=== PATIENT | female | born 1945 | race Caucasian/White ===

== ENCOUNTER → 2016-06-26 | Outpatient (CLI) | payer OTHER, MEDICARE ==
[~2016-06-26] MED LIST: ASPEC81 PO; ASPI81TA28 PO; ATOR-24 PO; CALC-478 PO; CALC500C70 PO; CHOL100010 PO; CITA40TA12 PO; CLOP1TAB15 PO; GABA-113 PO; GLIP-172 PO; GLIP5TAB11 PO; ISOS30TA3 PO; LPT40 PO; NTRSLP4 SL; PANT40TA PO; PLV75 PO; PRAV80TA2 PO; RANI300T2 PO; SULF-183 PO
[2016-06-26 13:02] LABS: ESTIMATED AVERAGE GLUCOSE 169 mg/dl; HA1C FLAG Normal (Normal)
[2016-06-26 13:15] LABS: RATIO 5.2 mcg/mg (0-30.0)
== END | disposition home or self-care (01) ==
LOC: C.LAB1850 10:21
PROVIDERS: ATTEND Nurse Practitioner Family
DX: E11.9 Type 2 diabetes mellitus without complications (principal)

== ENCOUNTER 2016-07-07 17:20 | Inpatient (IN) | payer OTHER, MEDICARE ==
[~2016-07-07] VITALS: Ht 165.1 cm; Wt 69.0 kg
[~2016-07-07 17:20] MED LIST changes: -ASPEC81 PO; -ASPI81TA28 PO; -ATOR-24 PO; -CALC500C70 PO; -CLOP1TAB15 PO; -GLIP-172 PO; -ISOS30TA3 PO; -LPT40 PO; -NTRSLP4 SL; -PANT40TA PO; -PLV75 PO; -SULF-183 PO
[2016-07-07] MEDS ORDERED: NITROGLYCERIN OINT 2% 1GM PACKET EXT STA (17:40)
[2016-07-07] MEDS ORDERED: ASPIRIN 81 MG CHEW PO STA (17:40)
[2016-07-07] MEDS ORDERED: ONDANSETRON INJ 2 MG/ML 2 ML VIAL IV STA (17:40)
--- NOTE | 2016-07-07 17:52 | EMERGENCY ROOM VISIT NOTE ---
History Report prepared by Arely: Margaux Blanton Under the Supervision of: Dr. Bud Torres M.D. First contact with patient: 17:37 Chief Complaint: ABDOMINAL PAIN Stated Complaint: ABDOMINAL PAIN, CARDIAC SX- PHYSICIAN REFERRED Nursing Triage Summary: c/o epigastric pain, dysuria and nasuea with weakness for the past 3.5 wks History of Present Illness The patient is a 70 year old female who presents to the Emergency Room with complaints of worsening chest pain and epigastric abdominal pain that began 3.5 weeks ago. She currently rates her discomfort as a 5/10 in severity, describing her discomfort as a tightness. The patient notes that she has a history of gastroparesis. She states that when her symptoms began she saw her GI doctor and her medications were changed. The patient states that her symptoms have not subsided since. Today, the patient states that she had to leave work early because she became shaky, her neck stiffened, and she developed body aches. The patient associates a pain in her upper back between her shoulder blades today. She additionally notes that she has chest pressure today, shortness of breath, and has been feeling weak. The patient's daughter notes that the patient has had intermittent left arm pain. The patient states that her symptoms have worsened with exertion. She states that she has had difficulty getting around due to her shortness of breath. The patient states that she has been feeling increasingly bloated in her abdomen. She reports normal bowel movements, but notes a decrease in appetite. The patient notes a surgical history of a hysterectomy and cholecystectomy. Source of History: patient, family (daughter) Onset: 3.5 weeks ago Position: chest, abdomen (epigastric) Symptom Intensity: 5/10 Quality: other (tightness) Timing: worsening Associated Symptoms: + SOB, + abdominal pain, + chest pain, + nausea, + weakness Note: Associated Symptoms: shaky, left arm pain, body aches, neck stiffness Review of Systems See HPI for pertinent positives & negatives. A total of 10 systems reviewed and were otherwise negative. Past Medical & Surgical Medical Problems: (1) Depression (2) Diabetes mellitus, type II (3) Dyslipidemia (4) Gastroparesis (5) GERD (gastroesophageal reflux disease) (6) History of Helicobacter pylori infection (7) Irritable bowel syndrome (8) Vitamin D deficiency Surgical Problems: (1) H/O esophagogastroduodenoscopy (2) Incise Spinal Cord Tract (3) S/P cholecystectomy (4) S/P colonoscopy (5) S/P hysterectomy Family History FH: cancer FATHER (colon CA) SISTER (colon CA) Social History Smoking Status: Never Smoker Drug Use: none Marital Status: Housing Status: lives with significant other Occupation Status: retired Current/Historical Medications Scheduled Vkrxhic-Ifelesksh-Jmxg (Calcium & Magnesium + Zin 334-134-5 mg), 1 TAB PO DAILY Cholecalciferol (Vitamin D), 1,000 UNITS PO DAILY Citalopram Hydrobromide (Celexa), 40 MG PO QPM Gabapentin (Neurontin), 300 MG PO 5XD Glipizide (Glucotrol), 2.5 MG PO QPM Pantoprazole (Protonix), 40 MG PO QAM Pravastatin Sodium (Pravastatin Sodium), 80 MG PO QPM Ranitidine (Zantac), 300 MG PO QPM Allergies Coded Allergies: Metoclopramide (Unverified Allergy, Severe, SEVERE WEAKNESS/DIZINESS, 07/07) Metformin (Verified Allergy, Unknown, 07/07/16) Rosuvastatin (Unverified Adverse Reaction, Unknown, muscle cramping, ) Physical Exam Vital Signs Date Time Temp Pulse Resp B/P Pulse Ox O2 Delivery O2 Flow Rate FiO2 07/07/16 19:30 84 14 94 07/07/16 19:00 80 17 94 07/07/16 18:14 83 07/07/16 18:04 97 Room Air 07/07/16 17:25 37.4 82 18 140/63 97 Physical Exam GENERAL: Patient is in no acute distress. HEENT: No acute trauma, normocephalic atraumatic, mucous membranes moist, no nasal congestion, no scleral icterus. NECK: No stridor, no adenopathy, no meningismus, trachea is midline. LUNGS: Clear to auscultation bilaterally, no wheeze, no rhonchi, breath sounds equal. HEART: Subtle systolic murmur with a regular rate and rhythm. ABDOMEN: Tender in the epigastrium. Soft, bowel sounds positive, no hernias, no peritonitis. EXTREMITIES: No cyanosis or edema, full range of motion of all the joints without pain or difficulty, no signs for acute trauma. NEUROLOGIC: Oriented x 3, no acute motor or sensory deficits, no focal weakness. SKIN: No rash, no jaundice, no diaphoresis. Medical Decision & Procedures ER Provider Diagnostic Interpretation: X-ray results as stated below per interpretation by me and the radiologist: SINGLE VIEW CHEST CLINICAL HISTORY: Atypical chest pain. FINDINGS: An AP, portable, upright chest radiograph is compared to chest x-ray and chest CT dated 11/12/2015. The examination is degraded by portable technique and patient rotation. The cardiomediastinal silhouette is unremarkable. A hiatal hernia is observed. There is mild atherosclerotic calcification of the thoracic aorta. Chronic interstitial thickening is similar to previous. No airspace consolidation, pleural effusion, or pneumothorax is seen. The skeletal structures are osteopenic. The bony thorax is grossly intact. Cholecystectomy clips are noted in the right upper quadrant. IMPRESSION: No acute cardiopulmonary abnormality. Electronically signed by: Bud Chirinos M.D. 07/07/2016 7:05 PM Dictated Date/Time: 07/07/2016 7:04 PM SINGLE VIEW CHEST CLINICAL HISTORY: Atypical chest pain. FINDINGS: An AP, portable, upright chest radiograph is compared to chest x-ray and chest CT dated 11/12/2015. The examination is degraded by portable technique and patient rotation. The cardiomediastinal silhouette is unremarkable. A hiatal hernia is observed. There is mild atherosclerotic calcification of the thoracic aorta. Chronic interstitial thickening is similar to previous. No airspace consolidation, pleural effusion, or pneumothorax is seen. The skeletal structures are osteopenic. The bony thorax is grossly intact. Cholecystectomy clips are noted in the right upper quadrant. IMPRESSION: No acute cardiopulmonary abnormality. Electronically signed by: Bud Chirinos M.D. 07/07/2016 7:05 PM Dictated Date/Time: 07/07/2016 7:04 PM Laboratory Results 07/07/16 18:11 07/07/16 18:11 Test 07/07/16 18:11 Red Blood Count 4.54 M/uL (4.2-5.4) Mean Corpuscular Volume 91.2 fL (80-100) Mean Corpuscular Hemoglobin 30.2 pg (25-34) Mean Corpuscular Hemoglobin Concent 33.1 g/dl (32-36) RDW Standard Deviation 47.9 fL (36.4-46.3) RDW Coefficient of Variation 14.2 % (11.5-14.5) Mean Platelet Volume 9.0 fL (7.4-10.4) Prothrombin Time 10.5 SECONDS (9.0-12.0) Prothromb Time International Ratio 1.0 (0.9-1.1) Activated Partial Thromboplast Time 27.9 SECONDS (21.0-31.0) Partial Thromboplastin Ratio 1.1 Anion Gap 6.0 mmol/L (3-11) Est Creatinine Clear Calc Drug Dose 45.8 ml/min Estimated GFR () 58.5 Estimated GFR (Non- 50.5 BUN/Creatinine Ratio 10.6 (10-20) Calcium Level 8.8 mg/dl (8.5-10.1) Total Bilirubin 0.3 mg/dl (0.2-1) Aspartate Amino Transf (AST/SGOT) 14 U/L (15-37) Alanine Aminotransferase (ALT/SGPT) 26 U/L (12-78) Alkaline Phosphatase 86 U/L (45-117) Troponin I < 0.015 ng/ml (0-0.045) Total Protein 7.7 gm/dl (6.4-8.2) Albumin 3.5 gm/dl (3.4-5.0) Globulin 4.2 gm/dl (2.5-4.0) Albumin/Globulin Ratio 0.8 (0.9-2) Lipase 112 U/L (73-393) Laboratory results reviewed by me. Medications Administered Medications (Trade) Dose Ordered Sig/Marlin Route Start Time Stop Time Status Last Admin Dose Admin Nitroglycerin (Nitroglycerin 2% Oint) 1 inch NOW STAT EXT 07/07/16 17:40 07/07/16 17:48 DC 07/07/16 18:17 1 INCH Aspirin (Aspirin Chew) 324 mg NOW STAT PO 07/07/16 17:40 07/07/16 17:48 DC 07/07/16 18:17 324 MG Ondansetron HCl (Zofran Inj) 4 mg NOW STAT IV 07/07/16 17:40 07/07/16 17:48 DC 07/07/16 18:17 4 MG Acetaminophen (Tylenol Tab) 1,000 mg NOW STAT PO 07/07/16 19:26 07/07/16 19:27 DC 07/07/16 19:41 1,000 MG ECG Indication: chest pain, SOB/dyspnea Rate (beats per minute): 80 Rhythm: normal sinus Findings: nonspecific-ST abn (diffuse), no ectopy, other (no evidence of acute IL) Comparison ECG Date: 01/03/15 Change: EKG Change: when compared to EKG done on 01/03/15, Nonspecific ST changes are new. ED Course 1736: The patient was evaluated in room C11B. A complete history and physical exam was performed. 1739: Ordered Zofran Inj 4 mg IV, Aspirin 324 mg PO, Nitroglycerin 1 inch ext. 1922: I reevaluated the patient and she is resting comfortably. I discussed the exam findings with her and I discussed the treatment plan. She verbalized complete understanding and agreement. She is going to be evaluated for further treatment. 1925: Ordered Tylenol Tab 1000 mg PO. 2019: I discussed the patients case with SERGO Wu. He is going to evaluate the patient for further treatment. Medical Decision The patient is a 70 year old female who presents to the ED with complaints of abdominal pain and chest pain. Differential diagnoses considered include cardiac ischemia, bowel obstruction, pancreatitis, biliary colic, gastritis or ulcer, CHF, IL, anemia, electrolyte imbalance.. There is no leukocytosis or concerning anemia. No significant electrolyte abnormality, kidney failure, hepatitis or pancreatitis. Chest x-ray does not show mediastinal widening, free air or pneumonia. EKG shows a sinus rhythm, no acute ischemia. Cardiac enzyme testing times one is not consistent with acute cardiac injury. The patient presents with weeks of exertional symptoms. She has already seen GI and is not improving. Her symptoms certainly may be cardiac. I do think further care in the hospital is warranted. The patient was given oral aspirin, IV Zofran and nitroglycerin paste. She was given oral Tylenol for a headache. She does feel improved. I talked to the patient and her family. I spoke with case management. The on- call hospitalist was consulted. Consults Time Called: 1915 Consulting Physician: SERGO Wu Returned Call: 2019 I discussed the patients case with SERGO Wu. He is going to evaluate the patient for further treatment. Impression Primary Impression: Precordial chest pain Additional Impressions: Shortness of breath Epigastric abdominal pain Scribe Attestation The scribe's documentation has been prepared under my direction and personally reviewed by me in its entirety. I confirm that the note above accurately reflects all work, treatment, procedures, and medical decision making performed by me. Departure Information Dispostion Being Evaluated By Hospitalist Khushboo Maddox M.D. (PCP) Problem Qualifiers
[2016-07-07] MEDS ORDERED: CHOL100010 PO (18:05)
[2016-07-07] MEDS ORDERED: PANT40TA PO (18:05)
[2016-07-07 18:27] LABS: HEMATOCRIT 41.4 % (37-47); MEAN CELL VOLUME 91.2 fL (80-100); MEAN CORPUSCULAR HEMOGLOBIN 30.2 pg (25-34); MEAN CORPUSCULAR HGB CONC 33.1 g/dl (32-36); PLATELET COUNT 184 K/uL (130-400); RED BLOOD COUNT 4.54 M/uL (4.2-5.4); WHITE BLOOD COUNT 7.17 K/uL (4.8-10.8)
[2016-07-07 18:39] LABS: BLOOD UREA NITROGEN 12 mg/dl (7-18); BUN/CREATININE RATIO 10.6 (10-20); CALCIUM 8.8 mg/dl (8.5-10.1); CARBON DIOXIDE 31 mmol/L (21-32); CHLORIDE 101 mmol/L (98-107); GLUCOSE 156 mg/dl (70-99); SODIUM 138 mmol/L (136-145)
[2016-07-07 18:41] LABS: PARTIAL THROMBOPLASTIN RATIO 1.1; PROTHROMBIN TIME (PATIENT) 10.5 SECONDS (9.0-12.0)
[2016-07-07 19:01] LABS: ALB/GLOB RATIO 0.8 (0.9-2); ALKALINE PHOSPHATASE 86 U/L (45-117); ALT/SGPT 26 U/L (12-78); AST/SGOT 14 U/L (15-37)
--- NOTE | 2016-07-07 19:07 | DIAGNOSTIC IMAGING REPORT ---
SINGLE VIEW CHEST CLINICAL HISTORY: Atypical chest pain. FINDINGS: An AP, portable, upright chest radiograph is compared to chest x-ray and chest CT dated 11/12/2015. The examination is degraded by portable technique and patient rotation. The cardiomediastinal silhouette is unremarkable. A hiatal hernia is observed. There is mild atherosclerotic calcification of the thoracic aorta. Chronic interstitial thickening is similar to previous. No airspace consolidation, pleural effusion, or pneumothorax is seen. The skeletal structures are osteopenic. The bony thorax is grossly intact. Cholecystectomy clips are noted in the right upper quadrant. IMPRESSION: No acute cardiopulmonary abnormality. Electronically signed by: Bud Chirinos M.D. 07/07/2016 7:05 PM Dictated Date/Time: 07/07/2016 7:04 PM
[2016-07-07] MEDS ORDERED: ACETAMINOPHEN 500 MG TAB PO STA (19:26)
[2016-07-07] MEDS ORDERED: MAGNESIUM HYDROXIDE SUSP 30 ML UDC PO PRN (20:30)
[2016-07-07] MEDS ORDERED: ALUMINUM/MAGNESIUM/SIMETH (MAALOX MAX) 30 ML UDC PO PRN (20:30)
[2016-07-07] MEDS ORDERED: MoRPHine SULFATE 2 MG/ML CARP IV PRN (20:30)
[2016-07-07] MEDS ORDERED: NITROGLYCERIN 0.4 MG SL PER TAB CHARGE SL PRN (20:30)
--- NOTE | 2016-07-07 21:22 | History and Physical ---
History & Physical Date & Time of Service: Jul 07, 2016 at 21:16 Chief Complaint: Precordial Chest Pain Primary Care Physician: Khushboo Gamez M.D. History of Present Illness Source: patient, family 70-year-old female with past medical history of depression, type 2 diabetes, gastroparesis, IBS, hyperlipidemia, H. pylori infection presented to the ER with complaints of worsening precordial chest pain. She complains about epigastric abdominal pain which started about 3.5 weeks ago and complains of worsening chest pressure, fluttering sensation in the heart, chills, general stiffness, shaking with shortness of breath on exertion. She has a history of gastroparesis and was started recently on Reglan and Protonix, and ranitidine but she stopped Reglan after using it for about 5 days due to side effects. She does complain of acid reflux but denied any melena, bright red bleeding per rectum. She denied any cough, fevers, dysuria. She has a history of a cholecystectomy done several years ago and has noted that she had decreased appetite and bloated sensation. Past Medical/Surgical History Medical Problems: (1) Depression Status: Chronic (2) Diabetes mellitus, type II Status: Chronic (3) Dyslipidemia Status: Chronic (4) Gastroparesis Status: Chronic (5) GERD (gastroesophageal reflux disease) Status: Chronic (6) History of Helicobacter pylori infection Status: Chronic (7) Irritable bowel syndrome Status: Chronic (8) Vitamin D deficiency Status: Chronic Surgical Problems: (1) H/O esophagogastroduodenoscopy Status: Chronic (2) Incise Spinal Cord Tract Status: Chronic (3) S/P cholecystectomy Status: Chronic (4) S/P colonoscopy Status: Chronic (5) S/P hysterectomy Status: Chronic Family History FH: cancer FATHER (colon CA) SISTER (colon CA) Social History Smoking Status: Never Smoker Drug Use: none Marital Status: Housing status: lives with significant other Occupational Status: retired Immunizations History of Influenza Vaccine: No History of Tetanus Vaccine?: Unknown History of Pneumococcal: No History of Hepatitis B Vaccine: Yes Multi-Drug Resistant Organisms History of MDRO: No Allergies Coded Allergies: Metoclopramide (Unverified Allergy, Severe, SEVERE WEAKNESS/DIZINESS, 07/07) Metformin (Verified Allergy, Unknown, 07/07/16) Rosuvastatin (Unverified Adverse Reaction, Unknown, muscle cramping, ) Home Medications Scheduled Poegrzo-Pwuuybshc-Sswk (Calcium & Magnesium + Zin 334-134-5 mg), 1 TAB PO DAILY Cholecalciferol (Vitamin D), 1,000 UNITS PO DAILY Citalopram Hydrobromide (Celexa), 40 MG PO QPM Gabapentin (Neurontin), 300 MG PO 5XD Glipizide (Glucotrol), 2.5 MG PO QPM Pantoprazole (Protonix), 40 MG PO QAM Pravastatin Sodium (Pravastatin Sodium), 80 MG PO QPM Ranitidine (Zantac), 300 MG PO QPM Review of Systems Constitutional: No chills, No fever Eyes: No worsening of vision ENT: No hearing loss Respiratory: + dyspnea on exertion, + shortness of breath, No cough, No sputum Cardiovascular: + chest pain Abdomen: + nausea, + pain (epigastric), No vomiting Musculoskeletal: No joint pain Genitourinary - Female: No dysuria, No urinary frequency Neurologic: No memory loss Psychiatric: No depression symptoms Endocrine: No fatigue Physical Exam Vital Signs Date Time Temp Pulse Resp B/P Pulse Ox O2 Delivery O2 Flow Rate FiO2 07/07/16 20:57 86 18 135/71 96 07/07/16 19:30 84 14 94 07/07/16 19:00 80 17 94 07/07/16 18:14 83 07/07/16 18:04 97 Room Air 07/07/16 17:25 37.4 82 18 140/63 97 General Appearance: WD/WN, no apparent distress Head: normocephalic Eyes: normal inspection ENT: normal ENT inspection, hearing grossly normal Neck: supple Respiratory/Chest: chest non-tender, lungs clear, normal breath sounds, no respiratory distress, no accessory muscle use Cardiovascular: regular rate, rhythm Abdomen/GI: normal bowel sounds, + tenderness (epigastric area) Extremities/Musculoskelatal: no pedal edema Neurologic/Psych: alert, normal mood/affect, oriented x 3 Diagnostics Laboratory Results Results Past 24 Hours Test 07/07/16 18:11 Range/Units White Blood Count 7.17 4.8-10.8 K/uL Red Blood Count 4.54 4.2-5.4 M/uL Hemoglobin 13.7 12.0-16.0 g/dL Hematocrit 41.4 37-47 % Mean Corpuscular Volume 91.2 80-100 fL Mean Corpuscular Hemoglobin 30.2 25-34 pg Mean Corpuscular Hemoglobin Concent 33.1 32-36 g/dl RDW Standard Deviation 47.9 36.4-46.3 fL RDW Coefficient of Variation 14.2 11.5-14.5 % Platelet Count 184 130-400 K/uL Mean Platelet Volume 9.0 7.4-10.4 fL Prothrombin Time 10.5 9.0-12.0 SECONDS Prothromb Time International Ratio 1.0 0.9-1.1 Activated Partial Thromboplast Time 27.9 21.0-31.0 SECONDS Partial Thromboplastin Ratio 1.1 Sodium Level 138 136-145 mmol/L Potassium Level 4.0 3.5-5.1 mmol/L Chloride Level 101 98-107 mmol/L Carbon Dioxide Level 31 21-32 mmol/L Anion Gap 6.0 3-11 mmol/L Blood Urea Nitrogen 12 7-18 mg/dl Creatinine 1.10 0.60-1.20 mg/dl Est Creatinine Clear Calc Drug Dose 45.8 ml/min Estimated GFR () 58.5 Estimated GFR (Non- 50.5 BUN/Creatinine Ratio 10.6 10-20 Random Glucose 156 70-99 mg/dl Calcium Level 8.8 8.5-10.1 mg/dl Total Bilirubin 0.3 0.2-1 mg/dl Aspartate Amino Transf (AST/SGOT) 14 15-37 U/L Alanine Aminotransferase (ALT/SGPT) 26 12-78 U/L Alkaline Phosphatase 86 45-117 U/L Troponin I < 0.015 0-0.045 ng/ml Total Protein 7.7 6.4-8.2 gm/dl Albumin 3.5 3.4-5.0 gm/dl Globulin 4.2 2.5-4.0 gm/dl Albumin/Globulin Ratio 0.8 0.9-2 Lipase 112 73-393 U/L Diagnostic Radiology SINGLE VIEW CHEST CLINICAL HISTORY: Atypical chest pain. FINDINGS: An AP, portable, upright chest radiograph is compared to chest x-ray and chest CT dated 11/12/2015. The examination is degraded by portable technique and patient rotation. The cardiomediastinal silhouette is unremarkable. A hiatal hernia is observed. There is mild atherosclerotic calcification of the thoracic aorta. Chronic interstitial thickening is similar to previous. No airspace consolidation, pleural effusion, or pneumothorax is seen. The skeletal structures are osteopenic. The bony thorax is grossly intact. Cholecystectomy clips are noted in the right upper quadrant. IMPRESSION: No acute cardiopulmonary abnormality. Electronically signed by: Bud Chirinos M.D. 07/07/2016 7:05 PM Dictated Date/Time: 07/07/2016 7:[address] abnormalities, 80 bpm Impression Assessment and Plan 70-year-old female with past medical history of depression, type 2 diabetes, gastroparesis, IBS, hyperlipidemia, H. pylori infection presented to the ER with complaints of worsening precordial chest pain with shortness of breath on exertion. She also seemed to have epigastric pain. 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 Y/N: Yes Risk Level: Moderate Given or contraindicated: Enoxaparin (Lovenox) Resident Tracking Resident Involvement: Resident Care Provided Care Provided: Adult [facility] Medicine Assessment and Plan Attending Addendum: I have physically seen and examined this patient, have directed their medical care, have supervised the medical residents activities, and agree with the H&P as noted above, with the following changes: NONE
[2016-07-07 21:25] VITALS: BP 121/71; PULSE 79; TEMP 37; O2SAT 94; Ht 165.1 cm; Wt 69.0 kg
[2016-07-07] MEDS ORDERED: IV FLUIDS COMPLETED PRN (22:00)
[2016-07-07] MEDS: CITALOPRAM 40 MG TAB PO SCH (22:11)
[2016-07-07] MEDS: RANITIDINE HCL 150 MG TAB PO SCH (22:11)
[2016-07-07] MEDS: PRAVASTATIN SOD 40 MG TAB PO SCH (22:11)
[2016-07-07] MEDS: ENOXAPARIN 40 MG/0.4 ML SYR SC SCH (22:12)
[2016-07-07 22:57] VITALS: BP 92/46; PULSE 66; TEMP 37; O2SAT 93
[2016-07-08] VITALS (8 sets, daily range): BP systolic 94–144; BP diastolic 53–80; PULSE 64–80; TEMP 36.7–37.8; O2SAT 92–97
[2016-07-08 02:51] LABS: HEMATOCRIT 37.4 % (37-47); MEAN CELL VOLUME 91.2 fL (80-100); MEAN CORPUSCULAR HGB CONC 32.9 g/dl (32-36); PLATELET COUNT 165 K/uL (130-400); WHITE BLOOD COUNT 7.73 K/uL (4.8-10.8)
[2016-07-08] MEDS ORDERED: GLUCOSE 40% GEL 15 GM TUBE PO PRN (06:15)
[2016-07-08] MEDS ORDERED: GLUCOSE 10 TABS/TUBE PO PRN (06:15)
[2016-07-08] MEDS ORDERED: GLUCAGON FOR INJ 1 MG VIAL SQ PRN (06:15)
[2016-07-08] MEDS ORDERED: DEXTROSE 50% 50 ML SYR IV PRN (06:15)
[2016-07-08] MEDS: INSULIN ASPART 100 UNITS/ML 3 ML PEN SC SCH ×4 (07:00→19:55)
[2016-07-08] MEDS: ONDANSETRON INJ 2 MG/ML 2 ML VIAL IV PRN ×2 (08:06→19:49)
--- NOTE | 2016-07-08 08:19 | Family Medicine Progress Note ---
Progress Note Date of Service Jul 08, 2016. Subjective Pt evaluation today including: conversation w/ patient Patient sitting in bed relatively comfortably. She denies CP or SOB of breath currently, but says that she felt a lot better after having received Zofran. She does state that the symptoms have otherwise been persistent over the last 3- 4 weeks, and were worse after meals and with walking. Patient is very active, walking 2-3 miles daily at baseline, but recently has been unable to walk a block secondary to discomfort and SOB. She also describes symptoms of dysuria, urgency, frequency, and foul smelling urine, which started as of yesterday morning. She is agreeable to provide a urine sample for analysis for UTI. Constitutional: No chills, No fever Respiratory: No cough, No shortness of breath Cardiovascular: No chest pain Abdomen: + pain, No GI bleeding, No constipation, No diarrhea, No nausea, No vomiting Female : + dysuria, + urinary frequency, No abnormal vaginal bleeding, No hematuria, No vaginal discharge Objective Vital Signs Date Time Temp Pulse Resp B/P Pulse Ox O2 Delivery O2 Flow Rate FiO2 07/08/16 07:28 36.9 64 22 128/72 94 Room Air 07/08/16 04:00 Room Air 07/08/16 03:53 36.8 74 16 94/53 96 Room Air 07/08/16 00:31 67 105/65 95 Room Air 07/07/16 23:59 Room Air 07/07/16 22:57 37.0 66 17 92/46 93 Room Air 07/07/16 21:25 37.0 79 18 121/71 94 Room Air 07/07/16 20:57 86 18 135/71 96 07/07/16 19:30 84 14 94 07/07/16 19:00 80 17 94 07/07/16 18:14 83 07/07/16 18:04 97 Room Air 07/07/16 17:25 37.4 82 18 140/63 97 Physical Exam General Appearance: WD/WN, no apparent distress Eyes: normal inspection ENT: hearing grossly normal, pharynx normal Neck: supple, no JVD Respiratory/Chest: lungs clear, normal breath sounds, no respiratory distress, no accessory muscle use Cardiovascular: regular rate, rhythm, no murmur Abdomen: normal bowel sounds, soft, + tenderness (epigastric) Extremities: normal inspection, no pedal edema, no calf tenderness Neurologic/Psychiatric: alert, normal mood/affect, oriented x 3 Skin: normal color, warm/dry, no rash Laboratory Results Results Past 24 Hours Test 07/08/16 00:00 07/08/16 02:35 07/08/16 06:23 07/08/16 10:40 Range/Units Urine Color DK YELLOW Urine Appearance CLOUDY CLEAR Urine pH 7.0 4.5-7.5 Urine Specific [place] 1.026 1.000-1.030 Urine Protein 1+ NEG Urine Glucose (UA) NEG NEG Urine Ketones NEG NEG Urine Occult Blood TRACE NEG Urine Nitrite NEG NEG Urine Bilirubin NEG NEG Urine Urobilinogen NEG NEG Urine Leukocyte Esterase LARGE NEG Urine WBC (Auto) >30 0-5 /hpf Urine RBC (Auto) 5-10 0-4 /hpf Urine Hyaline Casts (Auto) 1-5 0-5 /lpf Urine Epithelial Cells (Auto) 10-20 0-5 /lpf Urine Bacteria (Auto) NEG NEG Urine Yeast (Auto) NONE PRSENT White Blood Count 7.73 4.8-10.8 K/uL Red Blood Count 4.10 4.2-5.4 M/uL Hemoglobin 12.3 12.0-16.0 g/dL Hematocrit 37.4 37-47 % Mean Corpuscular Volume 91.2 80-100 fL Mean Corpuscular Hemoglobin 30.0 25-34 pg Mean Corpuscular Hemoglobin Concent 32.9 32-36 g/dl RDW Standard Deviation 47.6 36.4-46.3 fL RDW Coefficient of Variation 14.2 11.5-14.5 % Platelet Count 165 130-400 K/uL Mean Platelet Volume 9.0 7.4-10.4 fL Troponin I < 0.015 < 0.015 0-0.045 ng/ml Bedside Glucose 121 70-90 mg/dl Sodium Level 139 136-145 mmol/L Potassium Level 3.9 3.5-5.1 mmol/L Chloride Level 102 98-107 mmol/L Carbon Dioxide Level 32 21-32 mmol/L Anion Gap 5.0 3-11 mmol/L Blood Urea Nitrogen 10 7-18 mg/dl Creatinine 1.00 0.60-1.20 mg/dl Est Creatinine Clear Calc Drug Dose 46.4 ml/min Estimated GFR () 65.6 Estimated GFR (Non- 56.6 BUN/Creatinine Ratio 10.4 10-20 Random Glucose 131 70-99 mg/dl Calcium Level 8.6 8.5-10.1 mg/dl Test 07/08/16 11:12 07/08/16 16:07 07/08/16 19:52 Range/Units Bedside Glucose 124 103 179 70-90 mg/dl Microbiology Results 07/08/16 Urine Culture, Received Pending Assessment and Plan 70 year old female with type 2 diabetes, gastroparesis, IBS, hyperlipidemia, depression, H. pylori infection admitted with complaints of epigastric pain, chest tightness, nausea and shortness of breath on exertion. Precordial chest pain - Chest x-ray showed no acute process. EKG showed nonspecific ST changes, serial troponin negative. D-dimer negative. - Consulted cardiology and for stress echo tomorrow - Nitro PRN chest pain GERD/epigastric pain - Concern for bronchospasm from acid reflux. GI consulted- recs appreciated. - Continue Protonix 40 qAM and ranitidine 300mg qAM - Zofran 4mg PRN nausea - For EGD tomorrow UTI - UA positive for large amounts of leuks. Urine cultures pending. Empiric antibiotic commenced. - Bactrim DS (Day 1 of 3) Type 2 diabetes - Home glipizide held - Insulin sliding scale - Continue gabapentin QID 100mg @B/L/D and 200mg HS Hyperlipidemia - Continue pravastatin 80mg qPM Depression - Continue Celexa 40mg qPM DVT prophylaxis - Lovenox SC Code status: DO NOT RESUSCITATE Resident Physician Supervision Note: I interviewed and examined the patient. Discussed with Dr. Jordan and agree with findings and plan as documented in the note. Any exceptions or clarifications are listed here: None Documented By: Tone Mancuso epigastric pain, nausea, sob. constant for weeks vitals noted, nad, breathing unlabored. diffuse epigastric ttp no guarding or rebound. labs reviewed, cardiac enzymes negative troponin negative a/p epigastric pain/nausea - PUD spectrum >> motility spectrum >> other -anticipate EGD (was only recently started on PPI, prior to that chronic med was H2) -stable for med surg -await GI input late addendum - d/w dr moore - pt gave a very different hx to him that is much more c/w angina (see his consult note) --given conflicting hx, certainly will want to more definitively r/o unstable angina (stress echo and cardiology eval) then when/if negative will proceed w EGD tomorrow afternoon Continued [facility] stay due to: other Discharge planning: home Resident Tracking Resident Involvement: Resident Care Provided Care Provided: Adult Hospital Medicine
[2016-07-08] MEDS ORDERED: ACETAMINOPHEN 325 MG TAB PO STA (08:58)
[2016-07-08] MEDS: GABAPENTIN 100 MG CAP PO SCH ×5 (09:19→20:31)
[2016-07-08] MEDS: PANTOprazole SOD 40 MG TAB PO SCH (09:19)
[2016-07-08 11:28] LABS: BLOOD UREA NITROGEN 10 mg/dl (7-18); BUN/CREATININE RATIO 10.4 (10-20); CALCIUM 8.6 mg/dl (8.5-10.1); CARBON DIOXIDE 32 mmol/L (21-32); CHLORIDE 102 mmol/L (98-107); GLUCOSE 131 mg/dl (70-99); POTASSIUM 3.9 mmol/L (3.5-5.1); SODIUM 139 mmol/L (136-145)
[2016-07-08 13:42] LABS: URINE APPEARANCE CLOUDY (CLEAR); URINE BILIRUBIN NEG (NEG); URINE COLOR DK YELLOW; URINE NITRITE NEG (NEG); URINE SPECIFIC GRAVITY 1.026 (1.000-1.030); UROBILINOGEN NEG (NEG); ZZURINE CULT IF INDIC CATH YES
[2016-07-08 13:46] LABS: MANUAL MICROSCOPIC REQUIRED? NO; REVIEW REQ? YES
--- NOTE | 2016-07-08 19:18 | GASTROINTESTINAL CONSULTATION ---
DATE OF CONSULTATION: 07/08/2016 GASTROENTEROLOGY CONSULTATION NOTE CHIEF COMPLAINT: Chest pressure, reflux, shortness of breath, dyspnea on exertion, and history of gastroparesis. HISTORY OF PRESENT ILLNESS: Mrs. Cox is a 70-year-old white female who presents to the Emergency Room with an approximate 3-week history of chest pain, chest pressure, neck pain, left arm pain with exertion. The patient recalls that approximately 3-1/2 weeks ago, she began to experience an increased amount of reflux such that she had seen Dr. Fine primary care at [facility] and at [facility], at which time her reflux meds were adjusted. She initially was on Zantac 300 mg twice daily for many years and this controlled her symptoms. Medications were changed to include Protonix 40 mg at bedtime and 300 mg of ranitidine at bedtime. This did not provide any relief in symptoms. The patient describes that with exertion, the patient will have shortness of breath, an increased chest pressure, although occasionally can occur without it. There is also a component of nausea and epigastric discomfort when this occurs. The patient reports that several years ago she had H. pylori infection and was treated for this. She has also had prior upper endoscopy and gastric emptying scans which identified gastroparesis. It is unclear whether or not there were ulcers at the time of her endoscopy and H. pylori infection. The patient was also seen recently by Dr. Coronado who attempted a trial of Reglan; however, the patient became dizzy and did not like the side effect that it produced and then subsequently discontinued it after 4-5 days. The patient reports that her sugars are in good control on a small dose of glipizide and metformin. The patient denies any vomiting, hematemesis, coffee-ground emesis, melena or bright red blood per rectum. She had a prior cholecystectomy back in the 1970s. She reports an approximate 7-pound weight loss since these symptoms occurred. However, her sugars have not been in poor control. She has no history of COPD or chronic respiratory issues. PAST MEDICAL HISTORY: Significant for chronic depression, type 2 diabetes, dyslipidemia, gastroparesis, reflux disease, prior history of H. pyloric infection, irritable bowel syndrome, spinal cord surgery, hysterectomy with intact ovaries and colonoscopy. FAMILY HISTORY: Significant for father and sister with colon cancer. SOCIAL HISTORY: The patient denies tobacco or alcoholic beverages. She lives with a significant other, is retired and . Her of aplastic anemia. ALLERGIES: THE PATIENT IS ALLERGIC TO METOCLOPRAMIDE, WHICH PRODUCED WEAKNESS AND DIZZINESS; METFORMIN AND ROSUVASTATIN. CURRENT HOME MEDICATIONS: Include mag, calcium and zinc supplements; vitamin D, Celexa, gabapentin, Neurontin, glipizide, pantoprazole, pravastatin and ranitidine 300 mg at bedtime. REVIEW OF SYSTEMS: Otherwise noncontributory based on 14-point exam except for mentioned above. The patient denies any dysuria, hematuria, but did report a need to elevate the head of her bed. She does not report any breath sounds that are audible to her (wheezes). PHYSICAL EXAMINATION ON ADMISSION: VITAL SIGNS: She was afebrile at 37.4, heart rate 82, respirations 18, blood pressure 140/63, pulse ox 97% on room air. GENERAL: The patient is awake, alert and oriented x3. She is accompanied by her 3 daughters and grandson. She is resting comfortably in bed. HEENT: The sclerae are anicteric, conjunctiva moist. Oral mucosa moist. HEART: Normal S1, S2, without systolic ejection murmur. LUNGS: Clear to auscultation, although decreased breath sounds occurred throughout the lung costello, perhaps due to effort. There are no wheezes or stridors noted. ABDOMEN: Soft, mildly tender in the epigastrium. There is no rib/costal margin tenderness identified bilaterally. There are no abdominal masses or bruits. I do not appreciate hepatosplenomegaly. There is no evidence of ascites or shifting dullness. EXTREMITIES: Without clubbing, cyanosis or edema. RECTAL: Deferred at this time. LABORATORY STUDIES ON ADMISSION: White count 7.1, hemoglobin 13.7, MCV 91, platelets are 184. INR is 1.0. BUN and creatinine are 12 and 1.1, potassium is 4.0. LFTs are normal with AST 14, ALT 26, total bilirubin 0.3, alkaline phosphatase 86, initial troponin level was less than 0.015. Albumin 3.5 and lipase is 112. IMAGING DATA: Chest x-ray was no acute disease. EKG showed nonspecific ST-segment abnormalities at a rate of 80. IMPRESSION AND PLAN: The patient is a 70-year-old female with a history of type 2 diabetes for several years and reported good control at home. The patient had an abrupt change in her symptoms such that she experienced worsening of her reflux which is generally in excellent control on Zantac 300 mg twice daily. The patient describes a pattern of fairly consistent exertional dyspnea and chest pressure with similar events when climbing steps. There is also a worsening of her heartburn and a component of nausea and with these symptoms, there is a pattern of jaw pain which she has not previously experienced and perhaps some vague left arm discomfort. She did receive, by her history a nitroglycerin tablet and Zofran and did have relief in her symptoms, although which agent actually provided the relief is unclear. Differential diagnosis certainly may include reflux disease, although it is unclear why her symptoms have worsened as she reports that her sugars have been in very good control and she has not gained weight. The gastroparesis may be contributing to some reflux if this has worsened, although why this would be so it is unclear. I am concerned about the description of the patient's chest pressure, dyspnea on exertion along with the jaw pain and arm pressure. PLAN AND RECOMMENDATIONS: I made the following recommendations: I believe it is reasonable for the patient to undergo an upper endoscopy to exclude ulcers, evidence of active esophagitis, retained gastric contents and to assess for H. pylori. However, I also feel that it would be prudent for the patient to undergo some form of coronary artery assessment either with stress testing, stress echo or alternatives, given that the patient is diabetic and the new onset of description of the symptoms. The patient's family had offered Dr. Aguero as a cardiology consult and I did discuss this with Dr. Mancuso who will arrange for a stress test and cardiac evaluation. If everyone is agreeable, then will plan tentatively for an upper endoscopy tomorrow afternoon. The patient should be maintained on n.p.o., continue on PPI therapy and continue the cardiac rule out, although I think that active myocardial injury is not likely at this time. All questions answered for the patient and her family. Patient/family wishes to see Dr Aguero from Cardiology Thank you for allowing me to participate in this patient's care. SANDEE
[2016-07-08] MEDS ORDERED: SULFAMETHOXAZOLE/TRIMETHOPRIM DS 800/160MG TAB PO ONE (19:38)
[2016-07-08] MEDS: RANITIDINE HCL 150 MG TAB PO SCH (20:31)
[2016-07-08] MEDS: CITALOPRAM 40 MG TAB PO SCH (20:31)
[2016-07-08] MEDS: ENOXAPARIN 40 MG/0.4 ML SYR SC SCH (20:31)
[2016-07-08] MEDS: PRAVASTATIN SOD 40 MG TAB PO SCH (20:31)
[2016-07-08] MEDS: SODIUM CHLORIDE 0.9% 1000ML 1,000 ML IV SCH (22:32)
[2016-07-08] MEDS: ACETAMINOPHEN 325 MG TAB PO PRN (22:33)
[2016-07-08] MEDS: PHENAZOPYRIDINE HCL 100 MG TAB PO PRN (22:34)
[2016-07-09] MEDS: INSULIN ASPART 100 UNITS/ML 3 ML PEN SC SCH ×4 (06:30→20:22)
[2016-07-09 07:12] VITALS: BP 131/71; PULSE 65; TEMP 36.4; O2SAT 91
[2016-07-09] MEDS: SODIUM CHLORIDE 0.9% 1000ML 1,000 ML IV SCH ×2 (07:42→17:48)
--- NOTE | 2016-07-09 07:50 | Family Medicine Progress Note ---
Progress Note Date of Service Jul 09, 2016. Subjective Pt evaluation today including: conversation w/ patient, conversation w/ family , physical exam, chart review, lab review Patient sitting comfortably in bed. She denies CP or SOB of breath currently, but says that last night her symptoms were awful, particularly after eating dinner- she had had worsening epigastric tenderness, chest tightness, nausea. In addition, she was having jaw pain, and though it has dulled this morning, she states that it has constantly been present in the last few weeks. She is still experiencing significant dysuria, requiring Pyridium for relief. Her energy levels are still low. Constitutional: No chills, No fever Respiratory: No cough, No shortness of breath Cardiovascular: + chest pain, No PND, No edema, No orthopnea, No palpitations Abdomen: + nausea, + pain, No GI bleeding, No constipation, No diarrhea, No vomiting Female : + dysuria, + urinary frequency, No abnormal vaginal bleeding, No hematuria, No vaginal discharge Objective Vital Signs Date Time Temp Pulse Resp B/P Pulse Ox O2 Delivery O2 Flow Rate FiO2 07/09/16 07:12 36.4 65 20 131/71 91 Room Air 07/09/16 00:00 Room Air 07/08/16 23:08 37.8 79 16 125/74 92 Room Air 07/08/16 21:07 36.7 75 18 144/80 95 Room Air 07/08/16 19:33 36.8 76 20 122/67 92 Room Air 07/08/16 16:00 Room Air 07/08/16 15:38 37.1 80 20 107/58 97 Room Air 07/08/16 12:00 Room Air 07/08/16 11:29 36.7 73 20 133/80 92 Room Air 07/08/16 08:00 Room Air Physical Exam General Appearance: WD/WN, no apparent distress Eyes: normal inspection ENT: hearing grossly normal Neck: supple, no adenopathy Respiratory/Chest: lungs clear, normal breath sounds, no respiratory distress, no accessory muscle use, + pertinent finding (Shallow breaths secondary to discomfort) Cardiovascular: regular rate, rhythm, no murmur Abdomen: normal bowel sounds, soft, + tenderness (epigastric) Extremities: normal inspection, no pedal edema, no calf tenderness Neurologic/Psychiatric: alert, normal mood/affect, oriented x 3 Skin: normal color, warm/dry, no rash Laboratory Results Results Past 24 Hours Test 07/08/16 19:52 07/09/16 07:34 07/09/16 11:34 07/09/16 16:32 Range/Units Bedside Glucose 179 112 105 91 70-90 mg/dl Assessment and Plan 70 year old female with type 2 diabetes, gastroparesis, IBS, hyperlipidemia, depression, H. pylori infection admitted with complaints of epigastric pain, chest tightness, nausea and shortness of breath on exertion. Precordial chest pain - Chest x-ray showed no acute process. EKG showed nonspecific ST changes, serial troponin negative. D-dimer negative. - For exercise stress echo tomorrow - Nitro PRN chest pain Epigastric pain - Concern for bronchospasm from acid reflux. GI consulted-recs appreciated. Endoscopy 07/09 showed normal upper GI except for previously know hiatal hernia and non-bleeding duodenal diverticulum. Discontinued recently added Protonix given no addition pain relief and no indications pain is secondary to worsened GERD. - Continue ranitidine 300mg qAM - Zofran 4mg PRN nausea - Started erythromycin 250mg TID 30min before meals for gastric pro-motility UTI - UA positive for large amounts of leuks. Urine cultures pending. Empiric antibiotic commenced. - Bactrim DS (Day 1 of 3) Type 2 diabetes - Home glipizide held - Insulin sliding scale - Continue gabapentin QID 100mg @B/L/D and 200mg HS Hyperlipidemia - Continue pravastatin 80mg qPM Depression - Continue Celexa 40mg qPM DVT prophylaxis - Lovenox SC Code status: DO NOT RESUSCITATE Continued [facility] stay due to: inadequate oral pain control Discharge planning: home Resident Tracking Resident Involvement: Resident Care Provided Care Provided: Adult Hospital Medicine
[2016-07-09] MEDS: GABAPENTIN 100 MG CAP PO SCH ×5 (08:00→20:22)
[2016-07-09] MEDS: SULFAMETHOXAZOLE/TRIMETHOPRIM DS 800/160MG TAB PO SCH ×3 (09:00→20:24)
[2016-07-09] MEDS: PHENAZOPYRIDINE HCL 100 MG TAB PO PRN ×2 (11:46→20:40)
--- NOTE | 2016-07-09 13:36 | History & Physical Bridge Note ---
H&P Re-Evaluation Bridge Note: I have examined the patient, reviewed the History & Physical and in the interval since the performance of the History & Physical I have noted the following changes of clinical significance: No changes noted EGD today- [facility]
--- NOTE | 2016-07-09 13:58 | GI REPORT ---
Procedure Date: 07/09/2016 1:47 PM Procedure: Upper GI endoscopy Indications: Gastro-esophageal reflux disease, Unexplained chest pain Medicines: Propofol per Anesthesia Complications: No immediate complications. Estimated blood loss: None. Estimated Blood Loss: Estimated blood loss: none. Procedure: Pre-Anesthesia Assessment: - Prior to the procedure, a History and Physical was performed, and patient medications and allergies were reviewed. The patient's tolerance of previous anesthesia was also reviewed. The risks and benefits of the procedure and the sedation options and risks were discussed with the patient. All questions were answered, and informed consent was obtained. Prior Anticoagulants: The patient has taken no previous anticoagulant or antiplatelet agents. ASA Grade Assessment: II - A patient with mild systemic disease. After reviewing the risks and benefits, the patient was deemed in satisfactory condition to undergo the procedure. After obtaining informed consent, the endoscope was passed under direct vision. Throughout the procedure, the patient's blood pressure, pulse, and oxygen saturations were monitored continuously. The scope was introduced through the mouth, and advanced to the second part of duodenum. The upper GI endoscopy was accomplished without difficulty. The patient tolerated the procedure well. Findings: The examined esophagus was normal. A medium-sized hiatus hernia was found. The proximal extent of the gastric folds (end of tubular esophagus) was 31 cm from the incisors. The hiatal narrowing was 35 cm from the incisors. The Z-line was 31 cm from the incisors. The entire examined stomach was normal. The examined duodenum was normal. A non-bleeding diverticulum was found in the second part of the duodenum. The cardia and gastric fundus were normal on retroflexion. Retained gastric contents are not identified on this exam. Impression: - Normal esophagus. - Medium-sized hiatus hernia. - Normal stomach. - Normal examined duodenum. - Non-bleeding duodenal diverticulum. - No specimens collected. Recommendation: - [facility]. - Advance diet as tolerated. - Cardiac workup - Continue present medications. MD Martin Arora MD 07/09/2016 1:56:40 PM This report has been signed electronically. Note Initiated On: 07/09/2016 1:47 PM I attest to the content of the Intraoperative Record and orders documented therein, exceptions below
--- NOTE | 2016-07-09 14:37 | Anesthesiology Progress Note ---
Anesthesia Post Op Note Date & Time Jul 09, 2016 at 14:36 Vital Signs Pain Intensity: 0 Vital Signs Past 12 Hours Date Time Temp Pulse Resp B/P Pulse Ox O2 Delivery O2 Flow Rate FiO2 07/09/16 14:28 67 20 111/56 95 Room Air 07/09/16 14:13 70 20 115/59 96 Room Air 07/09/16 13:58 68 20 105/40 95 Mask 10 07/09/16 13:19 36.7 65 18 122/53 95 Room Air 07/09/16 08:00 Room Air 07/09/16 07:12 36.4 65 20 131/71 91 Room Air Notes Mental Status: alert / awake / arousable, participated in evaluation Pt Amnestic to Procedure: Yes Nausea / Vomiting: adequately controlled Pain: adequately controlled Airway Patency, RR, SpO2: stable & adequate BP & HR: stable & adequate Hydration State: stable & adequate Anesthetic Complications: no major complications apparent
[2016-07-09] MEDS: ACETAMINOPHEN 325 MG TAB PO PRN (15:17)
[2016-07-09 15:28] VITALS: BP 118/58; PULSE 66; TEMP 36.6; O2SAT 92
[2016-07-09] MEDS: PANTOprazole SOD 40 MG TAB PO SCH (15:29)
[2016-07-09] MEDS ORDERED: PROPOFOL IV EMULSION 10 MG/ML 20 ML VIAL IV ONE (15:36)
[2016-07-09] MEDS ORDERED: LIDOCAINE HCL 2% 2 ML VIAL (20MG/ML) ONE (15:36)
[2016-07-09] MEDS: ERYTHROMYCIN ETHYLSUCC SUSP 200 MG/5 ML 100 ML BTL PO SCH (17:53)
[2016-07-09] MEDS: RANITIDINE HCL 150 MG TAB PO SCH (20:23)
[2016-07-09] MEDS: CITALOPRAM 40 MG TAB PO SCH (20:23)
[2016-07-09] MEDS: PRAVASTATIN SOD 40 MG TAB PO SCH (21:06)
[2016-07-09] MEDS: ENOXAPARIN 40 MG/0.4 ML SYR SC SCH (21:09)
[2016-07-09 22:58] VITALS: BP 122/68; PULSE 59; TEMP 36.9; O2SAT 95
[2016-07-10] VITALS (10 sets, daily range): BP systolic 109–138; BP diastolic 58–72; PULSE 59–68; TEMP 36.5–37; O2SAT 93–98
[2016-07-10] MEDS: ONDANSETRON INJ 2 MG/ML 2 ML VIAL IV PRN (00:12)
[2016-07-10] MEDS ORDERED: PHENAZOPYRIDINE HCL 100 MG TAB PO STA (01:27)
[2016-07-10] MEDS: SODIUM CHLORIDE 0.9% 1000ML 1,000 ML IV SCH (05:11)
[2016-07-10 06:04] LABS: HEMATOCRIT 38.9 % (37-47); MEAN CELL VOLUME 90.7 fL (80-100); MEAN CORPUSCULAR HEMOGLOBIN 29.1 pg (25-34); MEAN CORPUSCULAR HGB CONC 32.1 g/dl (32-36); PLATELET COUNT 170 K/uL (130-400); RED BLOOD COUNT 4.29 M/uL (4.2-5.4); WHITE BLOOD COUNT 6.26 K/uL (4.8-10.8)
[2016-07-10 06:45] LABS: CREATININE 0.97 mg/dl (0.60-1.20)
--- NOTE | 2016-07-10 06:52 | Family Medicine Progress Note ---
Progress Note Date of Service Jul 10, 2016. Subjective Pt evaluation today including: conversation w/ patient, physical exam, chart review, lab review Patient says that she is is feeling significantly better after her catheterization. Her SOB, nausea and jaw pain have improved. She is still having epigastric tenderness, but no where near the severity in which she was having it prior to the cath. Her GERD symptoms are still present to some degree after having food. She is still having significant dysuria, however during her admission and nearly 3 days of NPO, she has only received sporadic dosing. Constitutional: No chills, No fever, No sweats Respiratory: No shortness of breath Cardiovascular: No chest pain, No edema, No palpitations Abdomen: + pain, No nausea, No vomiting Female : + dysuria, + urinary frequency Objective Vital Signs Date Time Temp Pulse Resp B/P Pulse Ox O2 Delivery O2 Flow Rate FiO2 07/10/16 00:00 Room Air 07/09/16 22:58 36.9 59 20 122/68 95 Room Air 07/09/16 20:01 Room Air 07/09/16 16:00 Room Air 07/09/16 15:28 36.6 66 20 118/58 92 Room Air 07/09/16 14:28 67 20 111/56 95 Room Air 07/09/16 14:13 70 20 115/59 96 Room Air 07/09/16 13:58 68 20 105/40 95 Mask 10 07/09/16 13:19 36.7 65 18 122/53 95 Room Air 07/09/16 08:00 Room Air 07/09/16 07:12 36.4 65 20 131/71 91 Room Air Physical Exam General Appearance: WD/WN, no apparent distress Eyes: normal inspection ENT: hearing grossly normal Neck: supple Respiratory/Chest: lungs clear, normal breath sounds, no respiratory distress, no accessory muscle use Cardiovascular: regular rate, rhythm, no murmur Abdomen: normal bowel sounds, soft, + tenderness (epigatric) Extremities: normal inspection, no pedal edema, no calf tenderness, + pertinent finding (compression wrap around right wrist) Neurologic/Psychiatric: alert, normal mood/affect, oriented x 3 Skin: normal color, warm/dry, no rash Assessment and Plan 70 year old female with type 2 diabetes, gastroparesis, IBS, hyperlipidemia, depression, H. pylori infection admitted with complaints of epigastric pain, chest tightness, nausea and shortness of breath on exertion. Precordial chest pain - Chest x-ray showed no acute process. EKG showed nonspecific ST changes, serial troponin negative. D-dimer negative. Stress echo showed long 98% stenosis with sequential 40% lesion of LAD on coronary angiogram. Patient catheterized and ZAHRA placed. - Started on aspirin 81mg daily, clopidogrel 75mg daily and atorvastatin 40mg daily - Plans for cardiac rehab - Nitro PRN chest pain Epigastric pain - Concern for bronchospasm from acid reflux. GI consulted-recs appreciated. Endoscopy 07/09 showed normal upper GI except for previously know hiatal hernia and non-bleeding duodenal diverticulum. Discontinued recently added Protonix given no addition pain relief and no indications pain is secondary to worsened GERD. Gastric pro-motility, erythromycin started but then discontinued once cardiac cause found. - Continue ranitidine 300mg qAM - Zofran 4mg PRN nausea UTI - UA positive for large amounts of leuks. Urine cultures show multiple organisms. Empiric antibiotic commenced. - Continue course of Bactrim DS with plans to continue until 07/12 - Continue pyridium 100mg TID - Plans to see PCP Wednesday if no significant improvement in symptoms Type 2 diabetes - Home glipizide held - Insulin sliding scale - Continue gabapentin QID 100mg @B/L/D and 200mg HS Hyperlipidemia - Continue pravastatin 80mg qPM Depression - Continue Celexa 40mg qPM DVT prophylaxis - Lovenox SC Code status: DO NOT RESUSCITATE Continued [facility] stay due to: other Discharge planning: home Resident Tracking Resident Involvement: Resident Care Provided Care Provided: Adult Hospital Medicine
[2016-07-10 07:50] LABS: BUN/CREATININE RATIO 10.8 (10-20); CALCIUM 8.7 mg/dl (8.5-10.1); CREATININE 0.97 mg/dl (0.60-1.20); POTASSIUM 3.8 mmol/L (3.5-5.1)
[2016-07-10] MEDS: INSULIN ASPART 100 UNITS/ML 3 ML PEN SC SCH ×4 (07:59→20:59)
[2016-07-10] MEDS: ERYTHROMYCIN ETHYLSUCC SUSP 200 MG/5 ML 100 ML BTL PO SCH ×3 (08:00→11:44)
[2016-07-10] MEDS: GABAPENTIN 100 MG CAP PO SCH ×6 (08:00→19:43)
[2016-07-10] MEDS: SULFAMETHOXAZOLE/TRIMETHOPRIM DS 800/160MG TAB PO SCH ×3 (08:00→19:42)
--- NOTE | 2016-07-10 10:52 | EXERCISE STRESS ECHO ---
*NOTICE TO RECEIVING CONSTITUTION PARTY AGENCY This information is strictly Confidential and protected under [place] law. [place] law prohibits you from making any further disclosure of this information unless further disclosure is expressly permitted by the written consent of the person to whom it pertains or is authorized by law. A general authorization for the release of medical or other information is not sufficient for this purpose. Hospital accepts no responsibility if the information is made available to any other person, INCLUDING THE PATIENT. Interpretation Summary * Name: URIEL BOLAND Study Date: 07/10/2016 07:52 AM BP: 148/59 mmHg * Patient Location: .MS2W\S\W260\S\1 HR: 62 * : 1945 (M/d/yyy) Gender: Female Height: 65 in * Age: 70 yrs Ethnicity: [place] Weight: 148 lb * Ordering Physician: Tone Mancuso * Referring Physician: Khushboo Gamez * Performed By: Margaux Gooden RDCS * * Reason For Study: CHEST PAIN * BSA: 1.7 m2 * -- Conclusions -- * Stress Echo: * 1. Abnormal stress echo at 83% MPHR, suggesting distal LAD ischemia. * 2. Abnormal exercise ECG at 83% MPHR. 1 - [address] depression in leads II, III, aVF. ST segments returned to near baseline by 6 min 15 seconds into recovery. * 3. No arrhythmia. * 4. Appropriate blood pressure response to exercise. * 5. No chest pain reported however study was terminated due to shortness of breath. * 6. Poor exercise tolerance. * 7. Technically difficult study, enhanced with IV Definity. * 8. Dr. Mancuso made aware of findings. * ECHO: * 1. Normal left ventricular size and systolic function. EF 55-60%. No regional wall motion abnormalities At baseline. Mild concentric left ventricular hypertrophy. No significant diastolic dysfunction. * 2. No significant valvular abnormalities. * 3. Normal estimated right ventricular systolic pressure; RVSP 34 mmHg. Procedure Details * ECHOEX, CPT #14996 * A contrast injection of Definity was performed to improve assessment of LV function. * Contrast was injected into an intravenous site in the left arm. * One vial of Definity ultrasound contrast was diluted in normal saline to a total volume of 10 ml. A total of '4' ml of solution was administered during imaging. * Lot # [id number] of Definity utilized for procedure. * Expiration date MAY 09. * The attending nurse who injected the contrast agent was KARMEN GRIFFIN RN. Left Ventricle * Normal left ventricular size and systolic function. EF 55-60%. No regional wall motion abnormalities At baseline. Mild concentric left ventricular hypertrophy. No significant diastolic dysfunction. * Following exercise, the distal inferior wall and distal septal wall segments become hypokinetic. There is a small apical area of akinesis at peak exercise. Other wall segments appear to augment appropriately. Overall LV systolic function becomes more hyperdynamic. Right Ventricle * The right ventricle is normal in size and function. * The right ventricular systolic function is normal as assessed by tricuspid annular plane systolic excursion (TAPSE) (normal >1.5 cm). Atria * The left atrial size is normal. * Right atrial size is normal. * There is no evidence of atrial septal defect, but resolution does not allow assessment for a patent foramen ovale. Mitral Valve * The mitral valve leaflets appear normal. There is no evidence of stenosis, fluttering, or prolapse. * There is trace mitral regurgitation. Tricuspid Valve * The tricuspid valve anatomy is normal. * There is no tricuspid stenosis. * There is mild tricuspid regurgitation. Aortic Valve * The aortic valve is trileaflet. * The aortic valve is normal in structure and function. * No hemodynamically significant valvular aortic stenosis. * Trace aortic regurgitation. Pulmonic Valve * The pulmonary valve is inadequately visualized, but the Doppler data is adequate for interpretation. * There is no significant pulmonary regurgitation. Great Vessels * The aortic root is normal size. * Ascending aorta of normal dimension * Aortic arch of normal dimension. * Normal IVC size and inspiratory collapse. Pericardium * There is no pericardial effusion. Stress Parameters * Sinus rhythm 67 bpm. Nonspecific T-wave abnormality. * 1 - [address] depression in leads II, III, aVF. ST segments returned to near baseline by 6 min 15 seconds into recovery. * Rest heart rate was '62' BPM. * Rest blood pressure was '148/59' * Maximum heart rate achieved was 125 bpm. * Maximum heart rate was 83 % of maximum age-predicted heart rate. * Maximum blood pressure was '181/56' * Total exercise time was '3:49' * Maximum exercise MET level achieved was '5.50' METS * Maximum treadmill speed was '2.50' miles per hour. * Maximum treadmill elevation was '12.00'% grade. * Exercise was terminated due to 'shortness of breath' * Normal blood pressure response to exercise. MMode 2D Measurements and Calculations IVSd 1.2 cm IVSs 1.7 cm LVIDd 4.1 cm LVIDs 2.8 cm LVPWd 1.2 cm LVPWs 1.8 cm IVS/LVPW 0.99 FS 32.7 % EDV(Teich) 74.9 ml ESV(Teich) 28.8 ml EF(Teich) 61.6 % EDV(cubed) 69.7 ml ESV(cubed) 21.3 ml EF(cubed) 69.5 % % IVS thick 35.1 % % LVPW thick 48.4 % LV mass(C)d 179.5 grams LV mass(C)dI 103.2 grams/m\S\2 LV mass(C)s 187.4 grams LV mass(C)sI 107.7 grams/m\S\2 SV(Teich) 46.1 ml SI(Teich) 26.5 ml/m\S\2 SV(cubed) 48.4 ml SI(cubed) 27.8 ml/m\S\2 Ao root diam 2.5 cm Ao root area 4.7 cm\S\2 LA dimension 4.1 cm asc Aorta Diam 2.1 cm LA/Ao 1.7 LVAd ap4 26.4 cm\S\2 LVLd ap4 7.5 cm EDV(MOD-sp4) 77.6 ml EDV(sp4-el) 78.9 ml LVAs ap4 15.0 cm\S\2 LVLs ap4 6.1 cm ESV(MOD-sp4) 31.8 ml ESV(sp4-el) 31.2 ml EF(MOD-sp4) 58.9 % EF(sp4-el) 60.4 % LVAd ap2 24.9 cm\S\2 LVLd ap2 7.2 cm EDV(MOD-sp2) 73.1 ml EDV(sp2-el) 73.0 ml LVAs ap2 15.0 cm\S\2 LVLs ap2 6.3 cm ESV(MOD-sp2) 32.3 ml ESV(sp2-el) 30.3 ml EF(MOD-sp2) 55.8 % EF(sp2-el) 58.5 % LVLd %diff -4.54 % EDV(MOD-bp) 76.2 ml LVLs %diff 2.7 % ESV(MOD-bp) 32.5 ml EF(MOD-bp) 57.4 % SV(MOD-sp4) 45.7 ml SI(MOD-sp4) 26.3 ml/m\S\2 SV(MOD-sp2) 40.7 ml SI(MOD-sp2) 23.4 ml/m\S\2 SV(MOD-bp) 43.8 ml SI(MOD-bp) 25.2 ml/m\S\2 SV(sp4-el) 47.7 ml SI(sp4-el) 27.4 ml/m\S\2 SV(sp2-el) 42.8 ml SI(sp2-el) 24.6 ml/m\S\2 Doppler Measurements and Calculations MV E max rogelio 94.1 cm/sec MV A max rogelio 59.7 cm/sec MV E/A 1.6 MV dec time 0.23 sec Ao V2 max 143.9 cm/sec Ao max PG 8.3 mmHg Ao max PG (full) 5.2 mmHg LV V1 max PG 3.1 mmHg LV V1 max 87.8 cm/sec TV E max rogelio 62.1 cm/sec TR max rogelio 279.6 cm/sec RVSP(TR) 34.3 mmHg RAP systole 3.0 mmHg
[2016-07-10] MEDS ORDERED: ASPIRIN 325 MG ECTAB PO STA (12:36)
--- NOTE | 2016-07-10 13:17 | CARDIOLOGY CONSULTATION ---
DATE OF CONSULTATION: 07/10/2016 TIME: 12:29 p.m. CONSULTING PHYSICIAN: Dr. Mancuso. REASON FOR CONSULTATION: Abnormal stress test. HISTORY OF PRESENT ILLNESS: Ms. Cox is a pleasant 70-year-old female with history significant for type 2 diabetes, gastroparesis, and dyslipidemia, who presented to [facility] on 07/07/2016 with chest pain. She describes 2 different chest discomforts. The 1st she describes as acid reflux and burning substernally that radiates into her neck. It felt like prior acid reflux symptoms. She took ranitidine without any relief. She then started taking Tums and it has improved her symptoms. The trigger for this symptom was eating. It was nonexertional. She then developed chest tightness/pressure. She points a very lower portion of her chest and epigastric area. It is uncomfortable to wear a bra due to the discomfort. It is accompanied by shortness of breath and at times, it radiated to her jaw. It has been constant for 1.5 weeks. It has not resolved throughout that entire time; however, did improve after getting nitroglycerin and Zofran as she was also experiencing some nausea upon presentation. This symptom is also nonexertional. She states that it is actually worse while sitting down, but otherwise has no specific trigger and no alleviating factor that she has been able to identify. This symptom is not related to food. Because of the symptoms, she was evaluated by Dr. Morgan. He evaluated her on 07/07/2016. Dr. Morgan then performed an EGD on 07/09/2016, which demonstrated a medium sized hiatal hernia, but otherwise normal stomach and duodenum. There was a nonbleeding diverticulum in the second part of the duodenum. Another symptom she has experienced over the past 3 weeks is dyspnea with exertion. She states that up until 3 weeks ago, she was walking 1.5 miles to 3 miles on a daily basis. She states that she is very active. She did this exercise without exertional symptoms such as chest pain or shortness of breath. For the past 3 weeks, however, her exercise tolerance has dramatically decreased. She is now able to walk only approximately half a mile before she experienced significant dyspnea. She also describes a general weakness/fatigue feeling with exercise. Climbing a flight of stairs typically had been easy for her to do; however, recently, she has been experiencing significant dyspnea while climbing 1 flight of stairs. She tried cleaning her kitchen floor the other day, which is typically an easy chore for her; however, once again, she had significant dyspnea and then felt weak and had to sit down. This is a dramatic change in her exercise tolerance. She has never had a cardiac catheterization. She denies syncope, near syncope, palpitations, orthopnea or edema. She did have some nausea, but no vomiting. She had some dysuria and is on treatment for UTI. She is on antibiotic therapy for a UTI. She denies melena, hematochezia, hematuria, or other bleeding issues. REVIEW OF SYSTEMS: As above and review of systems is otherwise negative. PAST MEDICAL HISTORY: 1. Type 2 diabetes for greater than 10 years. 2. Dyslipidemia. 3. Gastroparesis. 4. GERD. 5. H. pylori infection in the past. 6. Depression. 7. Irritable bowel syndrome. 8. Status post hysterectomy. 9. Status post cholecystectomy. 10. Vitamin D deficiency. 11. Hiatal hernia. HOME MEDICATIONS: Include Protonix 40 mg daily, pravastatin 80 mg daily, Neurontin 300 mg 5 times daily, glipizide 2.5 mg daily, and Zantac 300 mg daily. Please see HPI for Please see H\T\P for full list. INPATIENT MEDICATIONS: Include Lovenox 40 mg subQ q. 24 hours each evening, pravastatin 80 mg daily, ranitidine 300 mg q.p.m., Bactrim 1 tab q. 12 hours, gabapentin, and Celexa 40 mg daily. ALLERGIES: SHE DID NOT TOLERATE CRESTOR. SHE ALSO HAS ALLERGIES/INTOLERANCES TO METFORMIN AND METOCLOPRAMIDE. SOCIAL HISTORY: Denies tobacco, alcohol or drug abuse. She is a . She lives with her xavi Reilly, who presented to the bedside. She has 3 daughters and 6 grandchildren. She has asked me to contact her daughter Katie Escalona, who works at the wound clinic. She also has a daughter that works at [employer] with the CT department. 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 FAMILY HISTORY: No known premature CAD. PHYSICAL EXAMINATION: VITAL SIGNS: Temperature 36.9 degrees, heart rate 64 beats per minute, respiratory rate 16, blood pressure 109/58 mmHg, and oxygen saturation 93% on room air. Most recent weight 67.4 kg. GENERAL: No acute distress. She is alert and oriented. HEENT: Anicteric sclerae. NECK: No appreciable JVD. No bruits. Normal carotid upstrokes bilaterally. CARDIAC EXAMINATION: PMI was not displaced. There was no ventricular heave. Regular, normal S1 and S2. No audible murmurs, rubs or gallops. LUNGS: Clear to auscultation bilaterally without wheezes, rales or rhonchi. ABDOMEN: Soft and nondistended. There is epigastric tenderness. No palpable mass. Normoactive bowel sounds. EXTREMITIES: 2+ radial pulses bilaterally. Brice's test okay. 2+ right femoral pulse. 2+ dorsalis pedis pulses bilaterally. No palpable cords. No cyanosis or pitting edema. PSYCHIATRIC: Affect appears appropriate. DIAGNOSTIC STUDIES: ECG on presentation demonstrated sinus rhythm at 80 beats per minute. Nonspecific T-wave abnormality. Stress echo performed earlier today reviewed. Abnormal stress echo with 83% MPHR, suggesting distal LAD ischemia. Abnormal exercise ECG with 1-[address] depression in leads 2, 3, and aVF. No arrhythmia. Poor exercise tolerance, exercising 3 minute and 49 seconds on a standard Fernie protocol. Baseline echo demonstrated normal LV systolic function, wall motion, and size. EF 55%-60%. Mild LVH. No significant valvular abnormalities. RVSP 34 mmHg. Chest x-ray image on presentation personally reviewed. No infiltrate. Radiology interpretation. No acute cardiopulmonary abnormality identified. ASSESSMENT AND PLAN: 1. Dyspnea with exertion: Dyspnea with exertion and decreased exercise tolerance is concerning for ischemic heart disease, especially with abnormal stress echo and abnormal stress ECG. Recommended diagnostic coronary angiography and PCI, if deemed appropriate. She was made aware that CT surgery is not available at this facility. She has asked that I discuss this further with her daughter, Katie Escalona, who also believes that this procedure should be performed today. Continue n.p.o. Aspirin therapy will be ordered. 2. Abnormal stress echo and ECG: Ischemic heart disease was suggested on stress echo and stress ECG. That coupled with her risk factors and decreased exercise tolerance if concerning for ischemic heart disease. Cardiac catheterization risks and benefits were discussed in detail. She was made aware that a CT surgery is not available at this facility. Plan as above. If she is found to have ischemic heart disease, would recommend a trial of atorvastatin in place of pravastatin for high intensity statin therapy. 3. Dyslipidemia: Continue current statin therapy for now, but if she is found to have ischemic heart disease, would suggest high intensity statin therapy. She did not tolerate Crestor, but would try atorvastatin. 4. Chest pain: She describes 2 different chest pains. The heartburn type symptoms were relieved with Tums and occurred with eating and likely do correlate with acid reflux. The other chest pain appears actually more of an epigastric tenderness. This is not likely cardiac in nature as it lasted constantly for 1.5 weeks with negative troponins. Her chest pain syndromes are less likely related to ischemic heart disease; however, her dyspnea with exertion is more concerning for ischemic heart disease. She has been evaluated by gastroenterology. 5. Disposition: Cardiac catheterization planned for later today. Dr. Mancuso was contacted and the patient care was communicated. Highly complex medical issues. Thank you for allowing me to participate in care of Ms. Cox. Sincerely,
[2016-07-10] MEDS ORDERED: NiCARDipine HCL INJ 2.5 MG/ML 10 ML AMP ONE (14:22)
[2016-07-10] MEDS ORDERED: FENTANYL CITRATE INJ 50 MCG/1 ML 2 ML VIAL ONE ×2 (14:22→15:21)
[2016-07-10] MEDS ORDERED: MIDAZOLAM HCL 1 MG/ML 2ML VIAL ONE ×2 (14:22→14:59)
[2016-07-10] MEDS ORDERED: NITROGLYCERIN/D5W 100MCG/ML 20ML SYR ONE (14:23)
[2016-07-10] MEDS ORDERED: HEPARIN SOD (PORCINE) 1000 UNIT/ML 10 ML VIAL ONE (14:23)
--- NOTE | 2016-07-10 14:33 | Procedure Note ---
Pre-Mod Sedation Assessment General Date of Moderate Sedation: Jul 10, 2016. Vital Signs: Vital Signs Past 12 Hours Date Time Temp Pulse Resp B/P Pulse Ox O2 Delivery O2 Flow Rate FiO2 07/10/16 08:15 Room Air 07/10/16 08:14 36.9 64 16 109/58 93 Room Air Review Cardiovascular: regular rate, rhythm Abdomen: soft Lungs: lungs clear Pre-Sedation Airway Assessment Oral Cavity: WNL Short Thick Neck: No Hx of Sleep Apnea: No Smoking Status: Never Smoker Procedure Planning Contraindications-for Mod Sed: None Yes Notes The planned sedation has been discussed with the patient and consent obtained. I have identified the patient, determined the appropriateness of sedation and have assessed the patient immediately prior to the procedure. All medicine(s) and interventions are by my order.
--- NOTE | 2016-07-10 15:33 | Procedure Note ---
Post-Mod Sedation Assessment General Date of Moderate Sedation Jul 10, 2016. Vital Signs: Vital Signs Past 12 Hours Date Time Temp Pulse Resp B/P Pulse Ox O2 Delivery O2 Flow Rate FiO2 07/10/16 08:15 Room Air 07/10/16 08:14 36.9 64 16 109/58 93 Room Air Review - Discharge Criteria Vital Signs Stable: Yes Alert/Oriented/Conversant: No (still sedated for PCI) Returned to Baseline Mental St: No (Still sedated for PCI) Nausea Absent/Minimal: Yes Pain/Discomfort/Absent/Minimal: Yes Normal/Baseline Respirations: Yes Active Bleeding?: No
--- NOTE | 2016-07-10 15:44 | Cardiac Catheterization ---
Procedure Note Procedure Date Jul 10, 2016. Pre-Procedure Diagnosis Positive Stress Test AUC Score 9 Post-Procedure Diagnosis Severe CAD, Elevated Intracardiac Pressures Procedure(s) Performed Coronary Angiography, Left Heart Cath Rectangular Tank Cooper Dr. Farley Segment Producer(s) Apurva Estimated Blood Loss < 20 ml Medication(s) Fentanyl, Heparin, Nicardipine, Nitroglycerin, Versed, Lidocaine 1% Summary of Findings Coronary angiography: 1. Left main coronary artery: The LMCA has no angiographic evidence of CAD. 2. Left anterior descending: The LAD is large and wraps around the apex. Mid LAD, just beyond a high diagonal, long 98% stenosis with sequential 40% lesion. APARNA 3 flow. The remainder of the LAD was without significant CAD. There is a very small caliber D2 and a very small caliber D3. Large septal forensic analyst. 3. Circumflex: The circumflex is a large caliber vessel. Mid circumflex 50%. Large OM1, without significant CAD. 4. Right coronary artery: The RCA is large and dominant. Proximal RCA 30%. Mid RCA 30%. Distal RCA 30%. No significant CAD within the posterior lateral branch or PDA. There are faint right to left collaterals Left heart catheterization: 1. Left ventriculography was not performed as patient had echocardiogram done earlier today. 2. Mildly elevated LVEDP; 15 mmHg. 3. No significant aortic stenosis. Procedural details: 1. Right radial artery was easily cannulated with a slender sheath. A 5 Emir[place] JL 3.5 diagnostic catheter was used for selective coronary angiography of the left main coronary artery. She experienced spasm within the right upper extremity. Nitroglycerin sublingual was given as well as nicardipine. This improved her symptoms. A 4 [place] JR4 diagnostic catheter was used for selective coronary angiography of the RCA, without resistance. Impression: 1. Severe CAD involving the mid LAD. 2. Nonobstructive CAD involving LAD, circumflex, and RCA. 3. No aortic stenosis. 4. Mildly elevated LVEDP. Plan: 1. Interventional Cardiology, Dr. Wells, plans on attempting PCI of LAD. Hemodynamics Rest Ao: 148/69 Final Ao: 139/68 LV: 142/9/15 Recommendations PCI without planned CABG Specimens None Radiation Exposure (mGy) 807 mGy. Fluoro time 3.7 min. Contrast (mls) 25 ml Visipaque Procedural Complication(s) None Disposition Remains in cath lab manager for PCI. [facility] Data Cardiac Status Clinical evaluation leading to the procedure CAD Presntation: Positive Stress Test Anginal Classification: CCS III Heart Failure: No Cardiogenic Shock w/in 24Hrs: No Cardiac Arrest w/in 24Hrs: No Imaging studies past 6 months: Yes Stress studies past 6 months: Yes Standard Exercise Stress Test: Yes - Positive, Risk/Extent of Ischemia (High) Stress Echocardiogram: Yes - Positive, Risk/Extent of Ischemia (High) Stress Testing w/SPECT MPI: No Cardiac CTA: No Coronary Anatomy Dominant: Right Left Main (% Stenosis): Normal LAD (% Stenosis): Mid (98% followed by 40%) D1 (% Stenosis): Normal D2 (% Stenosis): Normal D3 (% Stenosis): Normal Circumflex (% Stenosis): Mid (50%) OM1 (% Stenosis): Normal RCA (% Stenosis): Proximal (30%), Mid (30%), Distal R PDA (% Stenosis): Normal R PL1 (% Stenosis): Normal Ramus (% Stenosis): Normal Left Ventricular Angiography EF (%): n/a Diagnostic Physician's Name: Galo Farley MD Status: Elective Closure Device Percutaneous Entry Location: Radial Closure Device: Radial Band (after PCI) Recommendations: PCI without planned CABG PCI Indication: + Stress Test
[2016-07-10] MEDS ORDERED: CLOPIDOGREL BISULFATE 300 MG TAB PO ONE (15:46)
[2016-07-10] MEDS ORDERED: NITROGLYCERIN 0.4 MG SL PER TAB CHARGE SL PRN (16:00)
[2016-07-10] MEDS ORDERED: ACETAMINOPHEN 325 MG TAB PO PRN (16:00)
[2016-07-10] MEDS ORDERED: ONDANSETRON INJ 2 MG/ML 2 ML VIAL IV PRN (16:00)
[2016-07-10] MEDS ORDERED: SODIUM CHLORIDE 0.9% 1000ML 1,000 ML IV SCH (16:00)
--- NOTE | 2016-07-10 16:06 | Cardiac Catheterization ---
Procedure Note Procedure Date Jul 10, 2016. Pre-Procedure Diagnosis Positive Stress Test AUC Score 7 Post-Procedure Diagnosis Severe CAD, Successful PCI Procedure(s) Performed Drug Eluting Stent Route Delivery Service Driver Dr. Wells Racing Driver(s) Apurva Estimated Blood Loss 20 Medication(s) Fentanyl, Heparin, Nicardipine, Nitroglycerin Summary of Findings Indication: Positive stress test/Angina Access: 6Fr slender right radial artery Catheters: 5Fr EBU 3.5 Findings: For full details of coronary angiography see cath report by Dr. Farley from earlier today. Patient found to have 95% early-mid LAD focal stenosis. Decision made to proceed with PCI -- PCI -- Antithrombotic therapy: Heparin Procedure: LM cannulated with EBU 3.5 guide BMW wire passed across lesion into distal vessel LAD lesion predilated with 2.0 compliant balloon Dilated lesion stented with 2.75 x 15 Xience ZAHRA Stent post-dilated with 3.0 noncompliant balloon IC vasodilators administered for spasm Post procedure APARNA 3 flow, stent well expanded with minimal residual stenosis and no apparent cardiac complications. Arterial Closure: TR Band Summary: 1. 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 Continue dual-antiplatelet therapy with ASA/Clopidogrel for 1 year Start high dose statin -- switched to atorvastatin 40mg Consult cardiac Rehab Hemodynamics Rest Ao: 146/69/102 Final Ao: 112/60/82 LV: --- Recommendations PCI without planned CABG Specimens None Radiation Exposure (mGy) 1711 Contrast (mls) 115 Fluids (cc crystalloids) 130 Drains None Anesthesia Moderate (15:07 - 15:46) Procedural Complication(s) None Disposition PCU [facility] Data Cardiac Status Clinical evaluation leading to the procedure CAD Presntation: Positive Stress Test Anginal Classification: CCS III Heart Failure: No, NYHA Class: CCS I Cardiogenic Shock w/in 24Hrs: No Cardiac Arrest w/in 24Hrs: No Imaging studies past 6 months: Yes Stress studies past 6 months: Yes Stress Echocardiogram: Yes - Positive, Risk/Extent of Ischemia (High) Stress Testing w/SPECT MPI: No Cardiac CTA: Yes Coronary Anatomy Dominant: Right LAD (% Stenosis): Mid (98) Diagnostic Physician's Name: Galo Farley MD Closure Device Percutaneous Entry Location: Radial Closure Device: Radial Band Recommendations: PCI without planned CABG Lesion Segment Name: Mid LAD Culprit Artery: No Stenosis Prior to Rx (%): 98 Chronic Total Occlusion: No IVUS: No FFR: No Pre-Procedure APARNA Flow: 3 Previously Treated Lesion: No Lesion Complexity: Non-High/Non-C Lesion Length (mm): 12 Thrombus Present: No Bifurcation Lesion: No Guidewire Across Lesion: Yes Guidewire: Stenosis Post-Procedure (%): 0 Post-Procedure APARNA Flow: 3 Device(s) Deployed: Yes Intraprocedure Events Significant Dissection: No Perforation: No
[2016-07-10] MEDS ORDERED: PHENAZOPYRIDINE HCL 100 MG TAB PO PRN (18:45)
[2016-07-10] MEDS: RANITIDINE HCL 150 MG TAB PO SCH (19:41)
[2016-07-10] MEDS: CITALOPRAM 40 MG TAB PO SCH (19:42)
[2016-07-10] MEDS: ENOXAPARIN 40 MG/0.4 ML SYR SC SCH (21:17)
[2016-07-11 00:20] VITALS: O2SAT 94
[2016-07-11 04:15] VITALS: O2SAT 94
[2016-07-11 04:35] VITALS: BP 117/54; PULSE 76; TEMP 37; O2SAT 95
[2016-07-11 05:48] LABS: BASO % 0.4 %; BASO ABS # 0.02 K/uL (0-0.2); COMPLETE YES; EOS % 2.7 %; HEMATOCRIT 37.1 % (37-47); IG% 0.2 %; LYMPH % 40.4 %; LYMPH ABS # 2.13 K/uL (1.2-3.4); MEAN CORPUSCULAR HEMOGLOBIN 28.9 pg (25-34); MEAN CORPUSCULAR HGB CONC 32.1 g/dl (32-36); MEAN PLATELET VOLUME 8.6 fL (7.4-10.4); NEUT % 48.3 %; PLATELET COUNT 152 K/uL (130-400); RED BLOOD COUNT 4.12 M/uL (4.2-5.4); WHITE BLOOD COUNT 5.27 K/uL (4.8-10.8)
[2016-07-11 06:22] LABS: BUN/CREATININE RATIO 10.4 (10-20); CALCIUM 8.3 mg/dl (8.5-10.1); CREATININE 0.9 mg/dl (0.60-1.20); POTASSIUM 3.8 mmol/L (3.5-5.1)
[2016-07-11 07:28] VITALS: BP 119/50; PULSE 72; TEMP 36.9; O2SAT 93
[2016-07-11] MEDS: INSULIN ASPART 100 UNITS/ML 3 ML PEN SC SCH ×2 (08:20→12:22)
[2016-07-11] MEDS: GABAPENTIN 100 MG CAP PO SCH ×2 (08:24→12:24)
[2016-07-11] MEDS: SULFAMETHOXAZOLE/TRIMETHOPRIM DS 800/160MG TAB PO SCH (08:24)
[2016-07-11] MEDS ORDERED: CLOPIDOGREL BISULFATE 75 MG TAB PO SCH (09:00)
[2016-07-11] MEDS ORDERED: ASPIRIN 81 MG ECTAB PO SCH (09:00)
[2016-07-11] MEDS ORDERED: ATORVASTATIN 40 MG TAB PO SCH (09:00)
--- NOTE | 2016-07-11 10:38 | Cardiology Follow-Up ---
Subjective Subjective Date of Service: Jul 11, 2016. Pt evaluation today including: conversation w/ patient, physical exam, chart review, lab review, review of studies, review of inpatient medication list Additional Details: Feeling well this morning. No chest pain. No other new complaints. Minimal pain at access site. Telemetry reviewed - sinus rhythm, no events. Problem List Medical Problems: (1) Epigastric abdominal pain Status: Acute (2) Herpes zoster Status: Acute (3) Precordial chest pain Status: Acute (4) Right-sided back pain Status: Acute (5) Shortness of breath Status: Acute Review of Systems Constitutional: No chills, No fever, No sweats Respiratory: No shortness of breath Cardiac: No chest pain, No edema, No palpitations Abdomen: + pain, No nausea, No vomiting Heme: No abnormal bleeding/bruising Endo: No fatigue Skin: No rash Objective Vital Signs Last Vital Signs Documentation Date Time Temp Pulse Resp B/P Pulse Ox O2 Delivery O2 Flow Rate FiO2 07/11/16 08:00 Room Air 07/11/16 07:28 36.9 72 18 119/50 93 07/09/16 13:58 10 Physical Exam: General Appearance: no apparent distress ENT: hearing grossly normal Neck: supple Respiratory/Chest: lungs clear, normal breath sounds, no respiratory distress, no accessory muscle use Cardiovascular: regular rate, rhythm, no edema, no murmur Abdomen: normal bowel sounds, soft, + tenderness (epigatric) Extremities: normal inspection, no pedal edema, no calf tenderness, + pertinent finding (Minimal ecchymosis/tenderness at right radial aretery access site. Intact distal pulses, sensation.) Neurologic/Psychiatric: alert, normal mood/affect, oriented x 3 Skin: normal color, warm/dry, no rash Assessment and Plan 1. CAD s/p PCI with ZAHRA to mid LAD 2. Type 2 DM 3. Dyslipidemia 4. Epigastric discomfort Patient doing well post procedure. From cardiac standpoint OK for discharge today. Continue dual-antiplatelet therapy with ASA/Clopidogrel for 1 year. High dose statin Follow-up with me in 2-3 weeks. Will arrange cardiac rehab as an outpatient Continued [facility] stay due to: other Discharge planning: home Medications: Current Inpatient Medications Medications (Trade) Dose Ordered Sig/Marlin Route Start Time Stop Time Status Last Admin Dose Admin Enoxaparin Sodium (Lovenox Inj) 40 mg Q24H SC 07/07/16 22:00 08/06/16 21:59 07/10/16 21:17 40 MG Acetaminophen (Tylenol Tab) 650 mg Q4H PRN PO 07/07/16 20:30 08/06/16 20:29 07/09/16 15:17 650 MG Al Hydrox/Mg Hydrox/Simethicone (Maalox Max Susp) 15 ml Q4H PRN PO 07/07/16 20:30 08/06/16 20:29 Magnesium Hydroxide (Milk Of Magnesia Susp) 30 ml Q12H PRN PO 07/07/16 20:30 08/06/16 20:29 Morphine Sulfate (MoRPHine SULFATE INJ) 2 mg Q30M PRN IV 07/07/16 20:30 07/21/16 20:29 Citalopram Hydrobromide (celeXA TAB) 40 mg QPM PO 07/07/16 21:00 08/06/16 20:59 07/10/16 19:42 40 MG Ranitidine HCl (zANTac TAB) 300 mg QPM PO 07/07/16 21:00 08/06/16 20:59 07/10/16 19:41 300 MG Miscellaneous (Iv Fluids Completed) 1 ea PRN PRN N/A 07/07/16 22:00 07/07/17 21:59 Insulin Aspart (novoLOG ASPART) SLIDING SCALE G... ACHS SC 07/08/16 07:00 08/07/16 06:59 07/10/16 11:49 1 UNITS Glucose (Glucose 40% Gel) 15-30 GRAMS 15 GRAMS... UD PRN PO 07/08/16 06:15 08/07/16 06:14 Glucose (Glucose Chew Tab) 4-8 Tablets 4 Tabl... UD PRN PO 07/08/16 06:15 08/07/16 06:14 Dextrose (Dextrose 50% 50ML Syringe) 25-50ML OF 50% DW IV FOR... UD PRN IV 07/08/16 06:15 08/07/16 06:14 Glucagon (Glucagon Inj) 1 mg UD PRN SQ 07/08/16 06:15 08/07/16 06:14 Gabapentin (Neurontin Cap) 100 mg QID@0800,1200,1600,1800 PO 07/08/16 09:00 08/07/16 08:59 07/11/16 08:24 100 MG Gabapentin (Neurontin Cap) 100 mg HS PO 07/08/16 21:00 08/07/16 20:59 07/10/16 19:43 100 MG Trimethoprim/ Sulfamethoxazole (Septra Ds 800/ 160MG Tab) 1 tab Q12 PO 07/09/16 09:00 07/14/16 08:59 07/11/16 08:24 1 TAB Aspirin (Ecotrin Tab) 81 mg QAM PO 07/11/16 09:00 08/10/16 08:59 07/11/16 08:23 81 MG Nitroglycerin (Nitrostat Tab) 0.4 mg UD PRN SL 07/10/16 16:00 08/09/16 15:59 Ondansetron HCl (Zofran Inj) 4 mg Q6H PRN IV 07/10/16 16:00 08/09/16 15:59 Clopidogrel Bisulfate (plAVix TAB) 75 mg QAM PO 07/11/16 09:00 08/10/16 08:59 07/11/16 08:24 75 MG Atorvastatin Calcium (Lipitor Tab) 40 mg QAM PO 07/11/16 09:00 08/10/16 08:59 07/11/16 08:24 40 MG Acetaminophen (Tylenol Tab) 650 mg Q4H PRN PO 07/10/16 16:00 08/09/16 15:59 Phenazopyridine HCl (Pyridium Tab) 100 mg TID PRN PO 07/10/16 18:45 08/09/16 18:44 Lab Results: 07/11/16 05:24 Red Blood Count 4.12, Mean Corpuscular Volume 90.0, Mean Corpuscular Hemoglobin 28.9, Mean Corpuscular Hemoglobin Concent 32.1, Mean Platelet Volume 8.6, Neutrophils (%) (Auto) 48.3, Lymphocytes (%) (Auto) 40.4, Monocytes (%) (Auto) 8.0, Eosinophils (%) (Auto) 2.7, Basophils (%) (Auto) 0.4, Neutrophils # (Auto) 2.55, Lymphocytes # (Auto) 2.13, Monocytes # (Auto) 0.42, Eosinophils # (Auto) 0.14, Basophils # (Auto) 0.02 07/11/16 05:24 Test 07/10/16 15:22 07/11/16 05:24 07/11/16 06:22 Kaolin Activated Coagulation Time 229 SECONDS (94-140) White Blood Count 5.27 K/uL (4.8-10.8) Red Blood Count 4.12 M/uL (4.2-5.4) Hemoglobin 11.9 g/dL (12.0-16.0) Hematocrit 37.1 % (37-47) Mean Corpuscular Volume 90.0 fL (80-100) Mean Corpuscular Hemoglobin 28.9 pg (25-34) Mean Corpuscular Hemoglobin Concent 32.1 g/dl (32-36) Platelet Count 152 K/uL (130-400) Mean Platelet Volume 8.6 fL (7.4-10.4) Neutrophils (%) (Auto) 48.3 % Lymphocytes (%) (Auto) 40.4 % Monocytes (%) (Auto) 8.0 % Eosinophils (%) (Auto) 2.7 % Basophils (%) (Auto) 0.4 % Neutrophils # (Auto) 2.55 K/uL (1.4-6.5) Lymphocytes # (Auto) 2.13 K/uL (1.2-3.4) Monocytes # (Auto) 0.42 K/uL (0.11-0.59) Eosinophils # (Auto) 0.14 K/uL (0-0.5) Basophils # (Auto) 0.02 K/uL (0-0.2) RDW Standard Deviation 45.8 fL (36.4-46.3) RDW Coefficient of Variation 13.9 % (11.5-14.5) Immature Granulocyte % (Auto) 0.2 % Immature Granulocyte # (Auto) 0.01 K/uL (0.00-0.02) Anion Gap 5.0 mmol/L (3-11) Est Creatinine Clear Calc Drug Dose 55.1 ml/min Estimated GFR () 74.0 Estimated GFR (Non- 63.9 BUN/Creatinine Ratio 10.4 (10-20) Calcium Level 8.3 mg/dl (8.5-10.1) Bedside Glucose 107 mg/dl (70-90)
[2016-07-11 11:11] VITALS: BP 118/58; PULSE 67; TEMP 36.7; O2SAT 93
[2016-07-11] MEDS ORDERED: LPT40 PO (12:20)
[2016-07-11] MEDS ORDERED: PLV75 PO (12:20)
[2016-07-11] MEDS ORDERED: SULF-183 PO (12:20)
[2016-07-11] MEDS ORDERED: ASPEC81 PO (12:20)
[2016-07-11] MEDS ORDERED: NTRSLP4 SL (12:20)
--- NOTE | 2016-07-11 12:24 | Discharge Instructions ---
Discharge Instructions Date of Service Jul 11, 2016. Admission Reason for Admission: Precordial Chest Pain; Epigastric Abdominal Pain Discharge Discharge Diagnosis / Problem: atypical angina (heart related symptoms from poor blood flow) Discharge Goals Goal(s): Diagnostic testing, Therapeutic intervention Activity Recommendations Activity Limitations: per Instructions/Follow-up section . Instructions / Follow-Up Instructions / Follow-Up in the end, your symptoms were due to very atypical angina. angina is heart related symptoms caused by poor blood flow to the heart wall. you did not have a heart attack, but given the duration of your symptoms, and how tight the blockage was, it's wonderfully surprising that you did not. remember what your symptoms felt like - while they were atypical compared to most people and certainly atypical compared to "textbook," people tend to have the same kinds of symptoms when they have angina in the future -- so while we hope you never experience this again, if you have similar symptoms in the future it would be a sign to get checked out for heart blockages right away. Home Care: * Take your medications exactly as directed. Don't skip doses. * Remember that recovery after a heart cath takes time. Plan to rest for at lease 4-8 weeks while you recover. Then return to normal activity when your doctor says it's okay. * Ask your doctor about joining a heart rehabilitation program. * Tell your doctor if you are feeling depressed. Feelings of sadness are common after a heart attack, but it is important that you speak to someone if you are feeling overwhelmed by these feelings. * If you are having chest pain, call 911 for an ambulance. Do NOT drive yourself to the hospital. * Ask your family members to learn CPR. * Learn to take your own blood pressure and pulse. Keep a record of your results. Ask your doctor when you should seek emergency medical attention. He or she will tell you which blood pressure reading is dangerous. Lifestyle Changes: * Maintain a healthy weight. Get help to lose any extra pounds. * Cut back on salt. * Limit canned, dried, packaged, and fast foods. * Don't add salt to your food. * Season foods with herbs instead of salt when you cook. * Break the smoking habit. Enroll in a stop-smoking program to improve your chances of success. * Limit fatty foods. * Check your lipid levels regularly. (Your doctor can show you how to do this.) * Build up your activity according to your doctor's recommendation. * Ask your doctor when it's okay to resume sexual activity. * Tell your doctor about any erectile dysfunction (ED) medication you are taking. Some ED medications are not safe if you take certain heart medications. * Try to manage stress. Follow Up: It is important for you to keep your follow up appointments with your medical provider. Current Hospital Diet Patient's current hospital diet: Diabetes Type 2 Diet Discharge Diet Recommended Diet: Diabetes Type 2 Diet Pending Studies Studies pending at discharge: no Laboratory Results Hemoglobin A1c Test 06/26/16 10:27 Range/Units Estimated Average Glucose 169 mg/dl Hemoglobin A1c 7.5 H 4.5-5.6 % Medical Emergencies . Who to Call and When: Medical Emergencies: If at any time you feel your situation is an emergency, please call 911 immediately. Call 911 immediately or go to your nearest Emergency Room if you experience any of the following: Warning Signs and Symptoms of a Heart Attack * Chest pain that is not relieved by medication * Shortness of breath . Non-Emergent Contact Non-Emergency issues call your: Primary Care Provider, Pneumatic Drum Sander . . "Provider Documentation" section prepared by Tone Mancuso. . Optical Design Engineer Recommendations Optical Design Engineer Recommendations: ACTIVITY RECOMMENDATIONS: Excess manipulation of the wrist should be avoided for the next 24-48 hours. * No lifting over 2 pounds (approximately a 1/2 gallon of milk) with the utilized arm for 24 hours. * No strenuous activity such as bowling or tennis for 3 days. * Keep the site of the procedure covered with a bandage for 24 hours. *You may shower the day after the procedure. Do not take a tub bath or submerge the puncture site in water for the next 3 days. *Do not operate any motorized equipment for 3 days. SPECIAL CARE INSTRUCTIONS: The site may be slightly bruised and sore following your procedure. Should any of the following occur, contact the DrRuthann who performed your procedure. 1. Redness/inflammation, swelling, chills, or fever, or colored drainage at procedure site within 3-7 days after your procedure. 2. Coldness, discoloration, ongoing numbness, severe pain, or swelling. Expect mild tingling of hand and tenderness at the puncture site for up to three days. If this persists beyond three days, or other symptoms develop, notify the Dr. who performed your procedure. BLEEDING: If the procedure site on your wrist begins to bleed, do not panic 1. Place 1 or 2 fingers firmly just slightly above the insertion site to stop the bleeding. You may be able to feel your pulse as you hold pressure. 2. Lift your finger after 5 minutes to see if the bleeding has stopped. 3. Once the bleeding has stopped, gently wipe the wrist area clean with a bandage. * If the bleeding from your wrist does not stop after 10 minutes, or if there is a large amount of bleeding or spurting, call 911 (do not drive yourself to the hospital). SKIN IRRITATION: * You may experience some redness and/or swelling in the area where radiation was administered. If any skin irritation occurs, please contact your family physician. FOLLOW UP VISIT: Keep any scheduled doctor appointments. AMI Core Measures Reason no ASA as I/P: Treatment provided - N/A Reason no ASA at D/C: Treatment provided - N/A Reason no statin as I/P: Treatment provided - N/A Reason no statin at D/C: Treatment provided - N/A VTE Core Measure Inpt VTE Proph given/why not?: Enoxaparin (Lovenox)SQ
[2016-07-11 12:49] VITALS: BP 118/58; PULSE 67; TEMP 36.7; O2SAT 93
--- NOTE | 2016-07-11 15:50 | Discharge Summary ---
Discharge Summary Date of Service Jul 11, 2016. (Edd Rodrigues MD) Discharge Summary Admission Date: Jul 10, 2016 at 14:51 Discharge Date: Jul 11, 2016 Discharge Disposition: Home Principal Diagnosis: Coronary Artery Disease Immunizations: Have You Had Influenza Vaccine: No History of Tetanus Vaccine?: Unknown History of Pneumococcal: No History of Hepatitis B Vaccine: Yes Procedures: Cardiac Catheterization with stent placement Esophagogastroduodenoscopy Consultations: GI Cardiology (Edd Rodrigues MD) Medication Reconciliation New Medications: Aspirin (Aspirin EC Low Dose) 81 Mg Ectab 81 MG PO QAM for 90 Days, #90 TAB 3 Refills Atorvastatin (Atorvastatin Calcium) 40 Mg Tab 40 MG PO QAM for 90 Days, #90 TAB 3 Refills Clopidogrel Bisulfate (Clopidogrel) 75 Mg Tab 75 MG PO QAM for 90 Days, #90 TAB 4 Refills Nitroglycerin (Nitrostat) 0.4 Mg/1 Tab Subl 0.4 MG SL DIRECTED PRN for Chest Pain for 30 Days, #30 TAB Sulfamethoxazole-Trimethoprim (Smz-Tmp Ds) 1 Tab Tab 1 TAB PO Q12 for 2 Days, #3 TAB Continued Medications: Ehvxmlr-Oywoscqgu-Porq (Calcium & Magnesium + Zin 334-134-5 mg) 1 Tab Tab 1 TAB PO DAILY Cholecalciferol (Vitamin D) 1,000 Unit Tab 1000 UNITS PO DAILY Citalopram Hydrobromide (Celexa) 40 Mg Tab 40 MG PO QPM, TAB Gabapentin (Neurontin) 300 Mg Cap 300 MG PO 5XD, CAP Glipizide (Glucotrol) 5 Mg Tab 2.5 MG PO QPM for 30 Days, #60 TAB 3 Refills Ranitidine (Zantac) 300 Mg Tab 300 MG PO QPM, TAB Discontinued Medications: Pantoprazole (Protonix) 40 Mg Tab 40 MG PO QAM, #30 TAB Pravastatin Sodium (Pravastatin Sodium) 80 Mg Tab 80 MG PO QPM for 30 Days, TAB 5 Refills Discharge Exam Patient with no acute events overnight. Patient denies any chest pain, numbness or tingling, palpitations, shortness of breath, PND, cough, fatigue, headaches, pre syncope, nausea, or vomiting Still having burning with urination Patient walking around the hospital halls without any difficulty. Has restarted a regular diet and is passing urine and having regular bowel movements Review of Systems: Constitutional: No chills, No fever, No sweats Respiratory: No cough, No dyspnea at rest, No dyspnea on exertion, No shortness of breath Cardiovascular: No PND, No chest pain, No edema, No orthopnea, No palpitations Abdomen: No constipation, No diarrhea, No nausea, No pain, No vomiting Genitourinary - Female: + dysuria, No urinary frequency, No urinary incontinence, No urinary urgency Endocrine: No fatigue Physical Exam: General Appearance: WD/WN, no apparent distress Eyes: normal inspection, sclerae normal ENT: normal ENT inspection, hearing grossly normal, pharynx normal Neck: supple, no adenopathy, no JVD Respiratory/Chest: chest non-tender, lungs clear, normal breath sounds Cardiovascular: regular rate, rhythm, no JVD, no murmur, normal peripheral pulses Abdomen / GI: normal bowel sounds, soft, + tenderness (mild epigastric tenderness on deep palpation) Extremities: no calf tenderness, no pedal edema, normal range of motion, non -tender Neurologic/Psychiatric: alert, normal mood/affect, oriented x 3 (Edd Rodrigues MD) Hospital Course 70 year old female with type 2 diabetes, gastroparesis, IBS, hyperlipidemia, depression, H. pylori infection admitted with complaints of epigastric pain, chest tightness, nausea and shortness of breath on exertion. Precordial chest pain - Chest x-ray showed no acute process. EKG showed nonspecific ST changes, serial troponin negative. D-dimer negative. Stress echo showed long 98% stenosis with sequential 40% lesion of LAD on coronary angiogram. Patient catheterized and ZAHRA placed. - Started on aspirin 81mg daily, clopidogrel 75mg daily and atorvastatin 40mg daily - Plans for cardiac rehab - Nitro PRN chest pain Epigastric pain - Concern for bronchospasm from acid reflux. GI consulted-recs appreciated. Endoscopy 07/09 showed normal upper GI except for previously know hiatal hernia and non-bleeding duodenal diverticulum. Discontinued recently added Protonix given no addition pain relief and no indications pain is secondary to worsened GERD. Gastric pro-motility, erythromycin started but then discontinued once cardiac cause found. - Continue ranitidine 300mg qAM UTI - UA positive for large amounts of leuks. Urine cultures show multiple organisms. Empiric antibiotic commenced. - Continue course of Bactrim DS with plans to continue until 07/12 - Continue pyridium 100mg TID - Patient will also go home with prescription for Urine culture of burning with urination continues until tomorrow - Plans to see PCP Wednesday or Wednesday if no significant improvement in symptoms Type 2 diabetes - Was on insulin sliding scale in hospital - Will continue regular diabetes regimen at home with glipizide and will cont gabapentin Hyperlipidemia - Continue pravastatin 80mg qPM Depression - Continue Celexa 40mg qPM Patient discharged on 07/11/2016 Total Time Spent: Less than 30 minutes This includes examination of the patient, discharge planning, medication reconciliation, and communication with other providers. (Edd Rodrigues MD) Resident Physician Supervision Note: I interviewed and examined the patient. Discussed with Dr. Rodrigues and agree with findings and plan as documented in the note. Any exceptions or clarifications are listed here: None Documented By: Tone Mancuso feeling better - no abdominal pain no nausea. walked without significant dyspnea vitals noted nad breathing unlabored no pallor or icterus epigastric pain and nausea - given resolution after stenting - represents atypical angina. d/w pt to remember symptom complex for future should it occur again since quite atypical, but normally an individual's anginal pattern does not change much CAD - s/p stenting - med management stable for home Total Time Spent: Less than 30 minutes (Tone Mancuso D.O.) Discharge Instructions Please refer to the electronic Patient Visit Report (Discharge Instructions) for additional information. (Edd Rodrigues MD) Follow-Up Dr. Gamez (Edd Rodrigues MD) Additional Copies To Khushboo Gamez M.D.; Tone Mancuso D.O.
[2016-08-27] MEDS ORDERED: ASPI81TA28 PO (07:16)
[2016-08-27] MEDS ORDERED: CALC500C70 PO (07:16)
[2016-08-27] MEDS ORDERED: ATOR-24 PO (07:16)
[2016-08-27] MEDS ORDERED: CLOP1TAB15 PO (07:16)
[2016-08-27] MEDS ORDERED: PANT40TA PO (07:16)
[2016-08-27] MEDS ORDERED: GLIP-172 PO (07:16)
[2016-08-27] MEDS ORDERED: ISOS30TA3 PO (11:39)
== END 2016-07-11 13:17 | disposition home or self-care (01) | DRG 247 ==
LOC: ENRESERVDT → ENRESERVTM → ENRESERV → C.EDB 17:21 → INTOOBSV 20:38 → C.2T 20:38 → EDBEDREQ 21:01 → C.MS2W 07-08 20:48 → OBSVTOIN 07-10 14:51 → C.2E 07-10 16:47
PROVIDERS: ADMIT Family Medicine; ATTEND Family Medicine
PROC: 0DJ08ZZ Inspection of Upper Intestinal Tract, Via Natural or Artificial Opening Endoscopic (ICD-10-PCS; principal; 2016-07-09 13:00)
PROC: B2111ZZ Fluoroscopy of Multiple Coronary Arteries using Low Osmolar Contrast (ICD-10-PCS; 2016-07-10)
PROC: 4A023N7 Measurement of Cardiac Sampling and Pressure, Left Heart, Percutaneous Approach (ICD-10-PCS; 2016-07-10)
PROC: 027034Z Dilation of Coronary Artery, One Artery with Drug-eluting Intraluminal Device, Percutaneous Approach (ICD-10-PCS; 2016-07-10)
DX: I25.10 Atherosclerotic heart disease of native coronary artery without angina pectoris (principal); N39.0 Urinary tract infection, site not specified; R07.2 Precordial pain; R10.13 Epigastric pain; R11.0 Nausea; E78.5 Hyperlipidemia, unspecified; R06.09 Other forms of dyspnea; F32.9 Major depressive disorder, single episode, unspecified; E11.43 Type 2 diabetes mellitus with diabetic autonomic (poly)neuropathy; K31.84 Gastroparesis; K21.0 Gastro-esophageal reflux disease with esophagitis; K58.9 Irritable bowel syndrome, unspecified; K27.9 Peptic ulcer, site unspecified, unspecified as acute or chronic, without hemorrhage or perforation; K44.9 Diaphragmatic hernia without obstruction or gangrene; R94.31 Abnormal electrocardiogram [ECG] [EKG]; R94.39 Abnormal result of other cardiovascular function study; K57.30 Diverticulosis of large intestine without perforation or abscess without bleeding; E55.9 Vitamin D deficiency, unspecified; Z66 Do not resuscitate; Z87.19 Personal history of other diseases of the digestive system; Z79.899 Other long term (current) drug therapy

== ENCOUNTER → 2016-07-13 | Outpatient (CLI) | payer OTHER, MEDICARE ==
[~2016-07-13] MED LIST changes: +ASPEC81 PO; +ASPI81TA28 PO; +ATOR-24 PO; +CALC500C70 PO; +CLOP1TAB15 PO; +GLIP-172 PO; +ISOS30TA3 PO; +LPT40 PO; +NTRSLP4 SL; +PANT40TA PO; +PLV75 PO; -PRAV80TA2 PO; +SULF-183 PO
[2016-07-15 16:00] LABS: HERPES SIMPLEX AB IGG-1 <0.90 INDEX; HERPES SIMPLEX AB IGG-2 <0.90 INDEX
[2016-07-16 14:06] LABS: HERPES SIMPLEX CULT SOURCE GENITAL-VULVA; HERPES SIMPLEX VIRUS CULT ISOLATED (NOT ISOLATED)
[2016-07-17 06:29] LABS: HSVTYPE1REFLEX ONLY!DON'T ORDR ISOLATED (NOT ISOLATED); HSVTYPE2REFLEX ONLY!DON'T ORDR NOT ISOLATED (NOT ISOLATED)
== END | disposition home or self-care (01) ==
LOC: C.LAB1850 14:20
PROVIDERS: ATTEND Obstetrics & Gynecology
DX: N76.6 Ulceration of vulva (principal)

== ENCOUNTER → 2016-08-05 | Outpatient (CLI) | payer OTHER, MEDICARE | END | disposition home or self-care (01) | LOC: C.LAB1850 15:50 | PROVIDERS: ATTEND Obstetrics & Gynecology | DX: R19.00 Intra-abdominal and pelvic swelling, mass and lump, unspecified site (principal) ==

== ENCOUNTER → 2016-08-30 | Outpatient (CLI) | payer OTHER, MEDICARE ==
[~2016-08-30] MED LIST changes: -ASPEC81 PO; -CALC-478 PO; -CHOL100010 PO; -GLIP5TAB11 PO; -LPT40 PO; -NTRSLP4 SL; -PLV75 PO; -RANI300T2 PO; -SULF-183 PO
[2016-08-30 13:39] LABS: BLOOD UREA NITROGEN 17 mg/dl (7-18); BUN/CREATININE RATIO 17.3 (10-20); CALCIUM 8.8 mg/dl (8.5-10.1); CARBON DIOXIDE 30 mmol/L (21-32); CHLORIDE 105 mmol/L (98-107); CREATININE 0.98 mg/dl (0.60-1.20); GLUCOSE 177 mg/dl (70-99); PHOSPHORUS 2.8 mg/dl (2.5-4.9); POTASSIUM 4.2 mmol/L (3.5-5.1); SODIUM 142 mmol/L (136-145)
--- NOTE | 2016-09-04 08:25 | CODING QUERY NO DIAGNOSIS ---
TREATMENT RENDERED WITHOUT A DIAGNOSIS : 44 To promote full compliance with coding requirements relating to patient care, physician participation is requested in all cases of hims coder uncertainty. Please assist us with providing a diagnosis/symptom for the test(s) below: A diagnosis/symptom was not documented on your Order. A valid diagnosis/symptom is required to bill all insurances. Please remember that we are unable to code a diagnosis of rule out, probable, possible, questionable, or suspected. Tests that require a diagnosis: DOS: 08/30/16 * RENAL PROFILE DIAGNOSIS: Provider Signature: Date: Thank you Rossana Rene [employer] Information Management Once completed, please kindly fax back to [phone] For questions please call [phone]
== END | disposition home or self-care (01) ==
LOC: C.LAB 12:54
PROVIDERS: ATTEND Internal Medicine Interventional Cardiology
DX: Z01.818 Encounter for other preprocedural examination (principal)

== ENCOUNTER → 2016-09-14 | Outpatient (CLI) | payer OTHER, MEDICARE ==
[2016-09-14 10:04] LABS: ESTIMATED AVERAGE GLUCOSE 174 mg/dl; HA1C FLAG Normal (Normal)
== END | disposition home or self-care (01) ==
LOC: C.LAB1850 08:00
PROVIDERS: ATTEND Nurse Practitioner Family
DX: E11.9 Type 2 diabetes mellitus without complications (principal)

== ENCOUNTER → 2016-12-18 | Outpatient (CLI) | payer OTHER, MEDICARE ==
[2016-12-18 13:23] LABS: ESTIMATED AVERAGE GLUCOSE 177 mg/dl; HA1C FLAG Normal (Normal)
== END | disposition home or self-care (01) ==
LOC: C.LAB1850 10:46
PROVIDERS: ATTEND Nurse Practitioner Family
DX: E11.9 Type 2 diabetes mellitus without complications (principal)

== ENCOUNTER → 2017-02-22 | Outpatient (CLI) | payer OTHER, MEDICARE ==
--- NOTE | 2017-02-23 14:27 | MAMMOGRAPHY REPORT ---
BILATERAL DIGITAL SCREENING MAMMOGRAM TOMOSYNTHESIS WITH CAD: 02/22/2017 CLINICAL HISTORY: Routine screening. Patient has no complaints. TECHNIQUE: Breast tomosynthesis in addition to standard 2D mammography was performed. Current study was also evaluated with a Computer Aided Detection (CAD) system. COMPARISON: Comparison is made to exams dated: 02/19/2016 mammogram, 02/15/2015 mammogram, 4 mammogram, 01/30/2013 mammogram, 01/28/2012 mammogram, and 01/26/2011 mammogram - [facility]. BREAST COMPOSITION: There are scattered areas of fibroglandular density in both breasts. FINDINGS: There are stable benign-appearing round and rim calcifications in the breasts. No suspicio us mass, architectural distortion or cluster of suspicious microcalcifications is seen. IMPRESSION: ACR BI-RADS CATEGORY 1: NEGATIVE There is no mammographic evidence of malignancy. A 1 year screening mammogram is recommended. The pa tient will receive written notification of the results. Approximately 10% of breast cancers are not detected with mammography. A negative mammographic report should not delay biopsy if a clinically suggestive mass is present. Deepthi Hanna M.D. ay/:02/22/2017 16:09:17 Pharmaceutical Development Technician: Massiel OMALLEY(Shawn)(Cyndi)([place]), [facility] letter sent: Normal 1/2 BI-RADS Code: ACR BI-RADS Category 1: Negative
== END | disposition home or self-care (01) ==
LOC: C.MAMM 07:31
PROVIDERS: ATTEND Family Medicine
DX: Z12.31 Encounter for screening mammogram for malignant neoplasm of breast (principal)

== ENCOUNTER → 2017-03-24 | Outpatient (CLI) | payer OTHER, MEDICARE ==
[~2017-03-24] MED LIST changes: +RANI150T3 PO; +TRAM-10 PO
--- NOTE | 2017-03-31 08:23 | CODING QUERY MEDICAL NECESSITY ---
CQSUPPORTING DIAGNOSIS NEEDED A supporting diagnosis is required for the test/procedure performed on this patient in order for us to be reimbursed by the patient's insurance. Please provide a supporting diagnosis for the following test/procedure listed below next to the test name along with your signature. *If there is no additional diagnosis for this patient that would support the following test/procedure please document that below next to the test/procedure. Test(s)/Procedure(s) that require a supporting diagnosis: DOS 03/24/17 TUMOR ANTIGEN CA 125 Provider Signature: Date: Thank you Lia Mcgee [facility] Once completed, please kindly fax back to [phone] For questions please call [phone]
== END | disposition home or self-care (01) ==
LOC: C.LAB1850 16:53
PROVIDERS: ATTEND Obstetrics & Gynecology
DX: R19.00 Intra-abdominal and pelvic swelling, mass and lump, unspecified site (principal); N83.299 Other ovarian cyst, unspecified side

== ENCOUNTER → 2017-05-04 | Day surgery (SDC) | payer OTHER, MEDICARE ==
[2017-04-28 11:52] VITALS: Ht 167.6 cm; Wt 68.6 kg
[~2017-05-04] VITALS: Ht 167.6 cm; Wt 68.6 kg
[~2017-05-04] MED LIST changes: +ATROPINE SULFATE 0.1 MG/ML 5ML SYR IV PRN; +BUPIVACAINE 0.5 % 5 MG/1 ML PF 10ML VIAL ONE; +CEFAZOLIN 1000MG IV PUSH 7.5 ML IV SCH; +EpHEDrine SULFATE INJ 50 MG/ML AMP IV PRN; +FENTANYL CITRATE INJ 50 MCG/1 ML 2 ML VIAL IV PRN; +FENTANYL CITRATE INJ 50 MCG/1 ML 2 ML VIAL ONE; +FLUMAZENIL 0.1 MG/1 ML 10 ML VIAL IV PRN; +HYDROmorphone INJ 2 MG/ML SYR/VIAL IV PRN; +LABETALOL HCL IV 5 MG/ML 20ML IV PRN; +LACTATED RINGER'S 1000ML 1,000 ML IV SCH; +LIDOCAINE HCL 1% 20 ML VIAL ONE; +LIDOCAINE HCL 2% 2 ML VIAL (20MG/ML) ONE; +MEPERIDINE HCL 25 MG/ML CARP IV PRN; +MIDAZOLAM HCL 1 MG/ML 2ML VIAL ONE; +NALOXONE HCL 0.4 MG/1 ML VIAL/CARP IV PRN; +ONDANSETRON INJ 2 MG/ML 2 ML VIAL IV PRN; +OXYCODONE/ACETAMINOPHEN 5-325 TAB PO PRN; -PANT40TA PO; +PHENYLEPHRINE 100MCG/ML 5ML SYR IV PRN; +PROPOFOL IV EMULSION 10 MG/ML 20 ML VIAL IV ONE; +SODIUM CHLORIDE 0.9% 1000ML 1,000 ML IV SCH
--- NOTE | 2017-05-04 06:49 | History & Physical Bridge - SC ---
H&P Re-Evaluation Bridge Note: I have examined the patient, reviewed the History & Physical and in the interval since the performance of the History & Physical I have noted the following changes of clinical significance: No changes noted
--- NOTE | 2017-05-04 07:48 | [facility] Post Operative Brief Note ---
Immediate Operative Summary Operative Date May 04, 2017. Pre-Operative Diagnosis Right Ring & Little Trigger Fingers Post-Operative Diagnosis Same Procedure(s) Performed Right Ring & Little Trigger Finger Releases Surgeon Dr. Cardoza Flatbed Stitcher Surgeon(s) Giuliana Gonsalez PA-C Estimated Blood Loss None Findings Consistent with Post-Op Diagnosis Specimens None Drains None Anesthesia Type MAC Complication(s) none Disposition Disposition:
[2017-05-04 07:52] VITALS: TEMP 36.5
--- NOTE | 2017-05-04 07:54 | Discharge Instructions-SurgCtr ---
Discharge Instructions Date of Service May 04, 2017. Visit Reason for Visit: Right Ring And Little Trigger Fingers Discharge Discharge Diagnosis / Problem: SAME ABOVE Discharge Goals Goal(s): Decrease discomfort, Improve function Activity Recommendations Activity Limitations: as noted below Lifting Limitations: gradually increase as tolerated Exercise/Sports Limitations: until after follow-up appointment Shower/Bathe: tomorrow Anesthesia . Post Anesthesia Instructions: If you have had General Anesthesia or IV Sedation: * Do not drive today. * Resume driving when surgeon permits. * Do not make important decisions or sign legal documents today. * Call surgeon for: 1. Temperature elevations greater than 101 degrees F. 2. Uncontrollable pain. 3. Excessive bleeding. 4. Persistent nausea and vomiting. 5. Medication intolerance (nausea, vomiting or rash). * For nausea and vomiting use only clear liquids such as: tea, soda, bouillon until nausea subsides, then gradually increase diet as tolerated. * If you have any concerns or questions, call your surgeon's office. If physician is unavailable and it is an emergency, call 911 or go to the nearest emergency room. . Instructions / Follow-Up Instructions / Follow-Up MEDICATIONS: * Resume previous medications unless instructed otherwise by your surgeon. * Always take pain medication on a full stomach or with food to avoid upset stomach. * Do not drink alcohol or drive while taking narcotics. * Ibuprofen or Tylenol may be taken if narcotic not needed. SPECIAL CARE INSTRUCTIONS: __ None _X_ Keep extremity elevated and iced x 48 hours; apply ice 20-30 minutes 8-10 times/day. May remove at night. __ Sling __24 hrs/day __ Remove at night __ Shoulder Immobilizer __ 24 hrs/day __ Remove at night _X_ Dressing __ Maintain until seen in office, may shower with plastic over site _X_ Remove dressings in 24-48 hours and then may shower _X_ Cover incisions with band-aids after showering __ Do not remove steri-strips Call physician if chills or temperature rises above 102 degrees or pain unrelieved by prescribed pain medications at . . Diet Recommendations Home Diet: resume previous diet Procedures Procedures Performed: Right Ring & Little Trigger Finger Releases Pending Studies Studies pending at discharge: no Medical Emergencies . Who to Call and When: Medical Emergencies: If at any time you feel your situation is an emergency, please call 911 immediately. . Non-Emergent Contact Non-Emergency issues call your: Primary Care Provider . . "Provider Documentation" section prepared by Magdy Gonsalez. .
--- NOTE | 2017-05-04 08:10 | Anesthesia Progress Nt - [facility] ---
Anesthesia Post Op Note Date & Time May 04, 2017 at 08:10 Vital Signs Pain Intensity: 0 Vital Signs Past 12 Hours Date Time Temp Pulse Resp B/P (MAP) Pulse Ox O2 Delivery O2 Flow Rate FiO2 05/04/17 07:52 36.5 62 16 134/68 (90) 95 Room Air 05/04/17 06:35 36.5 60 16 113/68 (83) 95 Room Air Notes Mental Status: alert / awake / arousable, participated in evaluation Pt Amnestic to Procedure: Yes Nausea / Vomiting: adequately controlled Pain: adequately controlled Airway Patency, RR, SpO2: stable & adequate BP & HR: stable & adequate Hydration State: stable & adequate Anesthetic Complications: no major complications apparent
--- NOTE | 2017-05-04 08:12 | OPERATIVE REPORT ---
DATE OF OPERATION: 05/04/2017 PREOPERATIVE DIAGNOSIS: Right little and ring trigger fingers. POSTOPERATIVE DIAGNOSIS: Same. PROCEDURE: Release A1 henrique, right ring and little fingers. SURGEON: Deshawn Cardoza MD. RETAIL PERSONAL BANKER: Magdy Gonsalez PA-C. ANESTHESIOLOGIST: Dr. Cobian. ANESTHESIA: Local with IV sedation. DRAINS: None. COMPLICATIONS: None. CONDITION: The patient tolerated the procedure well and returned to recovery room in apparent satisfactory condition. INDICATIONS FOR SURGERY: Talia is a 71-year-old female who has had triggering discomfort involving predominantly her ring finger, but also little finger on her right hand. We went over treatment options and elected to go ahead and proceed with surgery. Procedure, expected outcomes and side effects were all explained in detail. DESCRIPTION OF PROCEDURE: The patient was taken to the OR at which time she was placed supine on the operating table and given IV sedation. The right hand was prepped and draped in usual sterile fashion for surgery. We infiltrated the anticipated incision site with 1% Xylocaine and then once it had taken effect, we went ahead and exsanguinated the hand, put a forearm tourniquet up to 250 mmHg. We made transverse incisions over the A1 pulleys of both the ring and little fingers. Using loupe magnification, we dissected down and identified the A1 pulleys and both were divided with an 11 blade and tenotomy scissors. Each finger was taken through a range of motion, no longer triggering present. The wound then was irrigated. Each incision was closed with interrupted 4-0 nylon sutures. Marcaine without epinephrine was placed in skin edges, placed a sterile dressing of Xeroform, 4 x 4's, and gauze with a Coban and returned to recovery in apparent satisfactory condition. I attest to the content of the Intraoperative Record and any orders documented therein. Any exception s are noted below.
[2017-05-04 08:22] VITALS: BP 105/59; PULSE 62; O2SAT 96
== END | disposition home or self-care (01) ==
LOC: X.SURG 06:24
PROVIDERS: ATTEND Orthopaedic Surgery
DX: M65.341 Trigger finger, right ring finger (principal); M65.351 Trigger finger, right little finger; I25.10 Atherosclerotic heart disease of native coronary artery without angina pectoris; E11.9 Type 2 diabetes mellitus without complications; K21.9 Gastro-esophageal reflux disease without esophagitis; E78.00 Pure hypercholesterolemia, unspecified; Z98.61 Coronary angioplasty status; Z88.8 Allergy status to other drugs, medicaments and biological substances; Z90.710 Acquired absence of both cervix and uterus; Z90.49 Acquired absence of other specified parts of digestive tract

== ENCOUNTER → 2017-06-23 | Outpatient (CLI) | payer OTHER, MEDICARE ==
[~2017-06-23] MED LIST changes: -ATROPINE SULFATE 0.1 MG/ML 5ML SYR IV PRN; -BUPIVACAINE 0.5 % 5 MG/1 ML PF 10ML VIAL ONE; -CEFAZOLIN 1000MG IV PUSH 7.5 ML IV SCH; -EpHEDrine SULFATE INJ 50 MG/ML AMP IV PRN; -FENTANYL CITRATE INJ 50 MCG/1 ML 2 ML VIAL IV PRN; -FENTANYL CITRATE INJ 50 MCG/1 ML 2 ML VIAL ONE; -FLUMAZENIL 0.1 MG/1 ML 10 ML VIAL IV PRN; -HYDROmorphone INJ 2 MG/ML SYR/VIAL IV PRN; -LABETALOL HCL IV 5 MG/ML 20ML IV PRN; -LACTATED RINGER'S 1000ML 1,000 ML IV SCH; -LIDOCAINE HCL 1% 20 ML VIAL ONE; -LIDOCAINE HCL 2% 2 ML VIAL (20MG/ML) ONE; -MEPERIDINE HCL 25 MG/ML CARP IV PRN; -MIDAZOLAM HCL 1 MG/ML 2ML VIAL ONE; -NALOXONE HCL 0.4 MG/1 ML VIAL/CARP IV PRN; -ONDANSETRON INJ 2 MG/ML 2 ML VIAL IV PRN; -OXYCODONE/ACETAMINOPHEN 5-325 TAB PO PRN; -PHENYLEPHRINE 100MCG/ML 5ML SYR IV PRN; -PROPOFOL IV EMULSION 10 MG/ML 20 ML VIAL IV ONE; -SODIUM CHLORIDE 0.9% 1000ML 1,000 ML IV SCH
[2017-06-23 10:51] LABS: HEMOGLOBIN A1C 7.7 % (4.5-5.6)
[2017-06-23 11:09] LABS: BLOOD UREA NITROGEN 15 mg/dl (7-18); CALCIUM 9.3 mg/dl (8.5-10.1); CARBON DIOXIDE 28 mmol/L (21-32); CREATININE 0.82 mg/dl (0.60-1.20); GLUCOSE 117 mg/dl (70-99); POTASSIUM 4.1 mmol/L (3.5-5.1); SODIUM 138 mmol/L (136-145)
[2017-06-23 15:32] LABS: CREATININE RANDOM URINE 13.9 mg/dl
== END | disposition home or self-care (01) ==
LOC: C.LAB1850 09:22
PROVIDERS: ATTEND Nurse Practitioner Family
DX: E11.9 Type 2 diabetes mellitus without complications (principal)

== ENCOUNTER → 2017-07-14 | Outpatient (CLI) | payer OTHER, MEDICARE ==
--- NOTE | 2017-07-14 20:10 | DIAGNOSTIC IMAGING REPORT ---
CHEST 2 VIEWS ROUTINE CLINICAL HISTORY: Cough. Congestion. COMPARISON STUDY: Chest radiograph July 07, 2016. FINDINGS: Note is made of cholecystectomy clips and a moderate sized hiatal hernia. No pneumothorax or pleural effusion is present. There is no consolidation to suggest pneumonia. Cardiac size is normal. The appearance of the chest is unchanged. IMPRESSION: No acute cardiopulmonary findings. Electronically signed by: Eloy Rosenthal M.D. 07/14/2017 8:08 PM Dictated Date/Time: 07/14/2017 8:07 PM
== END | disposition home or self-care (01) ==
LOC: C.RAD 19:50
PROVIDERS: ATTEND Family Medicine
DX: J06.9 Acute upper respiratory infection, unspecified (principal)

== ENCOUNTER → 2017-10-08 | Outpatient (CLI) | payer OTHER, MEDICARE ==
--- NOTE | 2017-10-08 16:18 | DIAGNOSTIC IMAGING REPORT ---
CHEST 2 VIEWS ROUTINE HISTORY: 72 years-old Female SOB acute shortness of breath COMPARISON: Chest radiograph 07/14/2017 TECHNIQUE: PA and lateral views of the chest FINDINGS: Cardiac mediastinal and hilar silhouettes are within normal limits. Small hiatal hernia. Calcification of the aorta. There is no pneumothorax, pleural effusion, lobar airspace consolidation or overt pulmonary edema. Linear subsegmental opacities about the medial left lung base suggest atelectasis or scarring. Bones of the chest appear grossly intact. Cholecystectomy clips are noted. IMPRESSION: 1. No acute process. 2. Small hiatal hernia. The above report was generated using voice recognition software. It may contain grammatical, syntax or spelling errors. Electronically signed by: Kyaw Back M.D. 10/08/2017 4:16 PM Dictated Date/Time: 10/08/2017 4:14 PM
== END | disposition home or self-care (01) ==
LOC: C.RAD1850 15:56
PROVIDERS: ATTEND Family Medicine
DX: R06.02 Shortness of breath (principal)

== ENCOUNTER → 2017-11-01 | Outpatient (CLI) | payer OTHER, MEDICARE ==
[2017-11-01 12:50] LABS: HEMOGLOBIN A1C 7.9 % (4.5-5.6)
== END | disposition home or self-care (01) ==
LOC: C.LAB1850 09:42
PROVIDERS: ATTEND Nurse Practitioner Adult Health
DX: E11.9 Type 2 diabetes mellitus without complications (principal)

== ENCOUNTER 2018-09-20 12:53 | Observation (INO) ==
[2018-09-20] MEDS ORDERED: ASPIRIN CHEW 324 MG PO STA (13:31)
[2018-09-20] MEDS ORDERED: NITROGLYCERIN SL 0.4 MG/TAB TAB SL PRN (13:31)
[2018-09-20] MEDS ORDERED: NITROGLYCERIN SL 0.4 MG/TAB TAB SL STA (13:32)
[2018-09-20 13:37] LABS: Basophils # (auto) 0.02 K/uL (0-0.2); Basophils % (auto) 0.4 %; Eosinophils # (auto) 0.08 K/uL (0-0.5); Eosinophils % (auto) 1.5 %; Hematocrit (blood only) 39.1 % (37-47); Hemoglobin 12.9 g/dL (12.0-16.0); Lymphocytes % (auto) 36.3 %; Mean Corpuscular Volume 87.3 fL (80-100); Mean Platelet Volume 9.1 fL (7.4-10.4); Monocytes # (auto) 0.48 K/uL (0.11-0.59); Monocytes % (auto) 8.7 %; Neutrophils # (auto) 2.93 K/uL (1.4-6.5); Neutrophils % (auto) 53.1 %; Platelet Count 184 K/uL (130-400); RDW Coefficient of Variation 20.3 % (11.5-14.5); RDW Standard Deviation 64.3 fL (36.4-46.3); Red Blood Count 4.48 M/uL (4.2-5.4); White Blood Count 5.51 K/uL (4.8-10.8)
[2018-09-20 13:44] LABS: Partial Thromboplastin Time 27.7 Seconds (21.0-31.0); Prothrombin Time 10.5 Seconds (9.0-12.0)
[2018-09-20 13:48] LABS: Albumin Level 3.5 gm/dl (3.4-5.0); Aspartate Aminotransferase 21 U/L (15-37); BUN Creatinine Ratio 20.9 (10-20); Blood Urea Nitrogen 17 mg/dl (7-18); Calcium 9.1 mg/dl (8.5-10.1); Carbon Dioxide 28 mmol/L (21-32); Chloride 106 mmol/L (98-107); Creatinine Clr Calc Pharmacy 59.2 ml/min; Est GFR (African American) 85.5; Est GFR (Non-African American) 73.7; Glucose 111 mg/dl (70-99); Magnesium 2.4 mg/dl (1.8-2.4); Sodium 140 mmol/L (136-145)
--- NOTE | 2018-09-20 13:51 | XRay Report ---
XR chest 1V portable CLINICAL HISTORY: Atypical chest pain COMPARISON STUDY: No previous studies for comparison. FINDINGS: The cardiac and mediastinal contours are normal. There is no evidence of focal pulmonary co nsolidation. There is no evidence of failure. No pleural effusions are visualized.[There is a small h iatal hernia. There are surgical clips within the right upper quadrant consistent with a prior cholec ystectomy. IMPRESSION: No active disease in the chest. Electronically signed by: Bill Ramirez M.D. 09/20/2018 1:50 PM
[2018-09-20 13:55] LABS: Alanine Aminotransferase 38 U/L (12-78); Alkaline Phosphatase 89 U/L (45-117); Bilirubin,Total 0.5 mg/dl (0.2-1); Globulin 3.6 gm/dl (2.5-4.0); Phosphorus 3.7 mg/dl (2.5-4.9); Total Protein 7.1 gm/dl (6.4-8.2); Troponin I < 0.015 ng/ml (0-0.045)
[2018-09-20 13:57] LABS: Anisocytosis Present
--- NOTE | 2018-09-20 15:12 | History & Physical Report ---
Date of Service September 20, 2018 Assessment & Plan (1) CAD (coronary artery disease): Patient has no history of coronary artery disease as mentioned with diagonal 1 and obtuse marginal 1 severely diseased in 2017. Patient will have troponins trended. I personally spoke with Dr. Bullock recommended a nuclear stress test if her biomarkers are unremarkable and she is no further chest discomfort. Patient be continued on dual and platelet therapy, atorvastatin, isosorbide. She is typically not on any typical home beta-blockers these may be a seizure if needed (2) Diabetes mellitus, type 2: Patient takes glipizide and Lantus for diabetic control. Glipizide will be held Lantus to be continued at 6 with insulin sliding scale (3) Iron deficiency: Patient reportedly had iron infusions for her iron deficiency. Her hemoglobin is stable but her iron was low last checked in August this can be followed up as an outpatient (4) Depression: Patient is maintained on citalopram for her depression (5) DVT prophylaxis: Patient in heparin subcu for DVT prevention History of Present Illness Primary Care Provider: Khushboo Gamez 73-year-old female with known history of coronary disease with a catheterization in 2017 which showed severe disease in first diagonal and first obtuse marginal although the circumflex and LAD were open however the patient has severe disease in diagonal and obtuse marginal lines with preserved ejection fraction. At that time she is placed on dual and platelet therapy for 1 year and is doing isosorbide dinitrate. Patient did well. Plavix was stopped after 1 year 1 week ago the patient developed substernal chest discomfort while in the late stress. This is relieved with nitro. Today's patient was doing housework she developed fairly severe discomfort which was relieved mostly by nitroglycerin. She presented to her primary care office which did an EKG without acute current of injury was sent to the ER if she still chest pain while in the ER while having an EKG which was unremarkable had a second nitroglycerin which completely resolved her symptoms along with aspirin and oxygen. Patient was with a normal troponin level and recommended for intake for unstable angina Allergies Allergy/AdvReac Type Severity Reaction Status Date / Time metoclopramide AdvReac Severe SEVERE Verified 09/20/18 14:42 WEAKNESS/DIZZINESS metformin AdvReac Mild NAUSEA Verified 09/20/18 14:42 rosuvastatin AdvReac Mild muscle Verified 09/20/18 14:42 cramping Home Medications Home Medications Medication Instructions Recorded Confirmed Type Sydney Corderoostar U-100 Insulin 6 unit SUBCUT HS 12/30/17 09/20/18 History aspirin [Aspir-81] 81 mg PO HS 12/30/17 09/20/18 History atorvastatin 40 mg PO HS 12/30/17 09/20/18 History cholecalciferol (vitamin D3) 1,000 unit PO HS 12/30/17 09/20/18 History citalopram 20 mg PO HS 12/30/17 09/20/18 History gabapentin 600 mg PO QID 12/30/17 09/20/18 History glipizide 2.5 mg PO BID 12/30/17 09/20/18 History multivitamin 1 cap PO QAM 12/30/17 09/20/18 History nitroglycerin [Nitrostat] 0.4 mg SUBLINGUAL UD PRN 12/30/17 09/20/18 History pantoprazole 40 mg PO QAM 12/30/17 09/20/18 History isosorbide mononitrate 60 mg PO QAM 01/17/18 09/20/18 History cyclobenzaprine 10 mg PO TID PRN #15 tab 08/12/18 09/20/18 Rx calcium carbonate [Calcium 500] 0 mg PO QDL 09/20/18 09/20/18 History pyridoxine (vitamin B6) [Vitamin 0 mg PO QAM 09/20/18 09/20/18 History B-6] Past Med/Surg History Medical History Iron deficiency CAD (coronary artery disease) S/P ZAHRA to mid LAD 06/2016 Depression Diabetes mellitus, type 2 GERD (gastroesophageal reflux disease) Hearing deficit Hyperlipidemia Osteoarthritis Transient ischemic attack (TIA) 5 YEARS AGO - NO ISSUES SINCE - FOLLOWS W/ DR. SUTHERLAND Surgical History History of cardiac cath 06/2016 - [facility] - INCREASED SOB, ABN STRESS TEST - 1 STENT PLACED - FOLLOWS W/ DR. BULLOCK. History of cholecystectomy History of hysterectomy History of laminectomy LUMBAR Family History Unknown Diabetes Social History (Reviewed 09/20/18 @ 14:30 by Cara Reyes Preferred Language: Portuguese Communication Ability: Effective Beliefs That Will Affect Care: None Current Living Situation: Alone Feels Safe at Home: Yes Smoking Status: Never smoker Second Hand Exposure: No Hx Alcohol Use: No Hx Substance Use: No Review of Systems Review of Systems: ROS: well nourished well developed. Currently chest pain-free No double vision blurry vision No problems with speech or swallowing Reminded that she felt her heart palpating last week when she took a nitro, today she had chest discomfort substernally which she took a nitro No Wheezing or breathing issues No abdominal pain nausea vomiting diarrhea changes in appetite or weight No burning urine urine frequency or changes in color No focal joint pain or muscle pain No skin rashes or oral lesions No unusual bruising or bleeding No focused back pain or numbness or loss of strength No changes in memory or confusion Physical Exam Physical Exam: The patient appeared well nourished and normally developed. Vital signs as documented. Head exam is unremarkable. normocephalic, atraumatic Neck is without jugular venous distension, thyromegaly, or lymphademopathy Lungs are clear to auscultation and percussion. Cardiac exam reveals Rhythm is regular. First and second heart sounds normal. Abdominal exam reveals normal bowel sounds, no masses, no organomegaly Extremities are nonedematous and both pedal pulses are present Neurologic exam is A&Ox3, no focal deficits, strength is equal bilateral Psychologically seems neither anxious or depressed Skin is warm Dry without bruises or lesions Results & Data Vital Signs (Past 12 Hours) Vital Signs Temp Pulse Resp BP Pulse Ox 09/20/18 14:50 66 17 96 09/20/18 14:40 62 17 95 09/20/18 14:30 66 15 119/58 L 96 09/20/18 14:20 64 17 95 09/20/18 14:10 66 13 95 09/20/18 14:00 65 18 104/56 L 94 09/20/18 13:50 67 17 94 09/20/18 13:45 74 23 124/65 95 09/20/18 13:40 66 19 95 09/20/18 13:38 97 09/20/18 13:30 68 18 116/47 L 95 09/20/18 13:20 66 12 96 09/20/18 13:16 67 17 126/46 L 96 09/20/18 13:00 36.6 C 73 16 146/71 H 97 PG Care Time/CCT Total # of Minutes Spent Total Time Spent with Patient: Total time spent is greater than 50% in coordination of care (as documented) at patient's floor/unit and/or counseling patient:
[2018-09-20] MEDS ORDERED: ONDANSETRON INJ 2 MG/ML 2 ML VIAL IV PRN (16:27)
[2018-09-20] MEDS ORDERED: OXYCODONE/ACETAMINOPHEN 5mg/325mg TAB PO PRN (16:27)
[2018-09-20] MEDS ORDERED: DEXTROSE 50% 50 ML SYRINGE IV PRN (16:27)
[2018-09-20] MEDS ORDERED: GLUCOSE 10 TABS/TUBE PO PRN (16:27)
[2018-09-20] MEDS ORDERED: POLYETHYLENE (MIRALAX) 17 GM PACK PO PRN (16:27)
[2018-09-20] MEDS ORDERED: GLUCOSE 40% GEL 15 GM TUBE PO PRN (16:27)
[2018-09-20] MEDS ORDERED: MoRPHine SULFATE 2 MG/ML CARP IV PRN (16:27)
[2018-09-20] MEDS ORDERED: CARBOHYDRATES FOR HYPOGLYCEMIA PO PRN (16:27)
[2018-09-20] MEDS ORDERED: GLUCAGON FOR INJ 1 MG VIAL SQ PRN (16:27)
[2018-09-20] MEDS ORDERED: ALUMINUM/MAGNESIUM SUSP 30 ML UDC PO PRN (16:27)
--- NOTE | 2018-09-20 17:28 | Emergency Department Note ---
Entered by Cara Candelario acting as a scribe for Brian Ward MD History of Present Illness General Chief complaint: Chest Pain Stated complaint: CHEST PRESSURE Time Seen by Provider: 09/20/18 13:08 Source: patient History of Present Illness Provider complaint: chest pain Onset (ago): hour(s) 4 Location: chest Severity: similar to prior episodes Maximum Pain Intensity: 0 Current Pain Intensity: 6 Quality: + other (pressure) Relieved By: + other (NTG) Associated symptoms: + other (-leg swelling); no cough, no diaphoresis, no fever/chills (-fever) and no nausea/vomiting Treatments prior to arrival: other (NTG) The patient is a 73 female w/ PMHx of a CVA who presents to the ED w/ CC of chest pain beginning 4 hours ago. The patient states that she has had chest pressure that started at 0900 today. She reports that she was doing mild activity when the pain started. She states that she has had a cough and fever, but denies any leg swelling, diaphoresis, nausea, and vomiting. She reports that she took nitroglycerin that relieved her pain. She states that prior to treatment her pain was at 6/10. She states that she takes Plavix and baby aspi rin at night. She reports that she had similar episodes for the past couple of weeks. Home Medications Home Medications Medication Instructions Recorded Confirmed Type Lantus Solostar U-100 Insulin 6 unit SUBCUT HS 12/30/17 09/20/18 History aspirin [Aspir-81] 81 mg PO HS 12/30/17 09/20/18 History atorvastatin 40 mg PO HS 12/30/17 09/20/18 History cholecalciferol (vitamin D3) 1,000 unit PO HS 12/30/17 09/20/18 History citalopram 20 mg PO HS 12/30/17 09/20/18 History gabapentin 600 mg PO QID 12/30/17 09/20/18 History glipizide 2.5 mg PO BID 12/30/17 09/20/18 History multivitamin 1 cap PO QAM 12/30/17 09/20/18 History nitroglycerin [Nitrostat] 0.4 mg SUBLINGUAL UD PRN 12/30/17 09/20/18 History pantoprazole 40 mg PO QAM 12/30/17 09/20/18 History isosorbide mononitrate 60 mg PO QAM 01/17/18 09/20/18 History cyclobenzaprine 10 mg PO TID PRN #15 tab 08/12/18 09/20/18 Rx calcium carbonate [Calcium 500] 0 mg PO QDL 09/20/18 09/20/18 History pyridoxine (vitamin B6) [Vitamin 0 mg PO QAM 09/20/18 09/20/18 History B-6] Allergies Allergy/AdvReac Type Severity Reaction Status Date / Time metoclopramide AdvReac Severe SEVERE Verified 09/20/18 14:42 WEAKNESS/DIZZINESS metformin AdvReac Mild NAUSEA Verified 09/20/18 14:42 rosuvastatin AdvReac Mild muscle Verified 09/20/18 14:42 cramping Past Med/Surg History Social History Preferred Language: [place] Communication 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 and A total of 10 systems reviewed and were otherwise negative Physical Exam Vital Signs Vital Signs - 24 hr 09/20/18 13:00 09/20/18 13:16 09/20/18 13:20 Temperature 36.6 C Temperature Source Oral Sepsis Recent Fever Within 48 Hours No Sepsis New/Unexplained Change in Mental Status No Sepsis Action Taken by Nursing No Action Required Pulse Rate 73 67 66 Pulse Rate from SpO2 Sensor 68 66 Respiratory Rate 16 17 12 Blood Pressure 146/71 H 126/46 L Blood Pressure Mean 96 72 Pulse Oximetry 97 96 96 Oxygen Delivery Method Room Air 09/20/18 13:30 09/20/18 13:38 09/20/18 13:40 Temperature Temperature Source Sepsis Recent Fever Within 48 Hours Sepsis New/Unexplained Change in Mental Status Sepsis Action Taken by Nursing Pulse Rate 68 66 Pulse Rate from SpO2 Sensor 68 68 Respiratory Rate 18 19 Blood Pressure 116/47 L Blood Pressure Mean 70 Pulse Oximetry 95 97 95 Oxygen Delivery Method Room Air 09/20/18 13:45 09/20/18 13:50 09/20/18 14:00 Temperature Temperature Source Sepsis Recent Fever Within 48 Hours Sepsis New/Unexplained Change in Mental Status Sepsis Action Taken by Nursing Pulse Rate 74 67 65 Pulse Rate from SpO2 Sensor 72 67 66 Respiratory Rate 23 17 18 Blood Pressure 124/65 104/56 L Blood Pressure Mean 84 72 Pulse Oximetry 95 94 94 Oxygen Delivery Method 09/20/18 14:10 09/20/18 14:20 09/20/18 14:30 Temperature Temperature Source Sepsis Recent Fever Within 48 Hours Sepsis New/Unexplained Change in Mental Status Sepsis Action Taken by Nursing Pulse Rate 66 64 66 Pulse Rate from SpO2 Sensor 66 63 65 Respiratory Rate 13 17 15 Blood Pressure 119/58 L Blood Pressure Mean 78 Pulse Oximetry 95 95 96 Oxygen Delivery Method 09/20/18 14:40 Temperature Temperature Source Sepsis Recent Fever Within 48 Hours Sepsis New/Unexplained Change in Mental Status Sepsis Action Taken by Nursing Pulse Rate 62 Pulse Rate from SpO2 Sensor 62 Respiratory Rate 17 Blood Pressure Blood Pressure Mean Pulse Oximetry 95 Oxygen Delivery Method GENERAL: Well appearing, wearing glasses, well nourished, NAD, non-toxic. EYE EXAM: Normal conjunctiva. PERRL, no anisocoria and EOM's grossly intact w/o pain. OROPHARYNX: Moist mucous membranes. Grossly normal dentition. NECK: Supple, no nuchal rigidity, no adenopathy, non-tender. No signs of meningismus. LUNGS: Clear to auscultation. Normal chest wall mechanics. HEART: NSR, no MRG. ABDOMEN: Abdomen soft, non-tender, normo-active bowel sounds, no masses, no rebo und or guarding. BACK: No CVA TTP. SKIN: No rashes and no bruising. UPPER EXTREMITIES: Upper extremities are grossly normal. LOWER EXTREMITIES: Negative Ladarius's sign. No pitting edema. No calf pain. NEURO EXAM: A&O x3, cranial nerves II-XII grossly intact, normal speech, moves all 4 extremities on command w/o issue. Course 1324: The patient was evaluated in room C12B, and a complete history and physical examination were performed. 1412: I reevaluated the patient and updated her on her results, the patient's chest pain has resolved. 1430: I discussed the patient's case with Dr. Novoa- [facility] Hospitalist, he will further evaluate the patient for management. Consultations Consultation #1: Dr. Novoa- [facility] Hospitalist Time: 14:30 Administered Medications Discontinued Medications Aspirin (Aspirin) 324 mg PO NOW STA Stop: 09/20/18 13:32 Last Admin: 09/20/18 13:43 Dose: 324 mg Documented by: [id number] Nitroglycerin (Nitrostat) 0.4 mg SL NOW STA Stop: 09/20/18 13:33 Last Admin: 09/20/18 13:42 Dose: 0.4 mg Documented by: [id number] Medical Decision Making Medical Records Attestation: I reviewed the patient's medical records. Home Medications Current Medication List: was personally reviewed by me Laboratory Data Attestation: I reviewed the patient's lab results. Result diagrams: 09/20/18 13:17 09/20/18 13:17 Lab Results 09/20/18 09/20/18 09/20/18 Range/Units 13:17 13:17 13:17 WBC 5.51 (4.8-10.8) K/uL RBC 4.48 (4.2-5.4) M/uL Hgb 12.9 (12.0-16.0) g/dL Hct 39.1 (37-47) % MCV 87.3 (80-100) fL MCH 28.8 (25-34) pg MCHC 33.0 (32-36) g/dL RDW Std Deviation 64.3 H (36.4-46.3) fL RDW Coeff of Jazmine 20.3 H (11.5-14.5) % Plt Count 184 (130-400) K/uL MPV 9.1 (7.4-10.4) fL Immature Gran % (Auto) 0.0 % Neut % (Auto) 53.1 % Lymph % (Auto) 36.3 % [place] % (Auto) 8.7 % Eos % (Auto) 1.5 % Baso % (Auto) 0.4 % Immature Gran # (Auto) 0.00 (0.00-0.02) K/uL Neut # (Auto) 2.93 (1.4-6.5) K/uL Lymph # (Auto) 2.00 (1.2-3.4) K/uL [place] # (Auto) 0.48 (0.11-0.59) K/uL Eos # (Auto) 0.08 (0-0.5) K/uL Baso # (Auto) 0.02 (0-0.2) K/uL Anisocytosis Present PT 10.5 (9.0-12.0) Seconds INR 1.0 (0.9-1.1) APTT 27.7 (21.0-31.0) Seconds PTT Ratio 1.0 Sodium 140 (136-145) mmol/L Potassium 4.0 (3.5-5.1) mmol/L Chloride 106 (98-107) mmol/L Carbon Dioxide 28 (21-32) mmol/L Anion Gap 6.0 (3-11) BUN 17 (7-18) mg/dl Creatinine 0.79 (0.6-1.2) mg/dl Est Cr Clr Drug Dosing 59.2 ml/min Est GFR ( Amer) 85.5 Est GFR (Non-Af Amer) 73.7 BUN/Creatinine Ratio 20.9 H (10-20) Glucose 111 H (70-99) mg/dl Calcium 9.1 (8.5-10.1) mg/dl Phosphorus 3.7 (2.5-4.9) mg/dl Magnesium 2.4 (1.8-2.4) mg/dl Total Bilirubin 0.5 (0.2-1) mg/dl AST 21 (15-37) U/L ALT 38 (12-78) U/L Alkaline Phosphatase 89 (45-117) U/L Troponin I < 0.015 (0-0.045) ng/ml Total Protein 7.1 (6.4-8.2) gm/dl Albumin 3.5 (3.4-5.0) gm/dl Globulin 3.6 (2.5-4.0) gm/dl Albumin/Globulin Ratio 1.0 (0.9-2) Lipase 84 (73-393) U/L Imaging Data Radiologist's Impression: Radiology results as stated below per my review and the radiologist's interpretation: XR chest 1V portable CLINICAL HISTORY: Atypical chest pain COMPARISON STUDY: No previous studies for comparison. FINDINGS: The cardiac and mediastinal contours are normal. There is no evidence of focal pulmonary consolidation. There is no evidence of failure. No pleural effusions are visualized.[There is a small hiatal hernia. There are surgical clips within the right upper quadrant consistent with a prior cholecystectomy. IMPRESSION: No active disease in the chest. Electronically signed by: Bill Ramirez M.D. 09/20/2018 1:50 PM ECG Data Attestation: I personally reviewed and interpreted this ECG as follows: Indication: chest pain Rate (beats per minute): 67 Rhythm: sinus rhythm Findings: + other (normal axis, normal intervals, T-wave flattening in aVF) and + T-wave inversion (lead 3); no ST elevation and no acute ischemic change Comparison ECG Date: no prior available Blood Pressure Blood Pressure Findings: Low blood pressure Blood Pressure Disposition: further management by hospitalist MDM Narrative The patient is a 73 female w/ PMHx of a CVA who presents to the ED w/ CC of chest pain beginning 4 hours ago. Differential diagnosis: Etiologies such as cardiac ischemia, aortic dissection, pulmonary embolism, pneumonia, pneumothorax, musculoskeletal, infections, pericarditis, myocarditis, esophageal rupture, gastrointestinal, as well as others were entertained. Patient was seen and evaluated the bedside. The patient does relate that she has chest pains beginning today. The patient states it was left-sided and pressure-like. Patient states that this did occur doing some light activity. No nausea vomiting or diaphoresis. Patient has no lower lower extremity swelling. The patient does have a prior history of CAD status post stent placement with Dr. Wells 2 years prior. The patient did not take an aspirin today. The patient was seen in primary care clinic and was referred here for further evaluation and treatment. The patient given her history with improveme nt with nitro was given additional nitroglycerin as well as a full dose aspirin. Upon reassessment the patient had no chest pain. Patient does not have any overt EKG changes however she may have had them prior to taking the nitro. Given the concern for high risk chest pain and elevated heart score I believe the patient would benefit from continued trending of and enzymes and cardiac assessment cardiology consultation. I did speak with the on-call hospitalist who agreed to further evaluate treat the patient. Impression & Plan Atypical chest pain Discharge Plan Visit Data *Final* Discharge Date/Time: 09/20/18 15:57 Chief Complaint: Chest Pain Stated Complaint: CHEST PRESSURE ED Provider: Brian Ward Discharge Problem: Atypical chest pain Patient Disposition: Admitted As Inpatient Discharge Instructions Interventions: ED Discharge Assessment Last Done: 09/20/18 15:57 The scribe's documentation has been prepared under my direction and personally reviewed by me in its entirety. I confirm that the note above accurately reflects all work, treatment, procedures, and medical decision making performed by me.
[2018-09-20] MEDS: INSULIN ASPART 100 UNITS/ML 3 ML PEN SC SCH ×2 (17:49→20:54)
[2018-09-20] MEDS: GABAPENTIN 600 MG TAB PO SCH ×2 (19:58→20:02)
[2018-09-20] MEDS: OXYBUTYNIN CHLORIDE 5 MG TAB PO SCH (20:01)
[2018-09-20] MEDS: HEPARIN SOD 5,000 UNIT/0.5 ML VIAL SQ SCH (20:02)
[2018-09-20] MEDS ORDERED: ATORVASTATIN 40 MG TAB PO SCH (21:00)
[2018-09-20] MEDS ORDERED: INSULIN GLARGINE SOLOSTAR 100 UNITS/ML 3 ML PEN SQ SCH (21:00)
[2018-09-20] MEDS ORDERED: ASPIRIN 81 MG ECTAB PO SCH (21:00)
[2018-09-20] MEDS ORDERED: CITALOPRAM 20 MG TAB PO SCH (21:00)
--- NOTE | 2018-09-21 07:58 | Cardiology Consultation ---
Date of Consultation September 21, 2018 Assessment & Plan (1) Atypical chest pain: 2. Coronary artery disease status post PCI with ZAHRA to mid LAD--moderate residual LAD, circumflex disease and moderate to severe small vessel disease 3. Type 2 diabetes 4. Dyslipidemia Patient chest pain free and no evidence of active cardiac ischemia on ECG, cardiac enzymes. With history concern for ACS remains elevated and agree that additional risk stratification warrented. In the setting of moderate prior multivessel disease in 2017 recommend nuclear SPECT to help localize any potential ischemia. Continue home DAPT with ASA/Clopidogrel. Continue statin. Continue home Imdur. Further recommendations pending findings of stress this morning. ADDENDUM: Reviewed stress test images. Subtle apical reversible perfusion defect. Artifact vs small amount of apical LAD ischemia. Stress test findings overall low risk and with negative EKG/troponin feel safe for discharge today. Wound increase Imdur to 120 mg daily. Continue home ASA, statin (plavix previously discontinued). Will have patient follow-up in 2 weeks. If refractory symptoms would consider repeat cath. History of Present Illness Attending Physician: Tammi Cosme MD History of Present Illness Mrs. Cox is a very pleasant 73 year woman with a history of type 2 diabetes, gastroparesis, dyslipidemia and coronary artery disease status post PCI with ZAHRA to mid LAD admitted with intermittent chest pain for last week. Pain has occurred at rest and with exertion. Has taken nitro twice with relief of symptoms. Current pain different than prior episode in June of 2016. Since admission has been hemodynamically stable, chest pain free. ECG unchanged, troponin negative x2. Prior cardiac history remarkable for prior hospitalization in 06/2016 in the setting of substernal burning discomfort radiating into her neck for weeks. She had been seen on multiple occasions by GI with workup including EGD which was largely unremarkable except for hiatal hernia. Symptoms were accompanied by a significant decrease in her exercise tolerance. Exercise stress echo was positive for LAD distribution ischemia and reduced functional capacity. This prompted a cardiac catheterization which showed a 95% mid LAD stenosis which was treated with a 2.75 by 15 mm Xience drug-eluting stent. Patient initially did well post procedure however approximately 1 month later began having recurrent epigastric symptoms concerning for her prior angina. Underwent repeat cardiac catheterization which showed unchanged [id number] disease. FFR mid LAD and mid circumflex were negative for flow-limiting stenosis. She was started on Imdur and initially did well. Allergies Allergy/AdvReac Type Severity Reaction Status Date / Time metoclopramide AdvReac Severe SEVERE Verified 09/20/18 14:42 WEAKNESS/DIZZINESS metformin AdvReac Mild NAUSEA Verified 09/20/18 14:42 rosuvastatin AdvReac Mild muscle Verified 09/20/18 14:42 cramping Home Medications Home Medications Medication Instructions Recorded Confirmed Type Lanashleyus Solostar U-100 Insulin 6 unit SUBCUT HS 12/30/17 09/20/18 History aspirin [Aspir-81] 81 mg PO HS 12/30/17 09/20/18 History atorvastatin 40 mg PO HS 12/30/17 09/20/18 History cholecalciferol (vitamin D3) 1,000 unit PO HS 12/30/17 09/20/18 History citalopram 20 mg PO HS 12/30/17 09/20/18 History gabapentin 600 mg PO QID 12/30/17 09/20/18 History glipizide 2.5 mg PO BID 12/30/17 09/20/18 History multivitamin 1 cap PO QAM 12/30/17 09/20/18 History nitroglycerin [Nitrostat] 0.4 mg SUBLINGUAL UD PRN 12/30/17 09/20/18 History pantoprazole 40 mg PO QAM 12/30/17 09/20/18 History cyclobenzaprine 10 mg PO TID PRN #15 tab 08/12/18 09/20/18 Rx calcium carbonate [Calcium 500] 0 mg PO QDL 09/20/18 09/20/18 History pyridoxine (vitamin B6) [Vitamin 0 mg PO QAM 09/20/18 09/20/18 History B-6] isosorbide mononitrate 120 mg PO DAILY 30 Days #30 tab 09/21/18 Rx Patient History Social History Preferred Language: Vietnamese Communication Ability: Effective Beliefs That Will Affect Care: None Current Living Situation: Significant Other Feels Safe at Home: Yes Smoking Status: Never smoker Second Hand Exposure: No Hx Alcohol Use: No Hx Substance Use: No Physical Exam Physical Exam: General: Comfortable, no acute distress Eyes: Sclerae anicteric, extraocular movements intact HENT: Oropharynx clear mucous membranes moist Neck: Normal carotid upstrokes, no bruits. No JVD. Lungs: Clear to auscultation bilaterally, no rhonchi or wheezes Cardiac: Regular rate and rhythm, no murmurs, rubs or gallops. Vascular: 2+ radial, DP and PT pulses. No varicosities. Abdomen: Soft, nontender, nondistended, positive bowel sounds. Extremities: Well perfused, no peripheral edema Skin: No rashes or lesions. Neuro: Nonfocal Psych: Alert orient x3, normal affect and mood Results & Data Vital Signs (Past 12 Hours) Vital Signs Temp Pulse Pulse Resp BP Pulse Ox 09/21/18 03:12 37.1 C 60 18 123/66 97 09/21/18 00:30 71 09/21/18 00:00 37 C 67 16 134/66 98 09/20/18 23:49 36.8 C 62 18 136/70 95 Diagnostic Findings Cardiac catheterization (08/27/2016): Patent proximal mid LAD stent, focal 50 percent narrowing just distal to stent, small 1st diagonal with 70 percent ostial, 60 percent proximal stenosis. Circumflex 50 percent mid segment stenosis, small OM 1 with 70-80 percent stenosis, RCA dominant with mild nonobstructive disease. LVEDP 17. FFR mid LAD 0.86, FFR mid circumflex 0.92 Cardiac catheterization (06/2016): Left main normal; 95% mid LAD stenosis; circumflex mid 50% stenosis; RCA dominant 30% proximal, mid distal RCA stenosis PCI (06/2016): Right radial artery, 2.75 x 15 mm Xience drug-eluting stent, post dilated 3.0 Stress echo (06/2016): Distal LAD ischemia 83% max predicted heart rate. 1-[address] depressions in leads 2, 3, AVF. Exercise for 3 minutes and 49 seconds, achieved 5.5 Mets. EF 55-60% mild LVH, no significant valvular abnormalities
[2018-09-21] MEDS ORDERED: CLOPIDOGREL BISULFATE 75 MG TAB PO SCH (09:00)
[2018-09-21] MEDS ORDERED: ISOSORBIDE MONO EXTENDED REL 60 MG TABCR PO SCH (09:00)
[2018-09-21] MEDS ORDERED: PANTOprazole 40 MG TAB PO SCH (09:00)
[2018-09-21 09:07] LABS: Estimated Average Glucose 160 mg/dl; Hemoglobin A1C 7.2 % (4.5-5.6)
[2018-09-21] MEDS: INSULIN ASPART 100 UNITS/ML 3 ML PEN SC SCH ×2 (09:12→13:46)
[2018-09-21] MEDS ORDERED: REGADENOSON 0.4 MG/5 ML SYR IV ONE (09:14)
[2018-09-21 09:28] LABS: BUN Creatinine Ratio 16.8 (10-20); Blood Urea Nitrogen 14 mg/dl (7-18); Carbon Dioxide 30 mmol/L (21-32); Chloride 105 mmol/L (98-107); Creatinine Clr Calc Pharmacy 55.5 ml/min; Est GFR (African American) 79.4; Est GFR (Non-African American) 68.5; Glucose 106 mg/dl (70-99); Potassium 3.8 mmol/L (3.5-5.1); Sodium 140 mmol/L (136-145)
[2018-09-21 09:32] LABS: Troponin I < 0.015 ng/ml (0-0.045)
--- NOTE | 2018-09-21 10:26 | Family Medicine Progress Note ---
Date of Service September 21, 2018 Assessment & Plan (1) Atypical chest pain: Talia is a 73-year-old female with a past medical history of coronary artery disease as/P past PCI with ZAHRA to LAD, type 2 diabetes, and dyslipidemia who presented with increasing atypical symptoms of stable angina including chest pain, reflux-like symptoms, and decreased exercise tolerance resolving with rest. Atypical chest pain Chest pain resolved following 2 doses of nitro EKG with normal sinus rhythm, no ST changes, normal troponins Nuclear SPECT recommended for cardiology to localize any potential ischemia given her prior history of multivessel disease Recommended to continue dual antiplatelet therapy, atorvastatin 40, and isosorbide nitrate 60 daily Type 2 diabetes mellitus [employer] glipizide and Lantus. Glipizide held, converted to Lantus with SSI Repeat A1c 7.2% BMP daily, glucose checks AC/at bedtime Continue gabapentin 600 mg 4 times daily Depression Continue citalopram 10 mg nightly GERD Continue pantoprazole 40 mg daily DVT prophylaxis: Heparin 5000 units subcu every 12 CODE STATUS: Full code (2) Diabetes mellitus, type II: (3) GERD (gastroesophageal reflux disease): (4) Depression: (5) CVA (cerebral vascular accident): (6) Dyslipidemia: (7) DVT prophylaxis: Subjective Talia reports she feels well this morning. She notes that she has been having low chest/gastric pain and shortness of breath with exertion which resolves with rest which is been increasing for several weeks. She has not experienced any symptoms at rest. She notes that her chest pain present on admission completely resolved after 2 doses of nitro yesterday and have not recurred. She has had no chest pain, chest pressure, palpitations, shortness of breath, lightheadedness, dizziness, sweats or, nausea, or reflux today. She feels like she is in her normal state of health. Her case was discussed yesterday with Dr. Wells and she is expecting to go for a nuclear echo today. No questions or concerns at this time. She has never smoked cigarettes, but does have a history of diabetes. Review of Systems Review of Systems: All systems reviewed & are unremarkable except as noted in HPI & below Physical Exam Physical Exam: General: A&Ox3. NAD. Cooperative. HEENT: Atraumatic, normocephalic. Pulm: CTAB A&P. -wheezes, -rales, -rhonchi. Symmetrical chest rise. No increase in work of breathing. No respiratory distress. Cardiac: RRR, -mrg. Radial pulses intact and symmetrical. Abdominal: Nontender, nondistended, soft. BS present. Results & Data Vital Signs (Past 12 Hours) Vital Signs Temp Pulse Pulse Resp BP Pulse Ox 09/21/18 08:00 36.6 C 63 61 17 146/68 H 95 09/21/18 03:12 37.1 C 60 18 123/66 97 09/21/18 00:30 71 09/21/18 00:00 37 C 67 16 134/66 98 09/20/18 23:49 36.8 C 62 18 136/70 95 PG Care Time/CCT Total # of Minutes Spent Total Time Spent with Patient: Total time spent is greater than 50% in coordination of care (as documented) at patient's floor/unit and/or counseling patient: Resident Activity Tracking Resident Involvement: Resident Care Provided Care Provided: Adult Hospital Medicine
[2018-09-21] MEDS: GABAPENTIN 600 MG TAB PO SCH ×2 (13:21→13:23)
[2018-09-21] MEDS: HEPARIN SOD 5,000 UNIT/0.5 ML VIAL SQ SCH (13:22)
[2018-09-21] MEDS: OXYBUTYNIN CHLORIDE 5 MG TAB PO SCH (13:22)
--- NOTE | 2018-09-21 15:10 | Myocardial Perfusion Study ---
Date of Service September 21, 2018 Myocardial Perfusion Study [facility] Myocardial Perfusion Study Report ONE DAY NUCLEAR MEDICINE LEXISCAN TECHNETIUM 99M MYOCARDIAL PERFUSION SCAN Indication: History of coronary artery disease post prior PCI to LAD, recurrent chest pain. Baseline ECG: Normal sinus rhythm, no ST abnormalities. Ventricular rate 63. Stress ECG: No Lexiscan induced ST changes. No arrhythmias. HR rodriguez from 57 to 82 representing 56 % MPHR. SBP 132/42. Jaw discomfort with Lexiscan. Technique: For the stress portion of the study 31.5 mCi of Technetium 99m Cardiolite IV was injected at 11: 00 on 09/21/2018. 30 minutes following the injection, imaging of the heart was performed in multiple projections. For the rest portion of the study, 9.95 mCi of Technetium 99m Cardiolite was injected IV at 9: 03. One hour following the injection, imaging of the hear was performed in the same projections. Findings: Rotating raw images were reviewed in detail. Potential sources of attenuation include a subtle lateral breast shadow, and minimal gut uptake impacting the inferior imaging border of the heart. No significant extracardiac pathologic uptake. Short axis, vertical long axis and horizontal long axis images were reviewed in detail. No visual TID. Small, mild, mostly reversible perfusion defect involving apex. Sum difference score 2. Possibly related to breast attenuation. Normal LV size. EDV 44 ml. Calculated EF 76 %. No regional wall motion abnormalities. SUMMARY: 1. Small, mild, reversible apical perfusion defect. Artifact versus a small amount of low risk, distal LAD distribution ischemia. 2. Normal LV size and function. LVEF 76 % with no regional wall motion abnormalities. 3. Non-diagnostic stress ECG due to inability to reach target HR with Lexiscan.
--- NOTE | 2018-09-21 18:46 | Discharge Summary ---
Date of Service September 21, 2018 Admission HPI Per Admitting Provider 73-year-old female with known history of coronary disease with a catheterization in 2017 which showed severe disease in first diagonal and first obtuse marginal although the circumflex and LAD were open however the patient has severe disease in diagonal and obtuse marginal lines with preserved ejection fraction. At that time she is placed on dual and platelet therapy for 1 year and is doing isosorbide dinitrate. Patient did well. Plavix was stopped after 1 year 1 week ago the patient developed substernal chest discomfort while in the late stress. This is relieved with nitro. Today's patient was doing housework she developed fairly severe discomfort which was relieved mostly by nitroglycerin. She presented to her primary care office which did an EKG without acute current of injury was sent to the ER if she still chest pain while in the ER while having an EKG which was unremarkable had a second nitroglycerin which completely resolved her symptoms along with aspirin and oxygen. Patient was with a normal troponin level and recommended for intake for unstable angina Admission Exam Per Admitting Provider The patient appeared well nourished and normally developed. Vital signs as documented. Head exam is unremarkable. normocephalic, atraumatic Neck is without jugular venous distension, thyromegaly, or lymphademopathy Lungs are clear to auscultation and percussion. Cardiac exam reveals Rhythm is regular. First and second heart sounds normal. Abdominal exam reveals normal bowel sounds, no masses, no organomegaly Extremities are nonedematous and both pedal pulses are present Neurologic exam is A&Ox3, no focal deficits, strength is equal bilateral Psychologically seems neither anxious or depressed Skin is warm Dry without bruises or lesions Principal Diagnosis Chest pain Discharge Exam General: A&Ox3. NAD. Cooperative. HEENT: Atraumatic, normocephalic. Pulm: CTAB A&P. -wheezes, -rales, -rhonchi. Symmetrical chest rise. No increase in work of breathing. No respiratory distress. Cardiac: RRR, -mrg. Radial pulses intact and symmetrical. Abdominal: Nontender, nondistended, soft. BS present. Discharge Data Allergies Allergy/AdvReac Type Severity Reaction Status Date / Time metoclopramide AdvReac Severe SEVERE Verified 09/20/18 14:42 WEAKNESS/DIZZINESS metformin AdvReac Mild NAUSEA Verified 09/20/18 14:42 rosuvastatin AdvReac Mild muscle Verified 09/20/18 14:42 cramping Consultations 09/20/18 14:26 ED Decision to Admit Stat 09/21/18 07:24 Consult Cardiology Routine Hospital Course (1) Atypical chest pain: Talia is a 73-year-old female with a past medical history of coronary artery disease as/P past PCI with ZAHRA to LAD, type 2 diabetes, and dyslipidemia who presented with increasing atypical symptoms of stable angina including chest pain, reflux-like symptoms, and decreased exercise tolerance resolving with rest. Atypical chest pain 1 week prior to presentation Bev started developing substernal chest discomfort while under stress. This improved with nitroglycerin. On day of admission she was doing housework when she developed chest discomfort and had an EKG at her PCP office which did not show acute changes, but was referred to the emergency department after she did not have resolution of her symptoms. Her chest pain resolved after a second dose of nitro. EKG in the emergency department showed normal sinus rhythm without ST changes. Troponins were negative. Given her prior history of multivessel cardiac disease cardiology was consulted and recommended nuclear SPECT. On review of her stress images subtle apical reversible perfusion defect was observed which could be artifact versus a small amount of apical LAD ischemia. Her findings were thought to be overall low risk with a negative EKG/troponin and she was able and safe for discharge. Her Imdur was increased to 120 mg daily and she was instructed to continue aspirin monotherapy. Her atorvastatin 40 mg was continued without dose change. She was discharged to follow-up with cardiology in 2 weeks. Type 2 diabetes mellitus Talia has a past medical history of type 2 diabetes mellitus managed with glipizide and Lantus. Her glipizide was held on admission and she was converted to Lantus with SSI insulin. A repeat A1c was 7.2%. She had good glycemic control during admission. 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 Depression Citalopram 10 mg nightly was continued for depression. She did not experience any exacerbation of her depression during admission. GERD Pantoprazole 40 mg daily was continued for GERD. She did not experience any gout flares during admission. DVT prophylaxis was maintained with heparin 5000 units subcu every 12 hours, she did not have any signs of bleeding or thrombosis during admission. (2) Diabetes mellitus, type II: (3) DVT prophylaxis: Total Time Total Time Spent Total Time Spent (In Minutes): 30 Discharge Plan Discharge Items Patient Disposition: Home - Self-Care Reason For Visit: CHEST PAIN Discharge Diagnosis: Chest Pain Discharge Goals: Decrease discomfort Activity: Resume your previous activity Non-emergency contact: Primary Care Provider Call non-emergency contact if: you have any medication questions and your symptoms worsen Follow-up/Referrals: Marcello Wells MD [Physician] - Khushboo Gamez [Primary Care Provider] - 09/23/18 4:10 pm (Please, follow up with Dr. Gamez on WednesdaySeptember 23 at 4:10 pm. *If you need to change this appointment, call the office at [phone].) Diet: Carb Consistent or DM2 Addtl Provider Instructions: Ruthann Oralivamichael, you were seen at [facility] due to chest pain. Your EKG (electrical tracing of your heart) and troponin (enzyme that measures damage of your heart) did not reveal any damage to your heart. Given your significant cardiac history, you underwent a stress test of your heart. This was low risk, and Dr. Wells will be following up with you in clinic in two weeks to re-evaluate you. His office will be calling you to set up an appointment. If you don't hear from them by M on, please call the office at [phone]. Dr. Wells has advised that you increase the dosage of your imdur from 60mg a day to 120mg a day. This increased dose will be sent to your pharmacy. You can continue to take your other medications as prescribed. We recommend that you follow up with your primary care doctor. An appointment has been arranged for you and is listed above. Your iron level, which was checked in August, was low, and recommend discussing this with your primary care provider. If you experience worsening chest pain, shortness of breath, dizziness/lightheadedness, please seek medical attention. Prescriptions: New isosorbide mononitrate 120 mg tablet extended release 24 hr 120 mg PO DAILY 30 Days Qty: 30 RF: 3 Continued atorvastatin 40 mg Tablet 40 mg PO HS RF: 0 gabapentin 600 mg Tablet 600 mg PO QID RF: 0 citalopram 40 mg Tablet 20 mg PO HS RF: 0 aspirin [Aspir-81] 81 mg Tablet,Delayed Release (Dr/Ec) 81 mg PO HS RF: 0 glipizide 2.5 mg Tablet Extended Release 24hr 2.5 mg PO BID RF: 0 pantoprazole 40 mg Tablet,Delayed Release (Dr/Ec) 40 mg PO QAM RF: 0 nitroglycerin [Nitrostat] 0.4 mg Tablet, Sublingual 0.4 mg Sublingual UD PRN (Reason: Chest Pain) RF: 0 multivitamin Capsule 1 cap PO QAM RF: 0 cholecalciferol (vitamin D3) 1,000 unit Capsule 1,000 unit PO HS RF: 0 Lantus Solostar U-100 Insulin 100 unit/mL (3 mL) Insulin Pen 6 unit SUBCUT HS RF: 0 pyridoxine (vitamin B6) [Vitamin B-6] 25 mg Tablet PO QAM RF: 0 calcium carbonate [Calcium 500] 500 mg calcium (1,250 mg) Tablet PO QDL RF: 0 cyclobenzaprine 10 mg tablet 10 mg PO TID PRN (Reason: muscle spasm) Qty: 15 RF: 0 Discontinued isosorbide mononitrate 60 mg Tablet Extended Release 24 Hr 60 mg PO QAM RF: 0 Stand-Alone Forms: Call Back Authorization, [facility] Discharge Orders: Discharge Order (Routine); Ordered 09/21/18 Ordered By: Luke Chairez Admission Data Admit Date/Time: 09/20/18 14:50 Attending Provider: Tammi Cosme Admit Provider: Keaton Novoa Primary Care Provider: Khushboo Gamez Other Providers: Keaton Novoa ; Marcello Wells Service: Telemetry Other Interventions: Discharge Summary Assessment (RN) Last Done: 09/21/18 15:53 DC Date/Time DO NOT enter until pt leaves facility: 09/21/18 16:44 Supervising Physician Co-Signing Physician Notes Resident Physician Supervision Note: I independently interviewed and examined the patient and verified the kuo history and physical, reviewed labs and image studies, discussed the case with the resident Dr. Trinidad and agree with the findings and care plan. Resident Activity Tracking Resident Involvement: Resident Care Provided Care Provided: Adult Hospital Medicine
== END 2018-09-21 16:44 | disposition home or self-care (01) ==
LOC: ED 12:53 → 2S 12:53 → SUATTDRO 14:50 → 2S 15:57

== ENCOUNTER 2020-04-13 13:27 | Inpatient (IN) ==
[2020-04-13] MEDS ORDERED: fentaNYL citrate 100 MCG/2 ML VIAL IV STA ×2 (13:47→14:25)
[2020-04-13] MEDS ORDERED: ACETAMINOPHEN 1,000 MG/100 ML VIAL IV STA (13:54)
--- NOTE | 2020-04-13 13:59 | Emergency Department Note ---
Impression & Plan Fall, Closed fracture of right hip ED Provider Note Provider: Renan Gonzalez MD DATE OF SERVICE:04/13/2020 CHIEF COMPLAINT: Fall, right hip pain HISTORY OF PRESENT ILLNESS: Patient is a 74-year-old female history of type 2 diabetes, GERD, CAD, and osteoarthritis presenting here today after a fall. Patient states she is visiting her daughters where her daughter has multiple baby goats. One of the goats bumped her and she fell onto her right hip. Patient denies striking her head or loss of consciousness. Patient no chest pain or shortness of breath. Patient has injury to the upper extremities states severe pain in her right hip. Family loaded her in the car and brought her here for further evaluation she has severe pain in her right hip. Is unable to extend or walk on it. Denies significant pain in the right knee or lower leg or foot. Patient states she is a little bit of numbness and tingling in her right foot somewhat worse than baseline.. Patient states she believes she broke her right hip. Patient denies significant abdominal pain or injury to the left lower extremity. Patient did not take anything for pain prior to arrival. Last had something to eat or drink at 8 AM. REVIEW OF SYSTEMS: A total of 10 review of systems was obtained and negative except as stated above in the HPI. PAST MEDICAL HISTORY: As noted above MEDICATIONS: Reviewed home medication list. 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 Head: normocephalic and atraumatic EYES: No injection, discharge or icterus. NECK: Trachea midline. Supple. ENT: Mucous membranes pink and moist. LUNGS: Airway patent. No retractions. Breath sounds clear HEART: Regular rate and rhythm. No chest wall tenderness ABDOMEN: Soft and non-tender, without guarding or rebound. A right mid abdomen Dexcom is in place. SKIN: Acyanotic, warm, dry, without rashes EXTREMITIES: Without swelling, tenderness or deformity except for significant tenderness and pain around the right hip with any pain with movement of this joint. Right thigh is slightly flexed. No rotation appreciated. No significant tenderness or obvious deformity the right knee, lower leg, ankle, or foot. 1+ right DP pulse of the right foot compared to 2+ on the left. NEUROLOGICAL: No aphasia. No facial droop or slurred speech.patient reports some numbness but feels gross touch throughout the entire right leg. EK bpm appears to be in normal sinus rhythm PVC or PAC. There is some baseline artifact but no clear acute ST segment elevation or depression. Normal QTC. CONTINUOUS CARDIAC MONITORING: was ordered and showed a heart rate of 88 bpm in normal sinus rhythm GCS 15. Patient's laboratory studies and imaging reviewed. Differential includes Fracture, subluxation, dislocation, contusion, ligamentous injury, neurovascular, compartment syndrome, rhabdomyolysis, as well as other pathologies. IMPRESSION/MEDICAL DECISION MAKING: Patient presents after mechanical fall complaining severe right hip pain. Patient has tenderness in the right hip concern for fracture. X-ray was obtained. Given a dose of IV Tylenol addition to multiple doses of fentanyl. There is some numbness reported in the right lower leg but feels gross touch. 1+ right DP pulse and somewhat diminished compared to the left. I doubt acute ischemia at this time. Benign abdomen and doubt acute intra-abdominal injury. X-ray of the pelvis and right hip and femur were obtained. Patient denies striking her head or other head injury. Patient denies significant neck injury. No numbness or tingling in the extremities is appreciated. Not on antico agulation but baby aspirin. Do not feel we need imaging of the head or neck at this time. EKG, basic labs, type and screen, and chest x-ray obtained in addition to imaging of the right femur and hip. Basic blood work without significant anemia or leukocytosis. Electrolytes without severe abnormality. Renal function appears stable. INR is 1. Type and screen sent to the lab. X-rays reveal evidence of a right transcervical fracture. Patient requested Dr. Epstein's team if available in orthopedics manager personnel selection (Dr. Gurrola) was contacted via phone. Discussed with some of the x-ray findings as well as patient's complaint of some numbness and the decreased pulse on the right compared to the left DP. He stated he and his team would evaluate the patient. Patient will require admission for surgical repair. Amelia was ordered. Hospitalist was contacted. DIAGNOSIS: Fall, right transcervical hip fracture DISPOSITION: Hospitalist will evaluate Patient was agreeable with this plan. Past Med/Surg History Medical History Anxiety CAD (coronary artery disease) Depression Diabetes mellitus, type 2 GERD (gastroesophageal reflux disease) Hearing deficit Hyperlipidemia Iron deficiency Osteoarthritis Transient ischemic attack (TIA) Surgical History History of cardiac cath History of cholecystectomy History of hysterectomy History of laminectomy History of salpingo-oophorectomy Previous back surgery Family History Unknown Diabetes Mother Diabetes Tremor Sister Tremor Colorectal cancer Father Colorectal cancer Social History Smoking Status: Never smoker Second Hand Exposure: No; Hx Alcohol Use: No Hx Substance Use: No Preferred Language: Malay Communication Ability: Effective Utility Pipe Layer Required: No Beliefs That Will Affect Care: None Current Living Situation: Alone Other Information That Helps Us Care for You: No Feels Safe at Home: Yes Safety Concerns: Feels Safe At This Time Assistive Devices: Glasses Allergies Allergies Allergy/AdvReac Type Severity Reaction Status Date / Time metoclopramide AdvReac Severe SEVERE Verified 04/13/20 15:43 WEAKNESS/DIZZINESS primidone AdvReac Severe Lethargy Verified 04/13/20 15:43 metformin AdvReac Mild NAUSEA Verified 04/13/20 15:43 rosuvastatin AdvReac Mild muscle Verified 04/13/20 15:43 cramping Home Meds Home Medications Medication Instructions Recorded Confirmed aspirin 81 mg tablet,delayed 81 mg PO DAILY tab 10/21/18 04/13/20 release atorvastatin 40 mg tablet 40 mg PO DAILY tab 10/21/18 04/13/20 calcium carbonate 500 mg(1,250 1 tab PO BID tab 10/21/18 04/13/20 mg)-vitamin D3 400 unit chewable tablet cholecalciferol (vitamin D3) 50 2,000 units PO DAILY 10/21/18 04/13/20 mcg (2,000 unit) capsule nitroglycerin 0.4 mg sublingual 0.4 mg SUBLINGUAL UD 10/21/18 04/13/20 tablet pantoprazole 40 mg tablet,delayed 40 mg PO DAILY tab 10/21/18 04/13/20 release duloxetine 60 mg capsule,delayed 60 mg PO DAILY 01/29/20 01/23/21 release multivitamin 1 tab PO DAILY 05/31/19 04/13/20 cyanocobalamin (vitamin B-12) 1,000 mcg PO BID #60 tab 09/04/19 04/13/20 1,000 mcg tablet lorazepam 0.5 mg tablet 0.5 mg PO DAILY PRN 10/04/19 04/13/20 pyridoxine (vitamin B6) [Vitamin 50 mg PO DAILY 12/18/19 04/13/20 B-6] insulin glargine 100 unit/mL (3 10 unit SQ HS ml 01/02/20 04/13/20 mL) subcutaneous pen insulin lispro 100 unit/mL 27 unit SUBCUT UD ml 01/02/20 04/13/20 subcutaneous pen Previous Rx's Medication Instructions Recorded isosorbide mononitrate 120 mg 120 mg PO DAILY #90 tab 06/16/19 tablet,extended release 24 hr BD Ultra-Fine Marah Pen Needle 32 #400 ea NS 10/10/19 gauge x 5/32" gabapentin 300 mg capsule 600 mg PO QID #720 cap 10/10/19 Results & Data (ED) Vital Signs Vital Signs - 24 hr 04/13/20 13:30 04/13/20 13:48 04/13/20 13:56 Temperature 36.4 C L Temperature Source Oral Pulse Rate 78 83 Pulse Rate from SpO2 Sensor 83 Pulse Rhythm Regular Pulse Strength Normal Respiratory Rate 17 15 Respiratory Effort / Characteristics Non-Labored Spontaneous Respiratory Depth Normal Respiratory Pattern Regular Blood Pressure 146/81 H 146/81 H Blood Pressure Mean 102 102 Blood Pressure Position Lying Pulse Oximetry 94 94 94 Oxygen Delivery Method Room Air Room Air Sepsis Recent Fever Within 48 Hours No Sepsis New/Unexplained Change in Mental Status N/A Sepsis Action Taken by Nursing No Action Required 04/13/20 14:08 04/13/20 14:30 04/13/20 15:30 Temperature Temperature Source Pulse Rate 105 H 80 76 Pulse Rate from SpO2 Sensor 104 H 81 78 Pulse Rhythm Pulse Strength Respiratory Rate 15 17 16 Respiratory Effort / Characteristics Respiratory Depth Respiratory Pattern Blood Pressure 166/86 H 159/74 H 128/67 Blood Pressure Mean 112 102 87 Blood Pressure Position Pulse Oximetry 95 90 92 Oxygen Delivery Method Sepsis Recent Fever Within 48 Hours Sepsis New/Unexplained Change in Mental Status Sepsis Action Taken by Nursing Laboratory Data Result diagrams: 04/13/20 13:57 04/13/20 13:57 Lab Results 04/13/20 04/13/20 04/13/20 Range/Units 13:57 13:57 13:57 WBC 9.43 (4.8-10.8) K/uL RBC 4.62 (4.2-5.4) M/uL Hgb 15.2 (12.0-16.0) g/dL Hct 44.7 (37-47) % MCV 96.8 (80-100) fL MCH 32.9 (25-34) pg MCHC 34.0 (32-36) g/dL RDW Std Deviation 46.2 (36.4-46.3) fL RDW Coeff of Jazmine 13.1 (11.5-14.5) % Plt Count 211 (130-400) K/uL MPV 9.4 (7.4-10.4) fL Immature Gran % (Auto) 0.3 % Neut % (Auto) 66.5 % Lymph % (Auto) 24.5 % Mcleod % (Auto) 7.7 % Eos % (Auto) 0.8 % Baso % (Auto) 0.2 % Neut # (Auto) 6.26 (1.4-6.5) K/uL Lymph # (Auto) 2.31 (1.2-3.4) K/uL Mcleod # (Auto) 0.73 H (0.11-0.59) K/uL Eos # (Auto) 0.08 (0-0.5) K/uL Baso # (Auto) 0.02 (0-0.2) K/uL Immature Gran # (Auto) 0.03 H (0.00-0.02) K/uL PT 10.9 (9.0-12.0) Seconds INR 1.0 (0.9-1.1) Sodium (136-145) mmol/L Potassium (3.5-5.1) mmol/L Chloride (98-107) mmol/L Carbon Dioxide (21-32) mmol/L Anion Gap (3-11) BUN (7-18) mg/dl Creatinine (0.6-1.2) mg/dl Est Cr Clr Drug Dosing Est GFR ( Amer) Est GFR (Non-Af Amer) BUN/Creatinine Ratio (10-20) Glucose (70-99) mg/dl Calcium (8.5-10.1) mg/dl Total Bilirubin (0.2-1) mg/dl AST (15-37) U/L ALT (12-78) U/L Alkaline Phosphatase (45-117) U/L Total Protein (6.4-8.2) gm/dl Albumin (3.4-5.0) gm/dl Globulin (2.5-4.0) gm/dl Albumin/Globulin Ratio (0.9-2) COVID-19 Eval Order SARS-CoV-2, RNA, NAAT (NEGATIVE) Blood Type O Positive Antibody Screen NEGATIVE 04/13/20 04/13/20 04/13/20 Range/Units 13:57 Unknown Unknown WBC (4.8-10.8) K/uL RBC (4.2-5.4) M/uL Hgb (12.0-16.0) g/dL Hct (37-47) % MCV (80-100) fL MCH (25-34) pg MCHC (32-36) g/dL RDW Std Deviation (36.4-46.3) fL RDW Coeff of Jazmine (11.5-14.5) % Plt Count (130-400) K/uL MPV (7.4-10.4) fL Immature Gran % (Auto) % Neut % (Auto) % Lymph % (Auto) % Mcleod % (Auto) % Eos % (Auto) % Baso % (Auto) % Neut # (Auto) (1.4-6.5) K/uL Lymph # (Auto) (1.2-3.4) K/uL Mcleod # (Auto) (0.11-0.59) K/uL Eos # (Auto) (0-0.5) K/uL Baso # (Auto) (0-0.2) K/uL Immature Gran # (Auto) (0.00-0.02) K/uL PT (9.0-12.0) Seconds INR (0.9-1.1) Sodium 140 (136-145) mmol/L Potassium 3.7 (3.5-5.1) mmol/L Chloride 105 (98-107) mmol/L Carbon Dioxide 30 (21-32) mmol/L Anion Gap 4.0 (3-11) BUN 19 H (7-18) mg/dl Creatinine 0.87 (0.6-1.2) mg/dl Est Cr Clr Drug Dosing Not Reportable Est GFR ( Amer) 75.5 Est GFR (Non-Af Amer) 65.2 BUN/Creatinine Ratio 21.9 H (10-20) Glucose 111 H (70-99) mg/dl Calcium 9.6 (8.5-10.1) mg/dl Total Bilirubin 0.7 (0.2-1) mg/dl AST 19 (15-37) U/L ALT 42 (12-78) U/L Alkaline Phosphatase 107 (45-117) U/L Total Protein 7.7 (6.4-8.2) gm/dl Albumin 3.5 (3.4-5.0) gm/dl Globulin 4.2 H (2.5-4.0) gm/dl Albumin/Globulin Ratio 0.8 L (0.9-2) COVID-19 Eval Order Covid19 IDNow atMVAC SARS-CoV-2, RNA, NAAT NEGATIVE (NEGATIVE) Blood Type Antibody Screen Administered Medications Discontinued Medications Fentanyl Citrate (Fentanyl Citrate 100 Mcg/2 Ml Vial) 100 mcg IV NOW STA Stop: 04/13/20 13:48 Last Admin: 04/13/20 13:56 Dose: 100 mcg Documented by: [id number] Fentanyl Citrate (Fentanyl Citrate 100 Mcg/2 Ml Vial) 100 mcg IV NOW STA Stop: 04/13/20 14:26 Last Admin: 04/13/20 14:47 Dose: 100 mcg Documented by: [id number] Acetaminophen (Ofirmev) 1,000 mg in 100 mls @ 400 mls/hr IV NOW STA Stop: 04/13/20 14:08 Last Infusion: 04/13/20 14:22 Dose: 0 mls/hr Documented by: [id number] Admin: 04/13/20 14:02 Dose: 400 mls/hr Documented by: [id number] Morphine Sulfate (Morphine Sulfate 4 Mg/Ml 1 Ml Carp\\Vial) 4 mg IV NOW STA Stop: 04/13/20 15:26 Last Admin: 04/13/20 15:59 Dose: 4 mg Documented by: [id number] Ondansetron HCl (Ondansetron Inj 2 Mg/Ml 2 Ml Vial) 4 mg IV NOW STA Stop: 04/13/20 14:10 Last Admin: 04/13/20 14:22 Dose: Not Given Documented by: [id number] Ondansetron HCl (Ondansetron Inj 2 Mg/Ml 2 Ml Vial) Confirm Administered Dose 4 mg .ROUTE .STK-MED ONE Stop: 04/13/20 14:10 Last Admin: 04/13/20 14:20 Dose: 4 mg Documented by: [id number] Discharge Plan Visit Data Chief Complaint: Fall Stated Complaint: FALL,RT HIP INJURY ED Provider: Renan Gonzalez Discharge Problem: Fall, Closed fracture of right hip Patient Disposition: Being Evaluated by Hospitalist Condition: Fair Forms Stand Alone Forms: [facility] Prescriptions Prescriptions: No Action isosorbide mononitrate 120 mg tablet extended release 24 hr 120 mg PO DAILY Qty: 90 RF: 3 gabapentin 300 mg capsule 600 mg PO QID Qty: 720 RF: 3 (DME) pen needle, diabetic [BD Ultra-Fine Marah Pen Needle] 32 gauge x 5/32" needle See Rx Instructions .ROUTE .MEDSUPPLY Qty: 400 RF: 3 duloxetine [Cymbalta] 60 mg capsule,delayed release(DR/EC) 60 mg PO DAILY RF: 0 lorazepam 0.5 mg tablet 0.5 mg PO DAILY PRN (Reason: sleep) RF: 0 Lantus Solostar U-100 Insulin 100 unit/mL (3 mL) insulin pen 10 unit SQ HS RF: 0 calcium carbonate-vitamin D3 500 mg(1,250mg) -400 unit tablet,chewable 1 tab PO BID RF: 0 cholecalciferol (vitamin D3) 2,000 unit capsule 2,000 units PO DAILY RF: 0 cyanocobalamin (vitamin B-12) 1,000 mcg tablet 1,000 mcg PO BID Qty: 60 RF: 0 multivitamin [Daily Multi-Vitamin] Tablet 1 tab PO DAILY RF: 0 aspirin [Aspir-81] 81 mg tablet,delayed release (DR/EC) 81 mg PO DAILY RF: 0 pantoprazole 40 mg tablet,delayed release (DR/EC) 40 mg PO DAILY RF: 0 nitroglycerin [Nitrostat] 0.4 mg tablet, sublingual 0.4 mg Sublingual UD RF: 0 atorvastatin 40 mg tablet 40 mg PO DAILY RF: 0 pyridoxine (vitamin B6) [Vitamin B-6] 50 mg Tablet 50 mg PO DAILY RF: 0 insulin lispro [Humalog KwikPen Insulin] 100 unit/mL insulin pen 27 unit subcut UD RF: 0 Referrals Referrals: Massiel Orellana MD [Primary Care Provider] - Discharge Problem: Fall Qualifiers: Encounter type: initial encounter Qualified Code(s): W19.XXXA - Unspecified fall, initial encounter Closed fracture of right hip Qualifiers: Encounter type: initial encounter Qualified Code(s): S72.001A - Fracture of unspecified part of neck of right femur, initial encounter for closed fracture
[2020-04-13 14:09] LABS: Basophils # (auto) 0.02 K/uL (0-0.2); Basophils % (auto) 0.2 %; Eosinophils # (auto) 0.08 K/uL (0-0.5); Eosinophils % (auto) 0.8 %; Hematocrit (blood only) 44.7 % (37-47); Hemoglobin 15.2 g/dL (12.0-16.0); Immature Granulocytes # (auto) 0.03 K/uL (0.00-0.02); Immature Granulocytes % (auto) 0.3 %; Lymphocytes # (auto) 2.31 K/uL (1.2-3.4); Lymphocytes % (auto) 24.5 %; Mean Corpuscular Hemoglobin 32.9 pg (25-34); Mean Corpuscular Volume 96.8 fL (80-100); Mean Platelet Volume 9.4 fL (7.4-10.4); Monocytes # (auto) 0.73 K/uL (0.11-0.59); Monocytes % (auto) 7.7 %; Neutrophils # (auto) 6.26 K/uL (1.4-6.5); Neutrophils % (auto) 66.5 %; Platelet Count 211 K/uL (130-400); RDW Coefficient of Variation 13.1 % (11.5-14.5); RDW Standard Deviation 46.2 fL (36.4-46.3); Red Blood Count 4.62 M/uL (4.2-5.4); White Blood Count 9.43 K/uL (4.8-10.8)
[2020-04-13] MEDS ORDERED: ONDANSETRON INJ 2 MG/ML 2 ML VIAL ONE (14:09)
[2020-04-13] MEDS ORDERED: ONDANSETRON INJ 2 MG/ML 2 ML VIAL IV STA (14:09)
[2020-04-13 14:19] LABS: Prothrombin Time 10.9 Seconds (9.0-12.0)
[2020-04-13 14:28] LABS: Alanine Aminotransferase 42 U/L (12-78); Albumin Level 3.5 gm/dl (3.4-5.0); Aspartate Aminotransferase 19 U/L (15-37); BUN Creatinine Ratio 21.9 (10-20); Blood Urea Nitrogen 19 mg/dl (7-18); Calcium 9.6 mg/dl (8.5-10.1); Carbon Dioxide 30 mmol/L (21-32); Chloride 105 mmol/L (98-107); Est GFR (African American) 75.5; Est GFR (Non-African American) 65.2; Glucose 111 mg/dl (70-99); Potassium 3.7 mmol/L (3.5-5.1); Sodium 140 mmol/L (136-145)
[2020-04-13 14:31] LABS: Albumin Globulin Ratio 0.8 (0.9-2); Alkaline Phosphatase 107 U/L (45-117); Bilirubin,Total 0.7 mg/dl (0.2-1); Globulin 4.2 gm/dl (2.5-4.0); Total Protein 7.7 gm/dl (6.4-8.2)
--- NOTE | 2020-04-13 15:11 | XRay Report ---
XR chest 1V portable HISTORY: 74 years-old Female fall . Acute chest trauma status post fall COMPARISON: Chest radiograph 09/20/2018 TECHNIQUE: Portable AP view of the chest FINDINGS: Cardiac silhouette is upper limits of normal in size. Hiatal hernia. Calcified plaque of the thoracic aorta. No pneumothorax, pleural effusion, overt pulmonary edema or airspace consolidation typical fo r pneumonia. Mild right hemidiaphragmatic elevation. Surgical clips of the abdominal right upper quad rant. Bones appear grossly intact. IMPRESSION: No acute process. ACT 112: Negative or not required by law. The above report was generated using voice recognition software. It may contain grammatical, syntax o r spelling errors. Electronically signed by: Kyaw Back M.D. 04/13/2020 3:10 PM
--- NOTE | 2020-04-13 15:14 | XRay Report ---
XR pelvis 1-2V routine, XR femur RT 2V routine HISTORY: 74 years-old Female fall, R hip pain acute pelvic and right hip pain status post fall COMPARISON: Pelvis and right hip radiographs 10/15/2018 TECHNIQUE: AP view of the pelvis with 2 views of the right femur FINDINGS: PELVIS: Demineralized appearance of the bones. Moderate osteophytosis of the hips. Acute proximal right femor al fracture. FEMUR: There is an acute transcervical fracture of the right femur with mild cortical impaction and no signi ficant displacement. No dislocation. The mid and distal femur appear intact. Osteoarthritis of the ri ght knee with trace knee joint effusion chondrocalcinosis. IMPRESSION: Acute mildly impacted transcervical fracture of the right femur. ACT 112: Negative or not required by law. The above report was generated using voice recognition software. It may contain grammatical, syntax o r spelling errors. Electronically signed by: Kyaw Back M.D. 04/13/2020 3:13 PM
[2020-04-13] MEDS ORDERED: MoRPHine SULFATE 4 MG/ML 1 ML CARP\\VIAL IV STA (15:25)
[2020-04-13] MEDS ORDERED: LORazepam 0.5 MG/1 ML VIAL IV STA (16:17)
[2020-04-13] MEDS ORDERED: GABAPENTIN 400 MG CAP PO STA (16:23)
--- NOTE | 2020-04-13 16:23 | History & Physical Report ---
Date of Service April 13, 2020 Assessment & Plan (1) Fall: Mechanical secondary to being hit by a goat. No further work-up required. (2) Closed fracture of right hip: Pain control with acetaminophen and Dilaudid as needed Nausea control with ondansetron Muscle spasm controlled with lorazepam Consult orthopedics - discussed with Dr. Hi and patient is for surgery in the morning. Revised cardiac risk score 3 -15% 30-day risk of , [place] or cardiac arrest. Given excellent recent exercise tolerance despite known coronary artery disease she does not need cardiology clearance before surgery and is medically optimized at this time. (3) Osteoporosis: DEXA scan 06/2018 shows osteoporosis in her left hip. Would recommend following up with PCP for treatment for this. Vitamin D level in a.m. (4) Diabetes mellitus, type 2: HbA1c 7.2 April 02. No need to repeat this. Type II diabetic diet Consult pharmacy for perioperative glycemic control (5) Muscle cramps: At baseline. Extreme muscle cramps in setting of hip fracture, will manage with lorazepam as needed. (6) Atherosclerosis of coronary artery: Significant history of coronary artery disease but appears to be stable. No prior myocardial infarction however underwent cardiac catheterization for unstable angina with positive stress echo with 95% mid LAD stenosis treated with drug-eluting stent in 2017. Repeat cardiac catheterization due to recurrent epigastric symptoms showed mild to moderate disease a month later after a drug-eluting stent. She reports good exercise tolerance walking 3 miles without chest pain or shortness of breath prior to her current fall. (7) Benign essential tremor: Notable history of this. No noticeable on exam. (8) Neuropathy: Continue gabapentin 600 mg p.o. 4 times daily (9) Anxiety: Continue duloxetine 60 mg p.o. daily (10) DVT prophylaxis: Deferred to orthopedics Admission and Anticipated Discharge Date Admission Date: April 13, 2020 History of Present Illness Chief Complaint: Fall, right hip pain Primary Care Provider: Massiel Orellana MD Talia Cox is a 74-year-old female who presents to the ER after a fall landing on the right side of her hip with subsequent lateral hip pain. She reports she was at her daughter's house and one of the goats knocked down. She was feeling well before this. In the ER pelvic and femur x-ray showed an acute mildly impacted transcervical fracture of the right femur. Cisneros catheter was placed in the emergency room. She was referred to medicine for admission and ongoing management of right hip fracture. Allergies Allergy/AdvReac Type Severity Reaction Status Date / Time metoclopramide AdvReac Severe SEVERE Verified 04/13/20 15:43 WEAKNESS/DIZZINESS primidone AdvReac Severe Lethargy Verified 04/13/20 15:43 metformin AdvReac Mild NAUSEA Verified 04/13/20 15:43 rosuvastatin AdvReac Mild muscle Verified 04/13/20 15:43 cramping Home Medications Medication Instructions Recorded Confirmed Type aspirin 81 mg tablet,delayed 81 mg PO DAILY tab 10/21/18 04/13/20 History release atorvastatin 40 mg tablet 40 mg PO DAILY tab 10/21/18 04/13/20 History calcium carbonate 500 mg(1,250 1 tab PO BID tab 10/21/18 04/13/20 History mg)-vitamin D3 400 unit chewable tablet cholecalciferol (vitamin D3) 50 2,000 units PO DAILY 10/21/18 04/13/20 History mcg (2,000 unit) capsule nitroglycerin 0.4 mg sublingual 0.4 mg SUBLINGUAL UD 10/21/18 04/13/20 History tablet pantoprazole 40 mg tablet,delayed 40 mg PO DAILY tab 10/21/18 04/13/20 History release duloxetine 60 mg capsule,delayed 60 mg PO DAILY 04/19/19 04/13/20 History release multivitamin 1 tab PO DAILY 05/31/19 04/13/20 History isosorbide mononitrate 120 mg 120 mg PO DAILY #90 tab 06/16/19 04/13/20 Rx tablet,extended release 24 hr cyanocobalamin (vitamin B-12) 1,000 mcg PO BID #60 tab 09/04/19 04/13/20 History 1,000 mcg tablet lorazepam 0.5 mg tablet 0.5 mg PO DAILY PRN 10/04/19 04/13/20 History BD Ultra-Fine Marah Pen Needle 32 #400 ea NS 10/10/19 04/13/20 Rx gauge x 5/32" gabapentin 300 mg capsule 600 mg PO QID #720 cap 10/10/19 04/13/20 Rx pyridoxine (vitamin B6) [Vitamin 50 mg PO DAILY 12/18/19 04/13/20 History B-6] insulin glargine 100 unit/mL (3 10 unit SQ HS ml 01/02/20 04/13/20 History mL) subcutaneous pen insulin lispro 100 unit/mL 27 unit SUBCUT UD ml 01/02/20 04/13/20 History subcutaneous pen Past Med/Surg History Medical History Anxiety CAD (coronary artery disease) S/P ZAHRA to mid LAD 06/2016 Depression Diabetes mellitus, type 2 GERD (gastroesophageal reflux disease) Hearing deficit Hyperlipidemia Iron deficiency Osteoarthritis Transient ischemic attack (TIA) 5 YEARS AGO - NO ISSUES SINCE - FOLLOWS W/ DR. SUTHERLAND Surgical History History of cardiac cath 06/2016 - [facility] - INCREASED SOB, ABN STRESS TEST - 1 STENT PLACED - FOLLOWS W/ DR. BULLOCK. History of cholecystectomy History of hysterectomy History of laminectomy LUMBAR History of salpingo-oophorectomy Previous back surgery Family History Unknown Diabetes Mother Diabetes Tremor Sister Tremor Colorectal cancer Father Colorectal cancer Social History Smoking Status: Never smoker Second Hand Exposure: No; Hx Alcohol Use: No Hx Substance Use: No Preferred Language: Persian Communication Ability: Effective Palliative Care Specialist Required: No Beliefs That Will Affect Care: None Current Living Situation: Alone Other Information That Helps Us Care for You: No Feels Safe at Home: Yes Safety Concerns: Feels Safe At This Time Assistive Devices: None Review of Systems Review of Systems: All systems reviewed & are unremarkable except as noted in HPI & below Physical Exam Constitutional: well developed, well nourished and + acute distress (Pain from right hip) Eyes: PERRL, conjunctivae normal, anicteric sclerae ENMT: external ear and nose normal, oropharynx normal Neck: trachea midline, no thyromegaly Respiratory: normal respiratory effort, lungs clear to auscultation Cardiovascular: RRR, no murmur, no edema Vessels: dorsalis pedis pulses present (1+ right, 2+ left) Extremities: normal capillary refill (Distal to fracture) Gastrointestinal (Abdomen): normal bowel sounds, soft, nontender, no hepatosplenomegaly Musculoskeletal: Hip: + limited ROM of hip (Pain with any right hip movement); no skin erythema Skin: no rashes, warm and dry Neurologic: awake; no focal motor deficits (Neurologically intact distal to fracture site) Motor/Sensory: + sensory deficit (Chronic peripheral neuropathy distal to ankles) Psychiatric: A+Ox3, euthymic affect Results & Data Results & Data ([facility]) Vital Signs (Past 12 Hours) Vital Signs Temp Pulse Resp BP Pulse Ox 04/13/20 15:30 76 16 128/67 92 04/13/20 14:30 80 17 159/74 H 90 04/13/20 14:08 105 H 15 166/86 H 95 04/13/20 13:56 83 15 146/81 H 94 04/13/20 13:48 94 04/13/20 13:30 36.4 C L 78 17 146/81 H 94 Diagnostic Findings XR chest 1V portable IMPRESSION: No acute process. XR pelvis 1-2V routine, XR femur RT 2V routine IMPRESSION: Acute mildly impacted transcervical fracture of the right femur. Medications Administered ER medications given: Acetaminophen 1 g IV Fentanyl 100 mcg IV x2 Morphine 4 mg IV Ondansetron 4 mg IV ECG Indication: other (Preop) Rate (beats per minute): 91 Rhythm: normal sinus Findings: + other (T wave flattening in anterior lateral leads) Comparison ECG Date: from (September 21, 2018) Change: no significant change Code Status & VTE Plan Code Status Full PG Care Time/CCT Total # of Minutes Spent Total Time Spent with Patient: Total time spent is greater than 50% in coordination of care (as documented) at patient's floor/unit and/or counseling patient: Coding Level of Care Code 82783 Initial Inpt Care Lvl 3 Diagnoses Fall W19.XXXA Encounter type: initial encounter Closed fracture of right hip S72.001A Encounter type: initial encounter Osteoporosis M81.0 Diabetes mellitus, type 2 E11.9 Muscle cramps R25.2 Atherosclerosis of coronary artery I25.10 Benign essential tremor G25.0 Neuropathy G62.9 Anxiety F41.9 DVT prophylaxis Z29.9 (1) Fall Encounter type: initial encounter Qualified Code(s): W19.XXXA - Unspecified fall, initial encounter (2) Closed fracture of right hip Encounter type: initial encounter Qualified Code(s): S72.001A - Fracture of unspecified part of neck of right femur, initial encounter for closed fracture
[2020-04-13 16:48] LABS: Appearance Urine Clear (Clear); Bacteria Urine Automated 4+ (Negative); Bilirubin Urine Negative (Negative); Blood Urine Negative (Negative); Color Urine Dark Yellow; Epithelial Cell Urine Auto >30 /lpf (0-5); Glucose Urine UA Negative (Negative); Ketones Urine Negative (Negative); Leukocyte Esterase Urine Negative (Negative); Nitrite Urine Positive (Negative); Protein Urine Negative (Negative); RBC Urine Automated 0-4 /hpf (0-4); Specific Gravity Urine 1.024 (1.000-1.030); Urobilinogen Urine Negative (Negative)
[2020-04-13 17:13] LABS: Magnesium 2.2 mg/dl (1.8-2.4)
--- NOTE | 2020-04-13 17:54 | Consultation Report ---
DATE OF CONSULTATION: 04/13/2020 CHIEF COMPLAINT: Right hip pain. HISTORY OF PRESENT ILLNESS: Talia is 74. She was visiting her daughter. She was knocked over by a large goat, fell on her right hip. She complains only of right hip pain. She has no prior history of right hip injuries. She was brought to the Emergency Room where it was identified that she had a right hip fracture. PAST MEDICAL HISTORY: Significant for anxiety, coronary artery disease status post stenting. She did not have an [place], but was experiencing shortness of breath. She has depression, type 2 diabetes, GERD, hyperlipidemia, arthritis. She had a TIA. She also has an essential tremor, diabetic neuropathy. She had a Helicobacter pylori infection and EXPERIENCED AN ALLERGIC REACTION TO AMOXICILLIN AND BACTRIM. PAST SURGICAL HISTORY: Consists of cardiac catheterization, hysterectomy, back surgery, cholecystectomy. ALLERGIES: HER LISTED ALLERGIES INCLUDE METOCLOPRAMIDE, PRIMIDONE, METFORMIN, ROSUVASTATIN AND ALSO SHOULD BE ADDED THERE AMOXICILLIN AND BACTRIM. MEDICATIONS: Her current medications are reviewed and noted including aspirin, atorvastatin, calcium and vitamin D supplement, B12, duloxetine, gabapentin, insulin, Isordil, lorazepam, multivitamin, nitroglycerin, Protonix, vitamin B6. PHYSICAL EXAMINATION: She is awake, alert and oriented. She is in some distress secondary to pain. She communicates appropriately. She can move her neck. There is no tenderness of her lumbar spine. Discomfort is localized to the buttock and right hip area. The right hip cannot be moved. She can move her left leg and both upper extremities without difficulty. There is tenderness to palpation only around the right hip. The remainder of the right leg is nontender. She can flex and extend her ankle and toes with 5/5 strength and bobby the feet with the same amount of strength. Dorsalis pedis and posterior tibial pulses are both 2+. Her sensation is intact. LABORATORY DATA: Her white count is normal at 9, hemoglobin 15, hematocrit 45, platelets 211. PRP is noted. BUN is slightly high. INR is 1.0. Her COVID test is negative. Type and screen is done. X-rays of the right femur and pelvis demonstrate a displaced fracture of the mid cervical region of the right femoral neck. Report noted. IMPRESSION: Right hip fracture status post fall. PLAN: Findings are discussed. She will be admitted by our medicine service. I discussed with her the nature of her injury and we talked about the options for repair, replacement or nonoperative treatment. We weighed out the pros and cons of each form of treatment and I have recommended that she consider surgical intervention consisting of hemiarthroplasty and she agrees to proceed. She was educated about the surgical procedure, we talked about the risks, benefits, rehabilitation and recovery specific to this operation and she agreed to proceed. An informed consent was obtained. She has no issues of bleeding, blood clots, metal allergies and has never had MRSA. She will be made n.p.o. after midnight and we will plan on a cemented bipolar hemiarthroplasty. We will need to do a vitamin D level on her. She will need to be assessed for bone density. Ancef preoperatively. We will consider Wadsworth's traction if she continues to have discomfort.
[2020-04-13] MEDS ORDERED: LORazepam 0.5 MG/1 ML VIAL IV PRN (18:17)
[2020-04-13] MEDS ORDERED: HYDROmorphone INJ 0.5 MG/0.5 ML SYR IV PRN (18:17)
[2020-04-13] MEDS ORDERED: NALOXONE HCL 0.4 MG/1 ML VIAL/CARP IV PRN (18:17)
[2020-04-13] MEDS ORDERED: MAGNESIUM HYDROXIDE SUSP 30 ML UDC PO PRN (18:17)
[2020-04-13] MEDS ORDERED: ONDANSETRON INJ 2 MG/ML 2 ML VIAL IV PRN (18:17)
[2020-04-13] MEDS ORDERED: bisacodyL 10 MG SUPP PR PRN (18:17)
[2020-04-13] MEDS ORDERED: ALUMINUM/MAGNESIUM SUSP 30 ML UDC PO PRN (18:17)
[2020-04-13] MEDS ORDERED: POLYETHYLENE (MIRALAX) 17 GM PACK PO PRN (18:17)
[2020-04-13] MEDS ORDERED: PHARMACY GLYCEMIC MGMT CONSULT PRN (19:08)
[2020-04-13] MEDS: GABAPENTIN 600 MG TAB PO SCH ×2 (19:14→20:59)
[2020-04-13] MEDS: HYDROmorphone INJ 0.5 MG/0.5 ML SYR IV PRN ×2 (19:16→23:12)
[2020-04-13] MEDS ORDERED: INSULIN ASPART 100 UNITS/ML 3 ML PEN SC SCH ×2 (19:45→21:00)
[2020-04-13] MEDS: LACTATED RINGER'S 1,000 ML IV SCH (19:55)
[2020-04-13] MEDS: CYANOCOBALAMIN 500 MCG TABLET (VITAMIN B-12) PO SCH (20:59)
[2020-04-13] MEDS: DOCUSATE SODIUM/SENNA 50/8.6MG TAB PO SCH (20:59)
[2020-04-13] MEDS: CALCIUM 600MG + VIT D 400 IU TAB PO SCH (20:59)
[2020-04-13] MEDS ORDERED: INSULIN GLARGINE SOLOSTAR 100 UNITS/ML 3 ML PEN SC SCH (21:00)
[2020-04-13] MEDS: ATORVASTATIN 40 MG TAB PO SCH (21:00)
[2020-04-13] MEDS: DULoxetine HCL 60 MG CAP PO SCH (21:00)
[2020-04-14] MEDS ORDERED: Nursing to Pharmacy Communication SCH ×2 (01:15→16:15)
[2020-04-14] MEDS: HYDROmorphone INJ 0.5 MG/0.5 ML SYR IV PRN ×3 (03:26→14:25)
[2020-04-14] MEDS: ACETAMINOPHEN 325 MG TAB PO PRN ×2 (03:32→18:08)
[2020-04-14] MEDS ORDERED: MoRPHine SULFATE 4 MG/ML 1 ML CARP\\VIAL IV STA (05:30)
[2020-04-14] MEDS ORDERED: MoRPHine SULFATE 4 MG/ML 1 ML CARP\\VIAL ONE (05:39)
[2020-04-14] MEDS: INSULIN ASPART 100 UNITS/ML 3 ML PEN SC SCH ×4 (05:46→20:31)
[2020-04-14] MEDS: LORazepam 0.5 MG/1 ML VIAL IV PRN ×2 (06:26→21:13)
[2020-04-14] MEDS: ASPIRIN 81 MG ECTAB PO SCH (07:17)
[2020-04-14] MEDS: CALCIUM 600MG + VIT D 400 IU TAB PO SCH ×2 (07:17→20:27)
[2020-04-14] MEDS: GABAPENTIN 600 MG TAB PO SCH ×4 (07:17→20:27)
[2020-04-14] MEDS: CYANOCOBALAMIN 500 MCG TABLET (VITAMIN B-12) PO SCH ×2 (07:18→20:27)
[2020-04-14] MEDS: MULTIVITAMIN TAB PO SCH (07:19)
[2020-04-14] MEDS: ISOSORBIDE MONO EXTENDED REL 60 MG TABCR PO SCH (07:19)
[2020-04-14] MEDS: CHOLECALCIFEROL 1,000 UNITS 25 MCG TAB PO SCH (07:20)
[2020-04-14] MEDS: PANTOprazole 40 MG TAB PO SCH (07:39)
[2020-04-14 08:28] LABS: BUN Creatinine Ratio 16.7 (10-20); Calcium 9.2 mg/dl (8.5-10.1); Creatinine Clr Calc Pharmacy 53.7 ml/min; Est GFR (African American) 73.5; Est GFR (Non-African American) 63.4
--- NOTE | 2020-04-14 08:36 | Anesthesiology Consultation ---
Date of Service April 14, 2020 History Surgery Operation Date: 04/14/20 10:00 Proposed Procedures p Total Hip Arthroplasty Cemented(Right) - Deshawn Hi MD Height/Weight Height: 5 ft 5 in Weight: 70.1 kg Allergies Allergy/AdvReac Type Severity Reaction Status Date / Time metoclopramide AdvReac Severe SEVERE Verified 04/13/20 15:43 WEAKNESS/DIZZINESS primidone AdvReac Severe Lethargy Verified 04/13/20 15:43 metformin AdvReac Mild NAUSEA Verified 04/13/20 15:43 rosuvastatin AdvReac Mild muscle Verified 04/13/20 15:43 cramping Medications Home Medications Medication Instructions Recorded Confirmed Last Taken aspirin 81 mg tablet,delayed 81 mg PO DAILY tab 10/21/18 04/13/20 04/12/20 release atorvastatin 40 mg tablet 40 mg PO DAILY tab 10/21/18 04/13/20 04/12/20 calcium carbonate 500 mg(1,250 1 tab PO BID tab 10/21/18 04/13/20 04/12/20 mg)-vitamin D3 400 unit chewable tablet cholecalciferol (vitamin D3) 50 2,000 units PO DAILY 10/21/18 04/13/20 04/13/20 mcg (2,000 unit) capsule nitroglycerin 0.4 mg sublingual 0.4 mg SUBLINGUAL UD 10/21/18 04/13/20 12/17/19 tablet pantoprazole 40 mg tablet,delayed 40 mg PO DAILY tab 10/21/18 04/13/20 12/17/19 release duloxetine 60 mg capsule,delayed 60 mg PO DAILY 04/19/19 04/13/20 04/12/20 release multivitamin 1 tab PO DAILY 05/31/19 04/13/20 12/17/19 isosorbide mononitrate 120 mg 120 mg PO DAILY #90 tab 06/16/19 04/13/20 04/13/20 tablet,extended release 24 hr cyanocobalamin (vitamin B-12) 1,000 mcg PO BID #60 tab 09/04/19 04/13/20 04/12/20 1,000 mcg tablet lorazepam 0.5 mg tablet 0.5 mg PO DAILY PRN 10/04/19 04/13/20 12/17/19 BD Ultra-Fine Marah Pen Needle 32 #400 ea NS 10/10/19 04/13/20 Unknown gauge x " gabapentin 300 mg capsule 600 mg PO QID #720 cap 10/10/19 04/13/20 04/13/20 pyridoxine (vitamin B6) [Vitamin 50 mg PO DAILY 12/18/19 04/13/20 12/17/19 B-6] insulin glargine 100 unit/mL (3 10 unit SQ HS ml 01/02/20 04/13/20 04/12/20 mL) subcutaneous pen insulin lispro 100 unit/mL 27 unit SUBCUT UD ml 01/02/20 04/13/20 04/13/20 subcutaneous pen Active Medications Generic Name Dose Route Start Last Admin Trade Name Freq PRN Reason Stop Dose Admin Acetaminophen 650 mg 04/13/20 18:17 04/14/20 03:32 Acetaminophen 325 Mg Tab PO 05/13/20 18:16 650 mg Q4H PRN Administration pain/fever Aspirin 81 mg 04/14/20 09:00 04/14/20 07:17 Aspirin 81 Mg Ectab PO 05/14/20 08:59 81 mg DAILY CURTIS Administration Atorvastatin Calcium 40 mg 04/14/20 09:00 04/13/20 21:00 Atorvastatin 40 Mg Tab PO 05/14/20 08:59 40 mg DAILY CURTIS Administration Cyanocobalamin 1,000 mcg 04/13/20 21:00 04/14/20 07:18 Cyanocobalamin 500 Mcg Tablet (Vitamin B-12) PO 05/13/20 20:59 1,000 mcg BID CURTIS Administration Duloxetine HCl 60 mg 04/14/20 09:00 04/13/20 21:00 Duloxetine Hcl 60 Mg Cap PO 05/14/20 08:59 60 mg DAILY CURTIS Administration Gabapentin 600 mg 04/13/20 18:17 04/14/20 07:17 Gabapentin 600 Mg Tab PO 05/13/20 18:16 600 mg QID CURTIS Administration Hydromorphone HCl 0.5 mg 04/13/20 18:17 04/14/20 06:14 Hydromorphone Inj 0.5 Mg/0.5 Ml Syr IV 04/27/20 18:16 0.5 mg Q3H PRN Administration Pain (6,7,8,9,10) Lactated Ringer's 1,000 mls @ 80 mls/hr 04/13/20 19:15 04/13/20 19:55 Lr IV 05/13/20 19:14 80 mls/hr .[id number] CURTIS Administration Lorazepam 0.5 mg in 1 mls @ 1 mls/min 04/13/20 19:06 04/14/20 06:26 Ativan IV 05/13/20 19:05 1 mls/min Q4H PRN Administration Anxiety, severe muscle spasm Insulin Aspart 0 units 04/14/20 06:00 04/14/20 05:46 Insulin Aspart 100 Units/Ml 3 Ml Pen SC 05/14/20 05:59 Not Given Q6 CURTIS Insulin Glargine 6 units 04/13/20 21:00 04/13/20 20:09 Insulin Glargine Solostar 100 Units/Ml 3 Ml Pen SC 05/13/20 20:59 6 units HS CURTIS Administration Isosorbide Mononitrate 120 mg 04/14/20 09:00 04/14/20 07:19 Isosorbide Ellis Extended Rel 60 Mg Tabcr PO 05/14/20 08:59 120 mg DAILY CURTIS Administration Multivitamins 1 tab 04/14/20 09:00 04/14/20 07:19 Multivitamin Tab PO 05/14/20 08:59 1 tab DAILY CURTIS Administration Multivitamins/Minerals 1 tab 04/13/20 21:00 04/14/20 07:17 Calcium 600mg + Vit D 400 Iu Tab PO 05/13/20 20:59 1 tab BID CURTIS Administration Pantoprazole Sodium 40 mg 04/14/20 09:00 04/14/20 07:39 Pantoprazole 40 Mg Tab PO 05/14/20 08:59 40 mg DAILY CURTIS Administration Senna/Docusate Sodium 2 tab 04/13/20 21:00 04/13/20 20:59 Docusate Sodium/Senna 50/8.6mg Tab PO 05/13/20 20:59 2 tab HS CURTIS Administration Vitamin D 2,000 units 04/14/20 09:00 04/14/20 07:20 Cholecalciferol 1,000 Units 25 Mcg Tab PO 05/14/20 08:59 2,000 units DAILY CURTIS Administration NPO Date Last Intake of Fluids: 04/13/20 Time Last Intake of Fluids: 23:59 Date Last Intake of Solids: 04/13/20 Time Last Intake of Solids: 23:59 Past Medical History Medical History Anxiety CAD (coronary artery disease) S/P ZAHRA to mid LAD 06/2016 Depression Diabetes mellitus, type 2 GERD (gastroesophageal reflux disease) Hearing deficit Hyperlipidemia Iron deficiency Osteoarthritis Transient ischemic attack (TIA) 5 YEARS AGO - NO ISSUES SINCE - FOLLOWS W/ DR. SUTHERLAND Past Family History Family History Unknown Diabetes Mother Diabetes Tremor Sister Tremor Colorectal cancer Father Colorectal cancer Past Surgical History Surgical History History of cardiac cath 06/2016 - [facility] - INCREASED SOB, ABN STRESS TEST - 1 STENT PLACED - FOLLOWS W/ DR. BULLOCK. History of cholecystectomy History of hysterectomy History of laminectomy LUMBAR History of salpingo-oophorectomy Previous back surgery Social History Smoking Status: Never smoker Hx Alcohol Use: No Hx Substance Use: No substance use type: does not use Physical Exam Vital Signs Last Vital Signs Temp 37.6 C H 04/14/20 07:30 Pulse 94 H 04/14/20 07:30 Resp 16 04/14/20 07:30 BP 122/68 04/14/20 07:30 Pulse Ox 94 04/14/20 07:30 Testing Laboratory Results 04/13/20 13:57 04/14/20 07:44 PT 10.9 Seconds (9.0-12.0) 04/13/20 13:57 INR 1.0 (0.9-1.1) 04/13/20 13:57 Urine Color Dark Yellow 04/13/20 15:55 Urine Appearance Clear (Clear) 04/13/20 15:55 Urine pH 5.0 (4.5-7.5) 04/13/20 15:55 Ur Specific [place] 1.024 (1.000-1.030) 04/13/20 15:55 Urine Protein Negative (Negative) 04/13/20 15:55 Urine Glucose (UA) Negative (Negative) 04/13/20 15:55 Urine Ketones Negative (Negative) 04/13/20 15:55 Urine Nitrite Positive (Negative) A 04/13/20 15:55 Ur Leukocyte Esterase Negative (Negative) 04/13/20 15:55 Urine WBC (Auto) 1-5 /hpf (0-5) 04/13/20 15:55 Urine RBC (Auto) 0-4 /hpf (0-4) 04/13/20 15:55 U Hyaline Cast (Auto) 5-10 /lpf (0-5) H 04/13/20 15:55 U Epithel Cells (Auto) >30 /lpf (0-5) H 04/13/20 15:55 Urine Bacteria (Auto) 4+ (Negative) H 04/13/20 15:55 Blood Type O Positive 04/13/20 13:57 Antibody Screen NEGATIVE 04/13/20 13:57 04/14/20 05:36 POC Glucose 109 H Electrocardiogram Date: 04/13/20 Normal sinus rhythm Nonspecific T wave abnormality Abnormal ECG When compared with ECG of 13-APR-2020 13:49, (unconfirmed) Premature supraventricular co mplexes are no longer Present ST no longer elevated in Inferior leads Nonspecific T wave abnormality, worse in Anterolateral leads Chest X-Ray Date: 04/13/20 Findings: + NAD
[2020-04-14] MEDS ORDERED: BUPIVACAINE 0.5 % 5 MG/1 ML PF 10ML VIAL ONE (08:44)
--- NOTE | 2020-04-14 08:45 | Orthopedic Progress Note ---
Date of Service April 14, 2020 Assessment & Plan Admission and Anticipated Discharge Date Admission Date: April 13, 2020 She is stable for the anticipated surgery this morning. The plan will be to do a right hip hemiarthroplasty. Subjective She is resting comfortably in bed. Wadsworth's traction has helped. She reports that her leg went numb but now it is back to normal. Physical Exam Physical Exam: Sensation intact. She can flex and extend her ankle and toes with 5 out of 5 strength. Wadsworth's traction in place. The hip is not bruised or swollen. Dorsalis pedis is 2+. Results & Data ([facility]) Vital Signs (Past 12 Hours) Vital Signs Temp Pulse Resp BP Pulse Ox 04/14/20 07:30 37.6 C H 94 H 16 122/68 94 04/13/20 23:19 36.7 C 95 H 18 121/61 95 Laboratory Results 04/14/20 04/14/20 04/14/20 Range/Units 07:44 07:44 05:36 WBC (4.8-10.8) K/uL RBC (4.2-5.4) M/uL Hgb (12.0-16.0) g/dL Hct (37-47) % MCV (80-100) fL MCH (25-34) pg MCHC (32-36) g/dL RDW Std Deviation (36.4-46.3) fL RDW Coeff of Jazmine (11.5-14.5) % Plt Count (130-400) K/uL MPV (7.4-10.4) fL Immature Gran % (Auto) % Neut % (Auto) % Lymph % (Auto) % Tucker % (Auto) % Eos % (Auto) % Baso % (Auto) % Neut # (Auto) (1.4-6.5) K/uL Lymph # (Auto) (1.2-3.4) K/uL Tucker # (Auto) (0.11-0.59) K/uL Eos # (Auto) (0-0.5) K/uL Baso # (Auto) (0-0.2) K/uL Immature Gran # (Auto) (0.00-0.02) K/uL PT (9.0-12.0) Seconds INR (0.9-1.1) Sodium 137 (136-145) mmol/L Potassium 4.0 (3.5-5.1) mmol/L Chloride 100 (98-107) mmol/L Carbon Dioxide 32 (21-32) mmol/L Anion Gap 5.0 (3-11) BUN 15 (7-18) mg/dl Creatinine 0.89 (0.6-1.2) mg/dl Est Cr Clr Drug Dosing 53.7 Est GFR ( Amer) 73.5 Est GFR (Non-Af Amer) 63.4 BUN/Creatinine Ratio 16.7 (10-20) Glucose 120 H (70-99) mg/dl POC Glucose 109 H (70-99) mg/dl Calcium 9.2 (8.5-10.1) mg/dl Magnesium (1.8-2.4) mg/dl Total Bilirubin (0.2-1) mg/dl AST (15-37) U/L ALT (12-78) U/L Alkaline Phosphatase (45-117) U/L Total Protein (6.4-8.2) gm/dl Albumin (3.4-5.0) gm/dl Globulin (2.5-4.0) gm/dl Albumin/Globulin Ratio (0.9-2) 25-OH Vitamin D Total Pending Urine Color Urine Appearance (Clear) Urine pH (4.5-7.5) Ur Specific Makanda (1.000-1.030) Urine Protein (Negative) Urine Glucose (UA) (Negative) Urine Ketones (Negative) Urine Blood (Negative) Urine Nitrite (Negative) Urine Bilirubin (Negative) Urine Urobilinogen (Negative) Ur Leukocyte Esterase (Negative) Urine WBC (Auto) (0-5) /hpf Urine RBC (Auto) (0-4) /hpf U Hyaline Cast (Auto) (0-5) /lpf U Epithel Cells (Auto) (0-5) /lpf Urine Bacteria (Auto) (Negative) Ur Renal Epithelial Cell COVID-19 Eval Order SARS-CoV-2, RNA, NAAT (NEGATIVE) Blood Type Antibody Screen 04/13/20 04/13/20 04/13/20 Range/Units Unknown Unknown 19:47 WBC (4.8-10.8) K/uL RBC (4.2-5.4) M/uL Hgb (12.0-16.0) g/dL Hct (37-47) % MCV (80-100) fL MCH (25-34) pg MCHC (32-36) g/dL RDW Std Deviation (36.4-46.3) fL RDW Coeff of Jazmine (11.5-14.5) % Plt Count (130-400) K/uL MPV (7.4-10.4) fL Immature Gran % (Auto) % Neut % (Auto) % Lymph % (Auto) % Tucker % (Auto) % Eos % (Auto) % Baso % (Auto) % Neut # (Auto) (1.4-6.5) K/uL Lymph # (Auto) (1.2-3.4) K/uL Tucker # (Auto) (0.11-0.59) K/uL Eos # (Auto) (0-0.5) K/uL Baso # (Auto) (0-0.2) K/uL Immature Gran # (Auto) (0.00-0.02) K/uL PT (9.0-12.0) Seconds INR (0.9-1.1) Sodium (136-145) mmol/L Potassium (3.5-5.1) mmol/L Chloride (98-107) mmol/L Carbon Dioxide (21-32) mmol/L Anion Gap (3-11) BUN (7-18) mg/dl Creatinine (0.6-1.2) mg/dl Est Cr Clr Drug Dosing Est GFR ( Amer) Est GFR (Non-Af Amer) BUN/Creatinine Ratio (10-20) Glucose (70-99) mg/dl POC Glucose 186 H (70-99) mg/dl Calcium (8.5-10.1) mg/dl Magnesium (1.8-2.4) mg/dl Total Bilirubin (0.2-1) mg/dl AST (15-37) U/L ALT (12-78) U/L Alkaline Phosphatase (45-117) U/L Total Protein (6.4-8.2) gm/dl Albumin (3.4-5.0) gm/dl Globulin (2.5-4.0) gm/dl Albumin/Globulin Ratio (0.9-2) 25-OH Vitamin D Total Urine Color Urine Appearance (Clear) Urine pH (4.5-7.5) Ur Specific Makanda (1.000-1.030) Urine Protein (Negative) Urine Glucose (UA) (Negative) Urine Ketones (Negative) Urine Blood (Negative) Urine Nitrite (Negative) Urine Bilirubin (Negative) Urine Urobilinogen (Negative) Ur Leukocyte Esterase (Negative) Urine WBC (Auto) (0-5) /hpf Urine RBC (Auto) (0-4) /hpf U Hyaline Cast (Auto) (0-5) /lpf U Epithel Cells (Auto) (0-5) /lpf Urine Bacteria (Auto) (Negative) Ur Renal Epithelial Cell COVID-19 Eval Order Covid19 IDNow atMM[facility] SARS-CoV-2, RNA, NAAT NEGATIVE (NEGATIVE) Blood Type Antibody Screen 04/13/20 04/13/20 04/13/20 Range/Units 15:55 13:57 13:57 WBC (4.8-10.8) K/uL RBC (4.2-5.4) M/uL Hgb (12.0-16.0) g/dL Hct (37-47) % MCV (80-100) fL MCH (25-34) pg MCHC (32-36) g/dL RDW Std Deviation (36.4-46.3) fL RDW Coeff of Jazmine (11.5-14.5) % Plt Count (130-400) K/uL MPV (7.4-10.4) fL Immature Gran % (Auto) % Neut % (Auto) % Lymph % (Auto) % Tucker % (Auto) % Eos % (Auto) % Baso % (Auto) % Neut # (Auto) (1.4-6.5) K/uL Lymph # (Auto) (1.2-3.4) K/uL Tucker # (Auto) (0.11-0.59) K/uL Eos # (Auto) (0-0.5) K/uL Baso # (Auto) (0-0.2) K/uL Immature Gran # (Auto) (0.00-0.02) K/uL PT 10.9 (9.0-12.0) Seconds INR 1.0 (0.9-1.1) Sodium 140 (136-145) mmol/L Potassium 3.7 (3.5-5.1) mmol/L Chloride 105 (98-107) mmol/L Carbon Dioxide 30 (21-32) mmol/L Anion Gap 4.0 (3-11) BUN 19 H (7-18) mg/dl Creatinine 0.87 (0.6-1.2) mg/dl Est Cr Clr Drug Dosing Not Reportable Est GFR ( Amer) 75.5 Est GFR (Non-Af Amer) 65.2 BUN/Creatinine Ratio 21.9 H (10-20) Glucose 111 H (70-99) mg/dl POC Glucose (70-99) mg/dl Calcium 9.6 (8.5-10.1) mg/dl Magnesium 2.2 (1.8-2.4) mg/dl Total Bilirubin 0.7 (0.2-1) mg/dl AST 19 (15-37) U/L ALT 42 (12-78) U/L Alkaline Phosphatase 107 (45-117) U/L Total Protein 7.7 (6.4-8.2) gm/dl Albumin 3.5 (3.4-5.0) gm/dl Globulin 4.2 H (2.5-4.0) gm/dl Albumin/Globulin Ratio 0.8 L (0.9-2) 25-OH Vitamin D Total Urine Color Dark Yellow Urine Appearance Clear (Clear) Urine pH 5.0 (4.5-7.5) Ur Specific Makanda 1.024 (1.000-1.030) Urine Protein Negative (Negative) Urine Glucose (UA) Negative (Negative) Urine Ketones Negative (Negative) Urine Blood Negative (Negative) Urine Nitrite Positive A (Negative) Urine Bilirubin Negative (Negative) Urine Urobilinogen Negative (Negative) Ur Leukocyte Esterase Negative (Negative) Urine WBC (Auto) 1-5 (0-5) /hpf Urine RBC (Auto) 0-4 (0-4) /hpf U Hyaline Cast (Auto) 5-10 H (0-5) /lpf U Epithel Cells (Auto) >30 H (0-5) /lpf Urine Bacteria (Auto) 4+ H (Negative) Ur Renal Epithelial Cell Not Reportable COVID-19 Eval Order SARS-CoV-2, RNA, NAAT (NEGATIVE) Blood Type Antibody Screen 04/13/20 04/13/20 Range/Units 13:57 13:57 WBC 9.43 (4.8-10.8) K/uL RBC 4.62 (4.2-5.4) M/uL Hgb 15.2 (12.0-16.0) g/dL Hct 44.7 (37-47) % MCV 96.8 (80-100) fL MCH 32.9 (25-34) pg MCHC 34.0 (32-36) g/dL RDW Std Deviation 46.2 (36.4-46.3) fL RDW Coeff of Jazmine 13.1 (11.5-14.5) % Plt Count 211 (130-400) K/uL MPV 9.4 (7.4-10.4) fL Immature Gran % (Auto) 0.3 % Neut % (Auto) 66.5 % Lymph % (Auto) 24.5 % Tucker % (Auto) 7.7 % Eos % (Auto) 0.8 % Baso % (Auto) 0.2 % Neut # (Auto) 6.26 (1.4-6.5) K/uL Lymph # (Auto) 2.31 (1.2-3.4) K/uL Tucker # (Auto) 0.73 H (0.11-0.59) K/uL Eos # (Auto) 0.08 (0-0.5) K/uL Baso # (Auto) 0.02 (0-0.2) K/uL Immature Gran # (Auto) 0.03 H (0.00-0.02) K/uL PT (9.0-12.0) Seconds INR (0.9-1.1) Sodium (136-145) mmol/L Potassium (3.5-5.1) mmol/L Chloride (98-107) mmol/L Carbon Dioxide (21-32) mmol/L Anion Gap (3-11) BUN (7-18) mg/dl Creatinine (0.6-1.2) mg/dl Est Cr Clr Drug Dosing Est GFR ( Amer) Est GFR (Non-Af Amer) BUN/Creatinine Ratio (10-20) Glucose (70-99) mg/dl POC Glucose (70-99) mg/dl Calcium (8.5-10.1) mg/dl Magnesium (1.8-2.4) mg/dl Total Bilirubin (0.2-1) mg/dl AST (15-37) U/L ALT (12-78) U/L Alkaline Phosphatase (45-117) U/L Total Protein (6.4-8.2) gm/dl Albumin (3.4-5.0) gm/dl Globulin (2.5-4.0) gm/dl Albumin/Globulin Ratio (0.9-2) 25-OH Vitamin D Total Urine Color Urine Appearance (Clear) Urine pH (4.5-7.5) Ur Specific Makanda (1.000-1.030) Urine Protein (Negative) Urine Glucose (UA) (Negative) Urine Ketones (Negative) Urine Blood (Negative) Urine Nitrite (Negative) Urine Bilirubin (Negative) Urine Urobilinogen (Negative) Ur Leukocyte Esterase (Negative) Urine WBC (Auto) (0-5) /hpf Urine RBC (Auto) (0-4) /hpf U Hyaline Cast (Auto) (0-5) /lpf U Epithel Cells (Auto) (0-5) /lpf Urine Bacteria (Auto) (Negative) Ur Renal Epithelial Cell COVID-19 Eval Order SARS-CoV-2, RNA, NAAT (NEGATIVE) Blood Type O Positive Antibody Screen NEGATIVE
[2020-04-14] MEDS ORDERED: ceFAZolin 1000MG 1,000 MG/7.5 ML SYR IV ONE ×2 (08:46→18:00)
[2020-04-14] MEDS ORDERED: MIDAZOLAM HCL 1 MG/ML 2ML VIAL ONE (08:47)
[2020-04-14] MEDS ORDERED: PROPOFOL IV EMULSION 10 MG/ML 20 ML VIAL IV ONE ×2 (08:47→11:14)
[2020-04-14] MEDS ORDERED: ONDANSETRON INJ 2 MG/ML 2 ML VIAL ONE (08:47)
[2020-04-14] MEDS ORDERED: LIDOCAINE HCL 2% 2 ML VIAL/AMP(20MG/ML) INFIL ONE ×2 (08:47→11:14)
[2020-04-14] MEDS ORDERED: fentaNYL citrate 100 MCG/2 ML VIAL ONE ×2 (08:47→11:40)
[2020-04-14] MEDS: LACTATED RINGER'S 1,000 ML IV SCH ×2 (08:58→21:24)
[2020-04-14] MEDS ORDERED: fentaNYL citrate 100 MCG/2 ML VIAL IV PRN (08:59)
[2020-04-14] MEDS ORDERED: ePHEDrine sulfate 50 MG/ML AMP IV PRN (08:59)
[2020-04-14] MEDS ORDERED: ATROPINE SULFATE 0.1 MG/ML 10ML SYR IV PRN (08:59)
[2020-04-14] MEDS ORDERED: ONDANSETRON INJ 2 MG/ML 2 ML VIAL IV PRN (08:59)
[2020-04-14] MEDS ORDERED: HYDROmorphone INJ 1 MG/ML SYRINGE IV PRN (08:59)
[2020-04-14] MEDS: ATORVASTATIN 40 MG TAB PO SCH (09:05)
[2020-04-14] MEDS: DULoxetine HCL 60 MG CAP PO SCH (09:05)
[2020-04-14] MEDS ORDERED: BACITRACIN INJ 50,000 UNIT VIAL ONE (09:22)
[2020-04-14] MEDS ORDERED: ceFAZolin 2,000 MG/15 ML IV PUSH IV ONE (09:46)
[2020-04-14] MEDS ORDERED: VANCOMYCIN HCL 1000MG/20ML VIAL ONE (09:57)
[2020-04-14] MEDS ORDERED: THROMBIN FOR SOLN 20000 UNIT KIT ONE (09:57)
--- NOTE | 2020-04-14 10:43 | Pharmacy Report ---
Pharmacy Glycemic Short Note 2 - Date of Service April 14, 2020 - Glycemic Short BSG Results (Last 24 hours): 04/13/20 04/13/20 04/14/20 13:57 19:47 05:36 Glucose 111 H POC Glucose 186 H 109 H 04/14/20 04/14/20 07:44 09:48 Glucose 120 H POC Glucose 131 H OUTPATIENT ANTIDIABETIC REGIMEN: * Lantus 10 units SQ HS * Humalog 10 units with Breakfast + 7 units with lunch + 10 units with dinner + SSI * Glipizide ER 5mg PO BIDM * A1c = 7.2% on 04/02/20 ASSESSMENT: * 74yo T2DM female admitted for right hip fracture. * Pt is maintained on CULVER + basal bolus insulin regimen with adequate outpatient control per A1c * Will hold glipizide for admission - use NovoLog instead * Will adjust NovoLog per CF/CR instead of fixed dosing with meals * Pt NPO for anticipated right hip xander-arthroplasty 04/14/20. Will decrease basal insulin for NPO status. Typically 50-80% of basal insulin dose is given when NPO. PLAN FOR INPATIENT GLYCEMIC CONTROL: * Hold outpatient oral diabetes medications * Basal insulin * Lantus 6 units SQ HS on 04/13 for NPO status on 04/14. Will re-evaluate dosing 04/14 post-operatively. Will give basal insulin based on BSG this evening. * BSG --> 6 units * BSG 140-180 mg/dl --> 8 units * BSG above 180 --> 10 units * Bolus insulin * NovoLog per scale ACHS or Q6hrs while NPO * Goal Range: Low 110 mg/dL - High 140 mg/dL * Correction Factor: 35 mg/dL/unit * Nutritional / Prandial insulin per carb ratio of 1 unit per 11 grams CHO consumed PLAN FOR DISCHARGE: * A1c is in goal range for patient based on age and co-morbidities. No changes needed to outpatient regimen.
--- NOTE | 2020-04-14 10:56 | Electrocardiogram Report ---
Test Reason : Blood Pressure : / mmHG Vent. Rate : 077 BPM Atrial Rate : 077 BPM P-R Int : 134 ms QRS Dur : 060 ms QT Int : 390 ms P-R-T Axes : 089 054 041 degrees QTc Int : 441 ms Poor data quality, interpretation may be adversely affected Sinus rhythm with Premature supraventricular complexes Nonspecific T wave abnormality Abnormal ECG When compared with ECG of 21-SEP-2018 06:29, Premature supraventricular complexes are now Present No significant change was found Confirmed by Cristobal Torres ([id number]) on 04/14/2020 10:56:13 AM Referred By: REFERRED SELF Confirmed By:Cristobal Torres
[2020-04-14] MEDS ORDERED: TRANEXAMIC ACID 1,000 MG **IV Pre-op IV SCH (11:00)
--- NOTE | 2020-04-14 11:09 | Electrocardiogram Report ---
Test Reason : Blood Pressure : / mmHG Vent. Rate : 091 BPM Atrial Rate : 091 BPM P-R Int : 140 ms QRS Dur : 076 ms QT Int : 370 ms P-R-T Axes : 047 021 016 degrees QTc Int : 455 ms Normal sinus rhythm Nonspecific T wave abnormality Abnormal ECG When compared with ECG of 13-APR-2020 13:49, (unconfirmed) Premature supraventricular complexes are no longer Present Nonspecific T wave abnormality, worse in Anterolateral leads Confirmed by Cristobal Torres ([id number]) on 04/14/2020 11:09:17 AM Referred By: REFERRED SELF Confirmed By:Cristobal Torres
[2020-04-14] MEDS ORDERED: TRANEXAMIC ACID 1,000 MG **IV Intra-op IV SCH (11:30)
[2020-04-14] MEDS ORDERED: LABETALOL HCL IV 5 MG/ML 20ML IV ONE (12:33)
--- NOTE | 2020-04-14 13:14 | Operative Report ---
Post Operative Report Pre & Post Diagnosis Operation Date: 04/14/20 10:00 Pre-Op Diagnosis: RIGHT HIP FRACTURE Post-Op Diagnosis: RIGHT HIP FRACTURE I identified the patient and participated in the time-out.: Yes Procedure Operation Date: 04/14/20 10:00 Actual Procedures p Bipolar hip arthroplasty -cemented(Right) - Deshawn Hi MD Surgeon Deshawn Hi MD Jd Edwards Consultant Dereje Zaldivar Estimated Blood Loss 50 Findings Consistent with Post-Op Diagnosis Specimens Femoral head Drains None Anesthesia Type Spinal MAC Complications none Disposition Accompanied Patient To Recovery: No Disposition: Recovery Room Indications Bev is 74. She was knocked over by a goat yesterday. She fractured her right hip. She is taken to surgery for hemiarthroplasty for a displaced transcervical right femoral neck fracture. She has been seen and evaluated by medicine. Description of Procedure Informed consent obtained. Patient identified. She identified the operative site as the right hip. I marked with my initials. A preoperative surgical timeout was performed and a preop dose of IV antibiotics was given. She was taken to the operating room positioned supine on the operating room table. The anesthetic was administered. She was positioned decubitus with the right side up. Stolberg positioner utilized. Axillary roll inserted. Bony prominences inspected and padded. The leg was prescrubbed and then prepped and draped in the usual sterile fashion. DVT prophylaxis intraoperatively with foot pumps and postoperatively early mobility mechanical devices and Lovenox. A posterior approach to the hip was made. The incision was about 15 cm long. Electrocautery was utilized to the subcutaneous tissues down to the level of the fascia which was divided in line with the incision. Charnley retractor inserted. Meticulous hemostasis. Trochanteric bursa excised. Retractor inserted underneath gluteus minimus. The piriformis and the short external rotators were elevated up off of the posterior joint capsule with electrocautery and tagged for later repair. The joint capsule was incised and dissected posterior and preserved for later repair. The fracture site was identified. Inferior capsule released. Superior capsule released. The distal fracture fragment was mobilized anteriorward and the tenaculum was utilized to remove the head which measured 47. The 47 trial fit well bottomed out and had a good suction seal compared to the 46. Acetabulum normal. Labrum intact except for d egenerative fraying. Ligamentum teres resected. The leg was placed into the 9090 position. Box cutting guide utilized followed by the lateralizing reamer. Prior to this a femoral neck cut was made 1 fingerbreadth above the lesser trochanter. Guide utilized. Broaching began at the small size and proceeded up to 14. At 14 there was good fit and fill. To get the 14 broach in actually had to ream 13, 13.5 and 14. The calcar was planed and then trialing was performed and +3.5 gave good stability. The canal was plugged. Canal was prepared with pulsatile lavage and a tampon with thrombin. A size 12 implant with a distal cementralizer was inserted after mixing and injecting 2 bags of Simplex P cement each containing 2 g of powdered vancomycin were then prepared on the back table. While in a doughy state and after negative pressure mixing the cement was introduced in retrograde fashion pressurized and the implant was inserted. Like the broaching the implant was inserted at 30 degrees of femoral anteversion and held until the cement hardened. Extraneous cement was removed. Trialing again was performed in the +7 mm neck length actually gave the best stability. There was a negative shuck in full extension. A trace shuck in mid position. The knee could be internally rotated 45 degrees in maximal abduction with good stability. The final components were inserted. Copious irrigation was performed. Soft tissues were kept moist throughout the presurgical procedure. The short external rotators and joint capsule were repaired back to the hip abductor mechanism and greater trochanter using #1 Ethibond. The iliotibial tract was repaired using interrupted #2 FiberWire. The gluteal fascia was closed with running and interrupted #1 Vicryl. The skin was closed in layers with 0 and 2-0 Vicryl and finally annia on the skin. A soft sterile dressing was applied with Xeroform 4 x 4's ABD and foam tape. Hip abduction pillow was placed. The patient was returned to supine position and taken to the recovery room in stable condition. The resected femoral head was sent for specimen. Bone looked to be in good condition. This was a mildly comminuted and displaced transcervical femoral neck fracture. Care was taken to lateralized and avoid varus. There were no complications. Counts were correct. Blood loss estimated to be 50 cc. The patient received intra operative transannex Ebre acid and also postoperatively. At the conclusion of the operation I spoke to patient's family informed of my findings. Postop plan discussed. Components inserted were the Slim LD FX stem. Size 12. A 47 shell with a 47 liner and a 28 mm head with a +7 neck length distal cementralizer was 10 mm. Bone quality was good. I attest to the content of the Intraoperative Record and any orders documented therein. Any exceptions are noted below.
--- NOTE | 2020-04-14 13:41 | Hospitalist Progress Note ---
Date of Service April 14, 2020 Assessment & Plan (1) Closed fracture of right hip: Talia is a 74yo F with a PMHx of Osteoporosis, T2DM, essential tremor, and CAD who presents for a R hip fracture due to a mechanical fall after being hit by a goat. Closed Fracture of the R Hip - 2/2 mechanical fall, pt knocked over by goat. Denies chest pain, syncope, and loss of consciousness - CT: Acute transcervical fracture of the right femur with mild cortical impaction and no significant displacement. No dislocation. The mid and distal femur appear intact. Osteoarthritis of the right knee with trace knee joint effusion chondrocalcinosis. - Pain control w/ APAP, hydromorphine PRN - Spasm control with lorazepam - Orthopaedics consulted. S/p Bipolar cemeted RIGHT hip arthroplasty. Osteoporosis - DEXA 06/2018 showed osteoporosis of L hip - Given hip fracture (major fxr) and hx of osteoporosis on DEXA pt should be seen as an outpatient for bisphosphonate evaluation - Recommend vitamin D and calcium supplementation daily Type 2 DM with neuropathy - A1C 7.2% this month - T2DM diet - Glucose checks AC/HS - Basal/bolus insulin with ssi. Glargine 6-10u scaled qHS. 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 daily DVT PPx: Per Ortho Diet: NPO, pt currently in post-op recovery. ADAT to . Dispo: Med/Surg Code Status: FULL CODE (2) Diabetes mellitus, type 2: (3) Benign essential tremor: (4) Atherosclerosis of coronary artery: (5) Controlled type 2 diabetes mellitus: (6) SNHL (sensorineural hearing loss): (7) Osteoporosis: Admission and Anticipated Discharge Date Admission Date: April 13, 2020 Supervising Physician Co-Signing Physician Notes I personally examined the patient and verified all kuo points of history and exam, discussed case, and agree with decision making with Dr Trinidad. seen post op - other than discomfort at op site doing ok vitals noted nad mostly sleeping but easily awakens heent nc at mmm lungs cta cardio reg osteoporotic hip fracture - post op from bipolar hip arthroplasty, appearing to be doing well CAD/DM - ongoing med management DVT proph - lovenox otherwise as above Chaya Melgar is seen at the bedside this morning. The reports she feel well, and is not currently in pain at rest. Endorses her R hip is painful when moving or pressed. She denies chest pain, chest pressure, shortness of breath at time of assessment. She reports she is able to wiggle her toes without difficulty and denies lower extremity numbness or pain. No questions or concerns expressed at time of visit, seen shortly pre-op Review of Systems Review of Systems: Constitutional: Denies fever, chills, malaise Eyes: Denies vision change ENT: Denies ear pain, hearing change Cardiovascular: Denies chest pain, chest pressure, palpitations Respiratory: Denies shortness of breath, cough, sputum production, difficulty breathing Gastrointestinal: Denies abdominal pain, nausea, vomiting, constipation, diarrhea Genitourinary: Denies pain with urination, denies inability to urinate/retention Musculoskeletal: Denies weakness. Endorses R hip TTP and pain when moved, none at rest. Denies other pain. Integumentary:Denies rash, lesions Neurological: Denies headache, numbness, tingling Physical Exam Physical Exam: General: A&Ox3. NAD. Cooperative. HEENT: Atraumatic, normocephalic. Pulm: CTAB A&P. -wheezes, -rales, -rhonchi. Symmetrical chest rise. No increase work of breathing. No respiratory distress. Cardiac: RRR, -mrg. Radial pulses intact and symmetrical. Abdominal: Nontender, nondistended, soft. BS present. Ext: R leg in soft traction with icepack at the hip. Sensation to soft touch intact in all 5 toes bilaterally. Able to flex and extend toes of the R foot without difficulty. TTP at the anterior and lateral R hip. No RLE edema. LLE with intact ankle dorsiflexion/plantarflexion, intact sensation in all does, and no edema. Results & Data Results & Data ([facility]) Vital Signs (Past 12 Hours) Vital Signs Temp Pulse Resp BP Pulse Ox 04/14/20 07:30 37.6 C H 94 H 16 122/68 94 Resident Activity Tracking Resident Involvement: Resident Care Provided Care Provided: Adult Hospital Medicine (1) Closed fracture of right hip Encounter type: initial encounter Qualified Code(s): S72.001A - Fracture of unspecified part of neck of right femur, initial encounter for closed fracture
--- NOTE | 2020-04-14 13:53 | Anesthesiology Progress Note ---
Date of Service April 14, 2020 Anesthesia Post Procedure Vital Signs Vital Signs: Temp Pulse Pulse Pulse Resp BP BP 04/14/20 13:45 36.9 C 92 H 14 129/55 L 04/14/20 13:35 95 H 18 132/67 04/14/20 13:25 93 H 16 131/73 04/14/20 13:16 36.7 C 98 H 18 135/62 04/14/20 07:30 37.6 C H 94 H 16 04/13/20 23:19 36.7 C 95 H 18 04/13/20 18:17 36.5 C 92 H 20 04/13/20 17:30 89 16 122/68 04/13/20 17:00 92 H 16 143/70 H 04/13/20 16:30 94 H 18 155/72 H 04/13/20 16:00 84 18 140/83 04/13/20 15:30 76 16 128/67 04/13/20 14:30 80 17 159/74 H 04/13/20 14:08 105 H 15 166/86 H 04/13/20 13:56 83 15 146/81 H BP Pulse Ox 04/14/20 13:45 96 04/14/20 13:35 94 04/14/20 13:25 97 04/14/20 13:16 96 04/14/20 07:30 122/68 94 04/13/20 23:19 121/61 95 04/13/20 18:17 147/71 H 92 04/13/20 17:30 96 04/13/20 17:00 92 04/13/20 16:30 98 04/13/20 16:00 96 04/13/20 15:30 92 04/13/20 14:30 90 04/13/20 14:08 95 04/13/20 13:56 94 Pain Intensity Right Hip: Pain Intensity: 5 Transfer of Care Handoff Completed per policy Notes Mental Status: alert / awake / arousable and participated in evaluation Patient Amnestic to Procedure: Yes Nausea / Vomiting: adequately controlled Pain: adequately controlled Airway Patency, RR, SpO2: stable & adequate BP & HR: stable & adequate Hydration State: stable & adequate Neuraxial Anesthesia: was administered and sensory block is resolving Anesthetic Complications: no major complications apparent and Pt Satisfied with anesthetic care
[2020-04-14] MEDS ORDERED: NALOXONE HCL 0.4 MG/1 ML VIAL/CARP IV PRN (14:13)
--- NOTE | 2020-04-14 14:15 | XRay Report ---
RIGHT HIP 2 VIEWS CLINICAL HISTORY: Postoperative examination. FINDINGS: AP and crosstable lateral portable views of the right hip are compared to study dated 2020. A unipolar right hip arthroplasty has been placed and is in near-anatomic alignment. No acute f racture is identified. Skin clips, soft tissue edema, and subcutaneous gas overlying the right hip re present expected postoperative change. IMPRESSION: Expected postoperative findings status post right hip arthroplasty placement. No acute fr acture is identified. Electronically signed by: Bud Chirinos M.D. 04/14/2020 2:13 PM
[2020-04-14] MEDS: oxyCODONE HCL IR 5 MG TAB (IMMEDIATE RELEASE) PO PRN (18:09)
--- NOTE | 2020-04-14 18:13 | Billing Data ---
Date of Service April 14, 2020 Coding Level of Care Code 31356 Subseq Hosp Care Lvl 3
--- NOTE | 2020-04-14 20:13 | Operative Report ---
Post Operative Report Pre & Post Diagnosis Operation Date: 04/14/20 10:00 Pre-Op Diagnosis: RIGHT HIP FRACTURE Post-Op Diagnosis: RIGHT HIP FRACTURE I identified the patient and participated in the time-out.: Yes Procedure Operation Date: 04/14/20 10:00 Actual Procedures p Bipolar hip arthroplasty -cemented(Right) - Deshawn Hi MD Surgeon Deshawn Hi MD Nurse Practitioner Per Diem Dereje Quiroga Estimated Blood Loss 50 Findings Consistent with Post-Op Diagnosis Specimens femoral head Anesthesia Type Spinal Complications none Disposition Accompanied Patient To Recovery: Yes Disposition: Recovery Room Description of Procedure As per Dr. Hi's note, I assisted in prepping and draping, instruments handling certain parts of the procedure and wound closure. I attest to the content of the Intraoperative Record and any orders documented therein. Any exceptions are noted below.
[2020-04-14] MEDS: DOCUSATE SODIUM/SENNA 50/8.6MG TAB PO SCH (20:28)
[2020-04-14] MEDS: INSULIN GLARGINE SOLOSTAR 100 UNITS/ML 3 ML PEN SC SCH (20:33)
[2020-04-15] MEDS: HYDROmorphone INJ 0.5 MG/0.5 ML SYR IV PRN ×2 (01:39→06:03)
[2020-04-15] MEDS: LACTATED RINGER'S 1,000 ML IV SCH (01:39)
[2020-04-15] MEDS: ENOXAPARIN INJ 40 MG/0.4 ML SYR SQ SCH (05:34)
[2020-04-15 06:08] LABS: Hematocrit (blood only) 30.3 % (37-47); Hemoglobin 10.1 g/dL (12.0-16.0); Mean Corpuscular Hemoglobin 32.3 pg (25-34); Mean Corpuscular Hgb Conc 33.3 g/dL (32-36); Mean Corpuscular Volume 96.8 fL (80-100); Mean Platelet Volume 9.2 fL (7.4-10.4); Platelet Count 130 K/uL (130-400); RDW Standard Deviation 46.2 fL (36.4-46.3); Red Blood Count 3.13 M/uL (4.2-5.4); White Blood Count 11.51 K/uL (4.8-10.8)
[2020-04-15 06:35] LABS: BUN Creatinine Ratio 22.5 (10-20); Calcium 8.1 mg/dl (8.5-10.1); Creatinine Clr Calc Pharmacy 66.3 ml/min; Est GFR (African American) 94.9; Est GFR (Non-African American) 81.9; Potassium 4.1 mmol/L (3.5-5.1)
[2020-04-15 07:05] LABS: Basophils # (auto) 0.01 K/uL (0-0.2); Basophils % (auto) 0.1 %; Eosinophils # (auto) 0.15 K/uL (0-0.5); Eosinophils % (auto) 1.3 %; Immature Granulocytes # (auto) 0.02 K/uL (0.00-0.02); Immature Granulocytes % (auto) 0.2 %; Lymphocytes # (auto) 1.42 K/uL (1.2-3.4); Lymphocytes % (auto) 12.3 %; Monocytes # (auto) 0.59 K/uL (0.11-0.59); Monocytes % (auto) 5.1 %; Neutrophils # (auto) 9.32 K/uL (1.4-6.5)
[2020-04-15] MEDS: ATORVASTATIN 40 MG TAB PO SCH (08:46)
[2020-04-15] MEDS: DULoxetine HCL 60 MG CAP PO SCH (08:46)
[2020-04-15] MEDS: ASPIRIN 81 MG ECTAB PO SCH (08:46)
[2020-04-15] MEDS: PANTOprazole 40 MG TAB PO SCH (08:47)
[2020-04-15] MEDS: CALCIUM 600MG + VIT D 400 IU TAB PO SCH ×2 (08:47→21:11)
[2020-04-15] MEDS: GABAPENTIN 600 MG TAB PO SCH ×4 (08:47→21:11)
[2020-04-15] MEDS: ISOSORBIDE MONO EXTENDED REL 60 MG TABCR PO SCH (08:47)
[2020-04-15] MEDS: CYANOCOBALAMIN 500 MCG TABLET (VITAMIN B-12) PO SCH ×2 (08:48→21:11)
[2020-04-15] MEDS: CHOLECALCIFEROL 1,000 UNITS 25 MCG TAB PO SCH (08:48)
[2020-04-15] MEDS: MULTIVITAMIN TAB PO SCH (08:48)
[2020-04-15] MEDS: ACETAMINOPHEN 325 MG TAB PO PRN ×2 (08:52→17:49)
[2020-04-15] MEDS: oxyCODONE HCL IR 5 MG TAB (IMMEDIATE RELEASE) PO PRN ×2 (08:52→17:49)
[2020-04-15] MEDS: INSULIN ASPART 100 UNITS/ML 3 ML PEN SC SCH ×4 (08:54→21:24)
[2020-04-15] MEDS ORDERED: POLYETHYLENE (MIRALAX) 17 GM PACK PO SCH (09:00)
[2020-04-15] MEDS ORDERED: INSULIN GLARGINE SOLOSTAR 100 UNITS/ML 3 ML PEN SC SCH (09:00)
--- NOTE | 2020-04-15 09:49 | Pharmacy Report ---
Pharmacy Glycemic Short Note 2 - Date of Service April 15, 2020 - Glycemic Short BSG Results (Last 24 hours): 04/14/20 04/14/20 04/14/20 09:48 13:21 15:11 Glucose POC Glucose 131 H 194 H 206 H 04/14/20 04/15/20 04/15/20 20:21 05:48 08:39 Glucose 165 H POC Glucose 213 H 182 H OUTPATIENT ANTIDIABETIC REGIMEN: * Lantus 10 units SQ HS * Humalog 10 units with Breakfast + 7 units with lunch + 10 units with dinner + SSI * Glipizide ER 5mg PO BIDM * A1c = 7.2% on 04/02/20 ASSESSMENT: 04/15/20 * POD #1 s/p bipolar hip arthroplasty * No perioperative steroids administered * BSGs elevated postoperatively yesterday at 194, 206, and 213 mg/dL * Patient received 16 units of insulin (10 units of basal, 6 units of prandial/correctional) * Fasting BSG this morning of 182 mg/dL * Will give 4 unit dose of Lantus this morning with plan for 10 units this evening 04/14/20 * 74yo T2DM female admitted for right hip fracture. * Pt is maintained on CULVER + basal bolus insulin regimen with adequate outpatient control per A1c * Will hold glipizide for admission - use NovoLog instead * Will adjust NovoLog per CF/CR instead of fixed dosing with meals * Pt NPO for anticipated right hip xander-arthroplasty 04/14/20. Will decrease basal insulin for NPO status. Typically 50-80% of basal insulin dose is given when NPO. PLAN FOR INPATIENT GLYCEMIC CONTROL: * Hold outpatient oral diabetes medications * Basal insulin - increase * Lantus 4 units SC qAM * Lantus 6-10 units SC HS (see EHR for details) * Bolus insulin - tighten * NovoLog per scale ACHS or Q6hrs while NPO * Goal Range: Low 110 mg/dL - High 140 mg/dL * Correction Factor: 25 mg/dL/unit * Nutritional / Prandial insulin per carb ratio of 1 unit per 8 grams CHO consumed * 0200 check with same parameters PLAN FOR DISCHARGE: * A1c is in goal range for patient based on age and co-morbidities. No changes needed to outpatient regimen.
--- NOTE | 2020-04-15 10:45 | Orthopedic Progress Note ---
Date of Service April 15, 2020 Assessment & Plan (1) Osteoporosis: (2) Fall: (3) Closed fracture of right hip: A little on the drowsy side. Will try to manage pain with less narcotics. Abduction pillow placed. Continue DVT prophylaxis with Lovenox. Continue physical therapy and Occupational Therapy. Patient may need acute care rehab versus intermediate facility prior to going home. Abduction pillow placed. I spoke to her about total hip precautions.Vitamin D within normal limits. Will need an outpatient DEXA scan. (4) Diabetes mellitus, type 2: Admission and Anticipated Discharge Date Admission Date: April 13, 2020 Subjective Resting comfortably in bed. She reports having some difficulties yesterday. Physical Exam Physical Exam: She knows that she is in the hospital but does not know the name. She is otherwise oriented to year or month and person. She seems a little bit drowsy. Her dressing is clean and dry. Her thighs not swollen. She is able to flex and extend her ankle and toes with 5 out of 5 strength and has normal eversion strength on the right. Dorsalis pedis is 1+. Sensation intact. Results & Data ([facility]) Vital Signs (Past 12 Hours) Vital Signs Temp Pulse Resp BP BP Pulse Ox 04/15/20 07:00 37.0 C 114 H 18 136/72 94 04/15/20 04:00 36.9 C 106 H 20 136/73 95 04/15/20 00:06 37.2 C 94 H 16 146/68 H 96 Diagnostic Findings Laboratory Results WBC 11.51 K/uL (4.8-10.8) H 04/15/20 05:48 RBC 3.13 M/uL (4.2-5.4) L 04/15/20 05:48 Hgb 10.1 g/dL (12.0-16.0) L D 04/15/20 05:48 Hct 30.3 % (37-47) L 04/15/20 05:48 MCV 96.8 fL (80-100) 04/15/20 05:48 MCH 32.3 pg (25-34) 04/15/20 05:48 MCHC 33.3 g/dL (32-36) 04/15/20 05:48 RDW Std Deviation 46.2 fL (36.4-46.3) 04/15/20 05:48 RDW Coeff of Jazmine 13.0 % (11.5-14.5) 04/15/20 05:48 Plt Count 130 K/uL (130-400) 04/15/20 05:48 MPV 9.2 fL (7.4-10.4) 04/15/20 05:48 Immature Gran % (Auto) 0.2 % 04/15/20 05:48 Neut % (Auto) 81.0 % 04/15/20 05:48 Lymph % (Auto) 12.3 % 04/15/20 05:48 [place] % (Auto) 5.1 % 04/15/20 05:48 Eos % (Auto) 1.3 % 04/15/20 05:48 Baso % (Auto) 0.1 % 04/15/20 05:48 Neut # (Auto) 9.32 K/uL (1.4-6.5) H 04/15/20 05:48 Lymph # (Auto) 1.42 K/uL (1.2-3.4) 04/15/20 05:48 [place] # (Auto) 0.59 K/uL (0.11-0.59) 04/15/20 05:48 Eos # (Auto) 0.15 K/uL (0-0.5) 04/15/20 05:48 Baso # (Auto) 0.01 K/uL (0-0.2) 04/15/20 05:48 Immature Gran # (Auto) 0.02 K/uL (0.00-0.02) 04/15/20 05:48 PT 10.9 Seconds (9.0-12.0) 04/13/20 13:57 INR 1.0 (0.9-1.1) 04/13/20 13:57 Sodium 135 mmol/L (136-145) L 04/15/20 05:48 Potassium 4.1 mmol/L (3.5-5.1) 04/15/20 05:48 Chloride 100 mmol/L (98-107) 04/15/20 05:48 Carbon Dioxide 33 mmol/L (21-32) H 04/15/20 05:48 Anion Gap 2.0 (3-11) L 04/15/20 05:48 BUN 16 mg/dl (7-18) 04/15/20 05:48 Creatinine 0.72 mg/dl (0.6-1.2) 04/15/20 05:48 Est Cr Clr Drug Dosing 66.3 ml/min 04/15/20 05:48 Est GFR ( Amer) 94.9 04/15/20 05:48 Est GFR (Non-Af Amer) 81.9 04/15/20 05:48 BUN/Creatinine Ratio 22.5 (10-20) H 04/15/20 05:48 Glucose 165 mg/dl (70-99) H 04/15/20 05:48 POC Glucose 182 mg/dl (70-99) H 04/15/20 08:39 Calcium 8.1 mg/dl (8.5-10.1) L 04/15/20 05:48 Magnesium 2.2 mg/dl (1.8-2.4) 04/13/20 13:57 Total Bilirubin 0.7 mg/dl (0.2-1) 04/13/20 13:57 AST 19 U/L (15-37) 04/13/20 13:57 ALT 42 U/L (12-78) 04/13/20 13:57 Alkaline Phosphatase 107 U/L (45-117) 04/13/20 13:57 Troponin I 0.015 ng/ml (0-0.045) 04/15/20 09:35 Total Protein 7.7 gm/dl (6.4-8.2) 04/13/20 13:57 Albumin 3.5 gm/dl (3.4-5.0) 04/13/20 13:57 Globulin 4.2 gm/dl (2.5-4.0) H 04/13/20 13:57 Albumin/Globulin Ratio 0.8 (0.9-2) L 04/13/20 13:57 25-OH Vitamin D Total 41.1 ng/ml (30-100) 04/14/20 07:44 Urine Color Dark Yellow 04/13/20 15:55 Urine Appearance Clear (Clear) 04/13/20 15:55 Urine pH 5.0 (4.5-7.5) 04/13/20 15:55 Ur Specific [place] 1.024 (1.000-1.030) 04/13/20 15:55 Urine Protein Negative (Negative) 04/13/20 15:55 Urine Glucose (UA) Negative (Negative) 04/13/20 15:55 Urine Ketones Negative (Negative) 04/13/20 15:55 Urine Blood Negative (Negative) 04/13/20 15:55 Urine Nitrite Positive (Negative) A 04/13/20 15:55 Urine Bilirubin Negative (Negative) 04/13/20 15:55 Urine Urobilinogen Negative (Negative) 04/13/20 15:55 Ur Leukocyte Esterase Negative (Negative) 04/13/20 15:55 Urine WBC (Auto) 1-5 /hpf (0-5) 04/13/20 15:55 Urine RBC (Auto) 0-4 /hpf (0-4) 04/13/20 15:55 U Hyaline Cast (Auto) 5-10 /lpf (0-5) H 04/13/20 15:55 U Epithel Cells (Auto) >30 /lpf (0-5) H 04/13/20 15:55 Urine Bacteria (Auto) 4+ (Negative) H 04/13/20 15:55 Ur Renal Epithelial Cell Not Reportable 04/13/20 15:55 COVID-19 Eval Order Covid19 IDNow [facility] 04/13/20 Unknown SARS-CoV-2, RNA, NAAT NEGATIVE (NEGATIVE) 04/13/20 Unknown Blood Type O Positive 04/13/20 13:57 Antibody Screen NEGATIVE 04/13/20 13:57 (1) Fall Encounter type: initial encounter Qualified Code(s): W19.XXXA - Unspecified fall, initial encounter (2) Closed fracture of right hip Encounter type: initial encounter Qualified Code(s): S72.001A - Fracture of unspecified part of neck of right femur, initial encounter for closed fracture
--- NOTE | 2020-04-15 10:57 | Medical Student Progress Note ---
Date of Service April 15, 2020 Assessment & Plan (1) Closed fracture of right hip: -POD #1 s/p right Bipolar hip arthroplasty after physical trauma secondary to goat. -Following with Orthopedics - mild pain: tylenol, moderate pain: oxycodone 5 mg PO q4 PRN, severe pain : 0.25 - 0.5 hydromorphone IV Q3h ----Y-p-q-t-i-n-u-e- -p-a-i-n- -b-m-o-t-r-o-l- -w-i-t-h- -.-2-5-/-.-5- -a-i-z-c-l-m-r-w-b-h-o-n-e- -I-V- -Q-3- -p-r-n- -a-n-d- -q-j-b-x-u-p-o-n-e- -5-m-g- -P-O- -Q-4- -p-r-n- - Encourage PO pain meds rather than IV -Hold Lorazepam .5mg prn due to sedation - -Q-u-a-t-i-n-u-e- -w-i-t-h- Awaiting PT, encourage ambulation as tolerated Encounter type: initial encounter Qualified Code(s): S72.001A - Fracture of unspecified part of neck of right femur, initial encounter for closed fracture (2) CAD (coronary artery disease): - s/p ZAHRA to [facility]AD (2016) for unstable angina - EKG on admission 04/13, ST abnormalities noted -> T wave inversions-> T wave flattening - Troponin <0.015 -> 0.015 - EKG changes likely secondary to demand ischemia in the setting of tachycardic pain response to femur fx and surgical repair, hx of CAD - In conversation with cardiology, low suspicion for new cardiac event, but will continue to monitor for sx of chest pain, palpitations, increased oxygen demand. EKG with chest pain - Continue home med isosorbide mononitrate 120 mg (3) Osteoporosis: -Last Dexa 07/08; AP Spine t score -1.4, Total Femur t-score -2.1 -Recommend fu Dexa in the outpatient setting as well as consideration for bisphosphonate tx -daily Vit D & Ca supplementation (4) Diabetes mellitus, type 2: -HgbA1c 7.2 -Continue home med insulin glargine 6-10 units -Continue insulin sliding scale -Continue home med gabapentin 600 mg qd for diabetic neuropathy (5) GERD (gastroesophageal reflux disease): -Continue pantoprazole 40 mg qd (6) Anxiety: -Continue Duloxetine 60mg qd --J-h-p-t-i-n-u-e- Holding lorazepam .5mg qd (7) DVT prophylaxis: -DVT prophylaxis: lovenox 40mg -Diet: Low Carb, Diabetic, Heart Healthy -Dispo: Med-Surg, home vs. placement pending PT/OT -Code: Full Admission and Anticipated Discharge Date Admission Date: April 13, 2020 Supervising Attestation Attending attestation Pt seen and examined in concert with Std Dr Riley, Dr. Sage. In agreement with the documented findings as noted in the resident documentation with any exceptions or additions as noted here. Somewhat somnolent at time of examination with pain well controlled unless engaged in movement/repositioning. Last dose of pain medication was > 6 hours ago, last dose of lorazepam was last evening. On examination, S1/S2 nl, tachycardia no MCG. CTAB. Abd NT/ND BS+ve Close fracture of the right hip POD #1 - pain control regimen with titration to comfort and monitoring for sedation. modify lorazepam orders and hold additional doses until sedation stabilizes or with physician oversight. Tachycardia in the setting of EKG changes with h/o CAD - troponins stable, nonconcerning. EKG changes without significant impact. likely postoperative, will monitor. Continue Imdur. DMII - A1c 7.2% - tolerating current insulin management, will continue same Else see student/resident documentation as noted. Subjective Pt is a 74 yo F w/ pmh DM II, GERD, CAD, and Osteoporosis admitted for a closed fracture of the R. hip following being hit by a goat. She underwent bipolar hip arthroplasty 04/14 and is POD #1. Overnight, there were no acute events. Today, the pt is doing well, but in pain. She had just been repositioned when I saw her, and her pain was a 10/10. She has not ambulated yet. She is on a low carb diet and was eating some of her breakfast when I went to see her. She has not had a BM since her surgery. She denies chest pain, shortness of breath, nausea, vomiting, abdominal pain. She also denies having any urinary sx related to f/u/d before coming to the hospital. Review of Systems Constitutional: denies fever, chills, fatigue, body aches Eyes: denies changes in vision Respiratory: denies dyspnea, cough Cardiovascular: Additional Comments: denies chest pain, palpitations, edema Gastrointestinal: denies N/V, abdominal pain Genitourinary: denies frequency, urgency, dysuria Musculoskeletal: + R. hip pain Neurologic: denies numbness, weakness Physical Exam Constitutional: WD/WN, vitals as above Eyes: PERRL, conjunctivae normal, anicteric sclerae Respiratory: Poor inspiratory effort, shallow breath sounds, lungs clear to auscultation Cardiovascular: tachycardic, normal S1, S2, no m/r/g Gastrointestinal (Abdomen): normoactive bowel sounds, distended, nontender Musculoskeletal: no pretibial edema, +2 dorsalis pedis pulse Neurologic: awake, alert, and oriented x 3 Results & Data ([facility]) Vital Signs (Past 12 Hours) Vital Signs Temp Pulse Resp BP BP Pulse Ox 04/15/20 07:00 37.0 C 114 H 18 136/72 94 04/15/20 04:00 36.9 C 106 H 20 136/73 95 04/15/20 00:06 37.2 C 94 H 16 146/68 H 96 Laboratory Results 04/14/20 04/14/20 04/14/20 Range/Units 07:44 07:44 05:36 WBC (4.8-10.8) K/uL RBC (4.2-5.4) M/uL Hgb (12.0-16.0) g/dL Hct (37-47) % MCV (80-100) fL MCH (25-34) pg MCHC (32-36) g/dL RDW Std Deviation (36.4-46.3) fL RDW Coeff of Jazmine (11.5-14.5) % Plt Count (130-400) K/uL MPV (7.4-10.4) fL Immature Gran % (Auto) % Neut % (Auto) % Lymph % (Auto) % [place] % (Auto) % Eos % (Auto) % Baso % (Auto) % Neut # (Auto) (1.4-6.5) K/uL Lymph # (Auto) (1.2-3.4) K/uL [place] # (Auto) (0.11-0.59) K/uL Eos # (Auto) (0-0.5) K/uL Baso # (Auto) (0-0.2) K/uL Immature Gran # (Auto) (0.00-0.02) K/uL PT (9.0-12.0) Seconds INR (0.9-1.1) Sodium 137 (136-145) mmol/L Potassium 4.0 (3.5-5.1) mmol/L Chloride 100 (98-107) mmol/L Carbon Dioxide 32 (21-32) mmol/L Anion Gap 5.0 (3-11) BUN 15 (7-18) mg/dl Creatinine 0.89 (0.6-1.2) mg/dl Est Cr Clr Drug Dosing 53.7 Est GFR ( Amer) 73.5 Est GFR (Non-Af Amer) 63.4 BUN/Creatinine Ratio 16.7 (10-20) Glucose 120 H (70-99) mg/dl POC Glucose 109 H (70-99) mg/dl Calcium 9.2 (8.5-10.1) mg/dl Magnesium (1.8-2.4) mg/dl Total Bilirubin (0.2-1) mg/dl AST (15-37) U/L ALT (12-78) U/L Alkaline Phosphatase (45-117) U/L Total Protein (6.4-8.2) gm/dl Albumin (3.4-5.0) gm/dl Globulin (2.5-4.0) gm/dl Albumin/Globulin Ratio (0.9-2) 25-OH Vitamin D Total Pending Urine Color Urine Appearance (Clear) Urine pH (4.5-7.5) Ur Specific [place] (1.000-1.030) Urine Protein (Negative) Urine Glucose (UA) (Negative) Urine Ketones (Negative) Urine Blood (Negative) Urine Nitrite (Negative) Urine Bilirubin (Negative) Urine Urobilinogen (Negative) Ur Leukocyte Esterase (Negative) Urine WBC (Auto) (0-5) /hpf Urine RBC (Auto) (0-4) /hpf U Hyaline Cast (Auto) (0-5) /lpf U Epithel Cells (Auto) (0-5) /lpf Urine Bacteria (Auto) (Negative) Ur Renal Epithelial Cell COVID-19 Eval Order SARS-CoV-2, RNA, NAAT (NEGATIVE) Blood Type Antibody Screen 04/13/20 04/13/20 04/13/20 Range/Units Unknown Unknown 19:47 WBC (4.8-10.8) K/uL RBC (4.2-5.4) M/uL Hgb (12.0-16.0) g/dL Hct (37-47) % MCV (80-100) fL MCH (25-34) pg MCHC (32-36) g/dL RDW Std Deviation (36.4-46.3) fL RDW Coeff of Jazmine (11.5-14.5) % Plt Count (130-400) K/uL MPV (7.4-10.4) fL Immature Gran % (Auto) % Neut % (Auto) % Lymph % (Auto) % [place] % (Auto) % Eos % (Auto) % Baso % (Auto) % Neut # (Auto) (1.4-6.5) K/uL Lymph # (Auto) (1.2-3.4) K/uL [place] # (Auto) (0.11-0.59) K/uL Eos # (Auto) (0-0.5) K/uL Baso # (Auto) (0-0.2) K/uL Immature Gran # (Auto) (0.00-0.02) K/uL PT (9.0-12.0) Seconds INR (0.9-1.1) Sodium (136-145) mmol/L Potassium (3.5-5.1) mmol/L Chloride (98-107) mmol/L Carbon Dioxide (21-32) mmol/L Anion Gap (3-11) BUN (7-18) mg/dl Creatinine (0.6-1.2) mg/dl Est Cr Clr Drug Dosing Est GFR ( Amer) Est GFR (Non-Af Amer) BUN/Creatinine Ratio (10-20) Glucose (70-99) mg/dl POC Glucose 186 H (70-99) mg/dl Calcium (8.5-10.1) mg/dl Magnesium (1.8-2.4) mg/dl Total Bilirubin (0.2-1) mg/dl AST (15-37) U/L ALT (12-78) U/L Alkaline Phosphatase (45-117) U/L Total Protein (6.4-8.2) gm/dl Albumin (3.4-5.0) gm/dl Globulin (2.5-4.0) gm/dl Albumin/Globulin Ratio (0.9-2) 25-OH Vitamin D Total Urine Color Urine Appearance (Clear) Urine pH (4.5-7.5) Ur Specific [place] (1.000-1.030) Urine Protein (Negative) Urine Glucose (UA) (Negative) Urine Ketones (Negative) Urine Blood (Negative) Urine Nitrite (Negative) Urine Bilirubin (Negative) Urine Urobilinogen (Negative) Ur Leukocyte Esterase (Negative) Urine WBC (Auto) (0-5) /hpf Urine RBC (Auto) (0-4) /hpf U Hyaline Cast (Auto) (0-5) /lpf U Epithel Cells (Auto) (0-5) /lpf Urine Bacteria (Auto) (Negative) Ur Renal Epithelial Cell COVID-19 Eval Order Covid19 IDNow [facility] SARS-CoV-2, RNA, NAAT NEGATIVE (NEGATIVE) Blood Type Antibody Screen 04/13/20 04/13/20 04/13/20 Range/Units 15:55 13:57 13:57 WBC (4.8-10.8) K/uL RBC (4.2-5.4) M/uL Hgb (12.0-16.0) g/dL Hct (37-47) % MCV (80-100) fL MCH (25-34) pg MCHC (32-36) g/dL RDW Std Deviation (36.4-46.3) fL RDW Coeff of Jazmine (11.5-14.5) % Plt Count (130-400) K/uL MPV (7.4-10.4) fL Immature Gran % (Auto) % Neut % (Auto) % Lymph % (Auto) % [place] % (Auto) % Eos % (Auto) % Baso % (Auto) % Neut # (Auto) (1.4-6.5) K/uL Lymph # (Auto) (1.2-3.4) K/uL [place] # (Auto) (0.11-0.59) K/uL Eos # (Auto) (0-0.5) K/uL Baso # (Auto) (0-0.2) K/uL Immature Gran # (Auto) (0.00-0.02) K/uL PT 10.9 (9.0-12.0) Seconds INR 1.0 (0.9-1.1) Sodium 140 (136-145) mmol/L Potassium 3.7 (3.5-5.1) mmol/L Chloride 105 (98-107) mmol/L Carbon Dioxide 30 (21-32) mmol/L Anion Gap 4.0 (3-11) BUN 19 H (7-18) mg/dl Creatinine 0.87 (0.6-1.2) mg/dl Est Cr Clr Drug Dosing Not Reportable Est GFR ( Amer) 75.5 Est GFR (Non-Af Amer) 65.2 BUN/Creatinine Ratio 21.9 H (10-20) Glucose 111 H (70-99) mg/dl POC Glucose (70-99) mg/dl Calcium 9.6 (8.5-10.1) mg/dl Magnesium 2.2 (1.8-2.4) mg/dl Total Bilirubin 0.7 (0.2-1) mg/dl AST 19 (15-37) U/L ALT 42 (12-78) U/L Alkaline Phosphatase 107 (45-117) U/L Total Protein 7.7 (6.4-8.2) gm/dl Albumin 3.5 (3.4-5.0) gm/dl Globulin 4.2 H (2.5-4.0) gm/dl Albumin/Globulin Ratio 0.8 L (0.9-2) 25-OH Vitamin D Total Urine Color Dark Yellow Urine Appearance Clear (Clear) Urine pH 5.0 (4.5-7.5) Ur Specific [place] 1.024 (1.000-1.030) Urine Protein Negative (Negative) Urine Glucose (UA) Negative (Negative) Urine Ketones Negative (Negative) Urine Blood Negative (Negative) Urine Nitrite Positive A (Negative) Urine Bilirubin Negative (Negative) Urine Urobilinogen Negative (Negative) Ur Leukocyte Esterase Negative (Negative) Urine WBC (Auto) 1-5 (0-5) /hpf Urine RBC (Auto) 0-4 (0-4) /hpf U Hyaline Cast (Auto) 5-10 H (0-5) /lpf U Epithel Cells (Auto) >30 H (0-5) /lpf Urine Bacteria (Auto) 4+ H (Negative) Ur Renal Epithelial Cell Not Reportable COVID-19 Eval Order SARS-CoV-2, RNA, NAAT (NEGATIVE) Blood Type Antibody Screen 04/13/20 04/13/20 Range/Units 13:57 13:57 WBC 9.43 (4.8-10.8) K/uL RBC 4.62 (4.2-5.4) M/uL Hgb 15.2 (12.0-16.0) g/dL Hct 44.7 (37-47) % MCV 96.8 (80-100) fL MCH 32.9 (25-34) pg MCHC 34.0 (32-36) g/dL RDW Std Deviation 46.2 (36.4-46.3) fL RDW Coeff of Jazmine 13.1 (11.5-14.5) % Plt Count 211 (130-400) K/uL MPV 9.4 (7.4-10.4) fL Immature Gran % (Auto) 0.3 % Neut % (Auto) 66.5 % Lymph % (Auto) 24.5 % [place] % (Auto) 7.7 % Eos % (Auto) 0.8 % Baso % (Auto) 0.2 % Neut # (Auto) 6.26 (1.4-6.5) K/uL Lymph # (Auto) 2.31 (1.2-3.4) K/uL [place] # (Auto) 0.73 H (0.11-0.59) K/uL Eos # (Auto) 0.08 (0-0.5) K/uL Baso # (Auto) 0.02 (0-0.2) K/uL Immature Gran # (Auto) 0.03 H (0.00-0.02) K/uL PT (9.0-12.0) Seconds INR (0.9-1.1) Sodium (136-145) mmol/L Potassium (3.5-5.1) mmol/L Chloride (98-107) mmol/L Carbon Dioxide (21-32) mmol/L Anion Gap (3-11) BUN (7-18) mg/dl Creatinine (0.6-1.2) mg/dl Est Cr Clr Drug Dosing Est GFR ( Amer) Est GFR (Non-Af Amer) BUN/Creatinine Ratio (10-20) Glucose (70-99) mg/dl POC Glucose (70-99) mg/dl Calcium (8.5-10.1) mg/dl Magnesium (1.8-2.4) mg/dl Total Bilirubin (0.2-1) mg/dl AST (15-37) U/L ALT (12-78) U/L Alkaline Phosphatase (45-117) U/L Total Protein (6.4-8.2) gm/dl Albumin (3.4-5.0) gm/dl Globulin (2.5-4.0) gm/dl Albumin/Globulin Ratio (0.9-2) 25-OH Vitamin D Total Urine Color Urine Appearance (Clear) Urine pH (4.5-7.5) Ur Specific [place] (1.000-1.030) Urine Protein (Negative) Urine Glucose (UA) (Negative) Urine Ketones (Negative) Urine Blood (Negative) Urine Nitrite (Negative) Urine Bilirubin (Negative) Urine Urobilinogen (Negative) Ur Leukocyte Esterase (Negative) Urine WBC (Auto) (0-5) /hpf Urine RBC (Auto) (0-4) /hpf U Hyaline Cast (Auto) (0-5) /lpf U Epithel Cells (Auto) (0-5) /lpf Urine Bacteria (Auto) (Negative) Ur Renal Epithelial Cell COVID-19 Eval Order SARS-CoV-2, RNA, NAAT (NEGATIVE) Blood Type O Positive Antibody Screen NEGATIVE Diagnostic Findings XR chest 1V portable IMPRESSION: No acute process. XR pelvis 1-2V routine, XR femur RT 2V routine IMPRESSION: Acute mildly impacted transcervical fracture of the right femur. Medications Administered ER medications given: Acetaminophen 1 g IV Fentanyl 100 mcg IV x2 Morphine 4 mg IV Ondansetron 4 mg IV ECG Indication: other (Preop) Rate (beats per minute): 91 Rhythm: normal sinus Findings: + other (T wave flattening in anterior lateral leads) Comparison ECG Date: from (September 21, 2018) Change: no significant change
--- NOTE | 2020-04-15 11:37 | Electrocardiogram Report ---
Test Reason : Blood Pressure : / mmHG Vent. Rate : 114 BPM Atrial Rate : 114 BPM P-R Int : 130 ms QRS Dur : 082 ms QT Int : 354 ms P-R-T Axes : 071 027 -69 degrees QTc Int : 487 ms Sinus tachycardia Abnormal ECG When compared with ECG of 13-APR-2020 17:15, Inverted T waves have replaced nonspecific T wave abnormality in Anterior leads Confirmed by Joe Quintero ([id number]) on 04/15/2020 11:36:51 AM Referred By: REFERRED SELF Confirmed By:Velasquez Quintero
[2020-04-15] MEDS ORDERED: HYDROmorphone INJ 0.5 MG/0.5 ML SYR IV PRN (17:21)
[2020-04-15] MEDS: DOCUSATE SODIUM/SENNA 50/8.6MG TAB PO SCH (21:11)
[2020-04-15] MEDS: INSULIN GLARGINE SOLOSTAR 100 UNITS/ML 3 ML PEN SC SCH (21:22)
[2020-04-16] MEDS: oxyCODONE HCL IR 5 MG TAB (IMMEDIATE RELEASE) PO PRN ×2 (01:41→08:42)
[2020-04-16] MEDS ORDERED: INSULIN ASPART 100 UNITS/ML 3 ML PEN SC SCH (02:00)
[2020-04-16] MEDS: ENOXAPARIN INJ 40 MG/0.4 ML SYR SQ SCH (06:12)
[2020-04-16 06:36] LABS: Basophils # (auto) 0.01 K/uL (0-0.2); Basophils % (auto) 0.1 %; Eosinophils # (auto) 0.28 K/uL (0-0.5); Eosinophils % (auto) 2.7 %; Hematocrit (blood only) 28.1 % (37-47); Hemoglobin 9.5 g/dL (12.0-16.0); Immature Granulocytes # (auto) 0.03 K/uL (0.00-0.02); Immature Granulocytes % (auto) 0.3 %; Lymphocytes # (auto) 1.66 K/uL (1.2-3.4); Lymphocytes % (auto) 15.9 %; Mean Corpuscular Hemoglobin 32.8 pg (25-34); Mean Corpuscular Hgb Conc 33.8 g/dL (32-36); Mean Corpuscular Volume 96.9 fL (80-100); Mean Platelet Volume 9.5 fL (7.4-10.4); Monocytes # (auto) 0.81 K/uL (0.11-0.59); Monocytes % (auto) 7.8 %; Neutrophils # (auto) 7.65 K/uL (1.4-6.5); Neutrophils % (auto) 73.2 %; Platelet Count 124 K/uL (130-400); RDW Coefficient of Variation 12.8 % (11.5-14.5); RDW Standard Deviation 45.2 fL (36.4-46.3); White Blood Count 10.44 K/uL (4.8-10.8)
[2020-04-16 07:04] LABS: Calcium 8.8 mg/dl (8.5-10.1); Creatinine Clr Calc Pharmacy 71.3 ml/min; Est GFR (African American) 99.7; Potassium 3.7 mmol/L (3.5-5.1)
[2020-04-16] MEDS ORDERED: ACETAMINOPHEN 325 MG TAB PO PRN (07:13)
[2020-04-16] MEDS: ASPIRIN 81 MG ECTAB PO SCH (08:35)
[2020-04-16] MEDS: CALCIUM 600MG + VIT D 400 IU TAB PO SCH ×2 (08:35→20:51)
[2020-04-16] MEDS: MULTIVITAMIN TAB PO SCH (08:36)
[2020-04-16] MEDS: GABAPENTIN 600 MG TAB PO SCH ×4 (08:36→20:51)
[2020-04-16] MEDS: CYANOCOBALAMIN 500 MCG TABLET (VITAMIN B-12) PO SCH ×2 (08:36→20:50)
[2020-04-16] MEDS: CHOLECALCIFEROL 1,000 UNITS 25 MCG TAB PO SCH (08:37)
[2020-04-16] MEDS: DULoxetine HCL 60 MG CAP PO SCH (08:37)
[2020-04-16] MEDS: ATORVASTATIN 40 MG TAB PO SCH (08:37)
[2020-04-16] MEDS: PANTOprazole 40 MG TAB PO SCH (08:37)
[2020-04-16] MEDS: ISOSORBIDE MONO EXTENDED REL 60 MG TABCR PO SCH (08:38)
[2020-04-16] MEDS: POLYETHYLENE (MIRALAX) 17 GM PACK PO SCH ×3 (08:39→20:51)
[2020-04-16] MEDS: MAGNESIUM HYDROXIDE SUSP 30 ML UDC PO SCH (08:41)
[2020-04-16] MEDS: INSULIN ASPART 100 UNITS/ML 3 ML PEN SC SCH ×4 (08:46→20:55)
[2020-04-16] MEDS ORDERED: INSULIN GLARGINE SOLOSTAR 100 UNITS/ML 3 ML PEN SC SCH (09:00)
[2020-04-16] MEDS ORDERED: MoRPHine SULFATE 2 MG/ML CARP IV PRN (10:44)
[2020-04-16] MEDS ORDERED: oxyCODONE HCL IR 5 MG TAB (IMMEDIATE RELEASE) PO SCH (12:00)
--- NOTE | 2020-04-16 12:44 | Orthopedic Progress Note ---
Date of Service April 16, 2020 Assessment & Plan (1) Closed fracture of right hip: POD #2 right hip hemiarthroplasty with Dr. Hi. Would recommend continued PT/OT Discussed patient's recovery and recommendations for rehab after surgery with daughter. Recommended inpatient rehab, but family would still like to take her home. Continue with home health eval. patient seen and evaluated by Dr. Hi Dressing changed right hip Abduction pillow placed between knees, continue when in bed and when in chair. Allowed to be out of bed, WBAT RLE; posterior hip precautions with assistance of a walker Regular diet as ordered continue Lovenox for DVT prophylaxis. xrays for right hip and pelvis and lumbar spine ordered Will discontinue noriega catheter. Continue pain management as per primary service. Will continue to follow during her inpatient stay. Follow up with Dr. Hi as scheduled. Call [phone] with any questions. Admission and Anticipated Discharge Date Admission Date: April 13, 2020 Subjective Lying in bed today, alert, but complaining of pain and disappointment with her recovery. She was hoping she'd be doing better by now. She states that she hasn't been out of bed. Nurse reports continued complaints of pain in right leg/hip. Physical Exam Physical Exam: Right hip incision clean with mild bloody drainage. New dressings applied. [place] intact. No distal edema, distal sensation and strength intact. Nontender bilateral calves, but pain with palpation of right thigh and with compression and palpation of pelvis, especially on the right side. No surrounding seroma, ecchymosis or fluctuance. Distal pulses 1+. Mirian erates active ROM of bilateral ankles and toes. Pain with any type of movement of right hip. She is alert and oriented x 3 currently. Results & Data ([facility]) Vital Signs (Past 12 Hours) Vital Signs Temp Pulse Resp BP Pulse Ox 04/16/20 07:33 37.3 C 109 H 16 119/70 95 Diagnostic Findings Xrays of right hip, pelvis and lumbar spine ordered and pending. (1) Closed fracture of right hip Encounter type: initial encounter Qualified Code(s): S72.001A - Fracture of unspecified part of neck of right femur, initial encounter for closed fracture
[2020-04-16] MEDS ORDERED: oxyCODONE HCL IR 5 MG TAB (IMMEDIATE RELEASE) PO PRN (12:57)
--- NOTE | 2020-04-16 13:01 | Progress Notes ---
DATE: 04/16/2020 The patient was seen in conjunction with Tatum Hernández. For further details, refer to her dictation. She and I saw and evaluated this patient together. I am in agreement with the plan. Her wound is fine. She is having some pain and difficulty getting around. We will go ahead and check some x-rays of her right femur, hip, pelvis and lumbar spine. I spoke with daughter, Alen. Concerned about going to long-term or acute care rehab. They would like to take her home. Also concerned about confusion. Today, Talia was awake, alert and oriented x3. She appeared to be more awake and arousable. I spoke with the daughter and informed her that the confusion is likely temporary and it is as a result of stress, pain medication, anesthesia, etc. This should get better as time goes on. I did express my concern regarding their ability to care for her at home. They will have someone there 12/10 with additional help routinely available. We can try to arrange for home health PT and OT. I did express some concerns for her safety and mobility. If she is having difficulty getting around here with physical therapy, it could be a challenge to manage her at home. They would still like to proceed. I do not think she is quite ready for discharge and we would like to get her a little bit more rehabilitation prior to heading out. Discontinue the Cisneros today. Medication like Toradol cannot really be used because she is on the blood thinner.
--- NOTE | 2020-04-16 13:11 | Pharmacy Report ---
Pharmacy Glycemic Short Note 2 - Date of Service April 16, 2020 - Glycemic Short BSG Results (Last 24 hours): 04/15/20 04/15/20 04/16/20 17:08 21:01 01:55 Glucose POC Glucose 233 H 172 H 161 H 04/16/20 04/16/20 04/16/20 06:07 08:14 12:11 Glucose 141 H POC Glucose 174 H 164 H OUTPATIENT ANTIDIABETIC REGIMEN: * Lantus 10 units SQ HS * Humalog 10 units with Breakfast + 7 units with lunch + 10 units with dinner + SSI * Glipizide ER 5mg PO BIDM * A1c = 7.2% on 04/02/20 ASSESSMENT: 04/16/20 * POD #2 s/p bipolar hip arthroplasty * BSGs elevated yesterday at 182, 237, 233, and 172 mg/dL * Patient received 12 units of basal and 23 units of prandial/correctional insulin (35 units total) * Will tighten Novolog parameters for today * Fasting BSG this morning of 174 mg/dL * Will give 4 unit dose of Lantus this morning with plan for 8-10 units this evening 04/14/20 * 74yo T2DM female admitted for right hip fracture. * Pt is maintained on CULVER + basal bolus insulin regimen with adequate outpatient control per A1c * Will hold glipizide for admission - use NovoLog instead * Will adjust NovoLog per CF/CR instead of fixed dosing with meals * Pt NPO for anticipated right hip xander-arthroplasty 04/14/20. Will decrease basal insulin for NPO status. Typically 50-80% of basal insulin dose is given when NPO. PLAN FOR INPATIENT GLYCEMIC CONTROL: * Hold outpatient oral diabetes medications * Basal insulin - * Lantus 4 units SC qAM * Lantus 8-10 units SC HS (see EHR for details) * Bolus insulin - tighten * NovoLog per scale ACHS or Q6hrs while NPO * Goal Range: Low 110 mg/dL - High 140 mg/dL * Correction Factor: 20 mg/dL/unit * Nutritional / Prandial insulin per carb ratio of 1 unit per 7 grams CHO consumed PLAN FOR DISCHARGE: * A1c is in goal range for patient based on age and co-morbidities. No changes needed to outpatient regimen.
--- NOTE | 2020-04-16 14:16 | XRay Report ---
XR femur RT 2V routine, XR pelvis 1-2V routine HISTORY: 74 years-old Female post op right hip pain acute pain of the right femur and pelvis. Right hip radiographs 04/14/2020 COMPARISON: Right hip radiographs 04/14/2020 TECHNIQUE: 2 views the right femur FINDINGS: FEMUR: Total joint arthroplasty with overlying skin annia. Expected postsurgical soft tissue swelling and deep tissue air. Satisfactory alignment. No acute fracture. A metallic button overlies the proximal f emur. Osteoarthritis of the knee with chondrocalcinosis. PELVIS: Demineralized appearance of the bones. Right hip total joint arthroplasty. Mild to moderate left hip osteoarthritis. No acute fracture or dislocation. A metallic button overlies the right proximal femur . IMPRESSION: 1. No acute fracture or dislocation. 2. Right hip total joint arthroplasty with expected postoperative changes. ACT 112: Negative or not required by law. The above report was generated using voice recognition software. It may contain grammatical, syntax o r spelling errors. Electronically signed by: Kyaw Back M.D. 04/16/2020 2:15 PM
--- NOTE | 2020-04-16 14:16 | XRay Report ---
LUMBAR SPINE 3 VIEWS CLINICAL HISTORY: Postoperative right hip and back pain. FINDINGS: 3 views of the lumbar spine are compared to study dated 11/26/2017. The skeletal structures are osteopenic. There is no radiographic evidence of fracture or malalignment. Vertebral body height and alignment are maintained. The transverse and spinous processes are intact. Anterior and lateral m arginal osteophytes are seen throughout. There is mild multilevel degenerative disc space narrowing, greatest at L3-L4 and L4-L5. The posterior disc osteophyte complex is noted at L3-L4. Mild facet arth ropathy seen in the lower lumbar region. The visualized bony pelvis appears intact. A right hip arthr oplasty is in place with overlying skin clips. Mild sclerotic change is noted in the sacroiliac joint s. There is a nonobstructed abdominal bowel gas pattern. Cholecystectomy clips are noted in the right upper quadrant. There is atherosclerotic calcification of the abdominal aorta. IMPRESSION: 1. No acute bony abnormality seen involving the lumbar spine. 2. Osteopenia and mild spondylotic change as above. ACT 112: Negative or not required by law. Electronically signed by: Bud Chirinos M.D. 04/16/2020 2:15 PM
[2020-04-16] MEDS: traMADol HCL 50 MG TABLET PO PRN (14:21)
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
[2020-04-16] MEDS: ACETAMINOPHEN 500 MG TAB PO SCH ×2 (17:07→20:51)
[2020-04-16] MEDS: DOCUSATE SODIUM/SENNA 50/8.6MG TAB PO SCH (20:50)
[2020-04-16] MEDS: INSULIN GLARGINE SOLOSTAR 100 UNITS/ML 3 ML PEN SC SCH (20:54)
[2020-04-17] MEDS: ENOXAPARIN INJ 40 MG/0.4 ML SYR SQ SCH (05:51)
[2020-04-17] MEDS: ACETAMINOPHEN 500 MG TAB PO SCH ×3 (05:51→20:35)
[2020-04-17] MEDS: traMADol HCL 50 MG TABLET PO PRN ×3 (08:04→16:59)
[2020-04-17] MEDS: CYANOCOBALAMIN 500 MCG TABLET (VITAMIN B-12) PO SCH ×2 (08:05→20:35)
[2020-04-17] MEDS: DULoxetine HCL 60 MG CAP PO SCH (08:06)
[2020-04-17] MEDS: POLYETHYLENE (MIRALAX) 17 GM PACK PO SCH ×5 (08:06→20:33)
[2020-04-17] MEDS: ISOSORBIDE MONO EXTENDED REL 60 MG TABCR PO SCH (08:07)
[2020-04-17] MEDS: MULTIVITAMIN TAB PO SCH (08:07)
[2020-04-17] MEDS: MAGNESIUM HYDROXIDE SUSP 30 ML UDC PO SCH (08:08)
[2020-04-17] MEDS: ATORVASTATIN 40 MG TAB PO SCH (08:08)
[2020-04-17] MEDS: ASPIRIN 81 MG ECTAB PO SCH (08:09)
[2020-04-17] MEDS: CHOLECALCIFEROL 1,000 UNITS 25 MCG TAB PO SCH (08:09)
[2020-04-17] MEDS: GABAPENTIN 600 MG TAB PO SCH ×4 (08:09→20:34)
[2020-04-17] MEDS: PANTOprazole 40 MG TAB PO SCH (08:09)
[2020-04-17] MEDS: CALCIUM 600MG + VIT D 400 IU TAB PO SCH ×2 (08:10→20:34)
[2020-04-17 08:18] LABS: Creatinine Clr Calc Pharmacy 60.5 ml/min; Est GFR (African American) 84.9; Est GFR (Non-African American) 73.2
--- NOTE | 2020-04-17 08:47 | Orthopedic Progress Note ---
Date of Service April 17, 2020 Assessment & Plan (1) Altered mental status: (2) Osteoporosis: (3) Closed fracture of right hip: Her mental status is improved today. I would like to see how she does with PT and OT today. If she is better and more independent it would be worthwhile to consider discharge home if proper PT OT home health services are available. The family is eager to have her home and take care of her there rather than go to a [place] [facility] facility which I think is reasonable if her functional abilities are appropriate. We discussed total hip precautions. Use of Lovenox at home. Wound care. She will need follow-up with me in 7 to 10 days for wound check and staple removal. She may weight-bear as tolerated with a walker. Continue DVT prophylaxis with Lovenox. Continue foot pumps. Will need outpatient osteoporosis work-up. I reviewed her lumbar spine pelvis and hip x-rays. I still need to see a lateral view of the right hip. However the remaining films demonstrate no additional fracture. There are some degenerative changes in the lumbar spine. There is no complication or dislocation evident in regards to the partial hip replacement. The cement technique looks good. The radiographic reports are noted. Present on Admission?: Yes Admission and Anticipated Discharge Date Admission Date: April 13, 2020 Subjective Feels better. Her daughter Eileen is with her today. She feels much clear. Her pain is improved. She does not like the abduction pillow. The purpose of the abduction pillow is discussed. Since her mental status is improved. We can go ahead and loosen the straps. I went ahead and reinforce the use of the abduction pillow in bed or in a chair. We also went over some gluteal squeezes quad sets ankle pumps and knee bends. Physical Exam Physical Exam: Her dressing is clean and dry. She can bend her knee about 60 degrees without much difficulty. Her distal neurovascular function is grossly intact and she can flex and extend her ankles without difficulty. Results & Data ([facility]) Vital Signs (Past 12 Hours) Vital Signs Temp Pulse Resp BP Pulse Ox 04/17/20 07:59 36.6 C 87 19 131/66 95 04/17/20 03:28 36.7 C 97 H 14 137/70 97 04/16/20 23:29 36.7 C 99 H 14 122/65 97 (1) Closed fracture of right hip Encounter type: initial encounter Qualified Code(s): S72.001A - Fracture of unspecified part of neck of right femur, initial encounter for closed fracture
--- NOTE | 2020-04-17 09:11 | Pharmacy Report ---
Pharmacy Glycemic Short Note 2 - Date of Service April 17, 2020 - Glycemic Short BSG Results (Last 24 hours): 04/16/20 04/16/20 04/16/20 12:11 17:21 20:37 POC Glucose 164 H 170 H 188 H OUTPATIENT ANTIDIABETIC REGIMEN: * Lantus 10 units SQ HS * Humalog 10 units with Breakfast + 7 units with lunch + 10 units with dinner + SSI * Glipizide ER 5mg PO BIDM * A1c = 7.2% on 04/02/20 ASSESSMENT: 04/17/20 * Patient received total of 28 units of insulin yesterday, of which 14 units were basal insulin * Plan to continue with Lantus at HS time as this is when patient takes at home * Continue same CF/CR for now 04/16/20 * POD #2 s/p bipolar hip arthroplasty * BSGs elevated yesterday at 182, 237, 233, and 172 mg/dL * Patient received 12 units of basal and 23 units of prandial/correctional insulin (35 units total) * Will tighten Novolog parameters for today * Fasting BSG this morning of 174 mg/dL * Will give 4 unit dose of Lantus this morning with plan for 8-10 units this evening 04/14/20 * 74yo T2DM female admitted for right hip fracture. * Pt is maintained on CULVER + basal bolus insulin regimen with adequate outpatient control per A1c * Will hold glipizide for admission - use NovoLog instead * Will adjust NovoLog per CF/CR instead of fixed dosing with meals * Pt NPO for anticipated right hip xander-arthroplasty 04/14/20. Will decrease basal insulin for NPO status. Typically 50-80% of basal insulin dose is given when NPO. PLAN FOR INPATIENT GLYCEMIC CONTROL: * Hold outpatient oral diabetes medications * Basal insulin * Lantus 10-14 units SC HS (see EHR for details) * Bolus insulin * NovoLog per scale ACHS or Q6hrs while NPO * Goal Range: Low 110 mg/dL - High 140 mg/dL * Correction Factor: 20 mg/dL/unit * Nutritional / Prandial insulin per carb ratio of 1 unit per 7 grams CHO consumed PLAN FOR DISCHARGE: * A1c is in goal range for patient based on age and co-morbidities. No changes needed to outpatient regimen.
[2020-04-17] MEDS: INSULIN ASPART 100 UNITS/ML 3 ML PEN SC SCH ×4 (09:16→20:38)
[2020-04-17] MEDS ORDERED: INSULIN GLARGINE SOLOSTAR 100 UNITS/ML 3 ML PEN SC ONE (09:30)
--- NOTE | 2020-04-17 09:31 | XRay Report ---
XR hip RT 1V CLINICAL HISTORY: Right hip pain COMPARISON: 04/16/2020 DISCUSSION: A single crosstable lateral view the right hip is provided for interpretation. There is a bipolar right hip arthroplasty. No dislocation is visualized. Overlying skin annia are evident. IMPRESSION: Bipolar right hip arthroplasty. No evidence of dislocation ACT 112: Negative or not required by law. Electronically signed by: Bill Ramirez M.D. 04/17/2020 9:30 AM
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
[2020-04-17] MEDS: DOCUSATE SODIUM/SENNA 50/8.6MG TAB PO SCH (12:50)
[2020-04-17] MEDS: INSULIN GLARGINE SOLOSTAR 100 UNITS/ML 3 ML PEN SC SCH (20:37)
[2020-04-18] MEDS: ACETAMINOPHEN 500 MG TAB PO SCH ×2 (04:42→12:50)
[2020-04-18] MEDS: ENOXAPARIN INJ 40 MG/0.4 ML SYR SQ SCH (04:42)
[2020-04-18] MEDS: traMADol HCL 50 MG TABLET PO PRN ×2 (08:00→16:11)
[2020-04-18] MEDS: CALCIUM 600MG + VIT D 400 IU TAB PO SCH (08:01)
[2020-04-18] MEDS: CHOLECALCIFEROL 1,000 UNITS 25 MCG TAB PO SCH (08:01)
[2020-04-18] MEDS: DULoxetine HCL 60 MG CAP PO SCH (08:02)
[2020-04-18] MEDS: ISOSORBIDE MONO EXTENDED REL 60 MG TABCR PO SCH (08:02)
[2020-04-18] MEDS: ASPIRIN 81 MG ECTAB PO SCH (08:02)
[2020-04-18] MEDS: MULTIVITAMIN TAB PO SCH (08:02)
[2020-04-18] MEDS: DOCUSATE SODIUM/SENNA 50/8.6MG TAB PO SCH (08:04)
[2020-04-18] MEDS: GABAPENTIN 600 MG TAB PO SCH ×3 (08:04→16:13)
[2020-04-18] MEDS: MAGNESIUM HYDROXIDE SUSP 30 ML UDC PO SCH (08:05)
[2020-04-18] MEDS: POLYETHYLENE (MIRALAX) 17 GM PACK PO SCH ×2 (08:05)
[2020-04-18] MEDS: PANTOprazole 40 MG TAB PO SCH (08:05)
[2020-04-18] MEDS: ATORVASTATIN 40 MG TAB PO SCH (08:06)
[2020-04-18] MEDS: CYANOCOBALAMIN 500 MCG TABLET (VITAMIN B-12) PO SCH (08:06)
[2020-04-18] MEDS: INSULIN GLARGINE SOLOSTAR 100 UNITS/ML 3 ML PEN SC SCH (08:07)
[2020-04-18] MEDS: INSULIN ASPART 100 UNITS/ML 3 ML PEN SC SCH ×2 (08:09→12:51)
[2020-04-18] MEDS ORDERED: INSULIN GLARGINE SOLOSTAR 100 UNITS/ML 3 ML PEN SC SCH (09:00)
[2020-04-18] MEDS ORDERED: DOCUSATE SODIUM/SENNA 50/8.6MG TAB PO PRN (09:58)
[2020-04-18] MEDS ORDERED: POLYETHYLENE (MIRALAX) 17 GM PACK PO SCH (10:00)
[2020-04-18] MEDS ORDERED: POLYETHYLENE (MIRALAX) 17 GM PACK PO PRN (10:09)
--- NOTE | 2020-04-18 11:51 | Orthopedic Progress Note ---
Date of Service April 18, 2020 Assessment & Plan (1) Closed fracture of right hip: POD 4 right hip hemiarthroplasty. Continue PT/OT today- if did well today, then okay from ortho standpoint for discharge today. No notes in chart yet. Regular diet as ordered Pain medication as prescribed. Abduction pillow - she's tolerating better without using straps on legs. WBAT - with walker Posterior hip precautions at all times. Lovenox for DVT prophylaxis. Ice PRN pain/swelling. Call our office with any questions. All questions answered today. Follow up as scheduled with . Admission and Anticipated Discharge Date Admission Date: April 13, 2020 Subjective Patient doing well today, "each day is a little better". She states she was out of bed with therapy today, did some steps, feels that is going well. still some pain in right hip, but tolerable. Physical Exam Physical Exam: Right hip incision clean, dry, intact. No distal edema, distal pulses 1+, sensation intact. No calf tenderness bilaterally. Able to actively bend her right and left knee. Tolerating abduction pillow. Improved mental status; oriented to person, place and time. Results & Data ([facility]) Vital Signs (Past 12 Hours) Vital Signs Temp Pulse Resp BP Pulse Ox 04/18/20 07:54 36.7 C 94 H 19 126/65 98 (1) Closed fracture of right hip Encounter type: initial encounter Qualified Code(s): S72.001A - Fracture of unspecified part of neck of right femur, initial encounter for closed fracture
--- NOTE | 2020-04-18 13:22 | Discharge Summary ---
Date of Service April 18, 2020 Admission HPI Per Admitting Provider Talia Cox is a 74-year-old female who presents to the ER after a fall landing on the right side of her hip with subsequent lateral hip pain. She reports she was at her daughter's house and one of the goats knocked down. She was feeling well before this. In the ER pelvic and femur x-ray showed an acute mildly impacted transcervical fracture of the right femur. Cisneros catheter was placed in the emergency room. She was referred to medicine for admission and ongoing management of right hip fracture. Admission Exam Per Admitting Provider Constitutional: well developed, well nourished and + acute distress (Pain from right hip) Eyes: PERRL, conjunctivae normal, anicteric sclerae ENMT: external ear and nose normal, oropharynx normal Neck: trachea midline, no thyromegaly Respiratory: normal respiratory effort, lungs clear to auscultation Cardiovascular: RRR, no murmur, no edema Vessels: dorsalis pedis pulses pre sent (1+ right, 2+ left) Extremities: normal capillary refill (Distal to fracture) Gastrointestinal (Abdomen): normal bowel sounds, soft, nontender, no hepatosplenomegaly Musculoskeletal: Hip: + limited ROM of hip (Pain with any right hip movement); no skin erythema Skin: no rashes, warm and dry Neurologic: awake; no focal motor deficits (Neurologically intact distal to fracture site) Motor/Sensory: + sensory deficit (Chronic peripheral neuropathy distal to ankles) Psychiatric: A+Ox3, euthymic affect Principal Diagnosis Hip Fracture Discharge Exam Constitutional cooperative; no acute distress and not ill appearing Neck normal visual inspection Respiratory normal respiratory effort and able to speak in complete sentences; no respiratory distress, no labored breathing, no retractions, no cough and no audible wheezes Auscultation: lungs clear to auscultation bilaterally; no crackles, no rales, no rhonchi and no wheezes Cardiovascular Rate/Rhythm: regular rate and regular rhythm Heart Sounds: normal S1 and normal S2; no gallop, no murmur and no cardiac rub Vessels: posterior tibial pulses present Gastrointestinal (Abdomen) Inspection/Auscultation: abdomen normal to inspection and normal bowel sounds; abdomen not distended Percussion/Palpation: abdomen soft; abdomen nontender, no guarding, abdomen not rigid and no abdominal mass Discharge Data Allergies Allergy/AdvReac Type Severity Reaction Status Date / Time metoclopramide AdvReac Severe SEVERE Verified 04/13/20 15:43 WEAKNESS/DIZZINESS primidone AdvReac Severe Lethargy Verified 04/13/20 15:43 metformin AdvReac Mild NAUSEA Verified 04/13/20 15:43 rosuvastatin AdvReac Mild muscle Verified 04/13/20 15:43 cramping Consultations 04/13/20 15:25 ED Decision to Admit Stat 04/13/20 16:31 Consult Orthopedic Surgery Routine 04/13/20 18:17 Consult Case Management - Discharge Planning Routine 04/14/20 14:13 Consult Case Management - Discharge Planning Routine Procedures Performed Operation Date: 04/14/20 10:00 Actual Procedures p Bipolar hip arthroplasty -cemented(Right) - Deshawn Hi MD Hospital Course (1) Altered mental status: (2) Closed fracture of right hip: 74 yo F with a hx of CAD, osteoporosis, GERD, Anxiety admitted for a hip fracture secondary to physical trauma from a goat. Bipolar hip arthroplasty Discharged on POD4. Doing well with PT using wheeled walker. Discharged home with home PT/home health with Tramadol 50 mg PO Q4 for pain control. [Patient was heavily sedated with use of morphine/oxy/ativan for pain control during admission, would avoid use in future.] Recommend DEXA in outpatient setting and consideration of bisphosphonate treatment. She will follow up with Dr. Hi of Orthopedic Surgery in the next week for repeat xrays and follow up care. All other medical conditions managed per home regimen. (3) CAD (coronary artery disease): (4) Osteoporosis: (5) Diabetes mellitus, type 2: (6) GERD (gastroesophageal reflux disease): (7) Anxiety: (8) DVT prophylaxis: Total Time Total Time Spent Total Time Spent (In Minutes): see attending attestation Discharge Plan Discharge Items Patient Disposition: Home - Home Health Services Reason For Visit: RIGHT HIP FRACTURE Discharge Diagnosis: Right hip fracture Condition on Discharge: Fair Activity: Per Instructions section Weightbearing: Right weightbearing Weightbearing Comment: with walker assistance Non-emergency contact: Surgeon Call non-emergency contact if: you have any medication questions, your symptoms worsen, your pain is not controlled and your temperature is above 101 Follow-up/Referrals: Massiel Orellana MD [Primary Care Provider] - Deshawn Hi MD [Surgeon] - 05/01/20 12:00 pm Diet: Regular Addtl Attending Provider Instructions: You were seen in the hospital for a fall and pain that was due to a hip fracture. Orthopedic surgery was able to replace your hip in the OR. It is crucial that you keep working with physical therapy and keep moving to help your hip heal faster and control your pain. Use your pain medication as listed below to help get through therapy and work through the pain. Do not mix these medications with alcohol or try to operate heavy machinery/drive while taking these medications. The most common side effect of using narcotic pain medications is constipation. In the hospital you were started on the following medications to try and help your bowels move: Docusate/Senna 1 tab in the morning Miralax one packet once a day as needed for constipation, up to 3 packets a day If these do not work to start your bowels, you can take more miralax packets, drink more water, prune juice, and make sure to walk to also help move your bowels. You will also need to take Lovenox at home to prevent blood clots after surgery. Take these as described below. If your pain is uncontrollable, you have a fall, or have concerns about your hip surgery, call your orthopedic surgeon as below. If you have questions about your other chronic medical conditions, call your family physician. Addtl Haul Truck [employer] Provider Instructions: Posterior hip precautions right hip at all times. Use walker to assist with ambulation at all times. Abduction pillow when in bed or when sitting in a chair Ice to right hip as needed for pain/swelling. Elevate right leg as needed for pain/swelling. You may weight bear as tolerated right lower extremity Regular diet as tolerated Do your home exercises as taught by Dr. Hi and physical therapy. Tylenol and/or pain medication as needed for pain. Continue Lovenox 40 mg daily x 2-4 weeks or as instructed by Dr. Hi Okay to shower, keep incision covered at all times. May cover with light dressing daily or as needed. Call Dr. Hi if you have any issues with drainage, redness, warmth, fever or pain. New Medicine: * You will likely be taking one or more of these medicines: 1. Oxycodone - Take, as directed, when you need it, every four to six hours to control your pain. 2. Tramadol - Take, as directed, when you need it, every 4-6 hours to control your pain. 3. Lovenox - Thins your blood to lessen the chance of forming a blood clot. 4. Colace - take twice daily while on pain medication. Stool softener. This is over the counter. 5. Tylenol - take 1-2 tablets every 8 hours as needed for pain. Okay to alternate with oxycodone or tramadol. * The most common side effects of pain medicine and iron are nausea and constipation. If nausea or constipation is too much of a problem or if you have any questions about your new medicines or doses, call [facility] at . We will try to help you manage these issues. "VERY IMPORTANT TO READ AND REVIEW" Blood Clots and Blood Thinning Medicine: * You are given Lovenox during the immediate post-operative period to lessen the risk of blood clots forming in your legs and/or lungs. Lovenox is usually given for 4 weeks after surgery. * The prescription is for 40mg injections. At discharge, you should understand your dose and take it all at the same time every day. * You need to get your blood checked on Wednesday04/22/20 or as directed. IF you have home health coming to your house, they can do the bloodwork. Pain: * The immediate post-operative period after hip replacement surgery is often quite painful. * You are given a prescription for pain medicine. You should take it, as directed, when you need it, especially before physical therapy and before going to bed. Pain that interferes with sleep is very common and can last several months. * You will likely need pain medicine for the first two to four weeks. It will not stop all of the pain. The pain will lessen and as you feel better, you may change to milder pain medicine such as Tylenol. * The most common side effects of pain medicine are nausea and constipation, so don't take more than you need. Physical Therapy: * Follow the "Hip Precautions Instructions." * In some cases, the nephrology social worker at the hospital will arrange to have a therapist come to your house for the first couple of weeks to help you learn these skills. * You need to practice on your own or with the help of a family member as needed. * When you learn these skills, most of the therapy can be done on your own. Home Exercise: * You were shown a series of exercises in the hospital. Do these exercises three to four times each day including the exercises you were shown in physical therapy. Walking: * Get up and walk several times each day. For the first four weeks, try not to stand or walk for more than one hour at a time. If you do stand or walk for more than one hour, you will not hurt anything, but your leg will likely swell. * As you feel comfortable, you may change from the walker or crutches to a cane and then to independent walking. SELF CARE INSTRUCTIONS AFTER TOTAL HIP REPLACEMENT Until the incision and soft tissues around your hip have healed, there is a possibility that the hip prosthesis could dislocate. A. Observe the following precautions to prevent dislocation: 1. Don't bend your hip greater than 90 degrees. 2. Avoid crossing your legs or ankles while standing or lying. 3. Sit with your feet placed 6 inches apart. 4. When sitting, keep your knees below your hips. Sit on a firm surface, avoid deep, soft chairs and couches. Use an elevated toilet seat in the bathroom. 5. Don't bend over at the waist. Use a long handled shoehorn and a sock aid to help you put on your shoes and socks. A lead inspector can help you pick up worker objects that are too high or too low to reach. 6. Keep car riding to a minimum for at least one month after surgery. B. Your balance may be shaky for a while. Use crutches or a walker until directed by your doctor. C. Use hand rails when walking on stairs. D. Wear low heeled shoes with non-slip soles. E. Be sure that your floors are free of things that could trip you - throw rugs, electrical cords, small objects. Avoid wet and waxed floors, especially with crutches and canes. F. Try to walk several times a day with rest periods between. G. Continue with all the exercises taught to you in the hospital. Again, make walking a part of your daily routine. VERY IMPORTANT TO READ AND REVIEW A. Take Lovenox (blood thinning medications) as directed by your doctor. You will need to have a CBC drawn due to being on Lovenox on Wednesday04/22/20. B. There are a few signs you need to watch for after you are home. If you notice any of the followin. Increased severe hip pain. Some pain is expected especially when you exercise. 2. Increased swelling in your leg or knee; pain or swelling of the calf muscle in either lower leg. 3. Any fluid drainage from the incision. 4. Shortness of breath or chest pain. TEDs/Elastic Stockings: * The white elastic stockings help limit swelling and prevent blood clots from forming in your legs. The more you wear them, the more they work. * Wear them for six weeks. Prevention of Infection: * Take antibiotics one hour before any dental cleaning, dental work, urological procedure, gastrointestinal procedure or any invasive surgery in order to prevent your new joint from getting infected. * You may get the antibiotics from the doctor performing the procedure or we will call in a prescription to the pharmacy of your choice. Call the office for a prescription at least 2 days prior to your appointment. Things to Watch For: * Drainage from the incision site that occurs more than one week after your surgery. * Severely increased leg pain or swelling. * Increased redness at the incision site. * Fever above 101 degrees Fahrenheit. * Unusual chest pain or shortness of breath. * Unusual pain or burning with urination. Pending Studies at Discharge: No Stand-Alone Forms: My [facility] Sweeten, Smoking Cessation Medications and DC Order Prescriptions: New tramadol 50 mg Tablet 50 mg PO Q4H PRN (Reason: pain) Qty: 30 RF: 0 acetaminophen 500 mg Tablet 1,000 mg PO Q8 Qty: 30 RF: 0 oxycodone 5 mg Tablet 5 mg PO Q4H PRN (Reason: pain) Qty: 15 RF: 0 enoxaparin 40 mg/0.4 mL Syringe 40 mg subcut Q24H 14 Days Qty: 5.6 RF: 1 docusate sodium [Colace] 100 mg capsule 100 mg PO BID Qty: 30 RF: 0 polyethylene glycol 3350 [Miralax] 17 gram/dose powder 17 g PO TID Qty: 119 RF: 0 Continued isosorbide mononitrate 120 mg tablet extended release 24 hr 120 mg PO DAILY Qty: 90 RF: 3 gabapentin 300 mg capsule 600 mg PO QID Qty: 720 RF: 3 (DME) pen needle, diabetic [BD Ultra-Fine Marah Pen Needle] 32 gauge x 5/32" needle See Rx Instructions .ROUTE .MEDSUPPLY Qty: 400 RF: 3 duloxetine [Cymbalta] 60 mg capsule,delayed release(DR/EC) 60 mg PO DAILY RF: 0 lorazepam 0.5 mg tablet 0.5 mg PO DAILY PRN (Reason: sleep) RF: 0 Lantus Solostar U-100 Insulin 100 unit/mL (3 mL) insulin pen 10 unit SQ HS RF: 0 calcium carbonate-vitamin D3 500 mg(1,250mg) -400 unit tablet,chewable 1 tab PO BID RF: 0 cholecalciferol (vitamin D3) 2,000 unit capsule 2,000 units PO DAILY RF: 0 cyanocobalamin (vitamin B-12) 1,000 mcg tablet 1,000 mcg PO BID Qty: 60 RF: 0 multivitamin [Daily Multi-Vitamin] Tablet 1 tab PO DAILY RF: 0 aspirin [Aspir-81] 81 mg tablet,delayed release (DR/EC) 81 mg PO DAILY RF: 0 pantoprazole 40 mg tablet,delayed release (DR/EC) 40 mg PO DAILY RF: 0 nitroglycerin [Nitrostat] 0.4 mg tablet, sublingual 0.4 mg Sublingual UD RF: 0 atorvastatin 40 mg tablet 40 mg PO DAILY RF: 0 pyridoxine (vitamin B6) [Vitamin B-6] 50 mg Tablet 50 mg PO DAILY RF: 0 insulin lispro [Humalog KwikPen Insulin] 100 unit/mL insulin pen 27 unit subcut UD RF: 0 Discharge Orders: Discharge Order (Routine); Ordered 04/18/20 Ordered By: Mouna Barragan/Other Patient Handouts: Preventing Deep Vein Thrombosis Admission Data Admit Date/Time: 04/13/20 16:38 Attending Provider: Marcello Cummisn Admit Provider: Avery Peck Primary Care Provider: Massiel Orellana Other Providers: Avery Peck ; Deshawn Hi ; Mouna Sage ; [facility] ; [facility] Other Interventions: Discharge Summary Assessment (RN) Last Done: 04/18/20 16:05 Supervising Physician Co-Signing Physician Notes Attending attestation Pt seen and examined in concert with Dr. Sage. In agreement with the documented findings as noted in the resident documentation with any exceptions or additions as noted here. Mental status approaching baseline, no hesitation with answers and AAOx4 On examination, S1/S2 nl RRR no MCG. CTAB. Abd NT/ND BS+ve. Distal sensation nl b/l LE with str 5/5 at the ankle bilaterally Metabolic encephalopathy v. delirium atop dementia - continues to improve, avoid sedating medications Closed fracture of right hip - home with home health, home PT and follow up with orthopaedics Else see resident/student documentation as noted. Resident Activity Tracking Resident Involvement: Resident Care Provided Care Provided: Adult Hospital Medicine
[2020-04-18 15:26] VITALS: BP 126/71; PULSE 90; TEMP 98.2; O2SAT 94
== END 2020-04-18 16:54 | disposition home health service (06) | DRG 521 ==
LOC: ED 13:27 → 3W 16:38 → SUATTDRO 16:38 → 3W 17:55

== ENCOUNTER 2024-01-27 14:34 | Observation (INO) ==
[2024-01-27 15:29] LABS: Basophils # (auto) 0.06 K/uL (0.00-0.20); Basophils % (auto) 0.7 %; Eosinophils # (auto) 0.14 K/uL (0.00-0.50); Eosinophils % (auto) 1.6 %; Hemoglobin 14.8 g/dl (12.0-16.0); Immature Granulocytes # (auto) 0.02 K/uL (0.01-0.20); Immature Granulocytes % (auto) 0.2 %; Lymphocytes # (auto) 2.33 K/uL (1.20-3.40); Lymphocytes % (auto) 27.3 %; Mean Corpuscular Hemoglobin 31.8 pg (25.0-34.0); Mean Corpuscular Hgb Conc 33.6 g/dL (32.0-36.0); Mean Corpuscular Volume 94.6 fL (80.0-100.0); Mean Platelet Volume 8.8 fL (9.4-12.4); Monocytes # (auto) 0.76 K/uL (0.11-0.59); Monocytes % (auto) 8.9 %; Neutrophils # (auto) 5.21 K/uL (1.40-6.50); Neutrophils % (auto) 61.3 %; Platelet Count 217 K/uL (130-400); RDW Coefficient of Variation 13.8 % (11.5-14.5); RDW Standard Deviation 47.5 fL (36.4-46.3); Red Blood Count 4.65 M/uL (4.20-5.40); White Blood Count 8.52 K/ul (4.8-10.8)
--- NOTE | 2024-01-27 15:30 | Electrocardiogram Report ---
Test Reason : Blood Pressure : */* mmHG Vent. Rate : 71 BPM Atrial Rate : 71 BPM P-R Int : 110 ms QRS Dur : 86 ms QT Int : 404 ms P-R-T Axes : 40 36 45 degrees QTcB Int : 439 ms Sinus rhythm with short ND with Premature supraventricular complexes Nonspecific ST abnormality Abnormal ECG When compared with ECG of 03-Oct-2023 09:21, Premature supraventricular complexes are now Present Confirmed by Joseph Aguero ([id number]) on 01/27/2024 3:30:00 PM Referred By: Confirmed By: Joseph Aguero
--- NOTE | 2024-01-27 15:36 | XRay Report ---
XR chest 1V not portable CLINICAL HISTORY: Weakness COMPARISON STUDY: Chest radiograph October 03, 2023. Chest CT October 19, 2023. FINDINGS: Lung volumes are normal. Lungs are clear. There is no pneumothorax or pleural effusion. Car diac size is normal. A moderate sized hiatal hernia is again noted. There is no evidence for pulmonar y edema. IMPRESSION: No acute cardiopulmonary findings. No change in appearance of the chest. ACT 112: Negative or not required by law. Electronically signed by: Eloy Rosenthal M.D. 01/27/2024 3:34 PM
[2024-01-27 15:43] LABS: Alanine Aminotransferase 31 U/L (7-52); Albumin Globulin Ratio 1.5 (0.9-2); Albumin Level 4.3 gm/dl (3.4-5.0); Alkaline Phosphatase 74 U/L (34-104); Anion Gap 6 (3-11); Aspartate Aminotransferase 29 U/L (13-39); BUN Creatinine Ratio 25.6 (10-20); Bilirubin,Total 0.7 mg/dl (0.2-1.0); Blood Urea Nitrogen 23 mg/dl (6-23); Calcium 9.9 mg/dl (8.6-10.3); Carbon Dioxide 30 mmol/L (21-32); Chloride 104 mmol/L (98-107); Creatinine Clr Calc Pharmacy 49.4 ml/min; Globulin 2.8 gm/dl (2.5-4.0); Glucose 104 mg/dl (70-99(Fasting)); Magnesium 2.2 mg/dl (1.7-2.4); Potassium 4.1 mmol/L (3.5-5.1); Sodium 140 mmol/L (136-145); Total Protein 7.1 gm/dl (6.0-8.3)
[2024-01-27 15:49] LABS: Troponin I High Sensitivity 4.2 pg/ml (0-14)
[2024-01-27 15:54] LABS: INR 0.9 (0.9-1.1); Partial Thromboplastin Time 28 Seconds (21-31); Prothrombin Time 10.3 Seconds (9.0-12.0)
[2024-01-27 15:58] LABS: Thyroid Stimulating Hormone 2.253 uIu/ml (0.300-4.500)
--- NOTE | 2024-01-27 16:08 | Emergency Department Note ---
Impression & Plan Ataxia, Generalized weakness, Ambulatory dysfunction ED Provider Note Name: URIEL BOLAND Age: 78 Sex: Female Arrives Via: Walk-In Informant: Patient, daughter ED Provider: Edd Hutchinson MD Chief Complaint: Generalized weakness Impression: As per impressions above Medical Decision Makin-year-old pleasant female with a history of CAD arrives for evaluation of diffuse generalized weakness over the last 5 to 6 days rapidly progressing. Seen by PCP this afternoon who advised she come immediately to the ER for further evaluation. Patient was seen in outside facility yesterday with extensive workup including negative CT head. Examination is essentially nonfocal other than questionable ataxia of the right hand that this may just be due to her essential tremor. No indication for stroke alert. Patient does not have any clear evidence of infectious etiology and workup is relatively benign. Patient did have flu vaccination a few weeks ago but symptoms are a bit atypical for Guillain-Roman. No clear ACS findings at this time either. Discussed with hospitalist given the degree of her fatigue/weakness and ambulatory dysfunction I will bring her in for further evaluation. Patient is having no difficulty protecting airway is breathing comfortably and in no distress. Triage/Nursing Notes reviewed by Me Differential:Infection, dehydration, metabolic abnormality, hypo/hyperglycemia, electrolyte disturbance, anemia, hypoxia, cardiac sources, intracerebral event, toxicologic, neurologic, as well as other pathologies. Vital Signs: reviewed and remarkable for no significant abnormalities Labs:ED labs Reviewed by me and remarkable for no significant abnormalities Imagin view chest x-ray as per my interpretation no infiltrate or effusion appreciated. EKG:As per my interpretation. Indication weakness. Compared to EKG of October 03, 2023 no significant change. 71 bpm with a QTc of 401. Normal sinus rhythm. No ectopy no ischemia Cardiac/Tele Monitoring: Cardiac Monitoring: An Order was placed for continuous cardiac monitoring. The monitor shows a rate of 70 with a normal sinus rhythm. Consults:Discussed with Dr. Trinidad of the [facility] hospitalist service for further management Plan: Disposition:Hospitalization. Condition: Good History of Present Illness: 78-year-old female arrives for evaluation of generalized weakness. Patient notes that for the last 6 days or so she has been feeling very fatigued and exhausted. No specific other symptoms other than she feels completely wiped out. Symptoms significantly worse yesterday while they were going to dinner thus she went to outside hospital ER. While there she had laboratory, CT head and chest x-ray obtained which were unremarkable. She states she had an EKG and a urinalysis done but she is unsure the findings. Patient states that she was discharged with plan to follow-up with PCP. She saw her PCP today and due to the severe weakness she was sent to the ER for further evaluation. Patient states she feels very weak and fatigued currently. She has no headache, neck pain, neurologic deficits, abdominal pain, back pain, chest pain, palpitations, urinary symptoms, leg swelling or other concerning signs or symptoms. Patient states she is so weak and fatigued she has not felt safe to drive the last few days. She also notes that she cannot walk in a straight line due to the weakness. Patient had a flu vaccine about 3 weeks ago. She was seen by her PCP this afternoon who advised she come to the ER. Past Medical History:See Below Home Medications:See Below Allergies: Amoxicillin, metoclopramide, primidone, metformin, rosuvastatin Vitals:Blood Pressure: 136/74, Pulse 70, RR 18, T 36.5C, O2 94% on RA Physical Exam: GENERAL: Patient is tired appearing and in minimal distress. RESPIRATORY: No dyspnea. Clear to auscultation and equal bilaterally. CARDIOVASCULAR: Regular rate and rhythm.No murmur appreciated. GASTROINTESTINAL: Abdomen soft, non-tender, no peritonitis. BACK: No midline tenderness, no CVA tenderness EXTREMITIES: Normal motion all extremities, no cyanosis, no edema. NEUROLOGIC: Alert and oriented. Fine tremor bilateral arms right worse than left. Laigso-zw-vjth of right hand is not as accurate as left though she notes she has some cervical radiculopathy issues. Otherwise no focal neurologic deficits appreciated SKIN: No rash, no jaundice, no diaphoresis. PSYCH: Appropriate GCS: 15 ED Course: Times/Reassessments: Patient stable throughout protecting airway. No focal deficits and agreeable to hospitalization Edd Hutchinson MD Past Med/Surg History Problem List (Updated 01/28/24 @ 10:23 by Edd Hutchinson MD) Ambulatory dysfunction (Acute) Generalized weakness (Acute) Ataxia (Acute) Generalized weakness Cervical myofascial pain syndrome CKD stage 3a, GFR 45-59 ml/min Polyneuropathy Cervical radiculopathy Ataxia (Acute) Diabetes mellitus, type II (Chronic) IDDM GERD (gastroesophageal reflux disease) (Chronic) Gastroparesis (Chronic) History of Helicobacter pylori infection (Chronic) Depression (Chronic) Irritable bowel syndrome (Chronic) Vitamin D deficiency (Chronic) Dyslipidemia (Chronic) S/P hysterectomy (Chronic) S/P cholecystectomy (Chronic) S/P colonoscopy (Chronic) H/O esophagogastroduodenoscopy (Chronic) CVA (cerebral vascular accident) (Acute) Visual disturbance of one eye (Acute) CAD (coronary artery disease) S/P ZAHRA to mid LAD 06/2016 Encounter for pre-operative examination Complication of cystostomy Ovarian mass, left Atypical chest pain (Acute) DVT prophylaxis Vulvar ulceration (Acute) Vitamin D insufficiency (Acute) Vaginitis (Acute) Urinary incontinence (Acute) SNHL (sensorineural hearing loss) (Acute) S/P drug eluting coronary stent placement (Acute) Pelvic mass in female (Acute) PAD (peripheral artery disease) (Acute) Ovarian cyst, complex (Acute) Herpes simplex type 1 infection (Acute) Genital herpes simplex (Acute) Fatigue (Acute) Episodic weakness (Acute) Epigastric pressure (Acute) Dyspareunia (Acute) Dysesthesia (Acute) Diabetic peripheral neuropathy (Chronic) Dermatitis of external ear (Acute) Controlled type 2 diabetes mellitus (Chronic) Bilateral leg pain (Acute) Benign familial tremor (Acute) Stented coronary artery Benign essential tremor Neuropathy Anxiety (Chronic) Closed fracture of right hip (Acute) Osteoporosis Seizure-like activity Syncope Encounter for pre-operative examination Epigastric pain Transient alteration of awareness Hypersomnia Altered awareness, transient Organic periodic limb movement disorder Essential tremor Seizure-like activity Medical History DVT prophylaxis Muscle cramps Iron deficiency Osteoarthritis GERD (gastroesophageal reflux disease) Hearing deficit Depression Transient ischemic attack (TIA) 5 YEARS AGO - NO ISSUES SINCE - FOLLOWS W/ DR. SUTHERLAND Hyperlipidemia Surgical History History of right hip replacement (~03/2020) S/P laparoscopic hysterectomy with BSO History of cholecystectomy History of laminectomy LUMBAR History of cardiac cath 06/2016 - [facility] - INCREASED SOB, ABN STRESS TEST - 1 STENT PLACED - FOLLOWS W/ DR. BULLOCK. Family History Unknown Diabetes Mother Diabetes Tremor Sister Tremor Colorectal cancer Father Colorectal cancer Other No family history of adverse response to anesthesia Social History Smoking Status: Never smoker Second Hand Exposure: No; Do You Dip or Chew Tobacco: No; Hx Alcohol Use: No Hx Substance Use: No Preferred Language: Maltese Communication Ability: Effective Visual Impairment: No Limitations Strip Picker Required: No Beliefs That Will Affect Care: None Current Living Situation: Spouse Feels Safe at Home: Yes Assistive Devices: Glasses Allergies Allergies Allergy/AdvReac Type Severity Reaction Status Date / Time amoxicillin Allergy Severe Hives Verified 12/24/23 09:50 metoclopramide AdvReac Severe SEVERE Verified 12/24/23 09:50 WEAKNESS/DIZZINESS primidone AdvReac Severe Lethargy Verified 12/24/23 09:50 metformin AdvReac Mild NAUSEA Verified 12/24/23 09:50 rosuvastatin AdvReac Mild muscle Verified 12/24/23 09:50 cramping Home Meds Home Medications Medication Instructions Recorded Confirmed aspirin 81 mg tablet,delayed 81 mg PO QPM 10/21/18 01/27/24 release (Aspir-) atorvastatin 40 mg tablet 40 mg PO QPM 10/21/18 01/27/24 calcium 500 mg (as carbonate)-vit 1 tab PO BID 10/21/18 01/27/24 D3 10 mcg (400 unit) chewable tablet cholecalciferol (vitamin D3) 50 2,000 units PO QAM 10/21/18 01/27/24 mcg (2,000 unit) capsule pantoprazole 40 mg tablet,delayed 40 mg PO QAM 10/21/18 01/27/24 release duloxetine 60 mg capsule,delayed 60 mg PO HS 04/19/19 01/27/24 release (Cymbalta) multivitamin (Daily Multi-Vitamin 1 tab PO QAM 05/31/19 01/27/24 tablet) cyanocobalamin (vitamin B-12) 1,000 mcg PO BID #60 tabs 09/04/19 01/27/24 1,000 mcg tablet pyridoxine (vitamin B6) 50 mg 50 mg PO QAM 12/18/19 01/27/24 tablet (Vitamin B-6) blood-glucose sensor ([place] G7 08/20/23 12/24/23 Sensor device) losartan 25 mg tablet 25 mg PO QAM 08/20/23 01/27/24 famotidine 40 mg tablet 40 mg PO QPM 01/27/24 01/27/24 Previous Rx's Medication Instructions Recorded nitroglycerin 0.4 mg sublingual 0.4 mg sublingual UD PRN Chest 07/28/21 tablet (Nitrostat) Pain #25 tabs gabapentin 300 mg capsule 600 mg (2 x 300 mg) PO QID #720 05/03/23 caps isosorbide mononitrate 120 mg 120 mg PO QAM #90 tabs 06/03/23 tablet,extended release 24 hr insulin lispro 100 unit/mL See Rx Instructions .Route 09/16/23 subcutaneous pen (Humalog KwikPen .COMPLEX #45 mL (U-100) Insulin) BD Ultra-Fine Marah Pen Needle 32 #400 ea 12/13/23 gauge x 5/32" (pen needle, diabetic) insulin glargine 100 unit/mL (3 12 unit (0.12 mL) subcut HS 90 01/05/24 mL) subcutaneous pen (Lantus days #15 mL Solostar U-100 Insulin) Results & Data (ED) Vital Signs Vital Signs - 24 hr 01/27/24 14:45 01/27/24 16:03 01/27/24 16:12 Temperature 36.5 C Temperature Source Temporal Artery Scan Pulse Rate 75 70 Pulse Rate [Apical] Pulse Rhythm Regular Pulse Rhythm [Apical] Pulse Strength Normal Pulse Strength [Apical] Respiratory Rate 18 Respiratory Effort / Characteristics Non-Labored Spontaneous Respiratory Depth Normal Respiratory Pattern Regular Blood Pressure 136/74 Blood Pressure [Right Arm] Blood Pressure Mean 94 Blood Pressure Mean [Right Arm] Blood Pressure Position Sitting Blood Pressure Position [Right Arm] Pulse Oximetry 94 93 Oxygen Delivery Method Room Air Room Air Sepsis Recent Fever Within 48 Hours No Sepsis New/Unexplained Change in Mental Status No Sepsis Action Taken by Nursing No Action Required 01/27/24 16:12 01/27/24 16:12 01/27/24 18:00 Temperature 36.8 C 36.8 C Temperature Source Oral Oral Pulse Rate 74 Pulse Rate [Apical] 74 80 Pulse Rhythm Regular Pulse Rhythm [Apical] Regular Regular Pulse Strength Pulse Strength [Apical] Normal Normal Respiratory Rate 20 20 20 Respiratory Effort / Characteristics Non-Labored Spontaneous Non-Labored Spontaneous Respiratory Depth Normal Normal Respiratory Pattern Regular Regular Blood Pressure Blood Pressure [Right Arm] 141/66 H 130/60 Blood Pressure Mean Blood Pressure Mean [Right Arm] 91 83 Blood Pressure Position Blood Pressure Position [Right Arm] Semi-fowlers Semi-fowlers Pulse Oximetry 93 93 93 Oxygen Delivery Method Room Air Room Air Room Air Sepsis Recent Fever Within 48 Hours Sepsis New/Unexplained Change in Mental Status Sepsis Action Taken by Nursing Laboratory Data 01/28/24 05:14 01/28/24 05:14 Lab Results 01/27/24 01/27/24 Range/Units 14:58 16:09 WBC 8.52 (4.8-10.8) K/ul RBC 4.65 (4.20-5.40) M/uL Hgb 14.8 (12.0-16.0) g/dl Hct 44.0 (37.0-47.0) % MCV 94.6 (80.0-100.0) fL MCH 31.8 (25.0-34.0) pg MCHC 33.6 (32.0-36.0) g/dL RDW Std Deviation 47.5 H (36.4-46.3) fL RDW Coeff of Jazmine 13.8 (11.5-14.5) % Plt Count 217 (130-400) K/uL MPV 8.8 L (9.4-12.4) fL Immature Gran % (Auto) 0.2 % Neut % (Auto) 61.3 % Lymph % (Auto) 27.3 % Sutter % (Auto) 8.9 % Eos % (Auto) 1.6 % Baso % (Auto) 0.7 % Neut # (Auto) 5.21 (1.40-6.50) K/uL Lymph # (Auto) 2.33 (1.20-3.40) K/uL Sutter # (Auto) 0.76 H (0.11-0.59) K/uL Eos # (Auto) 0.14 (0.00-0.50) K/uL Baso # (Auto) 0.06 (0.00-0.20) K/uL Immature Gran # (Auto) 0.02 (0.01-0.20) K/uL ESR 20 (0-30) mm/hr PT 10.3 (9.0-12.0) Seconds INR 0.9 (0.9-1.1) APTT 28 (21-31) Seconds PTT Ratio 1.0 Sodium 140 (136-145) mmol/L Potassium 4.1 (3.5-5.1) mmol/L Chloride 104 (98-107) mmol/L Carbon Dioxide 30 (21-32) mmol/L Anion Gap 6 (3-11) BUN 23 (6-23) mg/dl Creatinine 0.90 (0.6-1.2) mg/dl Est Cr Clr Drug Dosing 49.4 ml/min eGFR 65.03 BUN/Creatinine Ratio 25.6 H (10-20) Glucose 104 H (70-99(Fasting)) mg/dl Calcium 9.9 (8.6-10.3) mg/dl Phosphorus 3.6 (2.5-4.9) mg/dl Magnesium 2.2 (1.7-2.4) mg/dl Total Bilirubin 0.7 (0.2-1.0) mg/dl AST 29 (13-39) U/L ALT 31 (7-52) U/L Alkaline Phosphatase 74 (34-104) U/L Total Creatine Kinase 126 (26-192) U/L Troponin I High Sens 4.2 (0-14) pg/ml C-Reactive Protein < 0.50 (0-0.5) mg/dl Total Protein 7.1 (6.0-8.3) gm/dl Albumin 4.3 (3.4-5.0) gm/dl Globulin 2.8 (2.5-4.0) gm/dl Albumin/Globulin Ratio 1.5 (0.9-2) Procalcitonin < 0.02 (0-0.5) ng/ml TSH 2.253 (0.300-4.500) uIu/ml Urine Color Yellow Urine Appearance Clear (Clear) Urine pH 5.0 (4.5-7.5) Ur Specific [place] 1.019 (1.000-1.030) Urine Protein Negative (Negative) Urine Glucose (UA) Negative (Negative) Urine Ketones Negative (Negative) Urine Blood Negative (Negative) Urine Nitrite Negative (Negative) Urine Bilirubin Negative (Negative) Urine Urobilinogen Negative (Negative) Ur Leukocyte Esterase Trace H (Negative) Urine WBC (Auto) 0-5 (0-5) /hpf Urine RBC (Auto) 0-2 (0-2) /hpf U Hyaline Cast (Auto) 0-2 (0-2) /lpf U Epithel Cells (Auto) 0-2 (0-2) /hpf Urine Bacteria (Auto) None Seen (None Seen) Lyme Disease Screen Negative (Negative) Administered Medications Aspirin (Aspirin 81 Mg Ectab) 81 mg PO QPM [facility] Stop: 02/26/24 22:23 Last Admin: 01/27/24 23:15 Dose: 81 mg Documented By: MARYAM Atorvastatin Calcium (Atorvastatin 40 Mg Tab) 40 mg PO QPM [facility] Stop: 02/26/24 22:23 Last Admin: 01/27/24 23:16 Dose: 40 mg Documented By: MARYAM Duloxetine HCl (Duloxetine Hcl 60 Mg Cap) 60 mg PO HS [facility] Stop: 02/26/24 22:23 Last Admin: 01/27/24 23:16 Dose: 60 mg Documented By: MARYAM Enoxaparin Sodium (Enoxaparin Inj 40 Mg/0.4 Ml Syr) 40 mg SQ Q24H [facility] Stop: 02/26/24 20:59 Last Admin: 01/27/24 23:16 Dose: 40 mg Documented By: MARYAM Famotidine (Famotidine 40 Mg Tablet) 40 mg PO QPM [facility] Stop: 02/26/24 22:23 Last Admin: 01/27/24 23:15 Dose: 40 mg Documented By: MARYAM Gabapentin (Gabapentin 600 Mg Tab) 600 mg PO QID [facility] Stop: 02/26/24 22:23 Last Admin: 01/28/24 08:32 Dose: 600 mg Documented By: Admin: 01/27/24 23:16 Dose: 600 mg Documented By: MARYAM Insulin Aspart (Insulin Aspart Per Unit Charge) 0 units SC ACHS [facility] Stop: 02/26/24 22:23 Last Admin: 01/28/24 08:39 Dose: 3 units Documented By: CANDACE Co-signed By: NAKUL Admin: 01/27/24 23:17 Dose: 3 units Documented By: MARYAM Co-signed By: KRISSY Insulin Glargine (Lantus Per Unit Charge) 6 units SQ BID [facility] Stop: 02/26/24 22:23 Last Admin: 01/27/24 23:16 Dose: 6 units Documented By: MARYAM Co-signed By: KRISSY Isosorbide Mononitrate (Isosorbide Sutter Extended Rel 60 Mg Tabcr) 120 mg PO QAM [facility] Stop: 02/27/24 08:59 Last Admin: 01/28/24 08:33 Dose: 120 mg Documented By: CANDACE Losartan Potassium (Losartan Potassium 25 Mg Tab) 25 mg PO QAM [facility] Stop: 02/27/24 08:59 Last Admin: 01/28/24 08:33 Dose: 25 mg Documented By: CANDACE Pantoprazole Sodium (Pantoprazole 40 Mg Tab) 40 mg PO QAM [facility] Stop: 02/27/24 08:59 Last Admin: 01/28/24 08:33 Dose: 40 mg Documented By: CANDACE Discontinued Medications Insulin Aspart (Insulin Aspart Per Unit Charge) 0 units SC ACHS [facility] Stop: 02/26/24 20:59 Last Admin: 01/27/24 20:31 Dose: Not Given Documented By: SRL Insulin Glargine (Lantus Per Unit Charge) 6 units SQ BID [facility] Stop: 02/26/24 20:59 Last Admin: 01/27/24 23:09 Dose: Not Given Documented By: MARYAM Imaging Data Radiologist's Impression: Chest X-Ray 01/27/24 14:51 XR chest 1V not portable CLINICAL HISTORY: Weakness COMPARISON STUDY: Chest radiograph October 03, 2023. Chest CT October 19, 2023. FINDINGS: Lung volumes are normal. Lungs are clear. There is no pneumothorax or pleural effusion. Cardiac size is normal. A moderate sized hiatal hernia is again noted. There is no evidence for pulmonary edema. IMPRESSION: No acute cardiopulmonary findings. No change in appearance of the chest. ACT 112: Negative or not required by law. Electronically signed by: Eloy Rosenthal M.D. 01/27/2024 3:34 PM Discharge Plan Visit Data Chief Complaint: Weakness Stated Complaint: WEAKNESS, REF BY DOC ED Provider: Edd Hutchinson Discharge Problem: Ataxia, Generalized weakness, Ambulatory dysfunction Patient Disposition: Admitted As Inpatient Discharge Instructions Interventions: ED Discharge Assessment Last Done: 01/27/24 21:56
[2024-01-27 16:31] LABS: Appearance Urine Clear (Clear); Bacteria Urine Automated None Seen (None Seen); Bilirubin Urine Negative (Negative); Blood Urine Negative (Negative); Cast Urine Automated 0-2 /lpf (0-2); Color Urine Yellow; Epithelial Cell Urine Auto 0-2 /hpf (0-2); Glucose Urine UA Negative (Negative); Ketones Urine Negative (Negative); Leukocyte Esterase Urine Trace (Negative); Nitrite Urine Negative (Negative); Protein Urine Negative (Negative); RBC Urine Automated 0-2 /hpf (0-2); Specific Gravity Urine 1.019 (1.000-1.030); Urobilinogen Urine Negative (Negative); WBC Urine Automated 0-5 /hpf (0-5)
[2024-01-27 16:41] LABS: C Reactive Protein < 0.50 mg/dl (0-0.5); Phosphorus 3.6 mg/dl (2.5-4.9); Procalcitonin < 0.02 ng/ml (0-0.5)
--- NOTE | 2024-01-27 17:00 | History & Physical Report ---
Date of Service January 27, 2024 Assessment & Plan (1) Generalized weakness: Plan: Generalized fatigue and new onset OG x 6 days Patient reports that 3 weeks ago she can walk a mile a day, now she can barely walk 0.25 miles without feeling tired Family is concerned given the acute nature of her decline She initially went to [facility] on 01/25 had a negative workup/head CT Initial labs on 01/26 are unremarkable Lyme negative COVID, flu, RSV ordered, pending BNP ordered, pending Echocardiogram ordered, pending Brain MRI ordered, pending PT/OT evaluations appreciated Fall precautions DDx at this time includes new onset CHF, CVA, viral illness, and vitamin d eficiencies (among other etiologies) A.m. CBC, BMP (2) Diabetes mellitus, type II: Plan: Last A1c at 7.4% on 11/19/2023 Patient is normally on Lantus 12 units HS Lantus 6 u BID while inpatient SSI; with target BSG range 110-140mg/dL, CF 50, carb ratio 15 T2DM diet BSG ACHS Adjust regimen as needed Plan Disposition: Obs - Admit to [facility] telemetry DNR/DNI Regular diet VTE PPx: Lovenox 40 mg SQ q24h History of Present Illness Chief Complaint: Weakness Primary Care Provider: Kishor Galeas DO Talia is a pleasant 78-year-old female with PMH of T2DM, polyneuropathy, anxiety, osteoporosis, seizure-like activity, essential tremor, gastroparesis, and CVA. She presented on 01/26 for generalized weakness x 6 days. Patient's 3 daughters and are present at the bedside and provide additional history. Patient's daughter believes that there is been a generalized decline in energy over the past 3 weeks, with an acute change in the past 6 days. For instance, the patient reports that she can regularly walk a mile up 3 weeks ago, but over the past few days that she tires after a quarter of a mile. She also does e xercises at night and in the morning (leg stretches and bends) with each fatigue her easily. The other day, she woke up for breakfast, reports that she felt fatigued, and went back to sleep until 5 PM. She then went to bed again at 10 PM. She endorses mild OG with walking, which is new for her. No prior history of CHF to her knowledge. No sick contacts. She does note she got her flu shot 1.5 weeks ago. No recent change in diet. No slurred speech, facial droop, or unilateral deficits to her knowledge. No recent falls or injuries/trauma to the head or neck. While she does have a history of TIAs, she does not believe she has ever had a stroke. No history of narcolepsy. Only additional symptoms leg cramps at night which are new for her. In terms of cardiac history, she does have history of a heart catheterization and heart stent. It should also be noted that she was at [facility] last night and had a head CT scan done; while she does not have her discharge blood work she was told that her head CT was negative. Patient took all her regular morning medications today; no recent change in medications. She manages her own medicine at home. Patient denies smoking, tobacco use, or alcohol use. Patient is mildly hypertensive at 141/66 at time of admission; vitals otherwise stable. ED course: ROS: Patient endorses easy fatigability x 6 days, generalized weakness, new onset OG, and chronic neuropathy in her feet Patient denies fever, chills, night sweats, dizziness/lightheadedness with walking, headache, changes in vision, chest pain, chest palpitations, pleuritic CP, SOB at rest, cough, abdominal pain, N/V/D, changes in urinary or bowel habits, burning with urination, dysuria, blood in urine or stool, or swelling in the legs. Allergies Allergy/AdvReac Type Severity Reaction Status Date / Time amoxicillin Allergy Severe Hives Verified 12/24/23 09:50 metoclopramide AdvReac Severe SEVERE Verified 12/24/23 09:50 WEAKNESS/DIZZINESS primidone AdvReac Severe Lethargy Verified 12/24/23 09:50 metformin AdvReac Mild NAUSEA Verified 12/24/23 09:50 rosuvastatin AdvReac Mild muscle Verified 12/24/23 09:50 cramping Home Medications Medication Instructions Recorded Confirmed Type aspirin 81 mg tablet,delayed 81 mg PO QPM 10/21/18 01/27/24 History release (Aspir-) atorvastatin 40 mg tablet 40 mg PO QPM 10/21/18 01/27/24 History calcium 500 mg (as carbonate)-vit 1 tab PO BID 10/21/18 01/27/24 History D3 10 mcg (400 unit) chewable tablet cholecalciferol (vitamin D3) 50 2,000 units PO QAM 10/21/18 01/27/24 History mcg (2,000 unit) capsule pantoprazole 40 mg tablet,delayed 40 mg PO QAM 10/21/18 01/27/24 History release duloxetine 60 mg capsule,delayed 60 mg PO HS 04/19/19 01/27/24 History release (Cymbalta) multivitamin (Daily Multi-Vitamin 1 tab PO QAM 05/31/19 01/27/24 History tablet) cyanocobalamin (vitamin B-12) 1,000 mcg PO BID #60 tabs 09/04/19 01/27/24 History 1,000 mcg tablet pyridoxine (vitamin B6) 50 mg 50 mg PO QAM 12/18/19 01/27/24 History tablet (Vitamin B-6) nitroglycerin 0.4 mg sublingual 0.4 mg sublingual UD PRN Chest 07/28/21 01/27/24 Rx tablet (Nitrostat) Pain #25 tabs gabapentin 300 mg capsule 600 mg (2 x 300 mg) PO QID #720 05/03/23 01/27/24 Rx caps isosorbide mononitrate 120 mg 120 mg PO QAM #90 tabs 06/03/23 01/27/24 Rx tablet,extended release 24 hr blood-glucose sensor (Dexcom G7 08/20/23 12/24/23 History Sensor device) losartan 25 mg tablet 25 mg PO QAM 08/20/23 01/27/24 History insulin lispro 100 unit/mL See Rx Instructions .Route 09/16/23 01/27/24 Rx subcutaneous pen (Humalog KwikPen .COMPLEX #45 mL (U-100) Insulin) BD Ultra-Fine Marah Pen Needle 32 #400 ea 12/13/23 12/24/23 Rx gauge x 5/32" (pen needle, diabetic) insulin glargine 100 unit/mL (3 12 unit (0.12 mL) subcut HS 90 01/05/24 01/27/24 Rx mL) subcutaneous pen (Lantus days #15 mL Solostar U-100 Insulin) famotidine 40 mg tablet 40 mg PO QPM 01/27/24 01/27/24 History Past Med/Surg History Problem List (Updated 01/27/24 @ 17:00 by Braulio Narvaez PA-C) Generalized weakness Cervical myofascial pain syndrome CKD stage 3a, GFR 45-59 ml/min Polyneuropathy Cervical radiculopathy Ataxia (Acute) Diabetes mellitus, type II (Chronic) IDDM GERD (gastroesophageal reflux disease) (Chronic) Gastroparesis (Chronic) History of Helicobacter pylori infection (Chronic) Depression (Chronic) Irritable bowel syndrome (Chronic) Vitamin D deficiency (Chronic) Dyslipidemia (Chronic) S/P hysterectomy (Chronic) S/P cholecystectomy (Chronic) S/P colonoscopy (Chronic) H/O esophagogastroduodenoscopy (Chronic) CVA (cerebral vascular accident) (Acute) Visual disturbance of one eye (Acute) CAD (coronary artery disease) S/P ZAHRA to mid LAD 06/2016 Encounter for pre-operative examination Complication of cystostomy Ovarian mass, left Atypical chest pain (Acute) DVT prophylaxis Vulvar ulceration (Acute) Vitamin D insufficiency (Acute) Vaginitis (Acute) Urinary incontinence (Acute) SNHL (sensorineural hearing loss) (Acute) S/P drug eluting coronary stent placement (Acute) Pelvic mass in female (Acute) PAD (peripheral artery disease) (Acute) Ovarian cyst, complex (Acute) Herpes simplex type 1 infection (Acute) Genital herpes simplex (Acute) Fatigue (Acute) Episodic weakness (Acute) Epigastric pressure (Acute) Dyspareunia (Acute) Dysesthesia (Acute) Diabetic peripheral neuropathy (Chronic) Dermatitis of external ear (Acute) Controlled type 2 diabetes mellitus (Chronic) Bilateral leg pain (Acute) Benign familial tremor (Acute) Stented coronary artery Benign essential tremor Neuropathy Anxiety (Chronic) Closed fracture of right hip (Acute) Osteoporosis Seizure-like activity Syncope Encounter for pre-operative examination Epigastric pain Transient alteration of awareness Hypersomnia Altered awareness, transient Organic periodic limb movement disorder Essential tremor Seizure-like activity Medical History DVT prophylaxis Muscle cramps Iron deficiency Osteoarthritis GERD (gastroesophageal reflux disease) Hearing deficit Depression Transient ischemic attack (TIA) 5 YEARS AGO - NO ISSUES SINCE - FOLLOWS W/ DR. SUTHERLAND Hyperlipidemia Surgical History History of right hip replacement (~03/2020) S/P laparoscopic hysterectomy with BSO History of cholecystectomy History of laminectomy LUMBAR History of cardiac cath 06/2016 - [facility] - INCREASED SOB, ABN STRESS TEST - 1 STENT PLACED - FOLLOWS W/ DR. BULLOCK. Family History Unknown Diabetes Mother Diabetes Tremor Sister Tremor Colorectal cancer Father Colorectal cancer Other No family history of adverse response to anesthesia Social History Smoking Status: Never smoker Second Hand Exposure: No; Do You Dip or Chew Tobacco: No; Hx Alcohol Use: No Hx Substance Use: No Preferred Language: Bruneian Communication Ability: Effective Visual Impairment: No Limitations Key Cutter Required: No Beliefs That Will Affect Care: None Current Living Situation: Significant Other Feels Safe at Home: Yes Assistive Devices: Glasses Review of Systems Review of Systems: See HPI above Physical Exam Physical Exam: General: no acute distress; pleasant affect; family at bedside; non-toxic appearing; frail appearing; cooperative; SpO2 93% on RA HEENT: normocephalic, atraumatic; no scleral icterus; PERRLA; vision and hearing intact Neck: supple; no lymphadenopathy; trachea midline Skin: warm, dry without signs of tenting; no cyanosis; no rashes, bruising, lesions, or erythema noted CV: chest wall NTP; RRR; S1/S2 normal; no murmurs/rubs/gallops; pulses intact and symmetric at radial, DP, and PT Lungs: no acute respiratory distress; symmetrical chest wall expansion; clear breath sounds across all lung costello w/o adventitious sounds; no wheezing ABD: Soft, NTP; BS present; no rebound/guarding; no distention MSK: no tics or fasciculations; no edema noted in the LEs b/l, nonerythematous; 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 puff 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; 5/5 upper extremity strength bilaterally; patient may exhibit decreased leg strength in her right when compared to her left (4/5 strength when lifting left leg while supine; 3/5 strength when lifting right leg supine) Neuro: A&Ox3; normal mood and affect; fluent speech; no focal deficits; sensation is intact and symmetric in the upper and lower extremities bilaterally assessed via light touch Results & Data Results & Data Vital Signs (Past 12 Hours) Vital Signs Temp Pulse Pulse Resp BP BP Pulse Ox 01/27/24 16:12 74 20 93 01/27/24 16:12 36.8 C 74 20 141/66 H 93 01/27/24 16:12 93 01/27/24 16:03 70 01/27/24 14:45 36.5 C 75 18 136/74 94 O2 Del Method 01/27/24 16:12 Room Air 01/27/24 16:12 Room Air 01/27/24 16:12 Room Air 01/27/24 16:03 01/27/24 14:45 Room Air Laboratory Results Abnormal lab results 01/27/24 01/27/24 Range/Units 14:58 16:09 RDW Std Deviation 47.5 H (36.4-46.3) fL MPV 8.8 L (9.4-12.4) fL [place] # (Auto) 0.76 H (0.11-0.59) K/uL BUN/Creatinine Ratio 25.6 H (10-20) Glucose 104 H (70-99(Fasting)) mg/dl Ur Leukocyte Esterase Trace H (Negative) Diagnostic Findings Chest X-Ray 01/27/24 14:51 XR chest 1V not portable CLINICAL HISTORY: Weakness COMPARISON STUDY: Chest radiograph October 03, 2023. Chest CT October 19, 2023. FINDINGS: Lung volumes are normal. Lungs are clear. There is no pneumothorax or pleural effusion. Cardiac size is normal. A moderate sized hiatal hernia is again noted. There is no evidence for pulmonary edema. IMPRESSION: No acute cardiopulmonary findings. No change in appearance of the chest. ACT 112: Negative or not required by law. Electronically signed by: Eloy Rosenthal M.D. 01/27/2024 3:34 PM ECG Additional Comments: ECG revealed sinus rhythm with short WI with premature supraventricular complexes at 71 bpm; QTc 439 Code Status & VTE Plan Code Status DNR/DNI (discussed with patient and patient's family at the bedside) VTE Prophylaxis Plan VTE Prophylaxis will be ordered: Yes Supervising Physician Co-Signing Physician Notes Patient seen and examined, chart reviewed, case discussed with Braulio Narvaez PA-C and I agree with the assessment and plan as above except as otherwise noted Labs and images reviewed 3 weeks of weakness, progressive. Level although some increased right lower extremity weakness compared to the left. Easily fatigued and dyspneic on exertion. No chest pain. Feels globally weak and washed out. No fevers. No leukocytosis. Pro-Ruddy is normal. TSH is normal. CRP is not elevated. Troponin is not elevated. UA is not infected appearing. Lyme is negative. She does not have a transaminitis or elevated platelet count. Patient does have a history of TIAs and thinks that she may have some increased right lower extremity weakness for which an MRI has been ordered unclear timeframe has been present for several days. DSE 2022 was negative for ischemia, LVEF was normal at that time. No signs of pulmonary edema. DDx includes viral, deconditioning. CK added, PT/OT pending. CBC trended. Will follow-up on MRI as above. Agree with above. PG Care Time/CCT Total # of Minutes Spent Total Time Spent with Patient: Total time spent is greater than 50% in coordination of care (as documented) at patient's floor/unit and/or counseling patient: Coding [place] [address] INT INP/OBS CARE 2/55MIN Patient Type Established History Comprehensive Exam Comprehensive Medical Decision Making Moderate Complexity Diagnoses Generalized weakness R53.1 Diabetes mellitus, type II E11.9
[2024-01-27 17:06] LABS: Lyme Screen Rflx Confirmation Negative (Negative)
[2024-01-27 17:07] LABS: Influenza A virus by PCR Negative (Neg); Influenza B virus by PCR Negative (Neg); RSV by PCR Negative (Neg); SARS CoV2 RNA(COVID-19) Ceph NEGATIVE (Negative)
[2024-01-27] MEDS ORDERED: GLUCOSE 10 TAB/TUBE PO PRN ×2 (18:35→22:24)
[2024-01-27] MEDS ORDERED: GLUCAGON FOR INJ 1 MG VIAL SQ PRN ×2 (18:35→22:24)
[2024-01-27] MEDS ORDERED: DEXTROSE 50% 50 ML SYRINGE IV PRN ×2 (18:35→22:24)
[2024-01-27] MEDS ORDERED: GLUCOSE 40% GEL 15 GM TUBE PO PRN ×2 (18:35→22:24)
[2024-01-27] MEDS ORDERED: CARBOHYDRATES FOR HYPOGLYCEMIA PO PRN ×2 (18:35→22:24)
[2024-01-27 19:11] LABS: Creatine Kinase 126 U/L (26-192)
--- NOTE | 2024-01-27 20:27 | Magnetic Resonance Report ---
Exam(s): MRI HEAD Without Contrast EXAM: MR Head Without Intravenous Contrast CLINICAL HISTORY: Reason for exam: RLE weakness/deficits compared to LLE. TECHNIQUE: Magnetic resonance images of the head/brain without intravenous contrast in multiple planes. COMPARISON: No relevant prior studies available. FINDINGS: Brain: Mild chronic periventricular ischemic demyelination changes seen due to small vessel disease. No hemorrhage. No focus of restricted diffusion. Ventricles: Unremarkable. No ventriculomegaly. Bones/joints: Unremarkable. No acute fracture. Sinuses: Unremarkable as visualized. No acute sinusitis. Mastoid air cells: Unremarkable as visualized. No mastoid effusion. Orbits: Unremarkable as visualized. IMPRESSION: No acute infarct Electronically signed by: Rene Cosme MD 01/27/24 20:26 PM
[2024-01-27] MEDS: INSULIN ASPART PER UNIT CHARGE SC SCH ×2 (20:31→23:17)
[2024-01-27] MEDS ORDERED: ACETAMINOPHEN 325 MG TAB PO PRN (22:24)
[2024-01-27] MEDS: LANTUS PER UNIT CHARGE SQ SCH ×2 (23:09→23:16)
[2024-01-27] MEDS: ASPIRIN 81 MG ECTAB PO SCH (23:15)
[2024-01-27] MEDS: FAMOTIDINE 40 MG TABLET PO SCH (23:15)
[2024-01-27] MEDS: ENOXAPARIN INJ 40 MG/0.4 ML SYR SQ SCH (23:16)
[2024-01-27] MEDS: GABAPENTIN 600 MG TAB PO SCH (23:16)
[2024-01-27] MEDS: ATORVASTATIN 40 MG TAB PO SCH (23:16)
[2024-01-27] MEDS: DULoxetine HCL 60 MG CAP PO SCH (23:16)
[2024-01-28 06:32] LABS: BUN Creatinine Ratio 23.8 (10-20); Calcium 9.5 mg/dl (8.6-10.3); Creatinine Clr Calc Pharmacy 53.1 ml/min; Potassium 4.1 mmol/L (3.5-5.1)
[2024-01-28 06:40] LABS: Hematocrit (blood only) 42.3 % (37.0-47.0); Hemoglobin 14.2 g/dl (12.0-16.0); Mean Corpuscular Hgb Conc 33.6 g/dL (32.0-36.0); Mean Corpuscular Volume 95.3 fL (80.0-100.0); Mean Platelet Volume 9.1 fL (9.4-12.4); Platelet Count 204 K/uL (130-400); RDW Coefficient of Variation 13.6 % (11.5-14.5); RDW Standard Deviation 47.9 fL (36.4-46.3); Red Blood Count 4.44 M/uL (4.20-5.40); White Blood Count 6.91 K/ul (4.8-10.8)
[2024-01-28 07:21] VITALS: RESP 18
[2024-01-28] MEDS: PANTOprazole 40 MG TAB PO SCH (08:33)
[2024-01-28] MEDS: LOSARTAN POTASSIUM 25 MG TAB PO SCH (08:33)
[2024-01-28] MEDS: ISOSORBIDE MONO EXTENDED REL 60 MG TABCR PO SCH (08:33)
--- NOTE | 2024-01-28 10:02 | XCELERA ---
[id number] \\[id number]
[2024-01-28 11:32] VITALS: BP 124/61; TEMP 97.7; O2SAT 94
[2024-01-28 15:19] VITALS: PULSE 72
--- NOTE | 2024-01-28 18:06 | Discharge Summary ---
Discharge Summary Date of Service January 28, 2024 Principal Dx & Hospital Course #1 = Principal Diagnosis (1) Generalized weakness: Presented with generalized weakness and new onset OG x 6 days - Recently went to [facility] 01/25 with negative workup/head CT and sent home - Workup this admission unremarkable: > TSH, BNP, CRP, procal all WNL > Lyme, UA, respiratory panel all negative > Brain MRI and CXR negative for acute abnormalities > Echocardiogram with no significant change from 02/18/23 study. EF=55-60%, no regional wall motion abnormalities, mild MR - PT/OT recommended return home - Denies signs or symptoms of sleep apnea - No clear cause for acute nature of her decline. Possibly post-viral syndrome. Could consider repeat stress test outpatient. Patient has cardiology appointment scheduled for 01/30. Recommend PCP follow-up as well. (2) Diabetes mellitus, type II: Last A1c at 7.4% on 11/19/2023 Continued home regimen on discharge Plan VTE PPx: Lovenox 40 mg SQ q24h CODE STATUS: DNR/DNI Notes For Next Care Provider Presented with generalized weakness and OG x 6 days. Lab testing and imaging unremarkable. PT/OT evals recommended return home. Possibly postviral syndrome. Could repeat stress testing with cardiology outpatient. Of note, patient reported intermittent cramping in her legs x2 months, but not at this time. Unlikely to be related to her statin given how long she has been on it, but could try switching to different agent. Medication Changes From Visit None Admission HPI Per Admitting Provider Talia is a pleasant 78-year-old female with PMH of T2DM, polyneuropathy, anxiety, osteoporosis, seizure-like activity, essential tremor, gastroparesis, and CVA. She presented on 01/26 for generalized weakness x 6 days. Patient's 3 daughters and are present at the bedside and provide additional history. Patient's daughter believes that there is been a generalized decline in energy over the past 3 weeks, with an acute change in the past 6 days. For instance, the patient reports that she can regularly walk a mile up 3 weeks ago, but over the past few days that she tires after a quarter of a mile. She also does exercises at night and in the morning (leg stretches and bends) with each fatigue her easily. The other day, she woke up for breakfast, reports that she felt fatigued, and went back to sleep until 5 PM. She then went to bed again at 10 PM. She endorses mild OG with walking, which is new for her. No prior history of CHF to her knowledge. No sick contacts. She does note she got her flu shot 1.5 weeks ago. No recent change in diet. No slurred speech, facial droop, or unilateral deficits to her knowledge. No recent falls or injuries/trauma to the head or neck. While she does have a history of TIAs, she does not believe she has ever had a stroke. No history of narcolepsy. Only additional symptoms leg cramps at night which are new for her. In terms of cardiac history, she does have history of a heart catheterization and heart stent. It should also be noted that she was at [facility] last night and had a head CT scan done; while she does not have her discharge blood work she was told that her head CT was negative. Patient took all her regular morning medications today; no recent change in medications. She manages her own medicine at home. Patient denies smoking, tobacco use, or alcohol use. Patient is mildly hypertensive at 141/66 at time of admission; vitals otherwise stable. ED course: ROS: Patient endorses easy fatigability x 6 days, generalized weakness, new onset OG, and chronic neuropathy in her feet Patient denies fever, chills, night sweats, dizziness/lightheadedness with walking, headache, changes in vision, chest pain, chest palpitations, pleuritic CP, SOB at rest, cough, abdominal pain, N/V/D, changes in urinary or bowel habits, burning with urination, dysuria, blood in urine or stool, or swelling in the legs. Admission Exam Per Admitting Provider General: no acute distress; pleasant affect; family at bedside; non-toxic appearing; frail appearing; cooperative; SpO2 93% on RA HEENT: normocephalic, atraumatic; no scleral icterus; PERRLA; vision and hearing intact Neck: supple; no lymphadenopathy; trachea midline Skin: warm, dry without signs of tenting; no cyanosis; no rashes, bruising, lesions, or erythema noted CV: chest wall NTP; RRR; S1/S2 normal; no murmurs/rubs/gallops; pulses intact and symmetric at radial, DP, and PT Lungs: no acute respiratory distress; symmetrical chest wall expansion; clear breath sounds across all lung costello w/o adventitious sounds; no wheezing ABD: Soft, NTP; BS present; no rebound/guarding; no distention MSK: no tics or fasciculations; no edema noted in the LEs b/l, nonerythematous; 5/5 disc recordist strength bilaterally; 5/5 upper extremity strength bilaterally; patient may exhibit decreased leg strength in her right when compared to her left (4/5 strength when lifting left leg while supine; 3/5 strength when lifting right leg supine) Neuro: A&Ox3; normal mood and affect; fluent speech; no focal deficits; sensation is intact and symmetric in the upper and lower extremities bilaterally assessed via light touch Discharge Exam General: No acute distress, nondiaphoretic, well-developed, well-nourished. Skin: The skin was without rashes, erythema, edema, or bruising. Cardiac: Regular rate and rhythm without murmurs gallops or rubs. Pulm: Clear to auscultation bilaterally without wheezes, rales or rhonchi. No respiratory distress. 94% on room air. Abdominal: Soft, nontender, nondistended. Bowel sounds present. Neuro: A&O x3. No focal neurological deficits. Discharge Plan Discharge Items Patient Disposition: Home - Self-Care Reason For Visit: NEW ONSET OG, GENERALIZED FATIGUE X 6 DAYS Discharge Diagnosis: Generalized weakness Activity: Resume your previous activity Non-emergency contact: Primary Care Provider Call non-emergency contact if: you have any medication questions and your symptoms worsen Follow-up/Referrals: Kishor Galeas DO [Primary Care Provider] - (Follow-up 1-2 weeks) Diet: Carb Consistent or DM2 Addtl Attending Provider Instructions: Mrs. Cox, You were admitted to the hospital for further workup of your generalized weakness. You had extensive lab work done, all of which came back normal. You also had an MRI of your brain and a chest x-ray which were both negative for acu te abnormalities. Additionally, you had an echocardiogram which showed no significant change from your last one in January 2023. All of this to be said, we did not find an explanation for your generalized weakness. You were evaluated by PT and OT who both felt you did well and recommended you return home. There have been NO medication changes from this hospitalization. Please follow-up with cardiology as scheduled on 01/31/24. Please follow-up with your PCP in 1-2 weeks. Please return to the hospital if you experience any of the following: chest pain, heart palpitations, shortness of breath, difficulty breathing, lightheadedness, dizziness, confusion, slurred speech, weakness of one side of your body, sudden severe headache, or any other symptoms concerning for you. It was a pleasure taking care of you while you were in the hospital, Cesilia Sanders PA-C Pending Studies at Discharge: No Stand-Alone Forms: My [facility] [place], Smoking Cessation Medications and DC Order Prescriptions: Continued nitroglycerin [Nitrostat] 0.4 mg tablet, sublingual 0.4 mg Sublingual UD PRN (Reason: Chest Pain) Qty: 25 3RF Rx Instructions: 0.4 mg Sublingual VERY 5 MINUTES FOR UP TO 3 DOSES PRN FOR CHEST PAIN. CALL 911 IF PAIN PERSISTS; gabapentin 300 mg capsule 600 mg PO QID Qty: 720 3RF isosorbide mononitrate 120 mg tablet extended release 24 hr 120 mg PO QAM Qty: 90 3RF insulin lispro [Humalog KwikPen Insulin] 100 unit/mL insulin pen See Rx Instructions .ROUTE .COMPLEX MDD 40 units Qty: 45 3RF Rx Instructions: Inject 12 units breakfast and dinner, 7 units with lunch, plus sliding scale; TDD 40 units a day (DME) pen needle, diabetic [BD Ultra-Fine Marah Pen Needle] 32 gauge x 5/32" needle See Rx Instructions .ROUTE .MEDSUPPLY Qty: 400 3RF Rx Instructions: use 4 needles daily insulin glargine [Lantus Solostar U-100 Insulin] 100 unit/mL (3 mL) insulin pen 12 unit SQ HS 90 Days Qty: 15 3RF duloxetine [Cymbalta] 60 mg capsule,delayed release(DR/EC) 60 mg PO HS calcium carbonate-vitamin D3 500 mg(1,250mg) -400 unit tablet,chewable 1 tab PO BID cholecalciferol (vitamin D3) 2,000 unit capsule 2,000 units PO QAM cyanocobalamin (vitamin B-12) 1,000 mcg tablet 1,000 mcg PO BID Qty: 60 multivitamin [Daily Multi-Vitamin] Tablet 1 tab PO QAM losartan 25 mg tablet 25 mg PO QAM (DME) Dexcom G7 Sensor Device See Rx Instructions .Route Rx Instructions: As directed aspirin [Aspir-81] 81 mg tablet,delayed release (DR/EC) 81 mg PO QPM pantoprazole 40 mg tablet,delayed release (DR/EC) 40 mg PO QAM atorvastatin 40 mg tablet 40 mg PO QPM pyridoxine (vitamin B6) [Vitamin B-6] 50 mg Tablet 50 mg PO QAM famotidine 40 mg tablet 40 mg PO QPM Discharge Orders: Discharge Order (Routine); Ordered 01/28/24 Ordered By: Cesilia Barragan/Other Patient Handouts: Managing Type 2 Diabetes, Special Foot Care for Diabetes Admission Data Admit Date/Time: 01/27/24 18:09 Attending Provider: Keaton Novoa Admit Provider: Deshawn Trinidad Primary Care Provider: Kishor Galeas Other Providers: Deshawn Trinidad Other Interventions: Discharge Summary Assessment (RN) Last Done: 01/28/24 15:06 Hospital Stay Data Consultations 01/27/24 17:04 ED Decision to Admit Stat Diagnostic Imagining Performed 01/27/24 18:44 MRI Brain [MR brain wo con] Routine Pending Results Patient Have Any Pending Studies at Discharge: No Discharge Instructions Given to Patient (Per Discharging Provider) Mrs. Cox, Kevin were admitted to the hospital for further workup of your generalized weakness. You had extensive lab work done, all of which came back normal. You also had an MRI of your brain and a chest x-ray which were both negative for acute abnormalities. Additionally, you had an echocardiogram which showed no significant change from your last one in January 2023. All of this to be said, we did not find an explanation for your generalized weakness. You were evaluated by PT and OT who both felt you did well and recommended you return home. There have been NO medication changes from this hospitalization. Please follow-up with cardiology as scheduled on 01/31/24. Please follow-up with your PCP in 1-2 weeks. Please return to the hospital if you experience any of the following: chest pain, heart palpitations, shortness of breath, difficulty breathing, lightheadedness, dizziness, confusion, slurred speech, weakness of one side of your body, sudden severe headache, or any other symptoms concerning for you. It was a pleasure taking care of you while you were in the hospital, Cesilia Sanders PA-C Total Time Total Time Spent Total Time Spent (In Minutes): Greater than 30 minutes spent completing this discharge process including direct patient care, medication reconciliation, documentation, review of labs and images, and coordination of care. Coding Level of Care Code 82954 INP/OBS DISCH >30 MIN Diagnoses Generalized weakness R53.1 Diabetes mellitus, type II E11.9
== END 2024-01-28 16:08 | disposition home or self-care (01) ==
LOC: 2W 14:34 → ED 14:34 → SUATTDRO 18:09 → 2W 21:56

== ENCOUNTER 2024-11-24 10:57 | Inpatient (IN) ==
--- NOTE | 2024-11-24 12:08 | XRay Report ---
XR chest 1V portable CLINICAL HISTORY: Dyspnea COMPARISON STUDY: 11/16/2024 FINDINGS: Single view chest demonstrates no significant interval change. There is no acute cardiopulm onary process identified. There is no airspace opacity or pleural effusion. There is no pneumothorax. The heart and pulmonary vascularity are unremarkable. There is a hiatal hernia present. IMPRESSION: Stable exam; no acute process ACT 112: Negative or not required by law. Electronically signed by: Ruthie Fisher M.D. 11/24/2024 12:07 PM
[2024-11-24 12:11] LABS: Hematocrit (blood only) 42.4 % (37.0-47.0); Hemoglobin 14.5 g/dl (12.0-16.0); Immature Granulocytes # (auto) 0.02 K/uL (0.01-0.20); Immature Granulocytes % (auto) 0.3 %; Mean Corpuscular Hemoglobin 32.2 pg (25.0-34.0); Mean Corpuscular Volume 94.2 fL (80.0-100.0); Platelet Count 197 K/uL (130-400); RDW Standard Deviation 45.2 fL (36.4-46.3); Red Blood Count 4.50 M/uL (4.20-5.40); White Blood Count 7.68 K/ul (4.8-10.8)
[2024-11-24 12:31] LABS: Alanine Aminotransferase 25.0 U/L (7-52); Albumin Globulin Ratio 1.4 (0.9-2); Alkaline Phosphatase 88.0 U/L (34-104); Anion Gap 5.0 (3-11); Bilirubin,Total 0.5 mg/dl (0.2-1.0); Blood Urea Nitrogen 21.0 mg/dl (6-23); Calcium 9.4 mg/dl (8.6-10.3); Carbon Dioxide 32.0 mmol/L (21-32); Chloride 101.0 mmol/L (98-107); Creatinine Clr Calc Pharmacy 46.9 ml/min; Globulin 2.7 gm/dl (2.5-4.0); Glucose 163.0 mg/dl (70-99(Fasting)); Magnesium 2.2 mg/dl (1.7-2.4); Potassium 3.9 mmol/L (3.5-5.1); Sodium 138.0 mmol/L (136-145); Total Protein 6.4 gm/dl (6.0-8.3)
[2024-11-24 12:36] LABS: INR 1.0 (0.9-1.1); Prothrombin Time 10.5 Seconds (9.0-12.0)
[2024-11-24 12:43] LABS: Influenza A virus by PCR Negative (Neg); Influenza B virus by PCR Negative (Neg); SARS CoV2 RNA(COVID-19) Ceph POSITIVE (Negative)
--- NOTE | 2024-11-24 13:35 | Emergency Department Note ---
Impression & Plan Generalized weakness, COVID-19, Cough ED Provider Note Provider: Renan Gonzalez MD CHIEF COMPLAINT: Cough, weakness, shortness of breath HISTORY OF PRESENT ILLNESS: Patient is [id number] female past medical history significant for CKD, type 2 diabetes, GERD, CVA, CAD, PAD presenting here today complaining of significant generalized weakness and ongoing cough symptoms. States he was seen by her primary doctor and testing for COVID 2 weeks ago. Has been dealing this for this that time. Has had some Tessalon Perles, course of doxycycline, course of prednisone without improvement. Has been exam nausea. Struggling to eat and drink very much but has been forcing his banana popsicles. Denies falls but even a short amount of walking makes her quite short of breath and fatigue. PAST MEDICAL HISTORY: As noted above MEDICATIONS: Reviewed home medication list SOCIAL HISTORY: PHYSICAL EXAM: GENERAL: alert and oriented in no acute distress on stretcher Head: normocephalic and atraumatic EYES: No injection, discharge or icterus. . NECK: Trachea midline. ENT: Mucous membranes pink and moist. LUNGS: Airway patent. No retractions. Breath sounds clear HEART: Regular rate and rhythm. No chest wall tenderness ABDOMEN: Soft and non-tender, without guarding or rebound. SKIN: Acyanotic, warm, dry, without rashes EXTREMITIES: Without swelling, tenderness or deformity NEUROLOGICAL: No focal deficits. No aphasia. No facial droop or slurred speech. EK bpm. Normal sinus rhythm. No PVC or PAC. No acute ST segment elevation or depression with a QTc of 408. CONTINUOUS CARDIAC MONITORING: was ordered and showed a heart rate of 70s bpm in normal sinus rhythm Patient's laboratory studies and imaging reviewed. Differential includes Reactive airway disease, pneumonia, pneumothorax, COPD, CHF, infections, cardiac ischemia, pulmonary embolism, musculoskeletal, gastrointestinal, as well as other pathologies. IMPRESSION/MEDICAL DECISION MAKING: Patient not febrile or tachycardic here. No trauma reported or syncope. Patient does return positive for COVID today. No findings of pneumonia on x- ray. No evidence of significant anemia or leukocytosis. No significant electrolyte abnormality or renal dysfunction of significance noted. Normal troponin. Doubt this represents underlying PE or dissection. Likely is symptomatic related to COVID infection. Has recent been on outpatient doxycycline and prednisone. Did have COVID-vaccine last year but not yet this year. No prior history of COVID infection reported. Some pain with coughing seems muscular in nature. Discussed with patient findings. With significant generalized weakness and fatigue. Desaturated into the high 80s while sleeping but not hypoxic while awake. Was recently on steroids and do not Nestl feel more indicated this time. Patient states feels quite thirsty requesting IV fluids given a very small amount. Will try to albuterol inhaler to help with her symptoms. Given her generalized weakness and difficulty ambulation and 3 weeks of symptoms and shared decision making she was to stay for observation and further supportive care. DIAGNOSIS: COVID-19, weakness, shortness of breath DISPOSITION: Hospitalist will evaluate Patient was agreeable with this plan. Past Med/Surg History Problem List (Updated 11/24/24 @ 16:03 by Renan Gonzalez M.D.) Cough (Acute) COVID-19 (Acute) Coronary artery disease Type 2 diabetes mellitus Acute respiratory failure with hypoxia Acute bronchitis Coronavirus infection Right knee DJD Periodic paralysis Hypersomnolence disorder, acute, severe Insomnia Ambulatory dysfunction (Acute) Generalized weakness (Acute) Generalized weakness Cervical myofascial pain syndrome CKD stage 3a, GFR 45-59 ml/min Polyneuropathy Cervical radiculopathy Ataxia (Acute) Diabetes mellitus, type II (Chronic) IDDM GERD (gastroesophageal reflux disease) (Chronic) Gastroparesis (Chronic) History of Helicobacter pylori infection (Chronic) Depression (Chronic) Irritable bowel syndrome (Chronic) Vitamin D deficiency (Chronic) Dyslipidemia (Chronic) S/P hysterectomy (Chronic) S/P cholecystectomy (Chronic) S/P colonoscopy (Chronic) H/O esophagogastroduodenoscopy (Chronic) CVA (cerebral vascular accident) (Acute) Visual disturbance of one eye (Acute) CAD (coronary artery disease) S/P ZAHRA to mid LAD 06/2016 Encounter for pre-operative examination Complication of cystostomy Ovarian mass, left Atypical chest pain (Acute) DVT prophylaxis Vulvar ulceration (Acute) Vitamin D insufficiency (Acute) Vaginitis (Acute) Urinary incontinence (Acute) SNHL (sensorineural hearing loss) (Acute) S/P drug eluting coronary stent placement (Acute) Pelvic mass in female (Acute) PAD (peripheral artery disease) (Acute) Ovarian cyst, complex (Acute) Herpes simplex type 1 infection (Acute) Genital herpes simplex (Acute) Fatigue (Acute) Episodic weakness (Acute) Epigastric pressure (Acute) Dyspareunia (Acute) Dysesthesia (Acute) Diabetic peripheral neuropathy (Chronic) Dermatitis of external ear (Acute) Controlled type 2 diabetes mellitus (Chronic) Bilateral leg pain (Acute) Benign familial tremor (Acute) Stented coronary artery Benign essential tremor Neuropathy Anxiety (Chronic) Closed fracture of right hip (Acute) Osteoporosis Seizure-like activity Syncope Encounter for pre-operative examination Epigastric pain Transient alteration of awareness Hypersomnia Altered awareness, transient Organic periodic limb movement disorder Essential tremor Seizure-like activity Medical History DVT prophylaxis Muscle cramps Iron deficiency Osteoarthritis GERD (gastroesophageal reflux disease) Hearing deficit Depression Transient ischemic attack (TIA) Hyperlipidemia Surgical History History of right hip replacement (~03/2020) S/P laparoscopic hysterectomy History of cholecystectomy History of laminectomy History of cardiac cath Family History Unknown Diabetes Mother Diabetes Tremor Sister Tremor Colorectal cancer Father Colorectal cancer Other No family history of adverse response to anesthesia Social History Smoking Status: Never smoker Second Hand Exposure: No; Do You Dip or Chew Tobacco: No; Hx Alcohol Use: No Hx Substance Use: No Preferred Language: Luxembourgish Communication Ability: Effective Visual Impairment: No Limitations Machine Leather Trimmer Required: No Beliefs That Will Affect Care: None Current Living Situation: Spouse Feels Safe at Home: Yes Assistive Devices: None Allergies Allergies Allergy/AdvReac Type Severity Reaction Status Date / Time amoxicillin Allergy Severe Hives Verified 11/24/24 14:13 metoclopramide AdvReac Severe SEVERE Verified 11/24/24 14:13 WEAKNESS/DIZZINESS primidone AdvReac Severe Lethargy Verified 11/24/24 14:13 rosuvastatin AdvReac Intermediate muscle Verified 11/24/24 14:13 cramping metformin AdvReac Mild NAUSEA Verified 11/24/24 14:13 Home Meds Home Medications Medication Instructions Recorded Confirmed calcium 500 mg (as carbonate)-vit 1 tab PO BID 10/21/18 11/24/24 D3 10 mcg (400 unit) chewable tablet cholecalciferol (vitamin D3) 50 2,000 units PO QAM 10/21/18 11/24/24 mcg (2,000 unit) capsule pantoprazole 40 mg tablet,delayed 40 mg PO QAM 10/21/18 11/24/24 release cyanocobalamin (vitamin B-12) 1,000 mcg PO BID #60 tabs 09/04/19 11/24/24 1,000 mcg tablet pyridoxine (vitamin B6) 50 mg 50 mg PO QAM 12/18/19 11/24/24 tablet (Vitamin B-6) famotidine 40 mg tablet 40 mg PO QPM 01/27/24 11/24/24 aspirin 81 mg tablet,delayed 81 mg PO QPM 06/26/24 11/24/24 release atorvastatin 40 mg tablet 40 mg PO HS 06/26/24 11/24/24 insulin glargine 100 unit/mL (3 11 unit subcut HS 06/26/24 11/24/24 mL) subcutaneous pen (Lantus Solostar U-100 Insulin) metoprolol succinate 25 mg 0 mg PO QAM 06/26/24 11/24/24 tablet,extended release 24 hr duloxetine 30 mg capsule,delayed 0 mg PO HS 11/24/24 11/24/24 release Previous Rx's Medication Instructions Recorded nitroglycerin 0.4 mg sublingual 0.4 mg sublingual UD PRN Chest 07/28/21 tablet (Nitrostat) Pain #25 tabs BD Ultra-Fine Marah Pen Needle 32 #400 ea 12/13/23 gauge x 5/32" (pen needle, diabetic) gabapentin 300 mg capsule 600 mg (2 x 300 mg) PO QID #720 03/20/24 caps isosorbide mononitrate 120 mg 120 mg PO QAM #90 tabs 06/05/24 tablet,extended release 24 hr blood-glucose sensor (Dexcom G7 #9 ea 06/20/24 Sensor device) insulin lispro 100 unit/mL See Rx Instructions .Route 10/02/24 subcutaneous pen (Humalog KwikPen .COMPLEX #45 mL (U-100) Insulin) Results & Data (ED) Vital Signs Vital Signs - 24 hr 11/24/24 10:58 11/24/24 11:36 11/24/24 11:57 Temperature 36.2 C L Temperature Source Temporal Artery Scan Pulse Rate 88 80 80 Pulse Rate [Apical] Pulse Rate from SpO2 Sensor 80 Pulse Rhythm Respiratory Rate 19 19 Respiratory Effort / Characteristics Non-Labored Spontaneous Respiratory Depth Normal Respiratory Pattern Regular Blood Pressure 125/57 L 139/64 Blood Pressure [Right Arm] Blood Pressure Mean 79 89 Blood Pressure Mean [Right Arm] Pulse Oximetry 92 95 Oxygen Delivery Method Room Air Room Air Oxygen Flow Rate Sepsis Recent Fever Within 48 Hours No Sepsis New/Unexplained Change in Mental Status No Sepsis Action Taken by Nursing No Action Required 11/24/24 12:54 11/24/24 15:13 11/24/24 15:26 Temperature Temperature Source Pulse Rate 75 73 Pulse Rate [Apical] 73 Pulse Rate from SpO2 Sensor Pulse Rhythm Regular Respiratory Rate 16 16 Respiratory Effort / Characteristics Non-Labored Respiratory Depth Normal Respiratory Pattern Blood Pressure Blood Pressure [Right Arm] 129/67 Blood Pressure Mean Blood Pressure Mean [Right Arm] 87 Pulse Oximetry 94 96 Oxygen Delivery Method Nasal Cannula Nasal Cannula Oxygen Flow Rate 2 2 Sepsis Recent Fever Within 48 Hours Sepsis New/Unexplained Change in Mental Status Sepsis Action Taken by Nursing Laboratory Data 11/24/24 11:54 11/24/24 11:54 Lab Results 11/24/24 11/24/24 Range/Units 11:45 11:54 WBC 7.68 (4.8-10.8) K/ul RBC 4.50 (4.20-5.40) M/uL Hgb 14.5 (12.0-16.0) g/dl Hct 42.4 (37.0-47.0) % MCV 94.2 (80.0-100.0) fL MCH 32.2 (25.0-34.0) pg MCHC 34.2 (32.0-36.0) g/dL RDW Std Deviation 45.2 (36.4-46.3) fL RDW Coeff of Jazmine 13.1 (11.5-14.5) % Plt Count 197 (130-400) K/uL MPV 9.3 L (9.4-12.4) fL Immature Gran % (Auto) 0.3 % Neut % (Auto) 55.7 % Lymph % (Auto) 30.7 % [place] % (Auto) 10.3 % Eos % (Auto) 2.6 % Baso % (Auto) 0.4 % Neut # (Auto) 4.28 (1.40-6.50) K/uL Lymph # (Auto) 2.36 (1.20-3.40) K/uL [place] # (Auto) 0.79 H (0.11-0.59) K/uL Eos # (Auto) 0.20 (0.00-0.50) K/uL Baso # (Auto) 0.03 (0.00-0.20) K/uL Immature Gran # (Auto) 0.02 (0.01-0.20) K/uL PT 10.5 (9.0-12.0) Seconds INR 1.0 (0.9-1.1) Sodium 138 (136-145) mmol/L Potassium 3.9 (3.5-5.1) mmol/L Chloride 101 (98-107) mmol/L Carbon Dioxide 32 (21-32) mmol/L Anion Gap 5 (3-11) BUN 21 (6-23) mg/dl Creatinine 0.91 (0.6-1.2) mg/dl Est Cr Clr Drug Dosing 46.9 ml/min eGFR 63.78 BUN/Creatinine Ratio 23.1 H (10-20) Glucose 163 H (70-99(Fasting)) mg/dl Calcium 9.4 (8.6-10.3) mg/dl Magnesium 2.2 (1.7-2.4) mg/dl Total Bilirubin 0.5 (0.2-1.0) mg/dl AST 19 (13-39) U/L ALT 25 (7-52) U/L Alkaline Phosphatase 88 (34-104) U/L Troponin I High Sens 4.0 (0-14) pg/ml Total Protein 6.4 (6.0-8.3) gm/dl Albumin 3.7 (3.4-5.0) gm/dl Globulin 2.7 (2.5-4.0) gm/dl Albumin/Globulin Ratio 1.4 (0.9-2) SARS-CoV-2 (PCR) POSITIVE A (Negative) Influenza Type A (PCR) Negative (Neg) Influenza Type B (PCR) Negative (Neg) RSV (RT-PCR) Negative (Neg) Administered Medications Discontinued Medications Albuterol (Albuterol Hfa 8 Gm Inhaler) 2 puffs INH NOW ONE Stop: 11/24/24 13:29 Last Admin: 11/24/24 13:52 Dose: 2 puffs Documented By: LONNIE Sodium Chloride (Nss) 500 mls @ 999 mls/hr IV .Q31M ONE Stop: 11/24/24 13:58 Last Infusion: 11/24/24 15:04 Dose: Infused Documented By: Admin: 11/24/24 13:55 Dose: 999 mls/hr Documented By: LONNIE Imaging Data Radiologist's Impression: Chest X-Ray 11/24/24 11:40 XR chest 1V portable CLINICAL HISTORY: Dyspnea COMPARISON STUDY: 11/16/2024 FINDINGS: Single view chest demonstrates no significant interval change. There is no acute cardiopulmonary process identified. There is no airspace opacity or pleural effusion. There is no pneumothorax. The heart and pulmonary vascularity are unremarkable. There is a hiatal hernia present. IMPRESSION: Stable exam; no acute process ACT 112: Negative or not required by law. Electronically signed by: Ruthie Fisher M.D. 11/24/2024 12:07 PM Discharge Plan Visit Data Chief Complaint: Referred by Doctor Stated Complaint: REF BY DOC, SOB ED Provider: Renan Gonzalez Discharge Problem: Generalized weakness, COVID-19, Cough Patient Disposition: Being Evaluated by Hospitalist Condition: Fair Forms Stand Alone Forms: [facility] Prescriptions Prescriptions: No Action nitroglycerin [Nitrostat] 0.4 mg tablet, sublingual 0.4 mg Sublingual UD PRN (Reason: Chest Pain) Qty: 25 3RF Rx Instructions: 0.4 mg Sublingual VERY 5 MINUTES FOR UP TO 3 DOSES PRN FOR CHEST PAIN. CALL 911 IF PAIN PERSISTS; (DME) pen needle, diabetic [BD Ultra-Fine Marah Pen Needle] 32 gauge x 5/32" needle See Rx Instructions .ROUTE .MEDSUPPLY Qty: 400 3RF Rx Instructions: use 4 needles daily gabapentin 300 mg capsule 600 mg PO QID Qty: 720 3RF isosorbide mononitrate 120 mg tablet extended release 24 hr 120 mg PO QAM Qty: 90 3RF (DME) Dexcom G7 Sensor Device See Rx Instructions .Route Qty: 9 3RF Rx Instructions: change sensor Q19D insulin lispro [Humalog KwikPen Insulin] 100 unit/mL insulin pen See Rx Instructions .ROUTE .COMPLEX Qty: 45 3RF Rx Instructions: Inject 14 units breakfast and dinner, 7 units with lunch, plus sliding scale; TDD 40 units a day calcium carbonate-vitamin D3 500 mg(1,250mg) -400 unit tablet,chewable 1 tab PO BID Rx Instructions: Unable to verify otc meds at this date/time. 11/24/24 cholecalciferol (vitamin D3) 2,000 unit capsule 2,000 units PO QAM Patient Comments: Unable to verify otc meds at this date/time. 11/24/24 cyanocobalamin (vitamin B-12) 1,000 mcg tablet 1,000 mcg PO BID Qty: 60 Patient Comments: Unable to verify otc meds at this date/time. 11/24/24 pantoprazole 40 mg tablet,delayed release (DR/EC) 40 mg PO QAM pyridoxine (vitamin B6) [Vitamin B-6] 50 mg Tablet 50 mg PO QAM Patient Comments: Unable to verify otc meds at this date/time. 11/24/24 atorvastatin 40 mg tablet 40 mg PO HS aspirin 81 mg Tablet,Delayed Release (Dr/Ec) 81 mg PO QPM Patient Comments: Unable to verify otc meds at this date/time. 11/24/24 metoprolol succinate 25 mg tablet extended release 24 hr 0 mg PO QAM Patient Comments: Last filled 07/2024 x90 day supply. Original Directions: 25mg by mouth once daily. 11/24/24 insulin glargine [Lantus Solostar U-100 Insulin] 100 unit/mL (3 mL) insulin pen 11 unit SQ HS duloxetine 30 mg capsule,delayed release(DR/EC) 0 mg PO HS Patient Comments: Last filled 03/2024 x90 day supply. Original Directions: 30mg by mouth once daily. 11/24/24 famotidine 40 mg tablet 40 mg PO QPM Referrals Referrals: Kishor Galeas, [Primary Care Provider] -
[2024-11-24] MEDS: ALBUTEROL HFA 8 GM INHALER INH ONE (13:52)
[2024-11-24] MEDS: SODIUM CHLORIDE 0.9% 500 ML IV ONE (13:55)
--- NOTE | 2024-11-24 15:27 | History & Physical Report ---
Date of Service November 24, 2024 Assessment & Plan (1) Coronavirus infection: Plan: Supportive care. Parenteral steroid therapy. IV fluids. Fortunately current coronavirus variants are not causing any viral pneumonia (2) Acute bronchitis: Plan: Purulent appearing phlegm. She may have a secondary bacterial infection. Levaquin has been started. Will obtain sputum culture. Scheduled DuoNebs (3) Acute respiratory failure with hypoxia: Plan: Supplemental oxygen per nasal cannula to maintain saturation greater than 90%. Wean off as tolerated (4) Type 2 diabetes mellitus: Plan: ADA diet. Sliding scale coverage. Basal insulin therapy (5) Coronary artery disease: Plan: Stable. Continue current medical management. Telemetry Plan Hopeful discharge to home in 2 to 3 days History of Present Illness Chief Complaint: Viral illness, week, COVID-positive Primary Care Provider: Kishor Galeas DO 79-year-old white female who has been weak and ill with a viral illness for several days. She has shortness of breath and mild hypoxia on room air. She also has developed a productive cough with yellowish sputum. She was seen in the ED. Chest x-ray is negative for any signs of pneumonia but she did test positive for coronavirus. She is acutely ill and requiring oxygen at 2 L/min to maintain saturation greater than 90%. She will be admitted for further evaluation and treatment. She denies any hemoptysis, chest pain, palpitations Allergies Allergy/AdvReac Type Severity Reaction Status Date / Time amoxicillin Allergy Severe Hives Verified 11/24/24 14:13 metoclopramide AdvReac Severe SEVERE Verified 11/24/24 14:13 WEAKNESS/DIZZINESS primidone AdvReac Severe Lethargy Verified 11/24/24 14:13 rosuvastatin AdvReac Intermediate muscle Verified 11/24/24 14:13 cramping metformin AdvReac Mild NAUSEA Verified 11/24/24 14:13 Home Medications Medication Instructions Recorded Confirmed Type calcium 500 mg (as carbonate)-vit 1 tab PO BID 10/21/18 11/24/24 History D3 10 mcg (400 unit) chewable tablet cholecalciferol (vitamin D3) 50 2,000 units PO QAM 10/21/18 11/24/24 History mcg (2,000 unit) capsule pantoprazole 40 mg tablet,delayed 40 mg PO QAM 10/21/18 11/24/24 History release cyanocobalamin (vitamin B-12) 1,000 mcg PO BID #60 tabs 09/04/19 11/24/24 History 1,000 mcg tablet pyridoxine (vitamin B6) 50 mg 50 mg PO QAM 12/18/19 11/24/24 History tablet (Vitamin B-6) nitroglycerin 0.4 mg sublingual 0.4 mg sublingual UD PRN Chest 07/28/21 11/24/24 Rx tablet (Nitrostat) Pain #25 tabs BD Ultra-Fine Marah Pen Needle 32 #400 ea 12/13/23 10/04/24 Rx gauge x 5/32" (pen needle, diabetic) famotidine 40 mg tablet 40 mg PO QPM 01/27/24 11/24/24 History gabapentin 300 mg capsule 600 mg (2 x 300 mg) PO QID #720 03/20/24 11/24/24 Rx caps isosorbide mononitrate 120 mg 120 mg PO QAM #90 tabs 06/05/24 11/24/24 Rx tablet,extended release 24 hr blood-glucose sensor (Dexcom G7 #9 ea 06/20/24 10/04/24 Rx Sensor device) aspirin 81 mg tablet,delayed 81 mg PO QPM 06/26/24 11/24/24 History release atorvastatin 40 mg tablet 40 mg PO HS 06/26/24 11/24/24 History insulin glargine 100 unit/mL (3 11 unit subcut HS 06/26/24 11/24/24 History mL) subcutaneous pen (Lantus Solostar U-100 Insulin) metoprolol succinate 25 mg 0 mg PO QAM 06/26/24 11/24/24 History tablet,extended release 24 hr insulin lispro 100 unit/mL See Rx Instructions .Route 10/02/24 11/24/24 Rx subcutaneous pen (Humalog KwikPen .COMPLEX #45 mL (U-100) Insulin) duloxetine 30 mg capsule,delayed 0 mg PO HS 11/24/24 11/24/24 History release Past Med/Surg History Problem List (Updated 11/24/24 @ 15:25 by Joshua Coiban MD) Coronary artery disease Type 2 diabetes mellitus Acute respiratory failure with hypoxia Acute bronchitis Coronavirus infection Right knee DJD Periodic paralysis Hypersomnolence disorder, acute, severe Insomnia Ambulatory dysfunction (Acute) Generalized weakness (Acute) Generalized weakness Cervical myofascial pain syndrome CKD stage 3a, GFR 45-59 ml/min Polyneuropathy Cervical radiculopathy Ataxia (Acute) Diabetes mellitus, type II (Chronic) IDDM GERD (gastroesophageal reflux disease) (Chronic) Gastroparesis (Chronic) History of Helicobacter pylori infection (Chronic) Depression (Chronic) Irritable bowel syndrome (Chronic) Vitamin D deficiency (Chronic) Dyslipidemia (Chronic) S/P hysterectomy (Chronic) S/P cholecystectomy (Chronic) S/P colonoscopy (Chronic) H/O esophagogastroduodenoscopy (Chronic) CVA (cerebral vascular accident) (Acute) Visual disturbance of one eye (Acute) CAD (coronary artery disease) S/P ZAHRA to mid LAD 06/2016 Encounter for pre-operative examination Complication of cystostomy Ovarian mass, left Atypical chest pain (Acute) DVT prophylaxis Vulvar ulceration (Acute) Vitamin D insufficiency (Acute) Vaginitis (Acute) Urinary incontinence (Acute) SNHL (sensorineural hearing loss) (Acute) S/P drug eluting coronary stent placement (Acute) Pelvic mass in female (Acute) PAD (peripheral artery disease) (Acute) Ovarian cyst, complex (Acute) Herpes simplex type 1 infection (Acute) Genital herpes simplex (Acute) Fatigue (Acute) Episodic weakness (Acute) Epigastric pressure (Acute) Dyspareunia (Acute) Dysesthesia (Acute) Diabetic peripheral neuropathy (Chronic) Dermatitis of external ear (Acute) Controlled type 2 diabetes mellitus (Chronic) Bilateral leg pain (Acute) Benign familial tremor (Acute) Stented coronary artery Benign essential tremor Neuropathy Anxiety (Chronic) Closed fracture of right hip (Acute) Osteoporosis Seizure-like activity Syncope Encounter for pre-operative examination Epigastric pain Transient alteration of awareness Hypersomnia Altered awareness, transient Organic periodic limb movement disorder Essential tremor Seizure-like activity Medical History DVT prophylaxis Muscle cramps Iron deficiency Osteoarthritis GERD (gastroesophageal reflux disease) Hearing deficit Depression Transient ischemic attack (TIA) Hyperlipidemia Surgical History History of right hip replacement (~03/2020) S/P laparoscopic hysterectomy History of cholecystectomy History of laminectomy History of cardiac cath Family History Unknown Diabetes Mother Diabetes Tremor Sister Tremor Colorectal cancer Father Colorectal cancer Other No family history of adverse response to anesthesia Social History Smoking Status: Never smoker Second Hand Exposure: No; Do You Dip or Chew Tobacco: No; Hx Alcohol Use: No Hx Substance Use: No Preferred Language: Czech Communication Ability: Effective Visual Impairment: No Limitations Collaborative Teacher Required: No Beliefs That Will Affect Care: None Current Living Situation: Spouse Feels Safe at Home: Yes Assistive Devices: None Review of Systems 2 Review of Systems: Constitutionalno fever or chills ENTno blurred vision, no double vision, no epistaxis, no sore throat Respiratoryproductive cough of yellowish sputum. No hemoptysis. She does have some wheezing and shortness of breath. Cardiacno palpitations, no chest pain, no syncope Noah nausea, vomiting, diarrhea, melena, hematochezia GUno urinary retention, no urinary incontinence, no dysuria, no hematuria Musculoskeletalno joint pain, no muscle tenderness Skinno bruising, no rashes, no pruritus Neurono isolated weakness, no paresthesia. Generalized weakness Psychno depression, no anxiety Physical Exam 2 Physical Exam: General-alert and oriented x3, no fever, no chills HEENT-head atraumatic and normocephalic, pupils equal and reactive to light, extraocular muscles intact Neck-no lymphadenopathy or thyromegaly, trachea midline Chest-midline rhonchi. Bilateral and expiratory wheezes. No inspiratory rales. Cardiac-regular rate and rhythm, normal S1 and S2 Abdomen-normal bowel sounds, no hepatosplenomegaly Extremities-no cyanosis, clubbing, or edema Neuro-cranial nerves II through XII intact, motor and sensory function within normal limits, strength symmetrical, no focal deficits Psych-normal affect, normal mood Results & Data Results & Data Vital Signs (Past 12 Hours) Vital Signs Temp Pulse Pulse Resp BP BP Pulse Ox 11/24/24 15:13 73 16 129/67 96 11/24/24 12:54 75 16 94 11/24/24 11:57 80 19 139/64 95 11/24/24 11:36 80 11/24/24 10:58 36.2 C L 88 19 125/57 L 92 O2 Del Method O2 Flow Rate 11/24/24 15:13 Room Air 11/24/24 12:54 Nasal Cannula 2 11/24/24 11:57 Room Air 11/24/24 11:36 11/24/24 10:58 Room Air Laboratory Results 11/24/24 11:54 11/24/24 11:54 Code Status & VTE Plan Code Status Full code PG Care Time/CCT Total # of Minutes Spent Total Time Spent with Patient: Total time spent is greater than 50% in coordination of care (as documented) at patient's floor/unit and/or counseling patient: Coding Level of Care Code 85858 INT INP/OBS CARE 3/75MIN Diagnoses Coronavirus infection B34.2 Acute bronchitis J20.9 Acute respiratory failure with hypoxia J96.01 Type 2 diabetes mellitus E11.9 Coronary artery disease I25.10
[2024-11-24] MEDS ORDERED: NITROGLYCERIN SL 0.4 MG/TAB TAB SL PRN (17:47)
[2024-11-24] MEDS ORDERED: methylPREDNISolone 10 mg/mL (For Ped Dose < 7mg) IV SCH (17:47)
[2024-11-24] MEDS ORDERED: ACETAMINOPHEN 325 MG TAB PO PRN (17:47)
[2024-11-24] MEDS ORDERED: ONDANSETRON INJ 2 MG/ML 2 ML VIAL IV PRN (17:47)
--- NOTE | 2024-11-24 17:50 | Electrocardiogram Report ---
Test Reason : Blood Pressure : */* mmHG Vent. Rate : 78 BPM Atrial Rate : 78 BPM P-R Int : 130 ms QRS Dur : 64 ms QT Int : 358 ms P-R-T Axes : 28 33 15 degrees QTcB Int : 408 ms Normal sinus rhythm Normal ECG When compared with ECG of 01-Sep-2024 11:54, Nonspecific T wave abnormality no longer evident in Anterior leads Confirmed by Joe Quintero ([id number]) on 11/24/2024 5:50:03 PM Referred By: Confirmed By: Joe Quintero
[2024-11-24] MEDS: SODIUM CHLORIDE 0.9% 1,000 ML IV SCH (18:44)
[2024-11-24] MEDS: ALBUT/IPRATROP 3MG/0.5MG NEB 3 ML VIAL NEB SCH (20:10)
[2024-11-24] MEDS ORDERED: DEXTROSE 50% 50 ML SYRINGE IV PRN (20:32)
[2024-11-24] MEDS ORDERED: GLUCOSE 10 TAB/TUBE PO PRN (20:32)
[2024-11-24] MEDS ORDERED: GLUCOSE 40% GEL 15 GM TUBE PO PRN (20:32)
[2024-11-24] MEDS ORDERED: CARBOHYDRATES FOR HYPOGLYCEMIA PO PRN (20:32)
[2024-11-24] MEDS ORDERED: GLUCAGON FOR INJ 1 MG VIAL SQ PRN (20:32)
[2024-11-24] MEDS: ATORVASTATIN 40 MG TAB PO SCH (21:29)
[2024-11-24] MEDS: GABAPENTIN 300 MG CAP PO SCH (21:29)
[2024-11-24] MEDS: CYANOCOBALAMIN (B-12) 500 MCG TABLET PO SCH (21:29)
[2024-11-24] MEDS: FAMOTIDINE 40 MG TABLET PO SCH (21:29)
[2024-11-24] MEDS: CALCIUM 600MG + VIT D 400 IU TAB PO SCH (21:29)
[2024-11-24] MEDS: ASPIRIN 81 MG ECTAB PO SCH (21:30)
[2024-11-24] MEDS: HEPARIN SOD 5,000 UNIT/0.5 ML VIAL SQ SCH (21:30)
[2024-11-24] MEDS: INSULIN ASPART PER UNIT CHARGE SC SCH (21:31)
[2024-11-25 04:45] LABS: Appearance Urine Clear (Clear); Bacteria Urine Automated None Seen (None Seen); Cast Urine Automated 0-2 /lpf (0-2); Epithelial Cell Urine Auto 0-2 /hpf (0-2); Glucose Urine UA 3+ (Negative); RBC Urine Automated 0-2 /hpf (0-2)
[2024-11-25 07:11] LABS: Hematocrit (blood only) 42.4 % (37.0-47.0); Hemoglobin 13.9 g/dl (12.0-16.0); Immature Granulocytes # (auto) 0.03 K/uL (0.01-0.20); Immature Granulocytes % (auto) 0.4 %; Mean Corpuscular Hemoglobin 31.3 pg (25.0-34.0); Mean Corpuscular Volume 95.5 fL (80.0-100.0); Platelet Count 189 K/uL (130-400); RDW Standard Deviation 45.1 fL (36.4-46.3); Red Blood Count 4.44 M/uL (4.20-5.40); White Blood Count 8.03 K/ul (4.8-10.8)
[2024-11-25 07:41] LABS: Anion Gap 5.0 (3-11); Blood Urea Nitrogen 16.0 mg/dl (6-23); Calcium 9.3 mg/dl (8.6-10.3); Carbon Dioxide 29.0 mmol/L (21-32); Chloride 103.0 mmol/L (98-107); Creatinine Clr Calc Pharmacy 46.7 ml/min; Glucose 272.0 mg/dl (70-99(Fasting)); Potassium 5.0 mmol/L (3.5-5.1); Sodium 137.0 mmol/L (136-145)
[2024-11-25] MEDS: LANTUS PER UNIT CHARGE SQ SCH (09:35)
[2024-11-25] MEDS: ISOSORBIDE MONO EXTENDED REL 60 MG TABCR PO SCH (09:36)
[2024-11-25] MEDS: CHOLECALCIFEROL 25 MCG (1000 UNITS) TAB PO SCH (09:36)
[2024-11-25] MEDS: PYRIDOXINE HCL 50 MG TAB PO SCH (09:37)
[2024-11-25] MEDS: METOPROLOL SUCC 50MG EXT REL TAB PO SCH (09:38)
--- NOTE | 2024-11-25 12:58 | Hospitalist Progress Note ---
Date of Service November 25, 2024 Assessment & Plan (1) Coronavirus infection: Plan: Supportive care. She is feeling better with parenteral steroid therapy. IV fluids will be discontinued today, November 25.. Fortunately current coronavirus variants are not causing any viral pneumonia (2) Acute bronchitis: Plan: Purulent appearing phlegm. She may have a secondary bacterial infection. Currently on levofloxacin, day 2. Await final sputum culture results. Continue scheduled DuoNebs (3) Acute respiratory failure with hypoxia: Plan: Supplemental oxygen per nasal cannula to maintain saturation greater than 90%. Wean off as tolerated. She is only requiring 1 L of oxygen at this time (4) Type 2 diabetes mellitus: Plan: ADA diet. Sliding scale coverage. Basal insulin therapy (5) Coronary artery disease: Plan: Stable. Continue current medical management. Telemetry Plan Hopeful discharge to home in 2 to 3 days Admission and Anticipated Discharge Date Admission Date: November 24, 2024 Subjective Alert and oriented. She states she is feeling somewhat better. She complained of chest discomfort this morning, nonradiating and not associated with shortness of breath or diaphoresis. Repeat EKG is pending. She remains on parenteral steroid therapy. Glucose 272 this morning. She will start her usual basal insulin therapy this morning rather than at bedtime. OT and PT evaluations have been requested. She remains on Levaquin for suspected secondary bronchitis. Blood cultures remain negative to date. Review of Systems 2 Review of Systems: Constitutionalno fever or chills ENTno blurred vision, no double vision, no epistaxis, no sore throat Respiratoryproductive cough of yellowish sputum. No hemoptysis. She does have some wheezing and shortness of breath. Cardiacno palpitations, no chest pain, no syncope Noah nausea, vomiting, diarrhea, melena, hematochezia GUno urinary retention, no urinary incontinence, no dysuria, no hematuria Musculoskeletalno joint pain, no muscle tenderness Skinno bruising, no rashes, no pruritus Neurono isolated weakness, no paresthesia. Generalized weakness Psychno depression, no anxiety Physical Exam 2 Physical Exam: General-alert and oriented x3, no fever, no chills HEENT-head atraumatic and normocephalic, pupils equal and reactive to light, extraocular muscles intact Neck-no lymphadenopathy or thyromegaly, trachea midline Chest-midline rhonchi. Bilateral and expiratory wheezes. No inspiratory rales. Cardiac-regular rate and rhythm, normal S1 and S2 Abdomen-normal bowel sounds, no hepatosplenomegaly Extremities-no cyanosis, clubbing, or edema Neuro-cranial nerves II through XII intact, motor and sensory function within normal limits, strength symmetrical, no focal deficits Psych-normal affect, normal mood Results & Data Results & Data Vital Signs (Past 12 Hours) Vital Signs Temp Pulse Pulse Resp BP BP Pulse Ox 11/25/24 12:36 36.4 C L 84 18 116/61 95 11/25/24 10:45 96 H 16 95 11/25/24 09:02 36.5 C 104 H 18 130/55 L 93 11/25/24 07:32 84 16 97 11/25/24 05:43 71 11/25/24 04:04 36.7 C 72 16 111/63 97 O2 Del Method O2 Flow Rate 11/25/24 12:36 Nasal Cannula 2 11/25/24 10:45 Room Air 11/25/24 09:02 Room Air 11/25/24 07:32 Nasal Cannula 0.5 11/25/24 05:43 11/25/24 04:04 Nasal Cannula 2 Laboratory Results 11/25/24 06:32 11/25/24 06:32 PG Care Time/CCT Total # of Minutes Spent Total Time Spent with Patient: Total time spent is greater than 50% in coordination of care (as documented) at patient's floor/unit and/or counseling patient: Coding Level of Care Code 07175 SUB INP/OBS CARE 2/35MIN Diagnoses Coronavirus infection B34.2 Acute bronchitis J20.9 Acute respiratory failure with hypoxia J96.01 Type 2 diabetes mellitus E11.9 Coronary artery disease I25.10
[2024-11-25] MEDS ORDERED: ALBUT/IPRATROP 3MG/0.5MG NEB 3 ML VIAL NEB PRN (13:19)
[2024-11-26 06:21] LABS: Hematocrit (blood only) 37.2 % (37.0-47.0); Hemoglobin 12.8 g/dl (12.0-16.0); Immature Granulocytes # (auto) 0.15 K/uL (0.01-0.20); Immature Granulocytes % (auto) 0.8 %; Mean Corpuscular Hemoglobin 32.6 pg (25.0-34.0); Mean Corpuscular Volume 94.7 fL (80.0-100.0); Platelet Count 191 K/uL (130-400); RDW Standard Deviation 45.1 fL (36.4-46.3); Red Blood Count 3.93 M/uL (4.20-5.40); White Blood Count 18.94 K/ul (4.8-10.8)
[2024-11-26 06:41] LABS: Anion Gap 3.0 (3-11); Blood Urea Nitrogen 23.0 mg/dl (6-23); Calcium 9.4 mg/dl (8.6-10.3); Carbon Dioxide 32.0 mmol/L (21-32); Chloride 104.0 mmol/L (98-107); Creatinine Clr Calc Pharmacy 52.4 ml/min; Glucose 282.0 mg/dl (70-99(Fasting)); Potassium 5.2 mmol/L (3.5-5.1); Sodium 139.0 mmol/L (136-145)
[2024-11-26] MEDS: LANTUS PER UNIT CHARGE SQ SCH (10:22)
--- NOTE | 2024-11-26 10:39 | Electrocardiogram Report ---
Test Reason : Blood Pressure : */* mmHG Vent. Rate : 77 BPM Atrial Rate : 77 BPM P-R Int : 146 ms QRS Dur : 70 ms QT Int : 382 ms P-R-T Axes : 58 18 20 degrees QTcB Int : 432 ms Normal sinus rhythm Normal ECG When compared with ECG of 24-Nov-2024 11:46, No significant change was found Confirmed by Joseph Aguero ([id number]) on 11/26/2024 10:39:42 AM Referred By: REFERRED SELF Confirmed By: Joseph Aguero
[2024-11-26] MEDS: INSULIN ASPART PER UNIT CHARGE SC STA (12:34)
--- NOTE | 2024-11-26 13:56 | Hospitalist Progress Note ---
Date of Service November 26, 2024 Assessment & Plan (1) Coronavirus infection: Plan: Supportive care. She is feeling better with parenteral steroid therapy which was tapered down to every 12 hour dosing today, November 26, due to hyperglycemia. IV fluids have been discontinued. Fortunately current coronavirus variants are not causing any viral pneumonia (2) Acute bronchitis: Plan: Purulent appearing phlegm. She may have a secondary bacterial infection. Currently on levofloxacin, day 3. Await final sputum culture results. Continue scheduled DuoNebs (3) Acute respiratory failure with hypoxia: Plan: Supplemental oxygen per nasal cannula to maintain saturation greater than 90%. Wean off as tolerated. Incentive spirometry ordered. No overt viral pneumonia seen on chest x-ray (4) Type 2 diabetes mellitus: Plan: ADA diet. Sliding scale coverage. Basal insulin therapy uptitrated today, November 26, to twice daily dosing due to steroid-induced hyperglycemia (5) Coronary artery disease: Plan: Stable. Continue current medical management. Telemetry Plan Hopeful discharge to home in 1-2 days Admission and Anticipated Discharge Date Admission Date: November 24, 2024 Subjective Feeling better but still not ready for discharge yet. Hyperglycemia due to parenteral steroid therapy. Lantus increased to twice daily dosage and Solu- Medrol cut down to every 12 hour dosing. Potassium is mildly elevated but she is on no oral potassium supplement, not taking JJ inhibitor or ARB. Will follow. She remains on low-flow supplemental oxygen which will eventually be weaned off. Incentive spirometry ordered Review of Systems 2 Review of Systems: Constitutionalno fever or chills ENTno blurred vision, no double vision, no epistaxis, no sore throat Respiratoryproductive cough of yellowish sputum. No hemoptysis. She does have some wheezing and shortness of breath. Cardiacno palpitations, no chest pain, no syncope Noah nausea, vomiting, diarrhea, melena, hematochezia GUno urinary retention, no urinary incontinence, no dysuria, no hematuria Musculoskeletalno joint pain, no muscle tenderness Skinno bruising, no rashes, no pruritus Neurono isolated weakness, no paresthesia. Generalized weakness Psychno depression, no anxiety Physical Exam 2 Physical Exam: General-alert and oriented x3, no fever, no chills HEENT-head atraumatic and normocephalic, pupils equal and reactive to light, extraocular muscles intact Neck-no lymphadenopathy or thyromegaly, trachea midline Chest-midline rhonchi. Bilateral and expiratory wheezes. No inspiratory rales. Cardiac-regular rate and rhythm, normal S1 and S2 Abdomen-normal bowel sounds, no hepatosplenomegaly Extremities-no cyanosis, clubbing, or edema Neuro-cranial nerves II through XII intact, motor and sensory function within normal limits, strength symmetrical, no focal deficits Psych-normal affect, normal mood Results & Data Results & Data Vital Signs (Past 12 Hours) Vital Signs Temp Pulse Pulse Resp BP BP Pulse Ox 11/26/24 12:40 11/26/24 11:33 36.6 C 67 16 117/52 L 95 11/26/24 08:15 36.7 C 67 16 97/55 L 93 11/26/24 05:00 75 11/26/24 02:33 36.5 C 66 16 108/45 L 96 O2 Del Method O2 Flow Rate 11/26/24 12:40 Nasal Cannula 2 11/26/24 11:33 Nasal Cannula 2 11/26/24 08:15 Room Air 11/26/24 05:00 11/26/24 02:33 Nasal Cannula 2 Laboratory Results 11/26/24 05:47 11/26/24 05:47 PG Care Time/CCT Total # of Minutes Spent Total Time Spent with Patient: Total time spent is greater than 50% in coordination of care (as documented) at patient's floor/unit and/or counseling patient: Coding Level of Care Code 70980 SUB INP/OBS CARE 3/50MIN Diagnoses Coronavirus infection B34.2 Acute bronchitis J20.9 Acute respiratory failure with hypoxia J96.01 Type 2 diabetes mellitus E11.9 Coronary artery disease I25.10
[2024-11-27 07:27] LABS: Hematocrit (blood only) 38.2 % (37.0-47.0); Hemoglobin 12.7 g/dl (12.0-16.0); Immature Granulocytes # (auto) 0.09 K/uL (0.01-0.20); Immature Granulocytes % (auto) 0.6 %; Mean Corpuscular Hemoglobin 31.1 pg (25.0-34.0); Mean Corpuscular Volume 93.6 fL (80.0-100.0); Platelet Count 191 K/uL (130-400); RDW Standard Deviation 45.1 fL (36.4-46.3); Red Blood Count 4.08 M/uL (4.20-5.40); White Blood Count 15.73 K/ul (4.8-10.8)
[2024-11-27 07:38] LABS: Anion Gap 2.0 (3-11); Blood Urea Nitrogen 26.0 mg/dl (6-23); Calcium 9.3 mg/dl (8.6-10.3); Carbon Dioxide 33.0 mmol/L (21-32); Chloride 103.0 mmol/L (98-107); Creatinine Clr Calc Pharmacy 53.7 ml/min; Glucose 254.0 mg/dl (70-99(Fasting)); Potassium 4.1 mmol/L (3.5-5.1); Sodium 138.0 mmol/L (136-145)
[2024-11-27 08:22] VITALS: BP 111/52; PULSE 63; RESP 17; TEMP 97.9; O2SAT 92
--- NOTE | 2024-11-27 11:25 | Discharge Summary ---
Discharge Summary Date of Service November 27, 2024 Principal Dx & Hospital Course #1 = Principal Diagnosis (1) COVID-19: (2) Coronavirus infection: (3) Acute respiratory failure with hypoxia: (4) Acute bronchitis: (5) Type 2 diabetes mellitus: (6) Coronary artery disease: Plan 79-year-old woman with past medical history of T2DM, CKD, CAD, PAD, hyperlipidemia, TIA, depression, GERD, osteoarthritis, iron deficiency. She pr esented to the ED with shortness of breath, cough, generalized weakness x 2 weeks. She was prescribed a course of prednisone, doxycycline, Tessalon Perles outpatient with little improvement. She tested positive for COVID on admission and had mild hypoxemia requiring supplemental O2. Her CXR was negative for pneumonia. She was weaned off O2 throughout her hospital stay and was stable on room air on discharge. #COVID-19 | Acute respiratory failure with hypoxia | Acute bronchitis - Treated with IV methylprednisolone and DuoNebs while hospitalized. Transitioned to dexamethasone 6 mg p.o. daily x 5 additional days on discharge - Initially required supplemental O2 via nasal cannula to maintain O2 sat > 90%. Now stable on room air. Continue to use incentive spirometer - Leukocytosis likely secondary to steroid use. Afebrile. No pneumonia seen on CXR. Was empirically treated with 1 dose of levofloxacin to cover for secondary bacterial infection however this was discontinued due to low suspicion for acute bacterial infection. Previously had significant cough with sputum production prior to admission, however this is now resolved with only mild intermittent dry cough persisting. Sputum culture was ordered however no sputum produced while admitted for culture to be obtained #T2DM - most recent A1c 7.8% in July 2024 - Blood sugars elevated throughout admission secondary to steroid-induced hyperglycemia - Patient is compliant, educated, and comfortable with SSI at home. Discussed SSI while on steroid therapy prior to discharge. Anticipate blood sugar will improve/normalize after completion of steroid course #CADcontinue aspirin, atorvastatin, isosorbide mononitrate, metoprolol #GERDcontinue pantoprazole #Vitamin deficienciescontinue pyridoxine, cyanocobalamin, cholecalciferol, calcium VTE PPx: Heparin Dispo: Discharged home 11/27 Notes For Next Care Provider Monitor blood sugar levels while completing steroid course Medication Changes From Visit Dexamethasone 6 mg daily x 5 days Admission HPI Per Admitting Provider 79-year-old white female who has been weak and ill with a viral illness for several days. She has shortness of breath and mild hypoxia on room air. She also has developed a productive cough with yellowish sputum. She was seen in the ED. Chest x-ray is negative for any signs of pneumonia but she did test positive for coronavirus. She is acutely ill and requiring oxygen at 2 L/min to maintain saturation greater than 90%. She will be admitted for further evaluation and treatment. She denies any hemoptysis, chest pain, palpitations Discharge Exam General: No acute distress, nondiaphoretic, well-developed, well-nourished. Skin: Warm, dry. No rashes or peripheral edema noted. Cardiac: Regular rate and rhythm without murmurs gallops or rubs. Pulm: Clear to auscultation bilaterally without wheezes, rales or rhonchi. Normal respiratory effort. No cough noted. 96% on room air. Abdominal: Soft, nondistended. Mild tenderness to palpation in epigastrium. Bowel sounds present. Neuro: A&O x3. No focal neurological deficits. Discharge Plan Discharge Items Patient Disposition: Home - Self-Care Reason For Visit: VIRAL ILLNESS, HYPOXIA Discharge Diagnosis: COVID Condition on Discharge: Fair Activity: Resume your previous activity Non-emergency contact: Primary Care Provider Call non-emergency contact if: you have any medication questions, your symptoms worsen and you have a fever Follow-up/Referrals: Kishor Galeas, [Primary Care Provider] - (PLEASE CALL YOUR PRIMARY CARE PROVIDER TO SCHEDULE A HOSPITAL FOLLOW-UP APPOINTMENT WITHIN 7-10 DAYS) Diet: Carb Consistent or DM2 Addtl Attending Provider Instructions: Talia, You were admitted to the hospital due to COVID. You initially required supplemental oxygen to maintain your oxygen saturation, however luckily you were able to be weaned off supplemental oxygen and are now remaining stable on room air. You were treated with IV steroids while in the hospital, and will continue taking oral steroids for a few days at home to complete your steroid course. Fortunately, your chest x-ray did not show any pneumonia. Your blood sugar has been elevatedthis is from steroids. Continue to keep a close eye on your blood sugar while taking steroids. Now that you are on a lower dose of steroids compared to when you were in the hospital, anticipate your blood sugar levels will not be quite as high at home. Upon discharge from the hospital: * Take dexamethasone (oral steroid) once daily x 5 days. Start this medication today (11/27/24) when you pick it up from the pharmacy. Side effects of oral steroids include elevated blood sugar, difficulty sleeping, restlessness, swelling in your feet/ankles/face, increased appetite. Taking oral steroids with food can help GI upset including stomach irritation, nausea, indigestion. * Monitor your blood sugar and continue to use your sliding scale insulin at home. * Continue to use your incentive spirometer at home. * You can take Mucinex (available [id number]) as needed for cough/congestion. * You can take Tylenol as needed for fever/body aches. * Continue your other home medications as prescribed. There were no changes made to your usual home medications. * Please follow-up with your PCP in 1-2 weeks. Please return to the hospital if you experience any of the following: Difficulty breathing, chest pain, heart palpitations, lightheadedness, passing out, confusion, persistent nausea with vomiting, or any other symptoms concerning for you. It was a pleasure taking care of you while you were in the hospital! Pending Studies at Discharge: No Stand-Alone Forms: My [facility] [employer], Smoking Cessation Medications and DC Order Prescriptions: New dexamethasone 6 mg tablet 6 mg PO DAILY Qty: 5 0RF Continued nitroglycerin [Nitrostat] 0.4 mg tablet, sublingual 0.4 mg Sublingual UD PRN (Reason: Chest Pain) Qty: 25 3RF Rx Instructions: 0.4 mg Sublingual VERY 5 MINUTES FOR UP TO 3 DOSES PRN FOR CHEST PAIN. CALL 911 IF PAIN PERSISTS; (DME) pen needle, diabetic [BD Ultra-Fine Marah Pen Needle] 32 gauge x 5/32" needle See Rx Instructions .ROUTE .MEDSUPPLY Qty: 400 3RF Rx Instructions: use 4 needles daily gabapentin 300 mg capsule 600 mg PO QID Qty: 720 3RF isosorbide mononitrate 120 mg tablet extended release 24 hr 120 mg PO QAM Qty: 90 3RF (DME) Dexcom G7 Sensor Device See Rx Instructions .Route Qty: 9 3RF Rx Instructions: change sensor Q19D insulin lispro [Humalog KwikPen Insulin] 100 unit/mL insulin pen See Rx Instructions .ROUTE .COMPLEX Qty: 45 3RF Rx Instructions: Inject 14 units breakfast and dinner, 7 units with lunch, plus sliding scale; TDD 40 units a day calcium carbonate-vitamin D3 500 mg(1,250mg) -400 unit tablet,chewable 1 tab PO BID Rx Instructions: Unable to verify otc meds at this date/time. 11/24/24 cholecalciferol (vitamin D3) 2,000 unit capsule 2,000 units PO QAM Patient Comments: Unable to verify otc meds at this date/time. 11/24/24 cyanocobalamin (vitamin B-12) 1,000 mcg tablet 1,000 mcg PO BID Qty: 60 Patient Comments: Unable to verify otc meds at this date/time. 11/24/24 pantoprazole 40 mg tablet,delayed release (DR/EC) 40 mg PO QAM pyridoxine (vitamin B6) [Vitamin B-6] 50 mg Tablet 50 mg PO QAM Patient Comments: Unable to verify otc meds at this date/time. 11/24/24 atorvastatin 40 mg tablet 40 mg PO HS aspirin 81 mg Tablet,Delayed Release (Dr/Ec) 81 mg PO QPM Patient Comments: Unable to verify otc meds at this date/time. 11/24/24 metoprolol succinate 25 mg tablet extended release 24 hr 0 mg PO QAM Patient Comments: Last filled 07/2024 x90 day supply. Original Directions: 25mg by mouth once daily. 11/24/24 insulin glargine [Lantus Solostar U-100 Insulin] 100 unit/mL (3 mL) insulin pen 11 unit SQ HS duloxetine 30 mg capsule,delayed release(DR/EC) 0 mg PO HS Patient Comments: Last filled 03/2024 x90 day supply. Original Directions: 30mg by mouth once daily. 11/24/24 famotidine 40 mg tablet 40 mg PO QPM Discharge Orders: Discharge Order (Routine); Ordered 11/27/24 Ordered By: Cesilia Barragan/Other Patient Handouts: COVID-19 Home Care, Managing Type 2 Diabetes Admission Data Admit Date/Time: 11/24/24 15:08 Attending Provider: Marcia Delgado Admit Provider: Joshua Cobian Primary Care Provider: Kishor Galeas Other Providers: Joshua Cobian Other Interventions: Discharge Summary Assessment (RN) Last Done: 11/27/24 11:15 Hospital Stay Data Consultations 11/24/24 14:24 ED Decision to Admit Stat Pending Results Patient Have Any Pending Studies at Discharge: No Discharge Instructions Given to Patient (Per Discharging Provider) Talia, You were admitted to the hospital due to COVID. You initially required supplemental oxygen to maintain your oxygen saturation, however luckily you were able to be weaned off supplemental oxygen and are now remaining stable on room air. You were treated with IV steroids while in the hospital, and will continue taking oral steroids for a few days at home to complete your steroid course. Fortunately, your chest x-ray did not show any pneumonia. Your blood sugar has been elevatedthis is from steroids. Continue to keep a close eye on your blood sugar while taking steroids. Now that you are on a lower dose of steroids compared to when you were in the hospital, anticipate your blood sugar levels will not be quite as high at home. Upon discharge from the hospital: * Take dexamethasone (oral steroid) once daily x 5 days. Start this medication today (11/27/24) when you pick it up from the pharmacy. Side effects of oral steroids include elevated blood sugar, difficulty sleeping, restlessness, swelling in your feet/ankles/face, increased appetite. Taking oral steroids with food can help GI upset including stomach irritation, nausea, indigestion. * Monitor your blood sugar and continue to use your sliding scale insulin at home. * Continue to use your incentive spirometer at home. * You can take Mucinex (available [id number]) as needed for cough/congestion. * You can take Tylenol as needed for fever/body aches. * Continue your other home medications as prescribed. There were no changes made to your usual home medications. * Please follow-up with your PCP in 1-2 weeks. Please return to the hospital if you experience any of the following: Difficulty breathing, chest pain, heart palpitations, lightheadedness, passing out, confusion, persistent nausea with vomiting, or any other symptoms concerning for you. It was a pleasure taking care of you while you were in the hospital! Supervising Physician Co-Signing Physician Notes KEELY Supervision Note: I did not personally see or examine the patient today, but I verified all kuo points of KEELY Sanders's assessment and plan with the following exceptions/additions: None Total Time Total Time Spent Total Time Spent (In Minutes): Greater than 30 minutes spent completing this discharge process including direct patient care, medication reconciliation, documentation, review of labs and images, and coordination of care. Coding Level of Care Code 15010 INP/OBS DISCH >30 MIN Diagnoses COVID-19 U07.1 Coronavirus infection B34.2 Acute respiratory failure with hypoxia J96.01 Acute bronchitis J20.9 Type 2 diabetes mellitus E11.9 Coronary artery disease I25.10
== END 2024-11-27 13:19 | disposition home or self-care (01) | DRG 177 ==
LOC: SUATTDRO → ED 10:57 → 2N 15:08 → SUATTDRO 15:08 → 2N 16:48

== ENCOUNTER 2025-01-14 13:51 | Observation (INO) ==
[2025-01-14 14:41] LABS: Appearance Urine Clear (Clear); Bacteria Urine Automated None Seen (None Seen); Cast Urine Automated 0-2 /lpf (0-2); Glucose Urine UA Negative (Negative); Hematocrit (blood only) 40.5 % (37.0-47.0); Hemoglobin 14.0 g/dl (12.0-16.0); Immature Granulocytes # (auto) 0.02 K/uL (0.01-0.20); Immature Granulocytes % (auto) 0.3 %; Mean Corpuscular Hemoglobin 32.9 pg (25.0-34.0); Mean Corpuscular Volume 95.1 fL (80.0-100.0); Platelet Count 205 K/uL (130-400); RBC Urine Automated 0-2 /hpf (0-2); RDW Standard Deviation 46.4 fL (36.4-46.3); Red Blood Count 4.26 M/uL (4.20-5.40); White Blood Count 7.77 K/ul (4.8-10.8)
--- NOTE | 2025-01-14 14:46 | Emergency Department Note ---
Impression & Plan Acute diverticulitis, Hypoxia, Blood glucose elevated ED Provider Note NAME: URIEL BOLAND AGE: 79 SEX: F : 1945 ARRIVES VIA: Walk-In INFORMANT: Patient ED PROVIDER(S): Tone Loco DO CHIEF COMPLAINT: Abdominal pain HPI: Patient is an 79-year-old female with a past medical history of diabetes, CAD, CKD, ataxia who presents to the ER for periumbilical/right upper quadrant abdominal pain. She denies any vomiting or diarrhea. She notes the pain started yesterday suddenly and has been constant since then. She notes she feels diffusely distended throughout her belly. She did eat just prior to coming in did not change the pain. Does have a history of a cholecystectomy previously. No chest pain or shortness of breath. No other exacerbating or remitting factors. ADDITIONAL HISTORY OBTAINED: Per HPI Chronic Medical/Social Conditions Affecting Care: Per HPI PAST MEDICAL HISTORY:See Below PAST SURGICAL HISTORY:See Below FAMILY HISTORY:See Below SOCIAL HISTORY:See Below HOME MEDICATIONS:See Below ALLERGIES:See Below VITALS:See Below PHYSICAL EXAMINATION: GENERAL: Sitting up in bed, alert, well appearing, well nourished, no distress, non-toxic EYE EXAM: normal conjunctiva. OROPHARYNX: mucous membranes are moist LUNGS: Clear to auscultation. Normal chest wall mechanics HEART: no murmurs, S1 normal and S2 normal ABDOMEN: Abdomen is firm throughout the supraumbilical region with diffuse tenderness. No tenderness in the lower abdomen.+BS BACK: Back is symmetrical on inspection and there is no deformity, no midline tenderness, no CVA tenderness. SKIN: no rashes and no bruising UPPER EXTREMITIES: upper extremities are grossly normal. LOWER EXTREMITIES: No pitting edema. NEURO EXAM: Normal sensorium, cranial nerves II-XII grossly intact, normal speech, no gross weakness of arms, no gross weakness of legs. MEDICAL DECISION MAKING: Patient is an 79 who presents ER for the above-stated complaint. IV was established and blood work was obtained. Upon arrival she was found to be hypoxic at 86%. Labs show no significant leukocytosis or anemia. BMP along with LFTs bilirubin and troponin was negative. Lipase was normal. UA was contaminated with epithelial cells. No urinary symptoms. CT abdomen pelvis confirms acute diverticulitis. She was ordered Flagyl and Rocephin. With the hypoxia chest x-ray EKG were obtained. Chest x-ray was clean. She does note that she was recently admitted for COVID and on oxygen for this but discharged without oxygen. Discussed with the hospitalist for further evaluation management and treatment. Consults/Care Managements Discussions: Per MDM Triage Nursing notes reviewed. Limited review of prior medical records performed Vital Signs: reviewed and remarkable for HTN Differential diagnosis: Differential diagnoses includes but is not limited to gastritis, peptic ulcer disease, GERD, gallbladder disease, pancreatitis, small bowel obstruction, appendicitis, diverticulitis, hernia, urinary tract infection, torsion, perforation, trauma, infectious. ER treatment provided: See below Diagnostics interpreted by me include EKG and cardiac monitoring as listed below: -Cardiac Monitoring: An order was placed for continuous cardiac monitoring. The monitor shows a rate of 92 with sinus rhythm. -ECG: none -Laboratory studies:Interpreted by me as stated above in MDM and shown below. Imaging studies: Xrays: As interpreted by me: Portable AP upright 1 view of the chest shows no focal infiltrate CTs show: CT abdomen pelvis shows acute diverticulitis Procedures:none Critical Care: I have personally spent 35 minutes of critical care time in the direct management of this patient. This includes bedside care, interpretation of diagnostic studies, and testing, discussion with consultants, patient, and family members, and other required patient management activities. This 35 minutes is in excess of all separately billable procedures. Past Med/Surg History Problem List (Updated 01/14/25 @ 21:17 by Tone Loco DO) Blood glucose elevated (Acute) Hypoxia (Acute) Acute diverticulitis (Acute) Coronary artery disease Type 2 diabetes mellitus Right knee DJD Periodic paralysis Hypersomnolence disorder, acute, severe Insomnia Cervical myofascial pain syndrome CKD stage 3a, GFR 45-59 ml/min Polyneuropathy Cervical radiculopathy Ataxia (Acute) Diabetes mellitus, type II (Chronic) IDDM GERD (gastroesophageal reflux disease) (Chronic) Gastroparesis (Chronic) History of Helicobacter pylori infection (Chronic) Depression (Chronic) Irritable bowel syndrome (Chronic) Vitamin D deficiency (Chronic) Dyslipidemia (Chronic) S/P hysterectomy (Chronic) S/P cholecystectomy (Chronic) S/P colonoscopy (Chronic) H/O esophagogastroduodenoscopy (Chronic) Visual disturbance of one eye (Acute) CAD (coronary artery disease) S/P ZAHRA to mid LAD 06/2016 Complication of cystostomy Ovarian mass, left Atypical chest pain (Acute) Vulvar ulceration (Acute) Vitamin D insufficiency (Acute) Urinary incontinence (Acute) SNHL (sensorineural hearing loss) (Acute) S/P drug eluting coronary stent placement (Acute) PAD (peripheral artery disease) (Acute) Ovarian cyst, complex (Acute) Herpes simplex type 1 infection (Acute) Genital herpes simplex (Acute) Episodic weakness (Acute) Dyspareunia (Acute) Dysesthesia (Acute) Diabetic peripheral neuropathy (Chronic) Controlled type 2 diabetes mellitus (Chronic) Bilateral leg pain (Acute) Benign familial tremor (Acute) Stented coronary artery Benign essential tremor Closed fracture of right hip (Acute) Osteoporosis Seizure-like activity Syncope Organic periodic limb movement disorder Essential tremor Seizure-like activity Medical History (Updated 01/14/25 @ 21:17 by Tone Loco DO) CVA (cerebral vascular accident) DVT prophylaxis Muscle cramps Iron deficiency Osteoarthritis GERD (gastroesophageal reflux disease) Hearing deficit Depression Transient ischemic attack (TIA) 5 YEARS AGO - NO ISSUES SINCE - FOLLOWS W/ DR. SUTHERLAND Hyperlipidemia Surgical History (Updated 12/17/24 @ 00:07 by Marcos Lara) History of right hip replacement (~03/2020) S/P laparoscopic hysterectomy with BSO History of cholecystectomy History of laminectomy LUMBAR History of cardiac cath 06/2016 - [facility] - INCREASED SOB, ABN STRESS TEST - 1 STENT PLACED - FOLLOWS W/ DR. BULLOCK. Family History Unknown Diabetes Mother Diabetes Tremor Sister Tremor Colorectal cancer Father Colorectal cancer Other No family history of adverse response to anesthesia Social History Smoking Status: Never smoker Second Hand Exposure: No; Do You Dip or Chew Tobacco: No; Hx Alcohol Use: No Hx Substance Use: No Preferred Language: Eritrean Communication Ability: Effective Visual Impairment: No Limitations Par[employer] Required: No Beliefs That Will Affect Care: None Current Living Situation: Significant Other Feels Safe at Home: Yes Assistive Devices: None Allergies Allergies Allergy/AdvReac Type Severity Reaction Status Date / Time amoxicillin Allergy Severe Hives Verified 12/19/24 13:19 metoclopramide AdvReac Severe SEVERE Verified 12/19/24 13:19 WEAKNESS/DIZZINESS primidone AdvReac Severe Lethargy Verified 12/19/24 13:19 rosuvastatin AdvReac Intermediate muscle Verified 12/19/24 13:19 cramping metformin AdvReac Mild NAUSEA Verified 12/19/24 13:19 Home Meds Home Medications Medication Instructions Recorded Confirmed calcium 500 mg (as carbonate)-vit 1 tab PO BID 10/21/18 12/19/24 D3 10 mcg (400 unit) chewable tablet cholecalciferol (vitamin D3) 50 2,000 units PO QAM 10/21/18 12/19/24 mcg (2,000 unit) capsule pantoprazole 40 mg tablet,delayed 40 mg PO QAM 10/21/18 12/19/24 release cyanocobalamin (vitamin B-12) 1,000 mcg PO BID #60 tabs 09/04/19 12/19/24 1,000 mcg tablet pyridoxine (vitamin B6) 50 mg 50 mg PO QAM 12/18/19 12/19/24 tablet (Vitamin B-6) famotidine 40 mg tablet 40 mg PO QPM 01/27/24 12/19/24 aspirin 81 mg tablet,delayed 81 mg PO QPM 06/26/24 12/19/24 release atorvastatin 40 mg tablet 40 mg PO HS 06/26/24 12/19/24 insulin glargine 100 unit/mL (3 11 unit subcut HS 06/26/24 12/19/24 mL) subcutaneous pen (Lantus Solostar U-100 Insulin) metoprolol succinate 25 mg 0 mg PO QAM 06/26/24 12/19/24 tablet,extended release 24 hr duloxetine 30 mg capsule,delayed 0 mg PO HS 11/24/24 12/19/24 release Previous Rx's Medication Instructions Recorded nitroglycerin 0.4 mg sublingual 0.4 mg sublingual UD PRN Chest 07/28/21 tablet (Nitrostat) Pain #25 tabs BD Ultra-Fine Marah Pen Needle 32 #400 ea 12/13/23 gauge x 5/32" (pen needle, diabetic) gabapentin 300 mg capsule 600 mg (2 x 300 mg) PO QID #720 03/20/24 caps blood-glucose sensor (Dexcom G7 #9 ea 06/20/24 Sensor device) insulin lispro 100 unit/mL See Rx Instructions .Route 10/02/24 subcutaneous pen (Humalog KwikPen .COMPLEX #45 mL (U-100) Insulin) Results & Data (ED) Vital Signs Vital Signs - 24 hr 01/14/25 14:04 01/14/25 15:00 01/14/25 15:10 Temperature 36.8 C Temperature Source Temporal Artery Scan Pulse Rate 98 H 86 90 Pulse Rate [Apical] Respiratory Rate 18 18 Respiratory Effort / Characteristics Non-Labored Spontaneous Respiratory Depth Normal Blood Pressure 108/58 L 131/55 L Blood Pressure [Right Arm] Blood Pressure Mean 74 87 Blood Pressure Mean [Right Arm] Blood Pressure Position Sitting Pulse Oximetry 91 Oxygen Delivery Method Room Air Oxygen Flow Rate Sepsis Recent Fever Within 48 Hours No Sepsis New/Unexplained Change in Mental Status No Sepsis Action Taken by Nursing No Action Required Oxygen Flow Rate - Titration Pulse Oximetry Post Tiitration 01/14/25 16:24 01/14/25 16:28 01/14/25 18:00 Temperature Temperature Source Pulse Rate Pulse Rate [Apical] 82 79 Respiratory Rate 16 18 Respiratory Effort / Characteristics Respiratory Depth Blood Pressure Blood Pressure [Right Arm] 100/63 131/56 L Blood Pressure Mean Blood Pressure Mean [Right Arm] 75 81 Blood Pressure Position Pulse Oximetry 87 L 97 97 Oxygen Delivery Method Nasal Cannula Nasal Cannula Nasal Cannula Oxygen Flow Rate 0 2 2 Sepsis Recent Fever Within 48 Hours Sepsis New/Unexplained Change in Mental Status Sepsis Action Taken by Nursing Oxygen Flow Rate - Titration 2 Pulse Oximetry Post Tiitration 96 01/14/25 18:46 01/14/25 19:00 01/14/25 21:03 Temperature Temperature Source Pulse Rate 86 77 Pulse Rate [Apical] 77 Respiratory Rate 16 16 Respiratory Effort / Characteristics Respiratory Depth Blood Pressure 141/73 H Blood Pressure [Right Arm] Blood Pressure Mean Blood Pressure Mean [Right Arm] Blood Pressure Position Pulse Oximetry 97 98 Oxygen Delivery Method Room Air Nasal Cannula Oxygen Flow Rate 2 Sepsis Recent Fever Within 48 Hours Sepsis New/Unexplained Change in Mental Status Sepsis Action Taken by Nursing Oxygen Flow Rate - Titration Pulse Oximetry Post Tiitration Laboratory Data 01/14/25 14:30 01/14/25 14:30 Lab Results 01/14/25 01/14/25 Range/Units 14:30 20:08 WBC 7.77 (4.8-10.8) K/ul RBC 4.26 (4.20-5.40) M/uL Hgb 14.0 (12.0-16.0) g/dl Hct 40.5 (37.0-47.0) % MCV 95.1 (80.0-100.0) fL MCH 32.9 (25.0-34.0) pg MCHC 34.6 (32.0-36.0) g/dL RDW Std Deviation 46.4 H (36.4-46.3) fL RDW Coeff of Jazmine 13.2 (11.5-14.5) % Plt Count 205 (130-400) K/uL MPV 9.6 (9.4-12.4) fL Immature Gran % (Auto) 0.3 % Neut % (Auto) 67.5 % Lymph % (Auto) 19.7 % Davis % (Auto) 9.1 % Eos % (Auto) 2.6 % Baso % (Auto) 0.8 % Neut # (Auto) 5.25 (1.40-6.50) K/uL Lymph # (Auto) 1.53 (1.20-3.40) K/uL Davis # (Auto) 0.71 H (0.11-0.59) K/uL Eos # (Auto) 0.20 (0.00-0.50) K/uL Baso # (Auto) 0.06 (0.00-0.20) K/uL Immature Gran # (Auto) 0.02 (0.01-0.20) K/uL Sodium 139 (136-145) mmol/L Potassium 3.8 (3.5-5.1) mmol/L Chloride 101 (98-107) mmol/L Carbon Dioxide 32 (21-32) mmol/L Anion Gap 6 (3-11) BUN 13 (6-23) mg/dl Creatinine 0.88 (0.6-1.2) mg/dl Est Cr Clr Drug Dosing 49.7 ml/min eGFR 66.39 BUN/Creatinine Ratio 14.8 (10-20) Glucose 144 H (70-99(Fasting)) mg/dl Calcium 9.5 (8.6-10.3) mg/dl Total Bilirubin 1.0 (0.2-1.0) mg/dl AST 15 (13-39) U/L ALT 12 (7-52) U/L Alkaline Phosphatase 64 (34-104) U/L Troponin I High Sens 10.1 (0-14) pg/ml Total Protein 7.3 (6.0-8.3) gm/dl Albumin 3.7 (3.4-5.0) gm/dl Globulin 3.6 (2.5-4.0) gm/dl Albumin/Globulin Ratio 1.0 (0.9-2) Lipase 7 L (11-82) U/L Urine Color Yellow Urine Appearance Clear (Clear) Urine pH 5.0 (4.5-7.5) Ur Specific [place] 1.018 (1.000-1.030) Urine Protein Negative (Negative) Urine Glucose (UA) Negative (Negative) Urine Ketones Negative (Negative) Urine Blood Negative (Negative) Urine Nitrite Negative (Negative) Urine Bilirubin Negative (Negative) Urine Urobilinogen Negative (Negative) Ur Leukocyte Esterase 1+ H (Negative) Urine WBC (Auto) 6-10 H (0-5) /hpf Urine RBC (Auto) 0-2 (0-2) /hpf U Hyaline Cast (Auto) 0-2 (0-2) /lpf U Epithel Cells (Auto) 6-10 H (0-2) /hpf Urine Bacteria (Auto) None Seen (None Seen) Urine Comment Administered Medications Enoxaparin Sodium (Enoxaparin Inj 40 Mg/0.4 Ml Syr) 40 mg SQ Q24H CURTIS Stop: 02/13/25 18:29 Last Admin: 01/14/25 19:42 Dose: 40 mg Documented By: FILIBERTO Ertapenem (Invanz 1000mg) 1,000 mg in 10 mls @ 2 mls/min IV Q24H CURTIS Stop: 01/24/25 18:29 Last Admin: 01/14/25 19:35 Dose: 2 mls/min Documented By: FILIBERTO Discontinued Medications Sodium Chloride (Nss) 1,000 mls @ 999 mls/hr IV .Q1H1M ONE Stop: 01/14/25 15:46 Last Infusion: 01/14/25 17:50 Dose: Infused Documented By: Admin: 01/14/25 15:32 Dose: 999 mls/hr Documented By: FILIBERTO Ceftriaxone Sodium (Rocephin) 2,000 mg in 50 mls @ 100 mls/hr IV NOW STA Stop: 01/14/25 18:49 Last Infusion: 01/14/25 21:00 Dose: Infused Documented By: Admin: 01/14/25 19:37 Dose: 100 mls/hr Documented By: FILIBERTO Metronidazole (Flagyl) 500 mg in 100 mls @ 100 mls/hr IV NOW STA; Protocol Stop: 01/14/25 19:19 Last Infusion: 01/14/25 21:00 Dose: Infused Documented By: Admin: 01/14/25 19:37 Dose: 100 mls/hr Documented By: FILIBERTO Ioversol (Optiray 320 100ml) 90 ml IV ONCE ONE Stop: 01/14/25 15:59 Last Admin: 01/14/25 15:58 Dose: 90 ml Documented By: NORMA Ondansetron HCl (Ondansetron Inj 2 Mg/Ml 2 Ml Vial) 4 mg IV NOW STA Stop: 01/14/25 14:47 Last Admin: 01/14/25 15:32 Dose: 4 mg Documented By: FILIBERTO Imaging Data Radiologist's Impression: Abdomen/Pelvis CT 01/14/25 14:46 EXAM: CT Abdomen and Pelvis With Intravenous Contrast INDICATION: Right mid abdominal pain. Tenderness. TECHNIQUE: Axial computed tomography images of the abdomen and pelvis with intravenous contrast. Sagittal and coronal reformatted images were created and reviewed. This CT exam was performed using one or more of the following dose reduction techniques: automated exposure control, adjustment of the mA and/or kV according to patient size, and/or use of iterative reconstruction technique. CONTRAST: 90 ml of Optiray 320 was administered intravenously. COMPARISON: 11/12/2015 FINDINGS: Limitations: None. Lung bases: No abnormality noted. Pleural space: No visualized pleural effusion or pneumothorax. Heart: No abnormality noted. Mediastinum: Stable small to moderate sliding hiatal hernia. ABDOMEN: Liver: No abnormality noted. Gallbladder and bile ducts: Cholecystectomy. No ductal dilation or stone noted. Trace intrahepatic biliary dilatation unchanged within normal limits postcholecystectomy. Pancreas: Homogeneous enhancement. No mass, inflammation or ductal dilation. Spleen: No significant abnormality noted. Adrenals: No significant abnormality noted. Kidneys and ureters: Normal enhancement. No mass, hydronephrosis or visualized stone. Stomach and bowel: There is mild acute diverticulitis on the mesenteric surface of the hepatic flexure of the colon. Moderate amounts of stool in the more distal colon. No obstruction. PELVIS: Appendix: Well seen and appears normal. Bladder: No filling defects to suggest mass or large stone. No inflammation. Reproductive: Hysterectomy. ABDOMEN and PELVIS: Intraperitoneal space: No free air. No significant fluid collection. Bones/joints: Right hip arthroplasty present. Artifact limits assessment of surrounding structures. Degenerative changes in the spine. No acute osseous abnormality. Soft tissues: No significant abnormality noted. Vasculature: Atherosclerotic calcification of the aorta and branches. No aneurysm. Lymph nodes: No pathologically enlarged lymph nodes. IMPRESSION: Mild acute diverticulitis at the hepatic flexure of the colon without complication. ACT 112: N/A Electronically signed by Carolyn Petit 01-14-2025 5:30 PM Chest X-Ray 01/14/25 18:20 EXAM: Portable AP chest radiograph TECHNIQUE: AP portable radiograph of the chest was obtained. INDICATION: Shortness of breath Comparison: Chest radiograph 11/24/2024 FINDINGS: LINES and TUBES: None CARDIOVASCULAR: Cardiac silhouette is stably and mildly enlarged in size. LUNGS/PLEURA: No focal consolidation identified. Mild pulmonary vascular congestion and chronic interstitial lung changes appear similar to the previous. No significant pleural fluid. No discernible pneumothorax. OSSEOUS/OTHER: No displaced acute osseous process identified. IMPRESSION: No radiographic evidence of acute cardiopulmonary process with no significant change from the previous radiograph dated November 24, 2024. Findings as above. Electronically signed by Campbell Garcia 01-14-2025 6:59 PM Discharge Plan Visit Data Chief Complaint: Abdominal Pain Stated Complaint: ABD PAIN ED Provider: Tone Loco Discharge Problem: Acute diverticulitis, Hypoxia, Blood glucose elevated Patient Disposition: Admitted As Inpatient Condition: Fair Discharge Instructions Interventions: ED Discharge Assessment Last Done: 01/14/25 21:03 Forms Stand Alone Forms: [facility] [employer] Prescriptions Prescriptions: No Action nitroglycerin [Nitrostat] 0.4 mg tablet, sublingual 0.4 mg Sublingual UD PRN (Reason: Chest Pain) Qty: 25 3RF Rx Instructions: 0.4 mg Sublingual VERY 5 MINUTES FOR UP TO 3 DOSES PRN FOR CHEST PAIN. CALL 911 IF PAIN PERSISTS; (DME) pen needle, diabetic [BD Ultra-Fine Marah Pen Needle] 32 gauge x 5/32" needle See Rx Instructions .ROUTE .MEDSUPPLY Qty: 400 3RF Rx Instructions: use 4 needles daily gabapentin 300 mg capsule 600 mg PO QID Qty: 720 3RF (DME) Dexcom G7 Sensor Device See Rx Instructions .Route Qty: 9 3RF Rx Instructions: change sensor Q19D insulin lispro [Humalog KwikPen Insulin] 100 unit/mL insulin pen See Rx Instructions .ROUTE .COMPLEX Qty: 45 3RF Rx Instructions: Inject 14 units breakfast and dinner, 7 units with lunch, plus sliding scale; TDD 40 units a day calcium carbonate-vitamin D3 500 mg(1,250mg) -400 unit tablet,chewable 1 tab PO BID Rx Instructions: Unable to verify otc meds at this date/time. 11/24/24 cholecalciferol (vitamin D3) 2,000 unit capsule 2,000 units PO QAM Patient Comments: Unable to verify otc meds at this date/time. 11/24/24 cyanocobalamin (vitamin B-12) 1,000 mcg tablet 1,000 mcg PO BID Qty: 60 Patient Comments: Unable to verify otc meds at this date/time. 11/24/24 pantoprazole 40 mg tablet,delayed release (DR/EC) 40 mg PO QAM pyridoxine (vitamin B6) [Vitamin B-6] 50 mg Tablet 50 mg PO QAM Patient Comments: Unable to verify otc meds at this date/time. 11/24/24 atorvastatin 40 mg tablet 40 mg PO HS aspirin 81 mg Tablet,Delayed Release (Dr/Ec) 81 mg PO QPM Patient Comments: Unable to verify otc meds at this date/time. 11/24/24 metoprolol succinate 25 mg tablet extended release 24 hr 0 mg PO QAM Patient Comments: Last filled 07/2024 x90 day supply. Original Directions: 25mg by mouth once daily. 11/24/24 insulin glargine [Lantus Solostar U-100 Insulin] 100 unit/mL (3 mL) insulin pen 11 unit SQ HS duloxetine 30 mg capsule,delayed release(DR/EC) 0 mg PO HS Patient Comments: Last filled 03/2024 x90 day supply. Original Directions: 30mg by mouth once daily. 11/24/24 famotidine 40 mg tablet 40 mg PO QPM Referrals Referrals: Kishor Galesa, [Primary Care Provider] -
[2025-01-14 14:59] LABS: Alanine Aminotransferase 12.0 U/L (7-52); Albumin Globulin Ratio 1.0 (0.9-2); Albumin Level 3.7 gm/dl (3.4-5.0); Alkaline Phosphatase 64.0 U/L (34-104); Anion Gap 6.0 (3-11); Bilirubin,Total 1.0 mg/dl (0.2-1.0); Blood Urea Nitrogen 13.0 mg/dl (6-23); Calcium 9.5 mg/dl (8.6-10.3); Carbon Dioxide 32.0 mmol/L (21-32); Chloride 101.0 mmol/L (98-107); Creatinine Clr Calc Pharmacy 49.7 ml/min; Globulin 3.6 gm/dl (2.5-4.0); Glucose 144.0 mg/dl (70-99(Fasting)); Lipase 7.0 U/L (11-82); Potassium 3.8 mmol/L (3.5-5.1); Sodium 139.0 mmol/L (136-145); Total Protein 7.3 gm/dl (6.0-8.3)
[2025-01-14] MEDS: ONDANSETRON INJ 2 MG/ML 2 ML VIAL IV STA (15:32)
[2025-01-14] MEDS: SODIUM CHLORIDE 0.9% 1,000 ML IV ONE (15:32)
[2025-01-14] MEDS: OPTIRAY 320 100ml IV ONE (15:58)
--- NOTE | 2025-01-14 17:38 | CT Scan Report ---
EXAM: CT Abdomen and Pelvis With Intravenous Contrast INDICATION: Right mid abdominal pain. Tenderness. TECHNIQUE: Axial computed tomography images of the abdomen and pelvis with intravenous contrast. Sagittal and coronal reformatted images were created and reviewed. This CT exam was performed using one or more of the following dose reduction techniques: automated exposure control, adjustment of the mA and/or kV according to patient size, and/or use of iterative reconstruction technique. CONTRAST: 90 ml of Optiray 320 was administered intravenously. COMPARISON: 11/12/2015 FINDINGS: Limitations: None. Lung bases: No abnormality noted. Pleural space: No visualized pleural effusion or pneumothorax. Heart: No abnormality noted. Mediastinum: Stable small to moderate sliding hiatal hernia. ABDOMEN: Liver: No abnormality noted. Gallbladder and bile ducts: Cholecystectomy. No ductal dilation or stone noted. Trace intrahepatic biliary dilatation unchanged within normal limits postcholecystectomy. Pancreas: Homogeneous enhancement. No mass, inflammation or ductal dilation. Spleen: No significant abnormality noted. Adrenals: No significant abnormality noted. Kidneys and ureters: Normal enhancement. No mass, hydronephrosis or visualized stone. Stomach and bowel: There is mild acute diverticulitis on the mesenteric surface of the hepatic flexure of the colon. Moderate amounts of stool in the more distal colon. No obstruction. PELVIS: Appendix: Well seen and appears normal. Bladder: No filling defects to suggest mass or large stone. No inflammation. Reproductive: Hysterectomy. ABDOMEN and PELVIS: Intraperitoneal space: No free air. No significant fluid collection. Bones/joints: Right hip arthroplasty present. Artifact limits assessment of surrounding structures. Degenerative changes in the spine. No acute osseous abnormality. Soft tissues: No significant abnormality noted. Vasculature: Atherosclerotic calcification of the aorta and branches. No aneurysm. Lymph nodes: No pathologically enlarged lymph nodes. IMPRESSION: Mild acute diverticulitis at the hepatic flexure of the colon without complication. ACT 112: N/A Electronically signed by Carolyn Petit 01-14-2025 5:30 PM
--- NOTE | 2025-01-14 18:33 | History & Physical Report ---
Date of Service January 14, 2025 Assessment & Plan (1) Acute diverticulitis: (2) Type 2 diabetes mellitus: (3) CKD stage 3a, GFR 45-59 ml/min: Plan In summary this is an 79-year-old female who presented to [facility] for persistent right upper quadrant pain found to have acute hepatic flexure diverticulitis #Mild acute diverticulitis Patient presented with persistent right upper quadrant abdominal pain, abdominal distention, decreased frequency of bowel movements, increased frequency of flatus; found to have protuberant abdomen with right upper quadrant tenderness both with gentle palpation as well as with percussion; CT abdomen pelvis with intravenous contrast without oral contrast reveals hepatic flexure colonic diverticulitis without extraluminal nor intraluminal air; there are no pertinent risk factors noted for progression to complication Obtain vital signs per protocol Activity ad guevara. Clear liquid diet, de-escalate to n.p.o. if patient is unable to tolerate clears; if this is the case, please contact attending physician to initiate maintenance intravenous fluids until able to tolerate oral intake Measure intake and output every shift Start ertapenem 1 mg IV daily given allergy to penicillins Follow daily CBC with manual differential, renal function panel #Type II Diabetes Mellitus with hyperglycemia Most recent hemoglobin A1c of 7.9% on 12/19/2024; glycemic target of preprandial less than 140 and random checks less than 180; continue home insulin therapy with respect to their basal dosing; pharmacy consulted for glycemic management during hospitalization - Start glargine 11 units at bedtime - Continue prandial bolus with sliding scale The remainder the patient's chronic medical conditions are stable and do not require adjustment to their outpatient regimen at this time History of Present Illness Chief Complaint: Abdominal pain Primary Care Provider: Kishor Galeas DO Ms. Oral Bob is an 79-year-old female whose active medical conditions include type 2 diabetes mellitus with hyperglycemia and peripheral neuropathy, CKD stage IIIa consequential of hypertensive nephrosclerosis, coronary atherosclerotic disease, hyperlipidemia, hypertension among other chronic medical conditions who presented to the [facility] on 01/14 due to persistent right upper quadrant abdominal pain. The patient describes that her pain began in the midday of 01/13 primarily involving the right upper quadrant which was distended and tender to touch. Her pain was continuous described as a stabbing sensation through the right lower quadrant to her right upper back. She thought that she had something going on with her liver because of the location of her pain. She was able to tolerate oral intake then and through the morning of presentation without episodes of emesis, hematemesis nor altered bowel movements. Her last bowel movement was on the morning of 01/13 prior to her symptoms beginning. She is able to tolerate a normal breakfast in the morning of presentation without precipitously worsening her symptoms. She has had regular bouts of flatus, more frequent than her usual amount, which are relieving to her abdominal pain. She has not had any recent changes to her medication regimen nor has she been prescribed any recent antibiotics. She denies any fevers, chills, melanotic stool, hematochezia. Allergies Allergy/AdvReac Type Severity Reaction Status Date / Time amoxicillin Allergy Severe Hives Verified 12/19/24 13:19 metoclopramide AdvReac Severe SEVERE Verified 12/19/24 13:19 WEAKNESS/DIZZINESS primidone AdvReac Severe Lethargy Verified 12/19/24 13:19 rosuvastatin AdvReac Intermediate muscle Verified 12/19/24 13:19 cramping metformin AdvReac Mild NAUSEA Verified 12/19/24 13:19 Home Medications Medication Instructions Recorded Confirmed Type calcium 500 mg (as carbonate)-vit 1 tab PO BID 10/21/18 12/19/24 History D3 10 mcg (400 unit) chewable tablet cholecalciferol (vitamin D3) 50 2,000 units PO QAM 10/21/18 12/19/24 History mcg (2,000 unit) capsule pantoprazole 40 mg tablet,delayed 40 mg PO QAM 10/21/18 12/19/24 History release cyanocobalamin (vitamin B-12) 1,000 mcg PO BID #60 tabs 09/04/19 12/19/24 History 1,000 mcg tablet pyridoxine (vitamin B6) 50 mg 50 mg PO QAM 12/18/19 12/19/24 History tablet (Vitamin B-6) nitroglycerin 0.4 mg sublingual 0.4 mg sublingual UD PRN Chest 07/28/21 12/19/24 Rx tablet (Nitrostat) Pain #25 tabs BD Ultra-Fine Marah Pen Needle 32 #400 ea 12/13/23 12/19/24 Rx gauge x 5/32" (pen needle, diabetic) famotidine 40 mg tablet 40 mg PO QPM 11/07/24 09/30/25 History gabapentin 300 mg capsule 600 mg (2 x 300 mg) PO QID #720 03/20/24 12/19/24 Rx caps blood-glucose sensor (Dexcom G7 #9 ea 06/20/24 12/19/24 Rx Sensor device) aspirin 81 mg tablet,delayed 81 mg PO QPM 06/26/24 12/19/24 History release atorvastatin 40 mg tablet 40 mg PO HS 06/26/24 12/19/24 History insulin glargine 100 unit/mL (3 11 unit subcut HS 06/26/24 12/19/24 History mL) subcutaneous pen (Lantus Solostar U-100 Insulin) metoprolol succinate 25 mg 0 mg PO QAM 06/26/24 12/19/24 History tablet,extended release 24 hr insulin lispro 100 unit/mL See Rx Instructions .Route 10/02/24 12/19/24 Rx subcutaneous pen (Humalog KwikPen .COMPLEX #45 mL (U-100) Insulin) duloxetine 30 mg capsule,delayed 0 mg PO HS 11/24/24 12/19/24 History release Past Med/Surg History Problem List (Updated 01/14/25 @ 18:32 by Antoni Torres DO) Acute diverticulitis Coronary artery disease Type 2 diabetes mellitus Right knee DJD Periodic paralysis Hypersomnolence disorder, acute, severe Insomnia Cervical myofascial pain syndrome CKD stage 3a, GFR 45-59 ml/min Polyneuropathy Cervical radiculopathy Ataxia (Acute) Diabetes mellitus, type II (Chronic) IDDM GERD (gastroesophageal reflux disease) (Chronic) Gastroparesis (Chronic) History of Helicobacter pylori infection (Chronic) Depression (Chronic) Irritable bowel syndrome (Chronic) Vitamin D deficiency (Chronic) Dyslipidemia (Chronic) S/P hysterectomy (Chronic) S/P cholecystectomy (Chronic) S/P colonoscopy (Chronic) H/O esophagogastroduodenoscopy (Chronic) Visual disturbance of one eye (Acute) CAD (coronary artery disease) S/P ZAHRA to mid LAD 06/2016 Complication of cystostomy Ovarian mass, left Atypical chest pain (Acute) Vulvar ulceration (Acute) Vitamin D insufficiency (Acute) Urinary incontinence (Acute) SNHL (sensorineural hearing loss) (Acute) S/P drug eluting coronary stent placement (Acute) PAD (peripheral artery disease) (Acute) Ovarian cyst, complex (Acute) Herpes simplex type 1 infection (Acute) Genital herpes simplex (Acute) Episodic weakness (Acute) Dyspareunia (Acute) Dysesthesia (Acute) Diabetic peripheral neuropathy (Chronic) Controlled type 2 diabetes mellitus (Chronic) Bilateral leg pain (Acute) Benign familial tremor (Acute) Stented coronary artery Benign essential tremor Closed fracture of right hip (Acute) Osteoporosis Seizure-like activity Syncope Organic periodic limb movement disorder Essential tremor Seizure-like activity Medical History (Updated 01/14/25 @ 18:32 by Antoni Torres DO) CVA (cerebral vascular accident) DVT prophylaxis Muscle cramps Iron deficiency Osteoarthritis GERD (gastroesophageal reflux disease) Hearing deficit Depression Transient ischemic attack (TIA) 5 YEARS AGO - NO ISSUES SINCE - FOLLOWS W/ DR. SUTHERLAND Hyperlipidemia Surgical History (Updated 12/17/24 @ 00:07 by Marcos Lara) History of right hip replacement (~03/2020) S/P laparoscopic hysterectomy with BSO History of cholecystectomy History of laminectomy LUMBAR History of cardiac cath 06/2016 - [facility] - INCREASED SOB, ABN STRESS TEST - 1 STENT PLACED - FOLLOWS W/ DR. BULLOCK. Family History Unknown Diabetes Mother Diabetes Tremor Sister Tremor Colorectal cancer Father Colorectal cancer Other No family history of adverse response to anesthesia Social History Smoking Status: Never smoker Second Hand Exposure: No; Do You Dip or Chew Tobacco: No; Hx Alcohol Use: No Hx Substance Use: No Preferred Language: [place] Communication Ability: Effective Visual Impairment: No Limitations Vacuum Worker Required: No Beliefs That Will Affect Care: None Current Living Situation: Significant Other Feels Safe at Home: Yes Assistive Devices: None Review of Systems Review of Systems: Review of constitutional, cardiovascular, pulmonary, gastrointestinal, genitourinary, integumentary systems was unremarkable except for pertinent positive and negative findings discussed above Physical Exam Physical Exam: General: Elderly female in no acute distress Vital Signs: Reviewed; requiring 2 L by nasal cannula to maintain O2 saturation greater than 92% HEENT: Tacky mucous membranes Pulmonary: Symmetrically reduced chest wall excursion secondary to right upper quadrant abdominal pain with mid to end inhalation; clear to auscultation bilaterally Cardiovascular: Regular rate and rhythm without murmurs, rubs, or gallops; S1 and S2 normal; right radial pulse 2+ with brisk capillary refill Gastrointestinal: Protuberant, soft; low-frequency high-pitched bowel sounds present throughout the abdomen; tender to relatively light palpation in the right upper quadrant with extending discomfort over the epigastrium and right lower quadrant and moderate depth palpation; these areas are also tender to percussion which is tympanic over the right upper quadrant; the remaining abdomen is benign with respect to palpation and percussion; there are no acute peritoneal findings noted Neurologic: Cranial nerves II through XII grossly intact; no discernible focal weakness no paresthesia Skin: No abnormal findings noted overlying the abdomen or back Results & Data Results & Data Vital Signs (Past 12 Hours) Vital Signs Temp Pulse Pulse Resp BP BP Pulse Ox 01/14/25 18:00 79 18 131/56 L 97 01/14/25 16:28 82 16 100/63 97 01/14/25 16:24 87 L 01/14/25 15:10 90 01/14/25 15:00 86 18 131/55 L 01/14/25 14:04 36.8 C 98 H 18 108/58 L 91 O2 Del Method O2 Flow Rate 01/14/25 18:00 Nasal Cannula 2 01/14/25 16:28 Nasal Cannula 2 01/14/25 16:24 Nasal Cannula 0 01/14/25 15:10 01/14/25 15:00 01/14/25 14:04 Room Air Laboratory Results Without leukocytosis; CMP is unremarkable; urinalysis with high epithelial count Diagnostic Findings CT abdomen pelvis with intravenous but without oral contrast reveals mesenteric diverticulitis involving the hepatic flexure Portable chest film notes chronic cardiopulmonary changes Code Status & VTE Plan VTE Prophylaxis Plan VTE Prophylaxis will be ordered: Yes PG Care Time/CCT Total # of Minutes Spent Total Time Spent with Patient: Total time spent is greater than 50% in coordination of care (as documented) at patient's floor/unit and/or counseling patient: Coding Level of Care Code 61918 INT INP/OBS CARE 2/55MIN Diagnoses Acute diverticulitis K57.92 Type 2 diabetes mellitus with hyperglycemia, with long-term current use of insulin E11.65; Z79.4 Diabetes mellitus complication status: with hyperglycemia 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
--- NOTE | 2025-01-14 18:59 | XRay Report ---
EXAM: Portable AP chest radiograph TECHNIQUE: AP portable radiograph of the chest was obtained. INDICATION: Shortness of breath Comparison: Chest radiograph 11/24/2024 FINDINGS: LINES and TUBES: None CARDIOVASCULAR: Cardiac silhouette is stably and mildly enlarged in size. LUNGS/PLEURA: No focal consolidation identified. Mild pulmonary vascular congestion and chronic interstitial lung changes appear similar to the previous. No significant pleural fluid. No discernible pneumothorax. OSSEOUS/OTHER: No displaced acute osseous process identified. IMPRESSION: No radiographic evidence of acute cardiopulmonary process with no significant change from the previous radiograph dated November 24, 2024. Findings as above. Electronically signed by Campbell Garcia 01-14-2025 6:59 PM
[2025-01-14 19:12] VITALS: RESP 16
[2025-01-14] MEDS: ERTAPENEM 1000MG 1,000 MG/10 ML SYR IV SCH (19:35)
[2025-01-14] MEDS: metroNIDAZOLE 500 MG/100 ML BAG IV STA (19:37)
[2025-01-14] MEDS: cefTRIAXone SODIUM 2,000 MG/50 ML BAG IV STA (19:37)
[2025-01-14] MEDS: ENOXAPARIN INJ 40 MG/0.4 ML SYR SQ SCH (19:42)
[2025-01-14] MEDS ORDERED: GLUCAGON FOR INJ 1 MG VIAL SQ PRN (22:32)
[2025-01-14] MEDS ORDERED: DEXTROSE 50% 50 ML SYRINGE IV PRN (22:32)
[2025-01-14] MEDS ORDERED: CARBOHYDRATES FOR HYPOGLYCEMIA PO PRN (22:32)
[2025-01-14] MEDS ORDERED: GLUCOSE 40% GEL 15 GM TUBE PO PRN (22:32)
[2025-01-14] MEDS ORDERED: PHARMACY GLYCEMIC MGMT CONSULT PRN (22:32)
[2025-01-14] MEDS ORDERED: GLUCOSE 10 TAB/TUBE PO PRN (22:32)
[2025-01-15] MEDS: LANTUS PER UNIT CHARGE SQ SCH (00:33)
[2025-01-15] MEDS: INSULIN ASPART PER UNIT CHARGE SC SCH (00:33)
[2025-01-15] MEDS: GABAPENTIN 300 MG CAP PO SCH (00:35)
[2025-01-15] MEDS: ATORVASTATIN 40 MG TAB PO SCH (00:35)
[2025-01-15] MEDS: ASPIRIN 81 MG ECTAB PO SCH (00:35)
[2025-01-15] MEDS: FAMOTIDINE 40 MG TABLET PO SCH (00:36)
[2025-01-15 03:16] VITALS: O2SAT 92
[2025-01-15 06:45] LABS: Hematocrit (blood only) 38.6 % (37.0-47.0); Hemoglobin 12.3 g/dl (12.0-16.0); Immature Granulocytes # (auto) 0.01 K/uL (0.01-0.20); Immature Granulocytes % (auto) 0.2 %; Mean Corpuscular Hemoglobin 31.0 pg (25.0-34.0); Mean Corpuscular Volume 97.2 fL (80.0-100.0); Platelet Count 184 K/uL (130-400); RDW Standard Deviation 47.5 fL (36.4-46.3); Red Blood Count 3.97 M/uL (4.20-5.40); White Blood Count 6.29 K/ul (4.8-10.8)
[2025-01-15 07:10] VITALS: BP 95/60; PULSE 76; TEMP 98.2
[2025-01-15 07:12] LABS: Albumin Level 3.2 gm/dl (3.4-5.0); Anion Gap 6.0 (3-11); Blood Urea Nitrogen 11.0 mg/dl (6-23); Calcium 9.2 mg/dl (8.6-10.3); Carbon Dioxide 34.0 mmol/L (21-32); Chloride 103.0 mmol/L (98-107); Creatinine Clr Calc Pharmacy 52.7 ml/min; Glucose 119.0 mg/dl (70-99(Fasting)); Potassium 3.8 mmol/L (3.5-5.1); Sodium 143.0 mmol/L (136-145)
--- NOTE | 2025-01-15 07:45 | Hospitalist Progress Note ---
Date of Service January 15, 2025 Assessment & Plan Admission and Anticipated Discharge Date Admission Date: January 14, 2025 Results & Data Results & Data Vital Signs (Past 12 Hours) Vital Signs Temp Pulse Pulse Resp BP BP Pulse Ox 01/15/25 07:07 36.8 C 76 16 95/60 L 92 01/14/25 22:15 01/14/25 21:50 36.5 C 74 16 128/71 92 01/14/25 21:03 77 16 141/73 H 98 O2 Del Method O2 Flow Rate 01/15/25 07:07 Room Air 01/14/25 22:15 Room Air 01/14/25 21:50 Room Air 01/14/25 21:03 Nasal Cannula 2 PG Care Time/CCT Total # of Minutes Spent Total Time Spent with Patient: Total time spent is greater than 50% in coordination of care (as documented) at patient's floor/unit and/or counseling patient: Coding
[2025-01-15] MEDS: METOPROLOL SUCC 50MG EXT REL TAB PO SCH (08:59)
--- NOTE | 2025-01-15 13:10 | Pharmacy Report ---
Pharmacy Glycemic Short Note 2 - Date of Service January 15, 2025 - Glycemic Short BSG Results (Last 24 hours): 01/14/25 01/14/25 01/15/25 14:30 22:02 00:24 Glucose 144 H POC Glucose 138 H 180 H 01/15/25 01/15/25 01/15/25 06:31 07:46 11:49 Glucose 119 H POC Glucose 117 H 120 H OUTPATIENT ANTIDIABETIC REGIMEN: * Lantus 11 units SQ QHS * Humalog 14 units with breakfast and dinner and 7 units at lunch + SSI HbA1c: 7.9% on 12/19/24 ASSESSMENT: * Alex is an 79 year old female who was admitted 01/14 with persistent right upper quadrant pain and was found to have acute hepatic flexure d iverticulitis. Pharmacy was consulted for glycemic management while she is admitted. * BSG at HS last evening was 138mg/dL. Lantus 8 units SQ Q HS was ordered and a weight based bolus insulin regimen with a stress of ~2 was started. * Fasting BSG was 117mg/dL this morning. Lantus was scheduled for this evening but was given at 0846 this morning. Will hold tonight's Lantus dose to prevent hypoglycemia overnight and will reassess tomorrow morning. PLAN FOR INPATIENT GLYCEMIC CONTROL: * Hold outpatient diabetes medications * Basal insulin * Lantus 8 units SQ x 1 last evening and 8 units SQ x 1 this morning (given in error--was supposed to be tonight at HS) * Bolus insulin * NovoLog per scale ACHS or Q6hrs while NPO * Goal Range: Low 120 mg/dL - High 150 mg/dL * Correction Factor: 30 mg/dL/unit * Nutritional / Prandial insulin per carb ratio of 1 unit per 10 grams CHO consumed
--- NOTE | 2025-01-15 19:35 | Discharge Summary ---
Discharge Summary Date of Service January 15, 2025 Principal Dx & Hospital Course #1 = Principal Diagnosis (1) Acute diverticulitis: (2) Type 2 diabetes mellitus: (3) CKD stage 3a, GFR 45-59 ml/min: Plan In summary this is an 79-year-old female who presented to [facility] for persistent right upper quadrant pain found to have acute hepatic flexure diverticulitis #Mild acute diverticulitis Patient presented with persistent right upper quadrant abdominal pain, abdominal distention, decreased frequency of bowel movements, increased frequency of flatus; found to have protuberant abdomen with right upper quadrant tenderness both with gentle palpation as well as with percussion; CT abdomen pelvis with intravenous contrast without oral contrast reveals hepatic flexure colonic diver ticulitis without extraluminal nor intraluminal air; there are no pertinent risk factors noted for progression to complication; Overnight from the patient did quite well with respect to oral intake initially with a clear liquid diet and progressing to full liquid and regular diet at the time of discharge without associated discomfort or worsening of their symptoms; they remained hemodynamically stable without any evidence of a persistent or progressive infection. After a prolonged discussion regarding risks and benefits of remaining hospitalized for continued observation versus discharge and outpatient management of their mild diverticulitis the patient requested discharge and outpatient management at their preference Administered ertapenem 1 mg IV daily given allergy to penicillins as their initial antibiotic management Recommend continued antibiotic management with levofloxacin 750 mg p.o. daily and metronidazole 500 mg p.o. twice daily through 12/21 #Type II Diabetes Mellitus with hyperglycemia Most recent hemoglobin A1c of 7.9% on 12/19/2024; glycemic target of preprandial less than 140 and random checks less than 180; continue home insulin therapy with respect to their basal dosing; pharmacy consulted for glycemic management during hospitalization - Continue home regimen The remainder the patient's chronic medical conditions are stable and do not require adjustment to their outpatient regimen at this time Admission HPI Per Admitting Provider Ms. Oral Bob is an 79-year-old female whose active medical conditions include type 2 diabetes mellitus with hyperglycemia and peripheral neuropathy, CKD stage IIIa consequential of hypertensive nephrosclerosis, coronary atherosclerotic disease, hyperlipidemia, hypertension among other chronic medical conditions who presented to the [facility] on 01/14 due to persistent right upper quadrant abdominal pain. The patient describes that her pain began in the midday of 01/13 primarily involving the right upper quadrant which was distended and tender to touch. Her pain was continuous described as a stabbing sensation through the right lower quadrant to her right upper back. She thought that she had something going on with her liver because of the location of her pain. She was able to tolerate oral intake then and through the morning of presentation without episodes of emesis, hematemesis nor altered bowel movements. Her last bowel movement was on the morning of 01/13 prior to her symptoms beginning. She is able to tolerate a normal breakfast in the morning of presentation without precipitously worsening her symptoms. She has had regular bouts of flatus, more frequent than her usual amount, which are relieving to her abdominal pain. She has not had any recent changes to her medication regimen nor has she been prescribed any recent antibiotics. She denies any fevers, chills, melanotic stool, hematochezia. Discharge Exam General: Elderly female in no acute distress Vital Signs: Reviewed; requiring 2 L by nasal cannula to maintain O2 saturation greater than 92% HEENT: Tacky mucous membranes Pulmonary: Symmetrically reduced chest wall excursion secondary to right upper quadrant abdominal pain with mid to end inhalation; clear to auscultation bilaterally Cardiovascular: Regular rate and rhythm without murmurs, rubs, or gallops; S1 and S2 normal; right radial pulse 2+ with brisk capillary refill Gastrointestinal: Protuberant, soft; normal-frequency normal-pitched bowel sounds present throughout the abdomen; tender to deep palpation in the right upper quadrant; the remaining abdomen is benign with respect to palpation and percussion; there are no acute peritoneal findings noted Neurologic: Cranial nerves II through XII grossly intact; no discernible focal weakness no paresthesia Skin: No abnormal findings noted overlying the abdomen or back Discharge Plan Discharge Items Patient Disposition: Home - Self-Care Reason For Visit: ACUTE DIVERTICULITIS Discharge Diagnosis: Mild acute diverticulitis Condition on Discharge: Fair Activity: Per Instructions section Non-emergency contact: Primary Care Provider Call non-emergency contact if: you have any medication questions, your symptoms worsen and you have a fever Follow-up/Referrals: Kishor Galeas DO [Primary Care Provider] - 01/24/25 10:25 am Diet: Carb Consistent or DM2 and Low Fiber Fluids: 2000ml (8 cups) Addtl Attending Provider Instructions: You were admitted to [facility] for acute mild diverticulitis involving the hepatic flexure. Regarding your presenting complaint, you are found to have mild acute diverticulitis which was treated initially with ertapenem 1 g IV given your penicillin allergy. You had significant improvement in her symptoms overnight from 01/14 to 01/15, and are tolerating oral intake well. Given your eagerness for discharge, and shared decision making regarding the risks of premature discharge with this condition, it was determined that you may be discharged home with continued oral antibiotic regimen. Please continue taking the antibiotics as prescribed, regularly taking with a small meal in order to prevent side effects that are common with antibiotic such as abdominal pain, nausea, vomiting, diarrhea. We further recommend limiting your intake of fiber over the next several weeks as this can lead to recurrent discomfort while healing from an acute episode of diverticulitis. You also mention during your hospitalization that you have a scheduled colonoscopy for 01/29/2025; we recommend that you contact the provider who scheduled this procedure and reschedule as it is recommended to have no procedures including a colonoscopy for at least 30 days after an acute diverticulitis episode. Thank you for choosing [facility] as your healthcare provider. Pending Studies at Discharge: No Stand-Alone Forms: My [facility] Medications and DC Order Prescriptions: New levofloxacin 750 mg tablet 750 mg PO DAILY 7 Days Qty: 7 0RF metronidazole 500 mg tablet 500 mg PO Q6H 7 Days Qty: 28 0RF Continued nitroglycerin [Nitrostat] 0.4 mg tablet, sublingual 0.4 mg Sublingual UD PRN (Reason: Chest Pain) Qty: 25 3RF Rx Instructions: 0.4 mg Sublingual VERY 5 MINUTES FOR UP TO 3 DOSES PRN FOR CHEST PAIN. CALL 911 IF PAIN PERSISTS; (DME) pen needle, diabetic [BD Ultra-Fine Marah Pen Needle] 32 gauge x 5/32" needle See Rx Instructions .ROUTE .MEDSUPPLY Qty: 400 3RF Rx Instructions: use 4 needles daily gabapentin 300 mg capsule 600 mg PO QID Qty: 720 3RF (DME) Dexcom G7 Sensor Device See Rx Instructions .Route Qty: 9 3RF Rx Instructions: change sensor Q19D insulin lispro [Humalog KwikPen Insulin] 100 unit/mL insulin pen See Rx Instructions .ROUTE .COMPLEX Qty: 45 3RF Rx Instructions: Inject 14 units breakfast and dinner, 7 units with lunch, plus sliding scale; TDD 40 units a day calcium carbonate-vitamin D3 500 mg(1,250mg) -400 unit tablet,chewable 1 tab PO BID Rx Instructions: Unable to verify otc meds at this date/time. 11/24/24 cholecalciferol (vitamin D3) 2,000 unit capsule 2,000 units PO QAM Patient Comments: Unable to verify otc meds at this date/time. 11/24/24 cyanocobalamin (vitamin B-12) 1,000 mcg tablet 1,000 mcg PO BID Qty: 60 Patient Comments: Unable to verify otc meds at this date/time. 11/24/24 pantoprazole 40 mg tablet,delayed release (DR/EC) 40 mg PO QAM pyridoxine (vitamin B6) [Vitamin B-6] 50 mg Tablet 50 mg PO QAM Patient Comments: Unable to verify otc meds at this date/time. 11/24/24 atorvastatin 40 mg tablet 40 mg PO HS aspirin 81 mg Tablet,Delayed Release (Dr/Ec) 81 mg PO QPM Patient Comments: Unable to verify otc meds at this date/time. 11/24/24 metoprolol succinate 25 mg tablet extended release 24 hr 0 mg PO QAM Patient Comments: Last filled 07/2024 x90 day supply. Original Directions: 25mg by mouth once daily. 11/24/24 insulin glargine [Lantus Solostar U-100 Insulin] 100 unit/mL (3 mL) insulin pen 11 unit SQ HS duloxetine 30 mg capsule,delayed release(DR/EC) 0 mg PO HS Patient Comments: Last filled 03/2024 x90 day supply. Original Directions: 30mg by mouth once daily. 11/24/24 famotidine 40 mg tablet 40 mg PO QPM Discharge Orders: Discharge Order (Routine); Ordered 01/15/25 Ordered By: Antoni Torres Admission Data Admit Date/Time: 01/14/25 18:25 Attending Provider: Antoni Torres Admit Provider: Antoni Torres Primary Care Provider: Kishor Galeas Other Providers: Antoni Torres Other Interventions: Discharge Summary Assessment (RN) Last Done: 01/15/25 13:17 Hospital Stay Data Consultations 01/14/25 18:22 ED Decision to Admit Stat Diagnostic Imagining Performed 10/26/25 14:46 CT abd pelvis IV con only Stat Pending Results Patient Have Any Pending Studies at Discharge: No Discharge Instructions Given to Patient (Per Discharging Provider) You were admitted to [facility] for acute mild diverticulitis involving the hepatic flexure. Regarding your presenting complaint, you are found to have mild acute diverticulitis which was treated initially with ertapenem 1 g IV given your penicillin allergy. You had significant improvement in her symptoms overnight from 01/14 to 01/15, and are tolerating oral intake well. Given your eagerness for discharge, and shared decision making regarding the risks of premature discharge with this condition, it was determined that you may be discharged home with continued oral antibiotic regimen. Please continue taking the antibiotics as prescribed, regularly taking with a small meal in order to prevent side effects that are common with antibiotic such as abdominal pain, nausea, vomiting, diarrhea. We further recommend limiting your intake of fiber over the next several weeks as this can lead to recurrent discomfort while healing from an acute episode of diverticulitis. You also mention during your hospitalization that you have a scheduled colonoscopy for 01/29/2025; we recommend that you contact the provider who scheduled this procedure and reschedule as it is recommended to have no procedures including a colonoscopy for at least 30 days after an acute diverticulitis episode. Thank you for choosing [facility] as your healthcare provider. 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
== END 2025-01-15 14:00 | disposition home or self-care (01) ==
LOC: ED 13:51 → 3W 13:51

== ENCOUNTER 2025-02-04 17:53 | Observation (INO) ==
--- NOTE | 2025-02-04 18:15 | Emergency Department Note ---
Impression & Plan Abdominal pain, acute, right upper quadrant, Constipation, Vomiting, Nausea ED Provider Note NAME: URIEL BOLAND AGE: 79 SEX: F : 1945 ARRIVES VIA: Walk-In INFORMANT: Patient, ED PROVIDER(S): Joseph Valentine DO CHIEF COMPLAINT: Abdominal pain HPI: The patient is a an 79-year-old female who presented to the emergency department for an evaluation of abdominal pain. The patient's noted abdominal pain and distention over the last few days. The patient states symptoms became worse so she presented to the Emergency Department this evening. She was recently treated for diverticulitis. She has a colonoscopy scheduled upcoming. The patient denies having any fever but she has had significant nausea as well as abdominal distention. She is also complaining of constipation. ROS: See above HPI for pertinent positives & negatives. A total of 10 systems reviewed and were otherwise negative. PAST MEDICAL HISTORY: See Below PAST SURGICAL HISTORY: See Below FAMILY HISTORY: See Below SOCIAL HISTORY: See Below HOME MEDICATIONS: See Below ALLERGIES: See Below VITALS: See Below PHYSICAL EXAMINATION: GENERAL: Patient is awake alert in no acute distress patient is resting comfortably and showing no signs of anxiety EYES: The conjunctivae are clear. The pupils are round and reactive. EARS, NOSE, MOUTH AND THROAT: The nose is without any evidence of any deformity. NECK: The neck is nontender and supple. RESPIRATORY: Normal respiratory effort is noted there is no evidence of wheezing rhonchi or rales CARDIOVASCULAR: Regular rate and rhythm noted there no murmurs rubs or gallops normal S1 normal S2. GASTROINTESTINAL: The abdomen was distended. There is diffuse tenderness to palpation especially in the right upper and right lower quadrants. There is no guarding. MUSCULOSKELETAL/EXTREMITIES: There is no evidence of gross deformity full range of motion is noted in the hips and shoulders. SKIN: There is no obvious evidence of any rash. There are no petechiae, pallor or cyanosis noted. NEUROLOGIC: Patient is awake alert and oriented x3 MEDICAL DECISION MAKING: The patient is an 79-year-old female who presented to the emergency department for an evaluation of abdominal pain. The patient had right upper quad abdominal pain to my physical exam. It was very significant. She has a recent history of diverticulitis which was treated appropriately. Because of the recent infection I did feel the patient required further laboratory and radiographic studies with her. She was treated with IV pain medication and IV antiemetics the emergency department. Pain did improve but she continued to have very severe pain. I discussed the patient's laboratory and radiographic studies with her. Given the degree of the pain she was experiencing I did discuss her condition with the on- call [facility] hospitalist. I do not feel she would be a good candidate for outpatient management at this time. Triage Nursing notes reviewed. Prior medical records reviewed Vital Signs: reviewed and remarkable for no significant abnormalities Differential diagnosis: Etiologies such as appendicitis, diverticulitis, obstruction, inflammatory bowel disease, renal colic, PUD, biliary pathology, pancreatitis, mesenteric ischemia, aortic pathology, infections, genitourinary, UTI, perforated viscus, as well as others were entertained. ER treatment provided: See below Diagnostics interpreted by me: ECG: EKG was obtained in the emergency department. My interpretation is normal sinus rhythm at 70 bpm. There is no ectopy. There is no acute ST segment abnormalities noted. This was compared to a tracing from November 25, 2024. No changes were noted. Cardiac Monitoring: An order was placed for continuous cardiac monitoring. The monitor shows a rate of 77 bpm with sinus rhythm. Laboratory studies: As stated above and show below. Imaging studies: See below. Radiographic imaging was reviewed by myself Consultation(s): I discussed this case with Dr. Moise who is on-call for the [facility] hospitalist group. Past Med/Surg History Problem List (Updated 02/04/25 @ 21:30 by Joseph Valentine DO) Nausea (Acute) Vomiting (Acute) Constipation (Acute) Abdominal pain, acute, right upper quadrant (Acute) Acute diverticulitis (Acute) Coronary artery disease Type 2 diabetes mellitus Right knee DJD Periodic paralysis Hypersomnolence disorder, acute, severe Insomnia Cervical myofascial pain syndrome CKD stage 3a, GFR 45-59 ml/min Polyneuropathy Cervical radiculopathy Ataxia (Acute) Diabetes mellitus, type II (Chronic) IDDM GERD (gastroesophageal reflux disease) (Chronic) Gastroparesis (Chronic) History of Helicobacter pylori infection (Chronic) Depression (Chronic) Irritable bowel syndrome (Chronic) Vitamin D deficiency (Chronic) Dyslipidemia (Chronic) S/P hysterectomy (Chronic) S/P cholecystectomy (Chronic) S/P colonoscopy (Chronic) H/O esophagogastroduodenoscopy (Chronic) Visual disturbance of one eye (Acute) CAD (coronary artery disease) S/P ZAHRA to mid LAD 06/2016 Complication of cystostomy Ovarian mass, left Atypical chest pain (Acute) Vulvar ulceration (Acute) Vitamin D insufficiency (Acute) Urinary incontinence (Acute) SNHL (sensorineural hearing loss) (Acute) S/P drug eluting coronary stent placement (Acute) PAD (peripheral artery disease) (Acute) Ovarian cyst, complex (Acute) Herpes simplex type 1 infection (Acute) Genital herpes simplex (Acute) Episodic weakness (Acute) Dyspareunia (Acute) Dysesthesia (Acute) Diabetic peripheral neuropathy (Chronic) Controlled type 2 diabetes mellitus (Chronic) Bilateral leg pain (Acute) Benign familial tremor (Acute) Stented coronary artery Benign essential tremor Closed fracture of right hip (Acute) Osteoporosis Seizure-like activity Syncope Organic periodic limb movement disorder Essential tremor Seizure-like activity Medical History CVA (cerebral vascular accident) DVT prophylaxis Muscle cramps Iron deficiency Osteoarthritis GERD (gastroesophageal reflux disease) Hearing deficit Depression Transient ischemic attack (TIA) 5 YEARS AGO - NO ISSUES SINCE - FOLLOWS W/ DR. SUTHERLAND Hyperlipidemia Surgical History History of right hip replacement (~03/2020) S/P laparoscopic hysterectomy with BSO History of cholecystectomy History of laminectomy LUMBAR History of cardiac cath 06/2016 - [facility] - INCREASED SOB, ABN STRESS TEST - 1 STENT PLACED - FOLLOWS W/ DR. BULLOCK. 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 Beliefs That Will Affect Care: None Current Living Situation: Other Current Living Situation Comment: Pt states she lives with her friend Feels Safe at Home: Yes Assistive Devices: Glasses Allergies Allergies Allergy/AdvReac Type Severity Reaction Status Date / Time amoxicillin Allergy Severe Hives Verified 02/04/25 19:42 metoclopramide AdvReac Severe SEVERE Verified 02/04/25 19:42 WEAKNESS/DIZZINESS primidone AdvReac Severe Lethargy Verified 02/04/25 19:42 rosuvastatin AdvReac Intermediate muscle Verified 02/04/25 19:42 cramping metformin AdvReac Mild NAUSEA Verified 02/04/25 19:42 Home Meds Home Medications Medication Instructions Recorded Confirmed calcium 500 mg (as carbonate)-vit 1 tab PO BID 10/21/18 02/04/25 D3 10 mcg (400 unit) chewable tablet cholecalciferol (vitamin D3) 50 2,000 units PO QAM 10/21/18 02/04/25 mcg (2,000 unit) capsule pantoprazole 40 mg tablet,delayed 40 mg PO QAM 10/21/18 02/04/25 release cyanocobalamin (vitamin B-12) 1,000 mcg PO BID #60 tabs 09/04/19 02/04/25 1,000 mcg tablet pyridoxine (vitamin B6) 50 mg 50 mg PO QAM 12/18/19 02/04/25 tablet (Vitamin B-6) famotidine 40 mg tablet 40 mg PO QPM 01/27/24 02/04/25 aspirin 81 mg tablet,delayed 81 mg PO QPM 06/26/24 02/04/25 release atorvastatin 40 mg tablet 40 mg PO HS 06/26/24 02/04/25 metoprolol succinate 25 mg 25 mg PO QAM 06/26/24 02/04/25 tablet,extended release 24 hr duloxetine 30 mg capsule,delayed 30 mg PO HS 11/24/24 02/04/25 release Previous Rx's Medication Instructions Recorded nitroglycerin 0.4 mg sublingual 0.4 mg sublingual UD PRN Chest 07/28/21 tablet (Nitrostat) Pain #25 tabs BD Ultra-Fine Marah Pen Needle 32 #400 ea 12/13/23 gauge x 5/32" (pen needle, diabetic) gabapentin 300 mg capsule 600 mg (2 x 300 mg) PO QID #720 03/20/24 caps blood-glucose sensor (iGluecom G7 #9 ea 06/20/24 Sensor device) insulin lispro 100 unit/mL See Rx Instructions .Route 10/02/24 subcutaneous pen (Humalog KwikPen .COMPLEX #45 mL (U-100) Insulin) insulin glargine 100 unit/mL (3 13 unit (0.13 mL) subcut HS #15 mL 01/22/25 mL) subcutaneous pen (Lantus Solostar U-100 Insulin) Results & Data (ED) Vital Signs Vital Signs - 24 hr 02/04/25 17:55 02/04/25 18:08 02/04/25 18:24 Temperature 36.9 C Temperature Source Temporal Artery Scan Pulse Rate 75 74 Pulse Rate [Right Finger] Pulse Rhythm [Right Finger] Respiratory Rate 20 Respiratory Effort / Characteristics Non-Labored Respiratory Depth Normal Blood Pressure 120/69 Blood Pressure [Right Arm] Blood Pressure Mean 86 Blood Pressure Mean [Right Arm] Pulse Oximetry 94 92 Oxygen Delivery Method Room Air Room Air Oxygen Flow Rate Sepsis Recent Fever Within 48 Hours No Sepsis New/Unexplained Change in Mental Status No Sepsis Action Taken by Nursing No Action Required 02/04/25 19:01 02/04/25 20:13 02/04/25 20:14 Temperature Temperature Source Pulse Rate Pulse Rate [Right Finger] 77 Pulse Rhythm [Right Finger] Regular Respiratory Rate 18 18 Respiratory Effort / Characteristics Non-Labored Non-Labored Respiratory Depth Normal Normal Blood Pressure Blood Pressure [Right Arm] 143/61 H Blood Pressure Mean Blood Pressure Mean [Right Arm] 88 Pulse Oximetry 92 89 L 97 Oxygen Delivery Method Room Air Room Air Nasal Cannula Oxygen Flow Rate 2 Sepsis Recent Fever Within 48 Hours Sepsis New/Unexplained Change in Mental Status Sepsis Action Taken by Long-Term Medications Current Medication List: was personally reviewed by me Laboratory Data Attestation: I reviewed the patient's lab results. 02/04/25 18:30 02/04/25 18:30 Lab Results 02/04/25 02/04/25 02/04/25 Range/Units 18:30 18:35 19:41 WBC 6.51 (4.8-10.8) K/ul RBC 4.36 (4.20-5.40) M/uL Hgb 13.8 (12.0-16.0) g/dL POC Hgb 14.3 (12.0-16.0) g/dl Hct 41.3 (37.0-47.0) % POC Hct 42 (37-47) % MCV 94.7 (80.0-100.0) fL MCH 31.7 (25.0-34.0) pg MCHC 33.4 (32.0-36.0) g/dL RDW Std Deviation 46.4 H (36.4-46.3) fL RDW Coeff of Jazmine 13.3 (11.5-14.5) % Plt Count 223 (130-400) K/uL MPV 9.3 L (9.4-12.4) fL Immature Gran % (Auto) 0.2 % Neut % (Auto) 50.7 % Lymph % (Auto) 33.9 % Wood % (Auto) 11.8 % Eos % (Auto) 2.5 % Baso % (Auto) 0.9 % Neut # (Auto) 3.30 (1.40-6.50) K/uL Lymph # (Auto) 2.21 (1.20-3.40) K/uL Wood # (Auto) 0.77 H (0.11-0.59) K/uL Eos # (Auto) 0.16 (0.00-0.50) K/uL Baso # (Auto) 0.06 (0.00-0.20) K/uL Immature Gran # (Auto) 0.01 (0.01-0.20) K/uL POC Sodium 140 (135-144) mmol/L Sodium 139 (136-145) mmol/L POC Potassium 3.7 (3.3-5.0) mmol/L Potassium 3.7 (3.5-5.1) mmol/L POC Chloride 99 L (101-112) mmol/L Chloride 102 (98-107) mmol/L Carbon Dioxide 32 (21-32) mmol/L POC Total CO2 29 (24-31) mmol/L Anion Gap 5 (3-11) POC Anion Gap 17.0 (16-25) mmol/L POC BUN 16 (7-18) mg/dl BUN 16 (6-23) mg/dl Creatinine 0.83 (0.6-1.2) mg/dl POC Creatinine 1.0 (0.6-1.3) mg/dl Est Cr Clr Drug Dosing 48.6 ml/min eGFR 71.22 BUN/Creatinine Ratio 19.3 (10-20) Glucose 71 (70-99(Fasting)) mg/dl POC Glucose 94 (70-99) mg/dl POC Glucose (other) 68 L* (70-99) mg/dl Calcium 9.8 (8.6-10.3) mg/dl POC Ioniz Calcium Etelvina 1.22 (1.12-1.32) mmol/l Total Bilirubin 0.7 (0.2-1.0) mg/dl AST 19 (13-39) U/L ALT 15 (7-52) U/L Alkaline Phosphatase 68 (34-104) U/L Troponin I High Sens 3.4 (0-14) pg/ml Total Protein 7.0 (6.0-8.3) gm/dl Albumin 3.8 (3.4-5.0) gm/dl Globulin 3.2 (2.5-4.0) gm/dl Albumin/Globulin Ratio 1.2 (0.9-2) Lipase 8 L (11-82) U/L Administered Medications Morphine Sulfate (Morphine Sulfate 4 Mg/Ml 1 Ml Carp\\Vial) 4 mg IV Q30M PRN PRN Reason: Pain Stop: 02/18/25 20:15 Last Admin: 02/04/25 20:23 Dose: 4 mg Documented By: WENDY Discontinued Medications Dextrose (Dextrose 25% 10 Ml Syr) 10 ml IV NOW ONE Stop: 02/04/25 18:42 Last Admin: 02/04/25 18:51 Dose: 10 ml Documented By: MAY Sodium Chloride (Nss) 500 mls @ 999 mls/hr IV .Q31M STA Stop: 02/04/25 18:38 Last Admin: 02/04/25 18:23 Dose: 999 mls/hr Documented By: SONY Ioversol (Optiray 320 100ml) 93 ml IV ONCE ONE Stop: 02/04/25 19:08 Last Admin: 02/04/25 19:08 Dose: 93 ml Documented By: GLADYS Morphine Sulfate (Morphine Sulfate 4 Mg/Ml 1 Ml Carp\\Vial) 4 mg IV NOW STA Stop: 02/04/25 18:09 Last Admin: 02/04/25 18:23 Dose: 4 mg Documented By: SONY Ondansetron HCl (Ondansetron Inj 2 Mg/Ml 2 Ml Vial) 4 mg IV NOW STA Stop: 02/04/25 18:09 Last Admin: 02/04/25 18:23 Dose: 4 mg Documented By: SONY Imaging Data Attestation: I personally reviewed and interpreted this imaging study as follows: My Impression: CT of the abdomen and pelvis was obtained in the emergency department. My interpretation is no free air or definite bowel obstruction, final report below. Radiologist's Impression: Abdomen/Pelvis CT 02/04/25 18:08 EXAMINATION: CT of the abdomen and pelvis performed after the administration of IV contrast. TECHNIQUE: Helical CT images from the lung bases through the symphysis pubis were obtained with contrast. Coronal and sagittal reformatted images were generated at a workstation for further assessment. Dose reduction techniques were achieved by using automatic exposure control and/or adjustment of mA and/or kV according to patient size and/or use of iterative reconstruction technique. HISTORY: History of diverticulitis now with constipation. COMPARISON: January 14, 2025. FINDINGS: Slot Key Person film demonstrates right hip arthroplasty changes. Lung windows demonstrate mild subsegmental atelectasis. Soft tissue windows demonstrate calcified atherosclerotic changes coronary vasculature. Large sliding-type hiatal hernia. Cholecystectomy changes. Mild intrahepatic ductal dilatation. Portions of the exam limited secondary to streak artifact from cholecystectomy clips. Likely extrarenal pelvis on the right. Streak artifact from right hip arthroplasty hardware limits portions of the pelvic evaluation. Uterus is not identified. Small hypodensities right ovary. Suspect cysts. Moderate stool-filled large bowel. No appreciated mechanical obstruction. Appendix is within normal limits. Cecal type densities distal small bowel. This can be seen in slow small bowel transit. Prominent caliber fluid-filled small bowel loops. No discrete transition point or obstruction. Remaining solid hollow organs of the abdomen and pelvis are within normal limits. No free air or free fluid. Bone windows demonstrate degenerative changes lumbar spine. No appreciated acute osseous process. IMPRESSION: 1. Resolution previously noted hepatic flexure diverticulitis with moderate stool-filled large bowel with no appreciated mechanical obstruction. Additional fecal type densities at the level of the terminal ileum and prominent fluid-filled small bowel loops. This can be seen in slow bowel transit. No appreciated small bowel obstruction. Constipation must be considered. Enteritis less likely. 2. Stable large hiatal hernia. 3. Stable prominent intrahepatic ducts. No discrete choledocholithiasis or pancreatic head mass. 4. Likely benign small right ovarian cysts. This does not appear to be significantly changed. Ultrasound would be helpful for further characterization. Please see above for details. Electronically signed by Jorge Perrin 02-04-2025 7:53 PM Discharge Plan Visit Data Chief Complaint: Abdominal Pain Stated Complaint: ABDOMINAL PAIN NAUSEA ED Provider: Joseph Valentine Discharge Problem: Abdominal pain, acute, right upper quadrant, Constipation, Vomiting, Nausea Prescriptions Prescriptions: No Action nitroglycerin [Nitrostat] 0.4 mg tablet, sublingual 0.4 mg Sublingual UD PRN (Reason: Chest Pain) Qty: 25 3RF Rx Instructions: 0.4 mg Sublingual VERY 5 MINUTES FOR UP TO 3 DOSES PRN FOR CHEST PAIN. CALL 911 IF PAIN PERSISTS; (DME) pen needle, diabetic [BD Ultra-Fine Marah Pen Needle] 32 gauge x 5/32" needle See Rx Instructions .ROUTE .MEDSUPPLY Qty: 400 3RF Rx Instructions: use 4 needles daily gabapentin 300 mg capsule 600 mg PO QID Qty: 720 3RF (DME) Dexcom G7 Sensor Device See Rx Instructions .Route Qty: 9 3RF Rx Instructions: change sensor Q19D insulin lispro [Humalog KwikPen Insulin] 100 unit/mL insulin pen See Rx Instructions .ROUTE .COMPLEX Qty: 45 3RF Rx Instructions: Inject 14 units breakfast and dinner, 7 units with lunch, plus sliding scale; TDD 40 units a day insulin glargine [Lantus Solostar U-100 Insulin] 100 unit/mL (3 mL) insulin pen 13 unit SQ HS Qty: 15 1RF calcium carbonate-vitamin D3 500 mg(1,250mg) -400 unit tablet,chewable 1 tab PO BID cholecalciferol (vitamin D3) 2,000 unit capsule 2,000 units PO QAM Patient Comments: Unable to verify otc meds at this date/time. 11/24/24 cyanocobalamin (vitamin B-12) 1,000 mcg tablet 1,000 mcg PO BID Qty: 60 Patient Comments: Unable to verify otc meds at this date/time. 11/24/24 pantoprazole 40 mg tablet,delayed release (DR/EC) 40 mg PO QAM pyridoxine (vitamin B6) [Vitamin B-6] 50 mg Tablet 50 mg PO QAM Patient Comments: Unable to verify otc meds at this date/time. 11/24/24 atorvastatin 40 mg tablet 40 mg PO HS aspirin 81 mg Tablet,Delayed Release (Dr/Ec) 81 mg PO QPM Patient Comments: Unable to verify otc meds at this date/time. 11/24/24 metoprolol succinate 25 mg tablet extended release 24 hr 25 mg PO QAM Patient Comments: Last filled 07/2024 x90 day supply. Original Directions: 25mg by mouth once daily. 11/24/24 duloxetine 30 mg capsule,delayed release(DR/EC) 30 mg PO HS Patient Comments: Last filled 03/2024 x90 day supply. Original Directions: 30mg by mouth once daily. 11/24/24 famotidine 40 mg tablet 40 mg PO QPM
[2025-02-04] MEDS: ONDANSETRON INJ 2 MG/ML 2 ML VIAL IV STA (18:23)
[2025-02-04] MEDS: MoRPHine SULFATE 4 MG/ML 1 ML CARP\\VIAL IV STA (18:23)
[2025-02-04] MEDS: SODIUM CHLORIDE 0.9% 500 ML IV STA (18:23)
[2025-02-04 18:46] LABS: Hematocrit (blood only) 41.3 % (37.0-47.0); Hemoglobin 13.8 g/dL (12.0-16.0); Immature Granulocytes # (auto) 0.01 K/uL (0.01-0.20); Immature Granulocytes % (auto) 0.2 %; Mean Corpuscular Hemoglobin 31.7 pg (25.0-34.0); Mean Corpuscular Volume 94.7 fL (80.0-100.0); Platelet Count 223 K/uL (130-400); RDW Standard Deviation 46.4 fL (36.4-46.3); Red Blood Count 4.36 M/uL (4.20-5.40); White Blood Count 6.51 K/ul (4.8-10.8)
[2025-02-04] MEDS: DEXTROSE 25% 10 ML SYR IV ONE (18:51)
[2025-02-04 19:04] LABS: Alanine Aminotransferase 15.0 U/L (7-52); Albumin Globulin Ratio 1.2 (0.9-2); Albumin Level 3.8 gm/dl (3.4-5.0); Alkaline Phosphatase 68.0 U/L (34-104); Anion Gap 5.0 (3-11); Bilirubin,Total 0.7 mg/dl (0.2-1.0); Blood Urea Nitrogen 16.0 mg/dl (6-23); Calcium 9.8 mg/dl (8.6-10.3); Carbon Dioxide 32.0 mmol/L (21-32); Chloride 102.0 mmol/L (98-107); Creatinine Clr Calc Pharmacy 48.6 ml/min; Globulin 3.2 gm/dl (2.5-4.0); Glucose 71.0 mg/dl (70-99(Fasting)); Lipase 8.0 U/L (11-82); Potassium 3.7 mmol/L (3.5-5.1); Sodium 139.0 mmol/L (136-145); Total Protein 7.0 gm/dl (6.0-8.3)
[2025-02-04] MEDS: OPTIRAY 320 100ml IV ONE (19:08)
--- NOTE | 2025-02-04 19:54 | CT Scan Report ---
EXAMINATION: CT of the abdomen and pelvis performed after the administration of IV contrast. TECHNIQUE: Helical CT images from the lung bases through the symphysis pubis were obtained with contrast. Coronal and sagittal reformatted images were generated at a workstation for further assessment. Dose reduction techniques were achieved by using automatic exposure control and/or adjustment of mA and/or kV according to patient size and/or use of iterative reconstruction technique. HISTORY: History of diverticulitis now with constipation. COMPARISON: January 14, 2025. FINDINGS: Cash Processing Specialist film demonstrates right hip arthroplasty changes. Lung windows demonstrate mild subsegmental atelectasis. Soft tissue windows demonstrate calcified atherosclerotic changes coronary vasculature. Large sliding-type hiatal hernia. Cholecystectomy changes. Mild intrahepatic ductal dilatation. Portions of the exam limited secondary to streak artifact from cholecystectomy clips. Likely extrarenal pelvis on the right. Streak artifact from right hip arthroplasty hardware limits portions of the pelvic evaluation. Uterus is not identified. Small hypodensities right ovary. Suspect cysts. Moderate stool-filled large bowel. No appreciated mechanical obstruction. Appendix is within normal limits. Cecal type densities distal small bowel. This can be seen in slow small bowel transit. Prominent caliber fluid-filled small bowel loops. No discrete transition point or obstruction. Remaining solid hollow organs of the abdomen and pelvis are within normal limits. No free air or free fluid. Bone windows demonstrate degenerative changes lumbar spine. No appreciated acute osseous process. IMPRESSION: 1. Resolution previously noted hepatic flexure diverticulitis with moderate stool-filled large bowel with no appreciated mechanical obstruction. Additional fecal type densities at the level of the terminal ileum and prominent fluid-filled small bowel loops. This can be seen in slow bowel transit. No appreciated small bowel obstruction. Constipation must be considered. Enteritis less likely. 2. Stable large hiatal hernia. 3. Stable prominent intrahepatic ducts. No discrete choledocholithiasis or pancreatic head mass. 4. Likely benign small right ovarian cysts. This does not appear to be significantly changed. Ultrasound would be helpful for further characterization. Please see above for details. Electronically signed by Jorge Perrin 02-04-2025 7:53 PM
[2025-02-04] MEDS: MoRPHine SULFATE 4 MG/ML 1 ML CARP\\VIAL IV PRN (20:23)
--- NOTE | 2025-02-04 20:55 | History & Physical Report ---
Date of Service February 04, 2025 Assessment & Plan (1) Abdominal pain: (2) Constipation: (3) Type 2 diabetes mellitus: Plan 79-year-old female PMH T2DM with peripheral neuropathy, CKD stage IIIa consequence of HTN nephrosclerosis, CAD s/p stent, HLD, HTN, insomnia, GERD, gastroparesis, IBS, depression, s/p multiple surgeries, and prior history of diverticulitis presenting with abdominal pain. Her evaluation is insignificant for acute findings with exception of possible slow bowel transit that could be constipation. Her previously diagnosed diverticulitis with last hospital admission has resolved per CT imaging. No indications of infection at this time. #Abdominal pain/Constipation Recent hospital admission in December for diverticulitis, not now seen on repeat imaging. No indication of infection at this time. H/o gastroparesis (DM), suspe cted per GI note 08/21/2019 - gastric emptying study was recommended at that time - never completed. Also prior h/o H. pylori treatment, w/ GERD on oral regimen. EGD from 2020 with 3cm hiatal hernia, ? relating to early satiety at present. Pt has colonoscopies completed q 5-6 years, due again in February 2025. 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 Admission for IVF and further management of abdominal pa in. - CBC and CMP WNL; lipase 8 - CTAP suggestive of slow bowel transit likely constipation, no acute infections, no obstruction, or other acute findings - Avoid further opioids -- acetaminophen prn fever/pain - IVF LR @ 80 mL/hr x 1L - Bowel regimen added -- MiraLAX BID, senna HS - Dietitian consult placed -- recommend specific emphasis on gastroparesis -- appreciate assistance - Consult gastroenterology. #T2DM H/o T2DM; At home regimen includes Glargine 13U HS and lispro; Gabapentin for neuropathy. - Glucose on arrival 71; Most recent A1c 11/2024 @ 7.9% - SSI with target BSG range 110-140mg/dL, CF 35, carb ratio 10 - Lantus 6U BID (start 02/04/2025) - BSG ACHS - Adjust regimen as needed #CAD- ASA - continue #HTN- Metoprolol - continue #HLD- Atorvastatin - continue #Psych- Duloxetine - continue #GERD- Famotidine, pantoprazole - continue Dispo: Obs, med/sx VTE Prophylaxis: SCDs This document was dictated utilizing Zoom. Please excuse any grammatical errors that may be secondary to use of this software. Admission and Anticipated Discharge Date Admission Date: 02/04/2025 History of Present Illness Chief Complaint: Abdominal pain Primary Care Provider: Kishor Galeas DO 79-year-old female PMH T2DM with peripheral neuropathy, CKD stage IIIa consequence of HTN nephrosclerosis, CAD s/p stent, HLD, HTN, insomnia, GERD, gastroparesis, IBS, depression, s/p multiple surgeries, and prior history of diverticulitis presenting with abdominal pain. Most recent hospital admissions 11/24/2024 until 11/27/2024 then again 01/14/2025 until 01/15/2025 for coronavirus then diverticulitis respectively. Pt reports that the day of arrival she developed 9/10 abdominal pain, located across her entire abdomen. It was unable to be alleviated by anything and her abdomen was becoming more distended. She notes recent hospital admission for diverticulitis, and was having loose BM while on oral antibiotics. She reports seeing her PCP following d/c from the hospital and expressed concerns of constipation following this, and was recommended to take MiraLAX twice a day. She followed this regimen, but states that she has not had a normal BM in ~ 3 days duration. Her normal regimen is a BM every 1-1.5 days, normal consistency and size. She admits to drinking water throughout the day, but also has a cup of tea and coffee daily as well. She has been having difficulties figuring out which diet to follow regarding her DM, h/o diverticulitis, and gastroparesis. Pt was unaware of her h/o gastroparesis, but thinks that she recognizes this term and description of what it is. She is having some nausea, no vomiting. Passing gas, but has not been eating much over the past 3 days 2/2 early satiety and has not had as many episodes of flatulence. She is not SOB, denies CP, palpitations, F/C, URI symptoms, LUTS, numbness/tingling, weakness, syncope, or falls. She is concerned about going home because she does not want the abdominal pain to return and cause her to come right back to the ED. ED evaluation revealed CBC without leukocytosis or leukopenia, stable H&H; CMP unremarkable; lipase 8; CTAP resolution of previously noted hepatic flexure diverticulitis, slow bowel transit, constipation to be considered, stable large hiatal hernia, stable prominent intrahepatic ducts, benign small R ovarian cyst; EKG NSR at 70 bpm.; Provided with 500 mL NSS, Zofran 4 mg IV, morphine 4 mg IV, and dextrose 10 mL IV in ED. Please see Dr. Chen attestation for adjustments/additions to treatment plan. Allergies Allergy/AdvReac Type Severity Reaction Status Date / Time amoxicillin Allergy Severe Hives Verified 02/04/25 19:42 metoclopramide AdvReac Severe SEVERE Verified 02/04/25 19:42 WEAKNESS/DIZZINESS primidone AdvReac Severe Lethargy Verified 02/04/25 19:42 rosuvastatin AdvReac Intermediate muscle Verified 02/04/25 19:42 cramping metformin AdvReac Mild NAUSEA Verified 02/04/25 19:42 Home Medications Medication Instructions Recorded Confirmed Type calcium 500 mg (as carbonate)-vit 1 tab PO BID 10/21/18 02/04/25 History D3 10 mcg (400 unit) chewable tablet cholecalciferol (vitamin D3) 50 2,000 units PO QAM 10/21/18 02/04/25 History mcg (2,000 unit) capsule pantoprazole 40 mg tablet,delayed 40 mg PO QAM 10/21/18 02/04/25 History release cyanocobalamin (vitamin B-12) 1,000 mcg PO BID #60 tabs 09/04/19 02/04/25 History 1,000 mcg tablet pyridoxine (vitamin B6) 50 mg 50 mg PO QAM 12/18/19 02/04/25 History tablet (Vitamin B-6) nitroglycerin 0.4 mg sublingual 0.4 mg sublingual UD PRN Chest 07/28/21 02/04/25 Rx tablet (Nitrostat) Pain #25 tabs BD Ultra-Fine Marah Pen Needle 32 #400 ea 12/13/23 12/19/24 Rx gauge x 5/32" (pen needle, diabetic) famotidine 40 mg tablet 40 mg PO QPM 01/27/24 02/04/25 History gabapentin 300 mg capsule 600 mg (2 x 300 mg) PO QID #720 03/20/24 02/04/25 Rx caps blood-glucose sensor (Dexcom G7 #9 ea 06/20/24 12/19/24 Rx Sensor device) aspirin 81 mg tablet,delayed 81 mg PO QPM 06/26/24 02/04/25 History release atorvastatin 40 mg tablet 40 mg PO HS 06/26/24 02/04/25 History metoprolol succinate 25 mg 25 mg PO QAM 06/26/24 02/04/25 History tablet,extended release 24 hr insulin lispro 100 unit/mL See Rx Instructions .Route 10/02/24 02/04/25 Rx subcutaneous pen (Humalog KwikPen .COMPLEX #45 mL (U-100) Insulin) duloxetine 30 mg capsule,delayed 30 mg PO HS 11/24/24 02/04/25 History release insulin glargine 100 unit/mL (3 13 unit (0.13 mL) subcut HS #15 mL 01/22/25 02/04/25 Rx mL) subcutaneous pen (Lantus Solostar U-100 Insulin) Past Med/Surg History Problem List (Updated 02/04/25 @ 22:41 by Kenia Chester PA-C) Abdominal pain Nausea (Acute) Vomiting (Acute) Constipation (Acute) Abdominal pain, acute, right upper quadrant (Acute) Acute diverticulitis (Acute) Coronary artery disease Type 2 diabetes mellitus Right knee DJD Periodic paralysis Hypersomnolence disorder, acute, severe Insomnia Cervical myofascial pain syndrome CKD stage 3a, GFR 45-59 ml/min Polyneuropathy Cervical radiculopathy Ataxia (Acute) Diabetes mellitus, type II (Chronic) IDDM GERD (gastroesophageal reflux disease) (Chronic) Gastroparesis (Chronic) History of Helicobacter pylori infection (Chronic) Depression (Chronic) Irritable bowel syndrome (Chronic) Vitamin D deficiency (Chronic) Dyslipidemia (Chronic) S/P hysterectomy (Chronic) S/P cholecystectomy (Chronic) S/P colonoscopy (Chronic) H/O esophagogastroduodenoscopy (Chronic) Visual disturbance of one eye (Acute) CAD (coronary artery disease) S/P ZAHRA to mid LAD 06/2016 Complication of cystostomy Ovarian mass, left Atypical chest pain (Acute) Vulvar ulceration (Acute) Vitamin D insufficiency (Acute) Urinary incontinence (Acute) SNHL (sensorineural hearing loss) (Acute) S/P drug eluting coronary stent placement (Acute) PAD (peripheral artery disease) (Acute) Ovarian cyst, complex (Acute) Herpes simplex type 1 infection (Acute) Genital herpes simplex (Acute) Episodic weakness (Acute) Dyspareunia (Acute) Dysesthesia (Acute) Diabetic peripheral neuropathy (Chronic) Controlled type 2 diabetes mellitus (Chronic) Bilateral leg pain (Acute) Benign familial tremor (Acute) Stented coronary artery Benign essential tremor Closed fracture of right hip (Acute) Osteoporosis Seizure-like activity Syncope Organic periodic limb movement disorder Essential tremor Seizure-like activity Medical History CVA (cerebral vascular accident) DVT prophylaxis Muscle cramps Iron deficiency Osteoarthritis GERD (gastroesophageal reflux disease) Hearing deficit Depression Transient ischemic attack (TIA) 5 YEARS AGO - NO ISSUES SINCE - FOLLOWS W/ DR. SUTHERLAND Hyperlipidemia Surgical History History of right hip replacement (~03/2020) S/P laparoscopic hysterectomy with BSO History of cholecystectomy History of laminectomy LUMBAR History of cardiac cath 06/2016 - [facility] - INCREASED SOB, ABN STRESS TEST - 1 STENT PLACED - FOLLOWS W/ DR. BULLOCK. Family History Unknown Diabetes Mother Diabetes Tremor Sister Tremor Colorectal cancer Father Colorectal cancer Other No family history of adverse response to anesthesia Social History Smoking Status: Never smoker Second Hand Exposure: No; Do You Dip or Chew Tobacco: No; Hx Alcohol Use: No Hx Substance Use: No Preferred Language: Yi Communication Ability: Effective Visual Impairment: No Limitations Antique Refinisher Required: No Beliefs That Will Affect Care: None Current Living Situation: Other Current Living Situation Comment: Pt states she lives with her friend Other Information That Helps Us Care for You: No Feels Safe at Home: Yes Safety Concerns: Feels Safe At This Time Assistive Devices: Glasses Review of Systems Review of Systems: All systems reviewed & are unremarkable except as noted in Subjective Physical Exam Physical Exam: General: No acute distress Skin: Warm and dry Head: Normocephalic, atraumatic Eyes: PERRL, conjunctivae clear, sclera non-icteric ENT: External ear and ear canal without swelling; nose atraumatic; good dentition, tongue normal appearance, pharynx normal Neck: Supple, no LAD Cardio: RRR, no M/G/R, S1 and S2 normal Resp: No respiratory distress, Lungs CTA in all lobes bilaterally, no wheezes, rales, or rhonchi Abdomen: Surgical scar noted, well healed; Slight distention, mild tenderness throughout, not surgical in nature, symmetric; No masses or hepatosplenomegaly; Bowel sounds normoactive MSK: No deformities; pulses palpable and equal; no edema. Neuro: Awake, alert; Sensation intact bilaterally; CN grossly intact Psych: Appropriate mood and affect; good judgement and insight. present in room at time of visit. Results & Data Results & Data Vital Signs (Past 12 Hours) Vital Signs Temp Pulse Pulse Resp BP BP Pulse Ox 02/04/25 20:14 18 97 02/04/25 20:13 89 L 02/04/25 19:01 77 18 143/61 H 92 02/04/25 18:24 74 02/04/25 18:08 92 02/04/25 17:55 36.9 C 75 20 120/69 94 O2 Del Method O2 Flow Rate 02/04/25 20:14 Nasal Cannula 2 02/04/25 20:13 Room Air 02/04/25 19:01 Room Air 02/04/25 18:24 02/04/25 18:08 Room Air 02/04/25 17:55 Room Air Laboratory Results 02/04/25 02/04/25 02/04/25 19:41 18:35 18:30 WBC 6.51 RBC 4.36 Hgb 13.8 POC Hgb 14.3 Hct 41.3 POC Hct 42 MCV 94.7 MCH 31.7 MCHC 33.4 RDW Std Deviation 46.4 H RDW Coeff of Jazmine 13.3 Plt Count 223 MPV 9.3 L Immature Gran % (Auto) 0.2 Neut % (Auto) 50.7 Lymph % (Auto) 33.9 Appling % (Auto) 11.8 Eos % (Auto) 2.5 Baso % (Auto) 0.9 Neut # (Auto) 3.30 Lymph # (Auto) 2.21 Appling # (Auto) 0.77 H Eos # (Auto) 0.16 Baso # (Auto) 0.06 Immature Gran # (Auto) 0.01 POC Sodium 140 Sodium 139 POC Potassium 3.7 Potassium 3.7 POC Chloride 99 L Chloride 102 Carbon Dioxide 32 POC Total CO2 29 Anion Gap 5 POC Anion Gap 17.0 POC BUN 16 BUN 16 Creatinine 0.83 POC Creatinine 1.0 Est Cr Clr Drug Dosing 48.6 eGFR 71.22 BUN/Creatinine Ratio 19.3 Glucose 71 POC Glucose 94 POC Glucose (other) 68 L* Calcium 9.8 POC Ioniz Calcium Etelvina 1.22 Total Bilirubin 0.7 AST 19 ALT 15 Alkaline Phosphatase 68 Troponin I High Sens 3.4 Total Protein 7.0 Albumin 3.8 Globulin 3.2 Albumin/Globulin Ratio 1.2 Lipase 8 L Diagnostic Findings Abdomen/Pelvis CT 02/04/25 18:08 EXAMINATION: CT of the abdomen and pelvis performed after the administration of IV contrast. TECHNIQUE: Helical CT images from the lung bases through the symphysis pubis were obtained with contrast. Coronal and sagittal reformatted images were generated at a workstation for further assessment. Dose reduction techniques were achieved by using automatic exposure control and/or adjustment of mA and/or kV according to patient size and/or use of iterative reconstruction technique. HISTORY: History of diverticulitis now with constipation. COMPARISON: January 14, 2025. FINDINGS: Bilingual Sales Assistant film demonstrates right hip arthroplasty changes. Lung windows demonstrate mild subsegmental atelectasis. Soft tissue windows demonstrate calcified atherosclerotic changes coronary vasculature. Large sliding-type hiatal hernia. Cholecystectomy changes. Mild intrahepatic ductal dilatation. Portions of the exam limited secondary to streak artifact from cholecystectomy clips. Likely extrarenal pelvis on the right. Streak artifact from right hip arthroplasty hardware limits portions of the pelvic evaluation. Uterus is not identified. Small hypodensities right ovary. Suspect cysts. Moderate stool-filled large bowel. No appreciated mechanical obstruction. Appendix is within normal limits. Cecal type densities distal small bowel. This can be seen in slow small bowel transit. Prominent caliber fluid-filled small bowel loops. No discrete transition point or obstruction. Remaining solid hollow organs of the abdomen and pelvis are within normal limits. No free air or free fluid. Bone windows demonstrate degenerative changes lumbar spine. No appreciated acute osseous process. IMPRESSION: 1. Resolution previously noted hepatic flexure diverticulitis with moderate stool-filled large bowel with no appreciated mechanical obstruction. Additional fecal type densities at the level of the terminal ileum and prominent fluid-filled small bowel loops. This can be seen in slow bowel transit. No appreciated small bowel obstruction. Constipation must be considered. Enteritis less likely. 2. Stable large hiatal hernia. 3. Stable prominent intrahepatic ducts. No discrete choledocholithiasis or pancreatic head mass. 4. Likely benign small right ovarian cysts. This does not appear to be significantly changed. Ultrasound would be helpful for further characterization. Please see above for details. Electronically signed by AydinJorge 02-04-2025 7:53 PM Medications Administered 500 mL NSS Zofran 4 mg IV Morphine 4 mL IV Dextrose 10 mL IV ECG Additional Comments: NSR 70 bpm, HI 116, QRS 80, QT/QTc 420/453, PRT 71/27/46 Code Status & VTE Plan Code Status Full Supervising Physician Co-Signing Physician Notes Attending addendum: I have physically seen this patient, have supervised the ERENDIRA's activities, and agree with the H&P unless as otherwise noted. Assessment and Plan: The patient is a 79-year-old female with a past medical history including as well as type II, diabetic peripheral neuropathy, CKD stage III AA, hypertension, CAD status post stent,- , insomnia, GERD, diabetic gastroparesis, IBS, depression, status post multiple surgeries, and diverticulitis. She presents to the emergency department with generalized abdominal pain, decreased appetite, and generalized weakness. Abdominal pain/GERD- CT scan of abdomen and pelvis shows resolution of previous hepatic flexure diverticulitis. There is moderate stool-filled large bowel without suggestion of mechanical obstruction, that may be associated with slow bowel transit. Symptoms are likely secondary to Diabetic gastroparesis. This has been noted by endocrinology and gastroenterology in the past Patient was never able to get gastric emptying scan done due to the timing of COVID-19 pandemic in August 2019. The study could be ordered, however, on empiric basis, that is her likely cause. LR at 80 mL/h x 1 L Acetaminophen 650 mg by mouth every 6 hours as needed for mild pain or fever She has already received a dose of morphine from the ED, would hold on any further narcotics at this point Placed on MiraLAX twice daily as noted, and senna at bedtime. Continue famotidine and pantoprazole Consult dietitian, as in discussion with patient, she has conflicting information regarding high-fiber diet for recent diverticulitis, and low residue diet for transit issue. Consult gastroenterology. She has been seen by Emmett Tanner in the past, who has been retired. Diabetes mellitus type 2- Glucose 71 on admission, and received 9 mL of the 25 with improvement to the 90s. Likely associated with decreased oral intake, as above. Modify insulin as noted Consult dietitian and help with fiber content and carbohydrates CAD/hypertension/history of stented coronary artery Continue aspirin and metoprolol Hyperlipidemia- Continue atorvastatin Depression- Continue duloxetine PG Care Time/CCT Total # of Minutes Spent Total Time Spent with Patient: Total time spent is greater than 50% in coordination of care (as documented) at patient's floor/unit and/or counseling patient: Coding Level of Care Code 41758 INT INP/OBS CARE 3/75MIN Diagnoses Abdominal pain R10.9 Constipation K59.00 Type 2 diabetes mellitus with hyperglycemia, with long-term current use of insulin E11.65; Z79.4 Diabetes mellitus complication status: with hyperglycemia Diabetes mellitus nursing home insulin use: with nursing home use (3) Type 2 diabetes mellitus Diabetes mellitus complication status: with hyperglycemia Diabetes mellitus instrumentation technician insulin use: with instrumentation technician use Qualified Code(s): E11.65 - Type 2 diabetes mellitus with hyperglycemia; Z79.4 - intermediate (current) use of insulin
[2025-02-04] MEDS: SENNA 8.6 MG TAB PO SCH (22:05)
[2025-02-04] MEDS: POLYETHYLENE (MIRALAX) 17 GM PACK PO SCH (22:06)
[2025-02-04] MEDS: LACTATED RINGER'S 1,000 ML IV SCH (22:06)
[2025-02-04] MEDS ORDERED: MELATONIN 3 MG TAB PO PRN (23:11)
[2025-02-04] MEDS ORDERED: ONDANSETRON INJ 2 MG/ML 2 ML VIAL IV PRN (23:11)
[2025-02-04] MEDS ORDERED: GLUCOSE 40% GEL 15 GM TUBE PO PRN (23:11)
[2025-02-04] MEDS ORDERED: GLUCOSE 10 TAB/TUBE PO PRN (23:11)
[2025-02-04] MEDS ORDERED: GLUCAGON FOR INJ 1 MG VIAL SQ PRN (23:11)
[2025-02-04] MEDS ORDERED: DEXTROSE 50% 50 ML SYRINGE IV PRN (23:11)
[2025-02-04] MEDS ORDERED: CARBOHYDRATES FOR HYPOGLYCEMIA PO PRN (23:11)
[2025-02-04 23:15] VITALS: RESP 16
[2025-02-05 07:34] VITALS: BP 106/58; PULSE 74; TEMP 97.9; O2SAT 92
[2025-02-05] MEDS: GABAPENTIN 300 MG CAP PO SCH (08:50)
[2025-02-05] MEDS: METOPROLOL SUCC 25MG EXT REL TAB PO SCH (08:51)
[2025-02-05] MEDS: LANTUS PER UNIT CHARGE SQ SCH (08:58)
[2025-02-05] MEDS: INSULIN ASPART PER UNIT CHARGE SC SCH (08:58)
[2025-02-05] MEDS: POLYETHYLENE (MIRALAX) 17 GM PACK PO SCH (09:04)
--- NOTE | 2025-02-05 11:29 | Discharge Summary ---
Discharge Summary Date of Service February 05, 2025 Principal Dx & Hospital Course #1 = Principal Diagnosis (1) Abdominal pain: (2) Constipation: (3) Type 2 diabetes mellitus: Plan 79-year-old female PMH T2DM with peripheral neuropathy, CKD stage IIIa consequence of HTN nephrosclerosis, CAD s/p stent, HLD, HTN, insomnia, GERD, gastroparesis, IBS, depression, s/p multiple surgeries, and prior history of diverticulitis presenting with abdominal pain. Her evaluation is insignificant for acute findings with exception of possible slow bowel transit that could be constipation. Her previously diagnosed diverticulitis with last hospital admission has resolved per CT imaging. No indications of infection at this time. #Abdominal pain | Constipation Recent hospital admission in December for diverticulitis, not now seen on repeat imaging. No indication of infection at this time. H/o gastroparesis (DM), suspected per GI note 08/21/2019 - gastric emptying study was recommended at that time - never completed. Also prior h/o H. pylori treatment, w/ GERD on oral regimen. EGD from 2020 with 3cm hiatal hernia, ? relating to early satiety at present. Pt has colonoscopies completed q 5-6 years, due again in February 2025. Last BM ~ 3 days ICE HAND[employer] per patient. Admission for IVF and further management of abdominal pain. CBC and CMP WNL Lipase okay at 8 CTAP suggestive of slow bowel transit likely constipation, no acute infections, no obstruction, or other acute findings Avoid further opioids -- acetaminophen prn fever/pain IVF LR @ 80 mL/hr x 1L Bowel regimen added -- MiraLAX BID, senna HS while in the hospital Will plan to discharge patient on MiraLAX 17 g packets daily PRN Dietitianist consult appreciated Gastroenterology consult appreciated Recommend follow-up with [facility] GI as well as outpatient colonoscopy s/p acute diverticulitis Suspect patient may also benefit from gastric emptying study as an outpatient #T2DM H/o T2DM; At home regimen includes Glargine 13U HS and lispro; Gabapentin for neuropathy. Most recent A1c 11/2024 @ 7.9% Resume home regimen on discharge Adjust regimen as needed #CAD- ASA - continue #HTN- Metoprolol - continue #HLD- Atorvastatin - continue #Psych- Duloxetine - continue #GERD- Famotidine, pantoprazole - continue Day of discharge 02/05: Patient is mildly hypotensive at 106/58 at time of discharge; vitals otherwise stable. Mrs. Cox is glad she reports she is feeling much better today compared to yesterday. Yesterday, she was having a sharp/stabbing pain in her right upper quadrant that she rated an 8 out of 10. However, this morning she is having 1 out of 10 dull achy pain. She was able to eat toast, scrambled eggs, and drink coffee without exacerbation of her abdominal pain. She denies prior history of gastroparesis or peptic ulcers. Patient has not had a bowel movement in 4 days, but feels like she might be able to have a bowel movement this morning. Her only other symptom at this time is mild nausea. Overall, she feels much better than when she came in, and expresses a desire to go home today if possible. ROS: Patient endorses mild RUQ abdominal pain, nausea, and constipation. Patient denies fever, chills, night sweats, chest pain, SOB, vomiting, melena, burning with urination, dysuria, or blood in the urine or stool. Disposition: Discharge home This document was dictated utilizing [employer]. Please excuse any grammatical errors that may be secondary to use of this software. Notes For Next Care Provider Patient hospitalized for abdominal pain. Suspected secondary to constipation. A/P CT revealed no small bowel obstruction, and full resolution of diverticulitis. There was also concern for "slow bowel transit" on imaging. Patient to be discharged on daily MiraLAX as needed. She will need follow-up with [facility] gastroenterology, with plan colonoscopy in February 2025, and may benefit from gastric emptying studies to assess for gastroparesis. Admission HPI Per Admitting Provider 79-year-old female PMH T2DM with peripheral neuropathy, CKD stage IIIa consequence of HTN nephrosclerosis, CAD s/p stent, HLD, HTN, insomnia, GERD, gastroparesis, IBS, depression, s/p multiple surgeries, and prior history of diverticulitis presenting with abdominal pain. Most recent hospital admissions 11/24/2024 until 11/27/2024 then again 01/14/2025 until 01/15/2025 for coronavirus then diverticulitis respectively. Pt reports that the day of arrival she developed 9/10 abdominal pain, located across her entire abdomen. It was unable to be alleviated by anything and her abdomen was becoming more distended. She notes recent hospital admission for diverticulitis, and was having loose BM while on oral antibiotics. She reports seeing her PCP following d/c from the hospital and expressed concerns of constipation following this, and was recommended to take MiraLAX twice a day. She followed this regimen, but states that she has not had a normal BM in ~ 3 days duration. Her normal regimen is a BM every 1-1.5 days, normal consistency and size. She admits to drinking water throughout the day, but also has a cup of tea and coffee daily as well. She has been having difficulties figuring out which diet to follow regarding her DM, h/o diverticulitis, and gastroparesis. Pt was unaware of her h/o gastroparesis, but thinks that she recognizes this term and description of what it is. She is having some nausea, no vomiting. Passing gas, but has not been eating much over the past 3 days 2/2 early satiety and has not had as many episodes of flatulence. She is not SOB, denies CP, palpitations, F/C, URI symptoms, LUTS, numbness/tingling, weakness, syncope, or falls. She is concerned about going home because she does not want the abdominal pain to return and cause her to come right back to the ED. ED evaluation revealed CBC without leukocytosis or leukopenia, stable H&H; CMP unremarkable; lipase 8; CTAP resolution of previously noted hepatic flexure diverticulitis, slow bowel transit, constipation to be considered, stable large hiatal hernia, stable prominent intrahepatic ducts, benign small R ovarian cyst; EKG NSR at 70 bpm.; Provided with 500 mL NSS, Zofran 4 mg IV, morphine 4 mg IV, and dextrose 10 mL IV in ED. Please see Dr. Chen attestation for adjustments/additions to treatment plan. Admission Exam Per Admitting Provider General: No acute distress Skin: Warm and dry Head: Normocephalic, atraumatic Eyes: PERRL, conjunctivae clear, sclera non-icteric ENT: External ear and ear canal without swelling; nose atraumatic; good dentition, tongue normal appearance, pharynx normal Neck: Supple, no LAD Cardio: RRR, no M/G/R, S1 and S2 normal Resp: No respiratory distress, Lungs CTA in all lobes bilaterally, no wheezes, rales, or rhonchi Abdomen: Surgical scar noted, well healed; Slight distention, mild tenderness throughout, not surgical in nature, symmetric; No masses or hepatosplenomegaly; Bowel sounds normoactive MSK: No deformities; pulses palpable and equal; no edema. Neuro: Awake, alert; Sensation intact bilaterally; CN grossly intact Psych: Appropriate mood and affect; good judgement and insight. present in room at time of visit. Discharge Exam General: no acute distress; pleasant affect; non-toxic appearing; cooperative; SpO2 92% on RA HEENT: normocephalic, atraumatic; PERRLA; vision and hearing intact Neck: supple; trachea midline Skin: warm, dry without signs of tenting; no cyanosis; no rashes, bruising, lesions, or erythema noted CV: chest wall NTP; RRR; S1/S2 normal; no murmurs/rubs/gallops; pulses intact and symmetric at radial, DP, and PT Lungs: no acute respiratory distress; symmetrical chest wall expansion; clear breath sounds across all lung costello w/o adventitious sounds; no wheezing ABD: Soft, mildly TTP in the right upper quadrant and right lower quadrant; left side NTP; no rashes or bruising appreciated in the abdomen or flanks bilaterally; BS present; no rebound/guarding; no distention MSK: no tics or fasciculations; no edema noted in the LEs b/l, nonerythematous Neuro: A&Ox3; normal mood and affect; fluent speech; sensation intact and symmetric in the LEs b/l Discharge Plan Discharge Items Patient Disposition: Home - Self-Care Reason For Visit: ABDOMINAL PAIN, CONSTIPATION Discharge Diagnosis: Abdominal pain, constipation Condition on Discharge: Fair Activity: Resume your previous activity Non-emergency contact: Primary Care Provider and Prep Manager Call non-emergency contact if: you have any medication questions, your symptoms worsen and your pain is not controlled Follow-up/Referrals: Kishor Galeas DO [Primary Care Provider] - Diet: Regular Addtl Attending Provider Instructions: You were hospitalized at [facility] from 02/04 to 02/05 for right upper quadrant abdominal pain. Imaging of the abdomen pelvis on arrival did not reveal concerning causes for your abdominal pain: No small bowel obstruction; full resolution of your prior diverticulitis. However, you appear to be very constipated on imaging, and there was concern for "slow bowel transit", indicating something called "gastroparesis". We discussed starting you on new medications for your stomach at time of discharge, however we opted to hold off given full resolution of your symptoms. You may benefit from gastric emptying studies as an outpatient. Given your vitals have remained stable while in the hospital, and you do not have an elevated white blood cell count to indicate signs of severe infection, we feel that you are safe to be discharged home at this time. New prescriptions on discharge: - MiraLAX 17 g powder to be taken daily as needed for constipation Please plan to follow-up with your PCP in the next 7 to 10 days for a transitional care appointment. We also recommend you follow-up with [facility] gastroenterology as an outpatient following your planned colonoscopy in February 2025 and to discuss potential workup for gastroparesis. If you develop any new or worsening symptoms, such as nausea, vomiting, fever, c hills, black/tarry stool, blood in the urine/stool, or intractable stomach pain, please return to the emergency department immediately. It was a pleasure taking care of you. Please reach out with any questions or concerns. Sincerely, The Hospital medicine team at [facility] Pending Studies at Discharge: No Stand-Alone Forms: My [facility] Medications and DC Order Prescriptions: New polyethylene glycol 3350 [Miralax] 17 gram powder in packet 17 g PO DAILY PRN (Reason: constipation) Qty: 14 0RF Rx Instructions: Take 1 packet of MiraLAX daily as needed for constipation Continued nitroglycerin [Nitrostat] 0.4 mg tablet, sublingual 0.4 mg Sublingual UD PRN (Reason: Chest Pain) Qty: 25 3RF Rx Instructions: 0.4 mg Sublingual VERY 5 MINUTES FOR UP TO 3 DOSES PRN FOR CHEST PAIN. CALL 911 IF PAIN PERSISTS; (DME) pen needle, diabetic [BD Ultra-Fine Marah Pen Needle] 32 gauge x 5/32" needle See Rx Instructions .ROUTE .MEDSUPPLY Qty: 400 3RF Rx Instructions: use 4 needles daily gabapentin 300 mg capsule 600 mg PO QID Qty: 720 3RF (DME) Dexcom G7 Sensor Device See Rx Instructions .Route Qty: 9 3RF Rx Instructions: change sensor Q19D insulin lispro [Humalog KwikPen Insulin] 100 unit/mL insulin pen See Rx Instructions .ROUTE .COMPLEX Qty: 45 3RF Rx Instructions: Inject 14 units breakfast and dinner, 7 units with lunch, plus sliding scale; TDD 40 units a day insulin glargine [Lantus Solostar U-100 Insulin] 100 unit/mL (3 mL) insulin pen 13 unit SQ HS Qty: 15 1RF calcium carbonate-vitamin D3 500 mg(1,250mg) -400 unit tablet,chewable 1 tab PO BID cholecalciferol (vitamin D3) 2,000 unit capsule 2,000 units PO QAM Patient Comments: Unable to verify otc meds at this date/time. 11/24/24 cyanocobalamin (vitamin B-12) 1,000 mcg tablet 1,000 mcg PO BID Qty: 60 Patient Comments: Unable to verify otc meds at this date/time. 11/24/24 pantoprazole 40 mg tablet,delayed release (DR/EC) 40 mg PO QAM pyridoxine (vitamin B6) [Vitamin B-6] 50 mg Tablet 50 mg PO QAM Patient Comments: Unable to verify otc meds at this date/time. 11/24/24 atorvastatin 40 mg tablet 40 mg PO HS aspirin 81 mg Tablet,Delayed Release (Dr/Ec) 81 mg PO QPM Patient Comments: Unable to verify otc meds at this date/time. 11/24/24 metoprolol succinate 25 mg tablet extended release 24 hr 25 mg PO QAM Patient Comments: Last filled 07/2024 x90 day supply. Original Directions: 25mg by mouth once daily. 11/24/24 duloxetine 30 mg capsule,delayed release(DR/EC) 30 mg PO HS Patient Comments: Last filled 03/2024 x90 day supply. Original Directions: 30mg by mouth once daily. 11/24/24 famotidine 40 mg tablet 40 mg PO QPM Discharge Orders: Discharge Order (Routine); Ordered 02/05/25 Ordered By: Braulio Narvaez Admission Data Admit Date/Time: 02/04/25 21:30 Attending Provider: Avery Peck Admit Provider: Tolu Chen Primary Care Provider: Kishor Galeas Other Providers: Tolu Chen; Troy Alex Hospital Stay Data Consultations 02/04/25 20:46 ED Decision to Admit Stat 02/05/25 00:14 Consult Gastroenterology Routine Diagnostic Imagining Performed 02/04/25 18:08 CT abd pelvis IV con only Stat Discharge Instructions Given to Patient (Per Discharging Provider) You were hospitalized at [facility] from 02/04 to 02/05 for right upper quadrant abdominal pain. Imaging of the abdomen pelvis on arrival did not reveal concerning causes for your abdominal pain: No small bowel obstruction; full resolution of your prior diverticulitis. However, you appear to be very constipated on imaging, and there was concern for "slow bowel transit", indicating something called "gastroparesis". We discussed starting you on new medications for your stomach at time of discharge, however we opted to hold off given full resolution of your symptoms. You may benefit from gastric emptying studies as an outpatient. Given your vitals have remained stable while in the hospital, and you do not have an elevated white blood cell count to indicate signs of severe infection, we feel that you are safe to be discharged home at this time. New prescriptions on discharge: - MiraLAX 17 g powder to be taken daily as needed for constipation Please plan to follow-up with your PCP in the next 7 to 10 days for a transitional care appointment. We also recommend you follow-up with [facility] gastroenterology as an outpatient following your planned colonoscopy in February 2025 and to discuss potential workup for gastroparesis. If you develop any new or worsening symptoms, such as nausea, vomiting, fever, chills, black/tarry stool, blood in the urine/stool, or intractable stomach pain, please return to the emergency department immediately. It was a pleasure taking care of you. Please reach out with any questions or concerns. Sincerely, The Hospital medicine team at [facility] Total Time Total Time Spent Total Time Spent (In Minutes): 25 Coding Level of Care Code 85430 IN/OBS DISCH 30 MIN/LESS Diagnoses Abdominal pain R10.9 Constipation K59.00 Type 2 diabetes mellitus with hyperglycemia, with long-term current use of insulin E11.65; Z79.4 Diabetes mellitus complication status: with hyperglycemia Diabetes mellitus long-term insulin use: with rodent exterminator use
--- NOTE | 2025-02-05 11:43 | Gastrointestinal Consultation ---
Date of Consultation February 05, 2025 Assessment & Plan (1) Slow transit constipation: Plan 79yowf with h/o T2DM, CKD3, GERD, Gastroparesis, H/O H. pylori, Depression, IBS, DL, CAD, Seizure like activity is seen today an in patient consultation for slow transit constipation. She reports a 4-5 day history of not having a BM on Miralax BID over that time. She took Senokot and reports that she feels she can go now. CT scan was negative for signs of infection, CBC, CMP and Lipase unremarkable. (1) Constipation - - Findings and history consistent with constipation. - Recommend continuing Miralax 1 capful BID. - Continue with Sennakot PRN for rescue therapy. I would avoid regular use of Sennakot (ie, daily use) as this may result in dependence. I suspect once stool passes she'll have better luck with Miralax for maintenance. - If this is ultimately ineffective, then may need to taper up Miralax or consider stronger laxatives. - Recommend follow up with her photographer scientific at [facility] for this as well as an outpatient Colonoscopy s/p diverticulitis. - Thank you for allowing us to participate in the care of this patient. Please call with any acute changes, questions or concerns. Please see addendum below with additional recommendation from my supervising physician. (2) H/O Intestinal Metaplasia on EGD 2020 - Recommend follow up as outpatient for EGD surveillance as ordered by [facility]. History of Present Illness Reason for Consultation: Slow-Transit Constipation Attending Physician: Avery Peck MD History of Present Illness 79yowf with h/o T2DM, CKD3, GERD, Gastroparesis, H/O H. pylori, Depression, IBS, DL, CAD, Seizure like activity is seen today an in patient consultation. She reports that she had a recent episode of acute diverticulitis. Since then she's been struggling with constipation going every couple of days. She's been following with a local GI through [facility]. She was started on Miralax 1 capful daily, which was later adjusted to BID without success. She reports her last BM was 4-5 days ago. In ER CBC, CMP and Lipase were unremarkable. CT revealed large hiatal hernia, fecal type densities at the level fo the terminal ileum and prominent fluid filled small bowel loops which can be seen in slow bowel transit. No small bowel obstruction identified. No choledocholithiasis or pancreatic head masses. She was given Senna damien x 2 last night and she reports this morning that she feel that she has to go to the bathroom. Surgical History - CCY, EGD, Colonoscopy, Hysterectomy. Social History - No alcohol, tobacco or drug use. Family history - Sister passed from CRC in 30s. Father had CRC. Pertinent Diagnostics BUN 16, Cr 0.83. Cl 99, Co2 32, Na 140, K 3.7 Glucose 94. LFTs unremarkable. Lipase 8. Hgb 13.8, Hct 41.3, Plt 223, WBC 6.51 CT abd/pelvis IMPRESSION: 1. Resolution previously noted hepatic flexure diverticulitis with moderate stool-filled large bowel with no appreciated mechanical obstruction. Additional fecal type densities at the level of the terminal ileum and prominent fluid-filled small bowel loops. This can be seen in slow bowel transit. No appreciated small bowel obstruction. Constipation must be considered. Enteritis less likely. 2. Stable large hiatal hernia. 3. Stable prominent intrahepatic ducts. No discrete choledocholithiasis or pancreatic head mass. 4. Likely benign small right ovarian cysts. This does not appear to be significantly changed. Ultrasound would be helpful for further characterization. Please see above for details. EGD 2020 [facility] GI - Hiatal hernia -Irregular Z-line - Antrum and Duodenum normal. A. Duodenum, biopsy: - Benign small bowel mucosa with no diagnostic abnormality B. Stomach, antrum, biopsy: - Mild to moderate acute gastritis with intestinal metaplasia - Negative for dysplasia and carcinoma - Numerous H. pylori organisms identified on immunoperoxidase stain C. GE junction, biopsy: - Intestinal metaplasia (see comment) - Negative for dysplasia and carcinoma Comment: GE junction biopsy shows mostly glandular mucosa with a small amount of squamous mucosa consistent with GE junction. There is extensive intestinal metaplasia present. This may represent Anthony's esophagus, but that diagnosis requires correlation with the clinical and endoscopic findings. Allergies Allergy/AdvReac Type Severity Reaction Status Date / Time amoxicillin Allergy Severe Hives Verified 02/04/25 19:42 metoclopramide AdvReac Severe SEVERE Verified 02/04/25 19:42 WEAKNESS/DIZZINESS primidone AdvReac Severe Lethargy Verified 02/04/25 19:42 rosuvastatin AdvReac Intermediate muscle Verified 02/04/25 19:42 cramping metformin AdvReac Mild NAUSEA Verified 02/04/25 19:42 Home Medications Medication Instructions Recorded Confirmed Type calcium 500 mg (as carbonate)-vit 1 tab PO BID 10/21/18 02/04/25 History D3 10 mcg (400 unit) chewable tablet cholecalciferol (vitamin D3) 50 2,000 units PO QAM 10/21/18 02/04/25 History mcg (2,000 unit) capsule pantoprazole 40 mg tablet,delayed 40 mg PO QAM 10/21/18 02/04/25 History release cyanocobalamin (vitamin B-12) 1,000 mcg PO BID #60 tabs 09/04/19 02/04/25 History 1,000 mcg tablet pyridoxine (vitamin B6) 50 mg 50 mg PO QAM 12/18/19 02/04/25 History tablet (Vitamin B-6) nitroglycerin 0.4 mg sublingual 0.4 mg sublingual UD PRN Chest 07/28/21 02/04/25 Rx tablet (Nitrostat) Pain #25 tabs BD Ultra-Fine Marah Pen Needle 32 #400 ea 12/13/23 12/19/24 Rx gauge x 5/32" (pen needle, diabetic) famotidine 40 mg tablet 40 mg PO QPM 01/27/24 02/04/25 History gabapentin 300 mg capsule 600 mg (2 x 300 mg) PO QID #720 03/20/24 02/04/25 Rx caps blood-glucose sensor (Dexcom G7 #9 ea 06/20/24 12/19/24 Rx Sensor device) aspirin 81 mg tablet,delayed 81 mg PO QPM 06/26/24 02/04/25 History release atorvastatin 40 mg tablet 40 mg PO HS 06/26/24 02/04/25 History metoprolol succinate 25 mg 25 mg PO QAM 06/26/24 02/04/25 History tablet,extended release 24 hr insulin lispro 100 unit/mL See Rx Instructions .Route 10/02/24 02/04/25 Rx subcutaneous pen (Humalog KwikPen .COMPLEX #45 mL (U-100) Insulin) duloxetine 30 mg capsule,delayed 30 mg PO HS 11/24/24 02/04/25 History release insulin glargine 100 unit/mL (3 13 unit (0.13 mL) subcut HS #15 mL 01/22/25 02/04/25 Rx mL) subcutaneous pen (Lantus Solostar U-100 Insulin) Patient History Medical History (Updated 02/05/25 @ 11:58 by Lucio Tadeo PA-C) Slow transit constipation CVA (cerebral vascular accident) DVT prophylaxis Muscle cramps Iron deficiency Osteoarthritis GERD (gastroesophageal reflux disease) Hearing deficit Depression Transient ischemic attack (TIA) 5 YEARS AGO - NO ISSUES SINCE - FOLLOWS W/ DR. SUTHERLAND Hyperlipidemia Surgical History History of right hip replacement (~03/2020) S/P laparoscopic hysterectomy with BSO History of cholecystectomy History of laminectomy LUMBAR History of cardiac cath 06/2016 - [facility] - INCREASED SOB, ABN STRESS TEST - 1 STENT PLACED - FOLLOWS W/ DR. BULLOCK. 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 Alert. Answering questions appropriately. Respiratory: Breathing is even, non-labored. Lungs costello are clear to auscultation anteriorly. Cardiovascular: Regular Rate and Rhythm, no murmurs, rubs or gallops appreciated. Gastrointestinal (Abdomen): Normoactive bowel sounds x4, soft, non-distended, non-tender. Musculoskeletal: Lying in bed comfortably. No peripheral edema. Results & Data Vital Signs (Past 12 Hours) Vital Signs Temp Pulse Resp BP Pulse Ox O2 Del Method 02/05/25 07:30 97.9 F 74 16 106/58 L 92 Room Air PG Care Time/CCT Total # of Minutes Spent Total Time Spent with Patient: Total time spent is greater than 50% in coordination of care (as documented) at patient's floor/unit and/or counseling patient: Coding Level of Care Code 47769 IN/OBS CONSULT LVL 3,45M Diagnoses Slow transit constipation K59.01
[2025-02-05] MEDS: POLYETHYLENE (MIRALAX) 17 GM PACK PO STA (11:50)
[2025-02-05] MEDS ORDERED: ATORVASTATIN 40 MG TAB PO SCH (21:00)
[2025-02-05] MEDS ORDERED: ASPIRIN 81 MG ECTAB PO SCH (21:00)
[2025-02-05] MEDS ORDERED: FAMOTIDINE 40 MG TABLET PO SCH (21:00)
--- NOTE | 2025-02-07 06:04 | Electrocardiogram Report ---
Test Reason : Blood Pressure : */* mmHG Vent. Rate : 70 BPM Atrial Rate : 70 BPM P-R Int : 116 ms QRS Dur : 80 ms QT Int : 420 ms P-R-T Axes : 71 27 46 degrees QTcB Int : 453 ms Normal sinus rhythm Normal ECG When compared with ECG of 25-Nov-2024 13:07, No significant change Confirmed by Galo Farley ([id number]) on 02/07/2025 6:04:14 AM Referred By: Confirmed By: Galo Farley
== END 2025-02-05 14:49 | disposition home or self-care (01) ==
LOC: ED 17:53 → 3N 17:53 → SUATTDRO 21:30 → 3N 22:25